=== PATIENT | female | born 1950 | race Caucasian/White ===

== ENCOUNTER → 2016-07-23 | Outpatient (CLI) | payer MEDICARE, OTHER ==
[2016-07-23 11:22] LABS: Basophils # (A) 0.1 k/uL (0-0.2); Basophils % (A) 1 %; CH 30.3; CHCM 32.7; Eosinophils # (A) 0.5 k/uL (0-0.7); Eosinophils % (A) 8 %; HCT 45.3 % (34.0-46.0); HGB 14.6 gm/dL (11.4-16.0); Luc # (Auto) 0.13; Luc % (Auto) 2; Lymphocytes # (A) 1.7 k/uL (1.0-4.8); Lymphocytes % (A) 30 %; MCHC 32.3 g/dL (31.0-37.0); Mean Platelet Volume 5.9; Monocytes # (A) 0.3 k/uL (0-1.0); Monocytes % (A) 5 %; Neutrophils # (A) 3.1 k/uL (1.3-7.7); Neutrophils % (A) 54 %; RBC 4.87 m/uL (3.80-5.40); RDW 12.1 % (11.5-15.5); WBC 5.8 k/uL (3.8-10.6); WBC (Perox) 5.98
[2016-07-23 11:39] LABS: ALT 29 U/L (9-52); AST 26 U/L (14-36); Alkaline Phosphatase 95 U/L (38-126); Anion Gap 11 mmol/L; Blood Urea Nitrogen 13 mg/dL (7-17); Calcium 9.4 mg/dL (8.4-10.2); Carbon Dioxide 31 mmol/L (22-30); Chloride 102 mmol/L (98-107); Cholesterol 179 mg/dL (<200); Glucose 89 mg/dL (74-99); HDL Cholesterol 92 mg/dL (40-60); Non-African American GFR(MDRD) >60 (>60 ml/min/1.73 sqM); Potassium 4.4 mmol/L (3.5-5.1); Sodium 144 mmol/L (137-145); Total Bilirubin 0.5 mg/dL (0.2-1.3); Total Protein 7.1 g/dL (6.3-8.2); Triglycerides 73 mg/dL (<150)
== END | disposition home or self-care (01) ==
LOC: LABWHC1 10:33
PROVIDERS: ATTEND Internal Medicine
DX: E78.5 Hyperlipidemia, unspecified (principal)
CPT/HCPCS: 36415; 80053; 80061; 84439; 84443; 85025

== ENCOUNTER → 2016-07-23 | Outpatient (CLI) | payer MEDICARE, OTHER ==
--- NOTE | 2016-07-24 09:51 | MM ---
Reason for exam: screening (asymptomatic). History: Patient is postmenopausal. Took estrogen for 2 years beginning at age 53. Physical Findings: A clinical breast exam by your physician is recommended on an annual basis and results should be correlated with mammographic findings. MG 3D Screening Mammo W/Cad Bilateral CC and MLO view(s) were taken. No prior studies available for comparison. The breast tissue is heterogeneously dense. This may lower the sensitivity of mammography. There is no discrete abnormality. ASSESSMENT: Benign, BI-RAD 2 RECOMMENDATION: Routine screening mammogram of both breasts in 1 year.
== END | disposition home or self-care (01) ==
LOC: RADMAMWWP 11:10
PROVIDERS: ATTEND Family Medicine
DX: Z12.31 Encounter for screening mammogram for malignant neoplasm of breast (principal)
CPT/HCPCS: 77063; G0202

== ENCOUNTER → 2017-01-07 | Outpatient (CLI) | payer MEDICARE, OTHER ==
--- NOTE | 2017-01-07 09:14 | MR ---
EXAMINATION TYPE: MR lumbar spine wo con DATE OF EXAM: 01/07/2017 COMPARISON: MRI lumbar spine 04-17-2005. HISTORY: other forms of scoliosis lsp intervertebral disc. Right leg weakness for 3 months per patie nt. TECHNIQUE: Multiplanar, multisequence imaging of the lumbar spine is performed without IV contrast. FINDINGS: Survey images shows scoliosis dextroconvex near thoracolumbar junction and levoconvex in th e mid to lower lumbar spine. Sagittal images of the lumbar spine show vertebral body heights to appea r satisfactory. There is straightening of lumbar spine on sagittal images redemonstrated. Multilevel disc desiccation is seen. There is moderate disc space narrowing L4-L5 level. There is mild to modera te disc space narrowing L3-L4 level. No large posterior disc herniations are seen on sagittal images. The conus medullaris remains normal in position and signal ending at inferior L1 level. The bone ma rrow signal intensity is within normal limits. No significant spurring is seen. Axial images show the T12-L1 and L1-L2 levels to appear within normal limits. Axial images at L2-L3 level show mild to moderate facet arthropathy and ligamentum flavum hypertrophy effacing posterior lateral thecal sac on axial image 18. Bilateral neural foramina remain patent. No significant change from prior study is identified. Axial images at L3-L4 level show mild broad disc bulge with left lateral disc protrusion component mi ldly effacing anterior thecal sac. There is mild/moderate facet degenerative changes and ligamentum f lavum hypertrophy. There is mild bilateral anterior inferior neural foraminal narrowing identified. Axial images at L4-L5 level show mild facet degenerative changes bilaterally. There is mild broad dis c bulge seen. There is mild effacement of anterior thecal sac noted. Mild right and mild to moderate left-sided neural foraminal narrowing is present. Axial images at L5-S1 level show mild/moderate facet degenerative changes bilaterally. Bilateral neur al foramina are patent. Spinal canal is preserved. There is moderate generalized atrophy of the posterior paraspinal muscle bilaterally most pronounced inferiorly. IMPRESSION: Scoliosis and loss of normal lumbar lordosis redemonstrated. Multilevel degenerative franco ges are seen in mid to lower lumbar spine as detailed above.
== END | disposition home or self-care (01) ==
LOC: RADMRIMAIN 07:47
PROVIDERS: ATTEND Physical Medicine & Rehabilitation
DX: M47.817 Spondylosis without myelopathy or radiculopathy, lumbosacral region (principal); M41.86 Other forms of scoliosis, lumbar region
CPT/HCPCS: 72148

== ENCOUNTER → 2017-02-28 | Outpatient (CLI) | payer MEDICARE, OTHER ==
[2017-02-28 07:09] LABS: Blood Urea Nitrogen 15 mg/dL (7-17); Non-African American GFR(MDRD) >60 (>60 ml/min/1.73 sqM)
--- NOTE | 2017-02-28 10:41 | MR ---
EXAMINATION TYPE: MR lumbar spine wo/w con DATE OF EXAM: 02/28/2017 COMPARISON: NONE HISTORY: Disc Degeneration,Lumbar Region TECHNIQUE: Multiplanar, multisequence images of the lumbar spine were acquired utilizing 9 mL intravenous MultiH ance gadolinium contrast. L1-L2: Normal disc appearance without desiccation. No herniation, protrusion or disc bulging. No ca nal stenosis is present. Foramina are patent bilaterally. L2-L3: Normal disc appearance without desiccation. No herniation, protrusion or disc bulging. Ligame ntum flavum buckling, left greater than right, creates mild spinal canal stenosis. Foramina are bhardwaj nt bilaterally. L3-L4: Left eccentric disc bulge in combination with ligamentum flavum buckling and facet arthropathy creating moderate left neural foraminal narrowing and mild right neural foraminal narrowing as well as mild spinal canal stenosis. L4-L5: A broad-based disc bulge, ligamentum flavum buckling, and facet hypertrophy great mild bilater al neural foraminal narrowing and mild spinal canal stenosis. L5-S1: Right foraminal disc protrusion in combination with facet arthropathy and ligamentum flavum bu ckling create severe right neural foraminal narrowing and mild left neural foraminal narrowing. Lumbar segments are intact. No paraspinal masses are identified. Conus medullaris has a normal appe arance. No abnormal enhancement. IMPRESSION: 1. Right foraminal disc herniation in combination with facet arthropathy creates severe right neural foraminal stenosis. 2. Multilevel degenerative disc disease and ligamentum flavum buckling resulting mild spinal canal st enosis from L2 through L5.
== END | disposition home or self-care (01) ==
LOC: RADMRIMAIN 06:39
PROVIDERS: ATTEND Physical Medicine & Rehabilitation
DX: M48.06 Spinal stenosis, lumbar region (principal); M99.73 Connective tissue and disc stenosis of intervertebral foramina of lumbar region; M51.36 Other intervertebral disc degeneration, lumbar region; M51.26 Other intervertebral disc displacement, lumbar region; M12.88 Other specific arthropathies, not elsewhere classified, other specified site; M70.62 Trochanteric bursitis, left hip
CPT/HCPCS: 82565; 84520; 72158; A9577

== ENCOUNTER → 2017-06-05 | Outpatient (CLI) | payer MEDICARE, OTHER ==
[2017-06-05 13:07] LABS: EKG EKG PERFORMED
[2017-06-05 13:48] LABS: Basophils # (A) 0.1 k/uL (0-0.2); Basophils % (A) 1 %; CH 30.5; CHCM 32.2; Eosinophils # (A) 0.2 k/uL (0-0.7); Eosinophils % (A) 3 %; HCT 43.7 % (34.0-46.0); HDW 2.55; HGB 14.1 gm/dL (11.4-16.0); Luc # (Auto) 0.11; Luc % (Auto) 2; Lymphocytes # (A) 1.7 k/uL (1.0-4.8); Lymphocytes % (A) 31 %; MCH 30.6 pg (25.0-35.0); MCHC 32.2 g/dL (31.0-37.0); MCV 95.1 fL (80.0-100.0); Mean Platelet Volume 6.8; Monocytes # (A) 0.3 k/uL (0-1.0); Monocytes % (A) 6 %; Neutrophils # (A) 3.2 k/uL (1.3-7.7); Neutrophils % (A) 58 %; RBC 4.59 m/uL (3.80-5.40); RDW 13.9 % (11.5-15.5); WBC 5.6 k/uL (3.8-10.6); WBC (Perox) 5.95
[2017-06-05 13:49] LABS: Appearance,Urine Clear (Clear); Bilirubin,Urine Negative (Negative); Glucose,Urine (UA) Negative (Negative); Ketones,Urine Negative (Negative); Leukocyte Esterase,Urine Negative (Negative); Nitrite,Urine Negative (Negative); Protein,Urine Negative (Negative); Specific Gravity,Urine 1.005 (1.001-1.035); UA Billing (MACRO vs. MICRO) CHEM; Urobilinogen,Urine <2.0 mg/dL (<2.0)
--- NOTE | 2017-06-05 13:54 | XR ---
EXAMINATION TYPE: XR chest 2V DATE OF EXAM: 06/05/2017 COMPARISON: 04/09/2017 and 04/23/2017. HISTORY: Prehip fusion surgery. History of stent. TECHNIQUE: Frontal and lateral views of the chest are obtained. FINDINGS: There is no focal air space opacity, pleural effusion, or pneumothorax seen. Stent appears to be located within the bronchus intermedius, seen on the priors. Redemonstration of marked dextros coliotic rotatory curvature of the thoracic spine is present with partial visualization of a cervical fusion device. Surgical anchor is seen of the left humeral head from prior rotator cuff repair. The cardiac silhouette size is within normal limits. The osseous structures are intact. IMPRESSION: No acute cardiopulmonary process.
[2017-06-05 14:13] LABS: Partial Thromboplastin Time 23.2 sec (22.0-30.0); Prothrombin Time 10.3 sec (9.0-12.0)
[2017-06-05 14:16] LABS: Anion Gap 7 mmol/L; Blood Urea Nitrogen 9 mg/dL (7-17); Calcium 9.6 mg/dL (8.4-10.2); Carbon Dioxide 27 mmol/L (22-30); Chloride 105 mmol/L (98-107); Glucose 80 mg/dL (74-99); Non-African American GFR(MDRD) >60 (>60 ml/min/1.73 sqM); Potassium 4.4 mmol/L (3.5-5.1); Sodium 139 mmol/L (137-145)
== END | disposition home or self-care (01) ==
LOC: LABPAT 12:38
PROVIDERS: ATTEND Orthopaedic Surgery Orthopaedic Surgery of the Spine
DX: Z01.810 Encounter for preprocedural cardiovascular examination (principal); M43.16 Spondylolisthesis, lumbar region; M41.9 Scoliosis, unspecified; M48.00 Spinal stenosis, site unspecified; R94.31 Abnormal electrocardiogram [ECG] [EKG]; Z01.818 Encounter for other preprocedural examination; Z79.01 Long term (current) use of anticoagulants
CPT/HCPCS: 36415; 71020; 80048; 81003; 85025; 85610; 85730; 93005

== ENCOUNTER → 2017-06-07 | Outpatient (CLI) | payer MEDICARE, OTHER | LOC: LABWHC1 08:22 | PROVIDERS: ATTEND Orthopaedic Surgery Orthopaedic Surgery of the Spine | DX: Z01.818 Encounter for other preprocedural examination (principal); Z79.01 Long term (current) use of anticoagulants | CPT/HCPCS: 86850; 86900; 86901 ==

== ENCOUNTER → 2017-08-08 | Outpatient (CLI) | payer MEDICARE, OTHER ==
[2017-08-08 11:53] LABS: MCV 92.6 fL (80.0-100.0)
[2017-08-08 12:00] LABS: Basophils # (A) 0.1 k/uL (0-0.2); Basophils % (A) 1 %; Eosinophils # (A) 0.4 k/uL (0-0.7); Eosinophils % (A) 7 %; HCT 41.5 % (34.0-46.0); Lymphocytes # (A) 1.9 k/uL (1.0-4.8); Lymphocytes % (A) 30 %; MCH 29.5 pg (25.0-35.0); MCHC 31.9 g/dL (31.0-37.0); Mean Platelet Volume 7.1; Monocytes # (A) 0.3 k/uL (0-1.0); Monocytes % (A) 4 %; Neutrophils # (A) 3.4 k/uL (1.3-7.7); Neutrophils % (A) 56 %; Platelet Count 252 k/uL (150-450); RBC 4.49 m/uL (3.80-5.40); WBC 6.2 k/uL (3.8-10.6)
[2017-08-08 12:04] LABS: HGB 13.3 gm/dL (11.4-16.0)
[2017-08-08 13:26] LABS: Erythrocyte Sedimentation Rate 11 mm/hr (0-20)
== END | disposition home or self-care (01) ==
LOC: LABWHC1 11:39
PROVIDERS: ATTEND Orthopaedic Surgery
DX: M25.562 Pain in left knee (principal)
CPT/HCPCS: 36415; 85025; 85652; 86140

== ENCOUNTER → 2017-08-14 | Outpatient (CLI) | payer MEDICARE, OTHER ==
--- NOTE | 2017-08-15 11:54 | NM ---
EXAMINATION TYPE: NM bone/joint limited DATE OF EXAM: 08/15/2017 COMPARISON: NONE HISTORY: Left knee pain per order. Personal history of traumatic left femoral fracture 2015 with surg tang and left knee arthroplasty surgery 2013. Left knee pain and swelling for years per patient. TECHNIQUE: After the intravenous administration of 25.9 mCi Tc 99m MDP. Images acquired 3 hours pos t injection. Multiple views of bilateral knees are submitted in various projections. Findings: There is central lucency in left knee from known prosthesis. Surrounding mild to moderate p eriprosthetic uptake is present with relative sparing of the proximal tibial portion. Mild diffuse up take at level of right knee joint with varus positioning is present product of moderate to advanced d egenerative change. Left knee findings are nonspecific. Findings could be postsurgical. In appropriate clinical setting d iffuse uptake could reflect product of infection. Correlate clinically and consider correlation with tagged white blood cell study. IMPRESSION: As above
== END | disposition home or self-care (01) ==
LOC: RADNMMAIN 10:09
PROVIDERS: ATTEND Orthopaedic Surgery
DX: M25.562 Pain in left knee (principal); Z96.652 Presence of left artificial knee joint; Z87.81 Personal history of (healed) traumatic fracture
CPT/HCPCS: 78300; A9503

== ENCOUNTER → 2018-05-04 | Outpatient (CLI) | payer MEDICARE, OTHER ==
[2018-05-04 11:04] LABS: Basophils # (A) 0.1 k/uL (0-0.2); Basophils % (A) 1 %; Eosinophils # (A) 0.2 k/uL (0-0.7); Eosinophils % (A) 3 %; HCT 41.3 % (34.0-46.0); HGB 13.6 gm/dL (11.4-16.0); Lymphocytes # (A) 1.4 k/uL (1.0-4.8); Lymphocytes % (A) 18 %; MCV 93.8 fL (80.0-100.0); Mean Platelet Volume 6.3; Monocytes # (A) 0.4 k/uL (0-1.0); Monocytes % (A) 5 %; Neutrophils # (A) 5.4 k/uL (1.3-7.7); Neutrophils % (A) 72 %; Platelet Count 256 k/uL (150-450); RDW 12.2 % (11.5-15.5); WBC 7.5 k/uL (3.8-10.6)
[2018-05-04 11:29] LABS: T4, Free (Free Thyroxine) 1.16 ng/dL (0.78-2.19)
[2018-05-04 11:31] LABS: Albumin 3.8 g/dL (3.5-5.0); Calcium 9.5 mg/dL (8.4-10.2); Potassium 4.4 mmol/L (3.5-5.1); Total Bilirubin 0.4 mg/dL (0.2-1.3); Total Protein 6.7 g/dL (6.3-8.2)
== END | disposition home or self-care (01) ==
LOC: LABT 10:10
PROVIDERS: ATTEND Internal Medicine
DX: Z00.00 Encounter for general adult medical examination without abnormal findings (principal); E78.5 Hyperlipidemia, unspecified; J45.20 Mild intermittent asthma, uncomplicated; M41.9 Scoliosis, unspecified; J98.09 Other diseases of bronchus, not elsewhere classified
CPT/HCPCS: 80053; 80061; 84439; 84443; 85025

== ENCOUNTER → 2018-10-22 | Outpatient (CLI) | payer MEDICARE, OTHER ==
--- NOTE | 2018-10-22 18:52 | ECHOF ---
Referral Reason:R06.00, Dyspnea, R09.02 Hypoxemia MEASUREMENTS -------- HEIGHT: 157.5 cm WEIGHT: 46.7 kg BP: RVIDd: 1.8 cm (< 3.3) IVSd: 0.9 cm (0.6 - 1.1) LVIDd: 3.8 cm (3.9 - 5.3) LVPWd: 1.0 cm (0.6 - 1.1) IVSs: 1.1 cm LVIDs: 3.0 cm LVPWs: 1.3 cm LAESV Index (A-L): 15.27 ml/m Ao Diam: 2.5 cm (2.0 - 3.7) AV Cusp: 1.6 cm (1.5 - 2.6) LA Diam: 2.1 cm (2.7 - 3.8) EPSS: 1.1 cm MV E Pato: 0.50 m/s MV DecT: 160 ms MV A Pato: 0.62 m/s MV E/A Ratio: 0.81 RAP: 5.00 mmHg RVSP: 24.86 mmHg MV EF SLOPE: 108.21 mm/s (70 - 150) MV EXCURSION: 2.05 cm (> 18.000) FINDINGS -------- Sinus rhythm. This was a technically adequate study. The left ventricular size is normal. Left ventricular wall thickness is normal. Overall left vent ricular systolic function is low-normal with, an EF between 50 - 55 %. The right ventricle is normal in size and function. Normal LA size by volume 22+/-6 ml/m2. The right atrium is normal in size. Aortic valve is trileaflet and is mildly thickened. There is no evidence of aortic regurgitation. There is no evidence of aortic stenosis. The mitral valve leaflets are mildly thickened. There is trace mitral regurgitation. Trace tricuspid regurgitation present. Right ventricular systolic pressure is normal at < 35 mmHg. There is no evidence of pulmonary hypertension. The pulmonic valve was not well visualized. The aortic root size is normal. Normal inferior vena cava with normal inspiratory collapse consistent with estimated right atrial pre ssure of 5 mmHg. There is no pericardial effusion. CONCLUSIONS -------- 1. Sinus rhythm. 2. This was a technically adequate study. 3. The left ventricular size is normal. 4. Left ventricular wall thickness is normal. 5. Overall left ventricular systolic function is low-normal with, an EF between 50 - 55 %. 6. Normal LA size by volume 22+/-6 ml/m2. 7. Aortic valve is trileaflet and is mildly thickened. 8. The mitral valve leaflets are mildly thickened. 9. There is trace mitral regurgitation. 10. Trace tricuspid regurgitation present. 11. Right ventricular systolic pressure is normal at < 35 mmHg. 12. There is no evidence of pulmonary hypertension. 13. The pulmonic valve was not well visualized. 14. The aortic root size is normal. 15. There is no pericardial effusion. CAMP DISHWASHER: Michael Higgins RDCS
== END | disposition home or self-care (01) ==
LOC: RADECHMAIN 13:07
PROVIDERS: ATTEND Family Medicine
DX: R93.1 Abnormal findings on diagnostic imaging of heart and coronary circulation (principal); R06.00 Dyspnea, unspecified; R09.02 Hypoxemia
CPT/HCPCS: 93306

== ENCOUNTER → 2019-04-06 | Outpatient (CLI) | payer MEDICARE, OTHER ==
--- NOTE | 2019-04-06 21:03 | CONS ---
CONSULTATION This is a 69-year-old female patient with severe kyphoscoliosis of the thoracic spine with secondary restrictive lung disease. She was recently found to have some nocturnal oxygen desaturation with low pulse ox, based on a nocturnal oximetry analysis that was done through her primary care physician. For that reason, she was referred to the sleep center to undergo further investigation. The patient has a room-air pulse ox of 95% at rest. She weighs around 101 pounds. She is a lifetime non-smoker. No history of alcoholism. No history of IV drugs. She has restrictive lung disease and she has had previous right lower lobe atelectasis due to severe kyphoscoliosis and she had an endobronchial stent placed many years back. She has hyperlipidemia and history of chronic depression. She does not take any form of narcotics. She is on a combination of Neurontin and Effexor for now. Denies snoring. She wakes up tired during the day and she feels tired and sleepy. She goes to bed around 10 p.m., wakes up at 4 a.m. in the morning. No reported witnessed apneas. Denies waking up in the middle of the night gasping or choking. Her current Sar[place] score is 22. She sleeps on her back. She drinks 4 cups of coffee during the day. No recent weight gain. No sleep paralysis, hallucinations or cataplexy. PAST MEDICAL HISTORY: 1. Severe kyphoscoliosis of the thoracic spine. 2. Restrictive lung disease. 3. Hyperlipidemia. 4. History of chronic depression. PAST SURGICAL HISTORY: 1. Multiple back surgeries on the thoracic and the lumbar spine. Thoracic spine was done to correct the kyphoscoliosis. 2. She has also had lumbar spine fusion. 3. Trigger finger surgery. 4. Left total knee replacement. 5. Small-bowel obstruction with lysis of adhesions. 6. Rotator cuff surgery on both shoulders. 7. Cervical spine fusion. 8. Insertion of endobronchial stenting in 1997. 9. Previous history of hysterectomy. DRUG ALLERGIES: 1. IV DYE. 2. MARCAINE. 3. BACTRIM/SULFA. SOCIAL HISTORY: The patient is a nonsmoker. No history of alcoholism. No history of IV drugs. FAMILY HISTORY: Positive for lung cancer in mother and father. Both . REVIEW OF SYSTEMS: Fourteen-point review of systems was done. Positive for fatigue and tiredness. Sar[place]ota score is 22. She has history of anxiety and depression. She is also claustrophobic. No choking or gasping for air. No restlessness in the lower extremities. No sleepwalking or sleeptalking. No grinding of the teeth. No dry mouth. No palpitation. No heartburn. No chest pain or shortness of breath. She has some chronic exertional dyspnea, yet no shortness of breath or waking up dyspneic in the middle of the night or any reported paroxysmal nocturnal dyspnea. No cough or sputum production. No chest pain. PHYSICAL EXAMINATION: VITAL SIGNS: BP is 116/65, pulse 82, respirations 16, temperature 97.9, saturation 95% on room air. Height is 5 feet 1 inch. Weight is 101 pounds. Sarasota score is 22. BMI is 18.7. Neck size 12 inches. GENERAL APPEARANCE: Calm, comfortable. HEAD: Atraumatic, normocephalic. NECK: Supple. No JVD. No goiter or neck masses. Mallampati class III. LUNGS: Severe kyphoscoliosis of the spine involving the thoracolumbar area. The patient has significant deformities of the thoracic cage related to the kyphoscoliosis and diminished breath sounds in the mid and lower lung pagan bilaterally. HEART: Heart sounds are regular rate and rhythm. Normal S1, S2. No S3, S4. No murmurs. ABDOMEN: Soft, nontender. No organomegaly. EXTREMITIES: No edema. No cyanosis or clubbing. NEUROLOGIC: She is awake, alert, and there is no focal neurological deficit. PSYCHIATRIC: Positive for anxiety, claustrophobia and depression. SKIN: Negative for any wounds or ulceration. IMPRESSION: 1. Nocturnal oxygen desaturation as confirmed by recent nocturnal oximeter analysis. 2. Severe kyphoscoliosis of the thoracolumbar spine. 3. Restrictive lung disease secondary to kyphoscoliosis. 4. Chronic exertional dyspnea secondary to above. 5. Hyperlipidemia. 6. History of depression. 7. History of claustrophobia. PLAN: The patient's nocturnal oxygen desaturation is most likely resulting from underlying restrictive lung disease, and this is an extrapulmonary restriction due to severe kyphoscoliosis of the spine. While awake, her room-air pulse ox is 95%. I am sure that she is desaturating at night time; this has been confirmed by nocturnal oxygen analysis. This is most likely alveolar hyp ventilation that has gotten worse during sleep, especially with her underlying extrapulmonary restriction. Her Sar[place] score is 22. Rule out underlying sleep breathing disorder. Will do a polysomnogram to rule out other possibilities. Will decide accordingly if the patient will be needing only oxygen versus a respiratory assistive device that can be used overnight such as an AVAPS machine. A final recommendation will be made after completing the polysomnogram. MMROCIO / IJN: [id number] /
== END | disposition home or self-care (01) ==
LOC: SLEEP 14:52
PROVIDERS: ATTEND Internal Medicine Critical Care Medicine
DX: R09.02 Hypoxemia (principal); R06.09 Other forms of dyspnea; M41.85 Other forms of scoliosis, thoracolumbar region; J98.4 Other disorders of lung; E78.5 Hyperlipidemia, unspecified; Z86.59 Personal history of other mental and behavioral disorders; Z87.898 Personal history of other specified conditions; Z98.1 Arthrodesis status; Z96.652 Presence of left artificial knee joint; Z90.710 Acquired absence of both cervix and uterus; Z96.89 Presence of other specified functional implants; Z98.890 Other specified postprocedural states; Z88.2 Allergy status to sulfonamides; Z88.4 Allergy status to anesthetic agent
CPT/HCPCS: 99211

== ENCOUNTER → 2019-07-06 | Outpatient (CLI) | payer MEDICARE, OTHER ==
--- NOTE | 2019-07-06 18:40 | PN ---
PROGRESS NOTE Tyra is coming in for a compliancy check regarding obstructive sleep apnea. This patient is 69, and she has severe kyphoscoliosis of the thoracolumbar spine and restrictive lung disease. In addition to obstructive sleep apnea with an AHI of 33.7. She is utilizing her CPAP and she is very much excited about a clinical response. Feels much better. Much more alert and awake during the day. She was started on CPAP pressure of 7 cm of water. She is using a DreamWear under the nose. She is requesting to explore other mask options. Based on the compliance data, the patient has been averaging around 8.5 hours of CPAP use per night with a leak of 6 L per minute. AHI is down to 2.2 while on treatment. Her CPAP use for more than 4 hours is above 80%. For the most part, the patient has done extremely well and she has no specific complaints for now. REVIEW OF SYSTEMS: Fourteen-point review of system was done. Positive findings are mentioned history of present illness. Chatsworth score is down to 10. No shortness of breath, chest pain or heartburn while on CPAP therapy. PHYSICAL EXAMINATION: VITAL SIGNS: BP is 134/69, pulse 76, respirations 16, weight is 101. Temperature 97.7. Chatsworth score is down to 10 and saturation 96% on room air. GENERAL APPEARANCE: Calm, comfortable. Head is atraumatic, normocephalic. NECK: Supple. No JVD. No goiter or neck mass. LUNGS: Clear to auscultation. HEART: Sounds are regular rate and rhythm. Normal S1, S2. No S3, S4. No murmurs. ABDOMEN: Soft, nontender. No organomegaly. EXTREMITIES: No edema. No cyanosis or clubbing. IMPRESSION: 1. Symptomatic obstructive sleep apnea AHI of 33, currently on CPAP pressure of 7 with excellent response and compliancy. 2. Severe kyphoscoliosis of the thoracolumbar spine. 3. Severe nocturnal oxygen desaturation improved with CPAP therapy. 4. Restrictive lung disease secondary to kyphoscoliosis. 5. Hyperlipidemia. 6. History of depression. PLAN: 1. Proceed with CPAP therapy at a pressure of 77. 2. Offer the patient an AirFit N20 nose mask small size for her. 3. The compliance data looks great. The patient doing well. See me back in a year's time in followup, earlier if needed. MMODL / IJN: [id number] /
== END | disposition home or self-care (01) ==
LOC: SLEEP 16:22
PROVIDERS: ATTEND Internal Medicine Critical Care Medicine
DX: G47.33 Obstructive sleep apnea (adult) (pediatric) (principal); M41.85 Other forms of scoliosis, thoracolumbar region; J98.4 Other disorders of lung; E78.5 Hyperlipidemia, unspecified; Z86.59 Personal history of other mental and behavioral disorders; Z99.89 Dependence on other enabling machines and devices

== ENCOUNTER → 2019-07-12 | Outpatient (CLI) | payer MEDICARE, OTHER ==
[2019-07-12 09:42] LABS: Basophils % (A) 0 %; Eosinophils # (A) 0.1 k/uL (0-0.7); Eosinophils % (A) 4 %; HCT 38.8 % (34.0-46.0); HGB 12.5 gm/dL (11.4-16.0); Lymphocytes # (A) 1.1 k/uL (1.0-4.8); Lymphocytes % (A) 27 %; MCH 30.2 pg (25.0-35.0); MCHC 32.1 g/dL (31.0-37.0); MCV 94.1 fL (80.0-100.0); Mean Platelet Volume 6.7; Monocytes # (A) 0.2 k/uL (0-1.0); Monocytes % (A) 6 %; Neutrophils # (A) 2.4 k/uL (1.3-7.7); Neutrophils % (A) 61 %; Platelet Count 214 k/uL (150-450); RBC 4.13 m/uL (3.80-5.40); RDW 11.9 % (11.5-15.5)
[2019-07-12 17:02] LABS: Albumin/Globulin Ratio 2.35 (1.60-3.17); Anion Gap 5.1 mmol/L (4.00-12.00); BUN/Creat Ratio 17.5 Ratio (12.00-20.00); Calcium 8.9 mg/dL (8.7-10.3); Carbon Dioxide 29.9 mmol/L (21.6-31.8); Chol/HDL Ratio 1.99; Globulin 1.7 g/dL (1.6-3.3); LDL Cholesterol,Calculated 53.6 mg/dL (0.0-131.0); Non-African American GFR(CKD) 74.2 (60.0-200.0); Potassium 4.4 mmol/L (3.5-5.5); Total Bilirubin 0.2 mg/dL (0.2-1.2); Total Protein 5.7 g/dL (6.2-8.2); VLDL Calculation 16.4 mg/dL (5.00-40.00)
== END | disposition home or self-care (01) ==
LOC: LABWHC1 08:57
PROVIDERS: ATTEND Internal Medicine
DX: Z00.00 Encounter for general adult medical examination without abnormal findings (principal); E78.5 Hyperlipidemia, unspecified
CPT/HCPCS: 36415; 80053; 80061; 84439; 84443; 85025

== ENCOUNTER → 2019-08-10 | Outpatient (CLI) | payer MEDICARE, OTHER ==
--- NOTE | 2019-08-10 18:20 | PN ---
PROGRESS NOTE Tyra is coming in for a short-term re-evaluation regarding obstructive sleep apnea. I saw her for a compliance check back in June of 2019, and treatment was successful. Since then, her numbers have gotten slightly worse. The exact reason is not clear. She is having social stressors and conflicts with her that are making her quite tired and sleepy during the day. I also noted a drop in her compliancy, where her average CPAP use has dropped to 6.6 hours per night, and her CPAP use for more than 4 hours is 19/30 over the past 30 days. She used to be way better than this. Her leak is 5 L/minute and her AHI is down to 2.2. I think her increased sleepiness is essentially related to her drop in compliancy as recorded on the compliance data on today's evaluation. Her current Ketchum score is 18. No significant shortness of breath or chest pain, according to her. She has severe kyphoscoliosis of the thoracic spine along with restrictive lung disease and she has chronic depression. PHYSICAL EXAMINATION: VITAL SIGNS: BP is 132/76, pulse 82, respirations 16, temperature 97.7, saturation 96% on room air. GENERAL APPEARANCE: Calm, comfortable. HEAD: Atraumatic, normocephalic. NECK: Supple. No JVD. No goiter or neck masses. LUNGS: Thoracic kyphoscoliosis. HEART: Heart sounds are regular rate and rhythm. Normal S1, S2. No S3, S4. No murmurs. ABDOMEN: Soft, nontender. No organomegaly. EXTREMITIES: No edema. No cyanosis or clubbing. IMPRESSION: 1. Obstructive sleep apnea, severe, with apnea/hypopnea index of 33. 2. Severe kyphoscoliosis. 3. Hypersomnia, probably related to suboptimal CPAP use. 4. Severe nocturnal oxygen desaturation, improved with CPAP therapy. 5. Restrictive lung disease secondary to kyphoscoliosis. 6. Hyperlipidemia. 7. History of depression. PLAN: I think the patient's increased fatigue and sleepiness are related to depression and partly related to suboptimal compliance with her CPAP therapy. Increase the CPAP use an average of 7-8 hours per night and try to achieve more than 4 hours 100% of the time. AHI is down to 2.2. Machine was checked. Mask interface was checked. Treatment is successful. Follow up with Dr. Young regarding shortness of breath. May need further counseling for possibility of depression. MMODL / IJN: [id number] /
== END | disposition home or self-care (01) ==
LOC: SLEEP 15:01
PROVIDERS: ATTEND Internal Medicine Critical Care Medicine
DX: G47.33 Obstructive sleep apnea (adult) (pediatric) (principal); M41.9 Scoliosis, unspecified; J98.4 Other disorders of lung; E78.5 Hyperlipidemia, unspecified; Z86.59 Personal history of other mental and behavioral disorders

== ENCOUNTER → 2020-07-04 | Outpatient (CLI) | payer MEDICARE, OTHER ==
--- NOTE | 2020-07-04 20:32 | PN ---
PROGRESS NOTE PROGRESS NOTE: This patient is coming to see me for an annual check regarding FEDERICO. She is 70, known to have chronic depression along with severe COPD with an AHI of 33. During her earlier evaluation, she was still having somnolence and sleepiness despite being on CPAP. The patient was also started on modafinil. She is doing well. She is utilizing her machine at a pressure of 7 cm of water. She has been averaging about 8 hours of CPAP use per night. Her compliancy for more than 4 hours is above 90%. Leak is 6 L while using the AirFit N20 small-sized nose mask, and the patient's AHI while on treatment is down to 0.8. Weight has been stable. No interval weight loss. No chest pain. No headache. No cough or sputum production. No chest tightness or wheezing. No new-onset cardiac disease or disorder at this point in time. PHYSICAL EXAMINATION: BP is 130/79, pulse 82, respirations 16, temperature 97.1. Saturation is 97% on room air. Weight is 102, height is 5 feet 1 inch. BMI is 18.9. GENERAL APPEARANCE: Calm, comfortable. HEAD: Atraumatic, normocephalic. NECK: Supple. No JVD. No goiter or neck masses. LUNGS: Diminished; otherwise clear. HEART: Heart sounds are regular rate and rhythm. Normal S1, S2. No S3, S4. No murmurs. ABDOMEN: Soft, nontender. No organomegaly. EXTREMITIES: No edema. No cyanosis or clubbing. NEUROLOGIC: Awake and alert. There is no focal neurological deficit. IMPRESSION: 1. Symptomatic FEDERICO with an AHI of 33, currently on CPAP pressure of 7 cm of water with adequate clinical response and compliancy. 2. Residual hypersomnia despite being on CPAP, currently on modafinil. 3. History of depression, on Effexor. 4. Hyperlipidemia, on Zocor. 5. Chronic obstructive pulmonary disease. PLAN: 1. Keep CPAP pressure at the same level of pressure at 7 cm of water. 2. Renew her mask, which is an AirFit N20 nose mask. 3. Encourage maintaining good sleep hygiene measures. 4. Provigil to be utilized for residual daytime hypersomnolence despite being on CPAP therapy. 5. See me back in the office in a few years' time in followup, earlier if needed. Her treatment is successful for now. MMODL / IJN: [id number] /
== END | disposition home or self-care (01) ==
LOC: SLEEP 14:32
PROVIDERS: ATTEND Internal Medicine Critical Care Medicine
DX: G47.33 Obstructive sleep apnea (adult) (pediatric) (principal); E78.5 Hyperlipidemia, unspecified; J44.9 Chronic obstructive pulmonary disease, unspecified; Z86.59 Personal history of other mental and behavioral disorders; Z79.899 Other long term (current) drug therapy; Z99.89 Dependence on other enabling machines and devices

== ENCOUNTER 2020-10-24 20:10 | Emergency (ER) | payer MEDICARE, OTHER ==
--- NOTE | 2020-10-24 21:44 | ED ---
General Adult HPI - General Source: patient Mode of arrival: wheelchair Limitations: no limitations <Dung Hess - Last Filed: 10/24/20 21:44> - History of Present Illness -: hour(s) Location: head, pelvis, left, lower extremity Radiation: non-radiation Severity scale (1-10): 4 Quality: aching Consistency: constant Worsens with: none Associated Symptoms: denies other symptoms Treatments Prior to Arrival: none <Kranthi Segura - Last Filed: 10/25/20 04:16> - General Stated complaint: Fall - History of Present Illness Initial comments: 70-year-old female presents emergency Department with a chief complaint of a fall. This was a mechanical called and occurred earlier today from a standing position. Patient reports pain in the right hip for which she is scheduled to have an MRI from a previous fall. She also reports a headache injury but no loss of consciousness. Denies any blood thinners. Patient was offered a c- collar in triage cortes, she declined. (Dung Hess) 70 female status post fall mechanical trip and fall with no headache chest pain shortness of breath or abdominal pain. Patient does appear to hit her left hip complaining of left hip pain. Patient is able to ambulate. (Kranthi Segura) - Related Data Home Medications Medication Instructions Recorded Confirmed Escitalopram [Lexapro] 20 mg PO QAM 04/09/17 06/18/17 Simvastatin [Zocor] 20 mg PO HS 04/09/17 06/18/17 Gabapentin [Neurontin] 300 mg PO TID 04/10/17 06/18/17 Ipratropium-Albuterol Nebulize 3 ml INHALATION RT-QID PRN 06/11/17 06/18/17 [Duoneb 0.5 mg-3 mg/3 ml Soln] oxyCODONE-APAP 5-325MG [Percocet 1 tab PO Q6HR PRN 06/18/17 06/18/17 5-325 mg] Allergies Allergy/AdvReac Type Severity Reaction Status Date / Time latex Allergy Severe Rash/Hives Verified 10/24/20 21:42 bupivacaine [From Marcaine] Allergy Anaphylaxis Verified 10/24/20 21:42 Iodinated Contrast Media Allergy Anaphylaxis Verified 10/24/20 21:42 [Iodinated Contrast- Oral and IV Dye] Sulfa (Sulfonamide Allergy Anaphylaxis Verified 10/24/20 21:42 Antibiotics) sulfamethoxazole Allergy Anaphylaxis Verified 10/24/20 21:42 [From Bactrim] trimethoprim [From Bactrim] Allergy Anaphylaxis Verified 10/24/20 21:42 Review of Systems ROS Other: All systems not noted in ROS Statement are negative. <Dung Hess - Last Filed: 10/24/20 21:44> ROS Other: All systems not noted in ROS Statement are negative. <Kranthi Segura - Last Filed: 10/25/20 04:16> ROS Statement: Those systems with pertinent positive or pertinent negative responses have been documented in the HPI. 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, L5 disc disease with secondary chronic back pain, mild intermittent bronchial asthma, hyperlipidemia, anxiety/depression History of Any Multi-Drug Resistant Organisms: None Reported Past Surgical History: Cholecystectomy, Hysterectomy, Joint Replacement, Orthopedic Surgery Additional Past Surgical History / Comment(s): lt knee,lt shoulder, cervical spine fusion Past Anesthesia/Blood Transfusion Reactions: No Reported Reaction Additional Past Anesthesia/Blood Transfusion Reaction / Comment(s): 196 pt had blood transfusion- states no reaction Past Psychological History: Anxiety, Depression Smoking Status: Never smoker Past Alcohol Use History: None Reported Past Drug Use History: None Reported - Past Family History Father Family Medical History: Cancer Additional Family Medical History / Comment(s): lung cancer Mother Family Medical History: Cancer, Dementia Additional Family Medical History / Comment(s): leukemia <Dung Hess - Last Filed: 10/24/20 21:44> General Exam Limitations: no limitations Extremities exam: Present: normal inspection, tenderness (Right hip tenderness), normal capillary refill, other (Palpable DP and PT right lower extremity. Sensation intact in the right lower extremity.). Absent: full ROM (Limit her range of motion of the right hip), pedal edema, joint swelling, calf tenderness <Dung Hess - Last Filed: 10/24/20 21:44> General appearance: alert, in no apparent distress Head exam: Present: atraumatic, normocephalic, normal inspection Eye exam: Present: normal appearance, PERRL, EOMI. Absent: scleral icterus, conjunctival injection, periorbital swelling ENT exam: Present: normal exam, mucous membranes moist Neck exam: Present: normal inspection. Absent: tenderness, meningismus, lymphadenopathy Respiratory exam: Present: normal lung sounds bilaterally. Absent: respiratory distress, wheezes, rales, rhonchi, stridor Cardiovascular Exam: Present: regular rate, normal rhythm, normal heart sounds. Absent: systolic murmur, diastolic murmur, rubs, gallop, clicks GI/Abdominal exam: Present: soft, normal bowel sounds. Absent: distended, tenderness, guarding, rebound, rigid Extremities exam: Present: normal inspection, full ROM, normal capillary refill. Absent: tenderness, pedal edema, joint swelling, calf tenderness Back exam: Present: normal inspection Neurological exam: Present: alert, oriented X3, CN II-XII intact Psychiatric exam: Present: normal affect, normal mood Skin exam: Present: warm, dry, intact, normal color. Absent: rash <Kranthi Segrua - Last Filed: 10/25/20 04:16> Course <Kranthi Segura - Last Filed: 10/25/20 04:16> Vital Signs 10/24/20 10/25/20 21:39 00:23 Temperature 98.0 F 98.5 F Pulse Rate 81 78 Respiratory 20 18 Rate Blood Pressure 143/78 127/81 O2 Sat by Pulse 99 98 Oximetry - Reevaluation(s) Reevaluation #1: Medical record is reviewed Patient symptoms are significantly improved Patient informed results and questions have been answered (Kranthi Segura) Medical Decision Making - Radiology Data Radiology results: report reviewed (CT brain C-spine x-ray left hip negative for traumatic injury), image reviewed <Kranthi Segura - Last Filed: 10/25/20 04:16> - Medical Decision Making 70 female status post trip and fall with no traumatic injury noted. Patient can be discharged home (Kranthi Segura) Disposition <Dung Hess - Last Filed: 10/24/20 21:44> Is patient prescribed a controlled substance at d/c from ED?: No <Kranthi Segura - Last Filed: 10/25/20 04:16> Clinical Impression: Fall Disposition: HOME SELF-CARE Condition: Good Instructions (If sedation given, give patient instructions): Fall Prevention for Older Adults (ED) Referrals: Evelia Zavala MD [STAFF PHYSICIAN] - 1-2 days
--- NOTE | 2020-10-24 22:20 | XR ---
EXAMINATION TYPE: XR Hip Complete RT DATE OF EXAM: 10/24/2020 COMPARISON: NONE HISTORY: Hip pain. Fall. TECHNIQUE: 2 views FINDINGS: I see no fracture nor dislocation. Proximal femur is intact. There is no hip dysplasia. IMPRESSION: Negative right hip exam. No fracture.
--- NOTE | 2020-10-24 22:33 | CT ---
EXAMINATION TYPE: CT brain rory andrew con DATE OF EXAM: 10/24/2020 COMPARISON: None HISTORY: Fall. CT DLP: 1242.6 mGycm Automated exposure control for dose reduction was used. Images were obtained of the brain and cervical spine without contrast. There is cerebral mild cortical atrophy. There is no mass effect nor midline shift. There is no sign of intracranial hemorrhage. Calvarium is intact. The skull base is intact. There is normal aeration o f the mastoid sinuses. There is multilevel anterior fusion surgery from C4 to C7. There is straightening of the cervical spi ne. There is no compression fracture. There is no subluxation. I see no bony destructive process. The re is pleural thickening and some infiltrate at the lung apices. IMPRESSION: Cerebral atrophy. No acute intracranial abnormality. Multilevel cervical spine fusion surgery. Mild degenerative spur formation. No fracture seen.
[2020-10-25 00:26] VITALS: BP 127/81; PULSE 78; RESP 18; TEMP 98.5
== END 2020-10-25 00:26 | disposition home or self-care (01) ==
LOC: EC 20:10
DX: M25.551 Pain in right hip (principal); M25.552 Pain in left hip; E78.5 Hyperlipidemia, unspecified; J45.909 Unspecified asthma, uncomplicated; F32.9 Major depressive disorder, single episode, unspecified; F41.9 Anxiety disorder, unspecified; W01.0XXA Fall on same level from slipping, tripping and stumbling without subsequent striking against object, initial encounter
CPT/HCPCS: 70450; 72125; 73502; 99284

== ENCOUNTER → 2020-11-01 | Outpatient (CLI) | payer MEDICARE, OTHER ==
--- NOTE | 2020-11-01 13:16 | US ---
EXAMINATION TYPE: US carotid duplex BILAT DATE OF EXAM: 11/01/2020 COMPARISON: CT Brain CLINICAL HISTORY: R42. Dizziness and giddiness. Dizziness with positional changes pe patient EXAM MEASUREMENTS: RIGHT: Peak Systolic Velocity (PSV) cm/sec ----- Right CCA: 48.8 ----- Right ICA: 78.2 ----- Right ECA: 77.5 ICA/CCA ratio: 1.6 RIGHT: End Diastole cm/sec ----- Right CCA: 11.1 ----- Right ICA: 27.6 ----- Right ECA: 11.4 LEFT: Peak Systolic Velocity (PSV) cm/sec ----- Left CCA: 52.0 ----- Left ICA: 66.0 ----- Left ECA: 72.9 ICA/CCA ratio: 1.3 LEFT: End Diastole cm/sec ----- Left CCA: 0.0 ----- Left ICA: 19.7 ----- Left ECA: 10.1 VERTEBRALS (direction of flow): Right Vertebral: Antegrade Left Vertebral: Antegrade Rhythm: Normal Mild mixed intimal wall changes are noted in right carotid system. Mild intimal wall changes are note d in Left ECA. PSV is wnl bilaterally. IMPRESSION: Atheromatous plaquing without significant flow-limiting stenosis. Criteria for Assigning % of Stenosis / Diameter reduction (Estimation based on the indirect measurements of the internal carotid artery velocities (ICA PSV). 1. Normal (no stenosis)=ICA PSV < 125 cm/s: ratio < 2.0: ICA EDV<40 cm/s. 2. Less than 50% stenosis=ICA PSV < 125 cm/s: ratio < 2.0: ICA EDV<40 cm/s. 3. 50 to 69% stenosis=ICA PSV of 125 to 230 cm/s: ration 2.0 ? 4.0: ICA EDV 40-100 cm/s. 4. Greater than 70% stenosis to near occlusion= ICA PSV > 230 cm/s: ratio > 4.0: ICA EDV > 100 cm/s. 5. Near occlusion= ICA PSV velocities may be low or undetectable: variable ratio and ICA EDV. 6. Total occlusion=unable to detect flow.
== END | disposition home or self-care (01) ==
LOC: RADUSWWP 12:30
PROVIDERS: ATTEND Family Medicine
DX: I70.0 Atherosclerosis of aorta (principal)
CPT/HCPCS: 93880

== ENCOUNTER → 2020-11-06 | Outpatient (CLI) | payer MEDICARE, OTHER ==
--- NOTE | 2020-11-07 05:05 | MR ---
EXAMINATION TYPE: MR hip RT wo con DATE OF EXAM: 11/06/2020 COMPARISON: None HISTORY: Right hip pain, fall in september 2020. Multiplanar multiecho imaging of the pelvis and right hip was performed without contrast. There is metal artifact from apparent intramedullary vijaya in the left femur. The femoral heads are int act. There is no evidence of avascular necrosis. The acetabula appear intact. I see no significant hi p joint fluid. There is no evidence of mass within the pelvis. There is no sign of ascites. Bladder distends smoothl y. There is a irregular 4 x 3 cm area of mixed signal lateral to the greater trochanter of the right fem ur. This is within the subcutaneous fat and could be hematoma. There is no evidence of femoral fractu re. IMPRESSION: No fracture. No evidence of avascular necrosis. Complex subcutaneous mass is probably hematoma lateral to the greater trochanter of the right femur.
== END | disposition home or self-care (01) ==
LOC: RADMRIMAIN 16:23
PROVIDERS: ATTEND Orthopaedic Surgery
DX: R22.41 Localized swelling, mass and lump, right lower limb (principal)

== ENCOUNTER → 2020-12-11 | Outpatient (CLI) | payer MEDICARE, OTHER ==
--- NOTE | 2020-12-12 09:00 | BD ---
EXAMINATION TYPE: Axial Bone Density DATE OF EXAM: 12/11/2020 COMPARISON: NONE CLINICAL HISTORY: 70 YR OLD FEMALE....ICD-10 CODE: M85.89 DISORDER OF BONE. Postmenopausal female Height: 61.2 Weight: 101 FRAX RISK QUESTIONS: Glucocorticoids (More than 3mos): YES (Ex: prednisone, prednisolone, methylprednisolone, dexamethasone, and hydrocortisone). History of Fracture in Adulthood: YES Secondary Osteoporosis: YES 3. Menopause before 45: YES RISK FACTORS HISTORY OF: Hip Fracture ...YES, LEFT, RODDED UP HIP, AT AGE 70 Spine Fracture: NO, BUT SEVERE SCOLIOSIS Surgery to Spine...YES, WITH HARDWARE IN LOWER BACK...LONG AGO Family History of Osteoporosis: YES, MOTHER Postmenopausal woman: YES, AT AGE 25 YRS OLD, TOTAL HYST Take estrogen and/or progesterone medications: YES, IN THE PAST FOR ABOUT 1 YR Lost more than 2 inches in height since high school: YES Hyperparathyroidism: NO Adrenal Insufficiency: NO MEDICATIONS: Prednisone or other steroids: YES, FOR ASTHMA, Additional Medications: EFFEXOR, ZOCOR, Additional History: SEVERE SCOLIOSIS, LT TKR, LT FEMORAL MARYAN EXAM MEASUREMENTS: Bone mineral densitometry was performed using the [employer] System. SPINE NOT SCANNED, SURGICAL REPAIR WITH HARDWARE Bone mineral density about the R hip (g/cm2): 0.778 T Score values are as follows: -----R Neck: -1.5 -----R Total: -1.8 Bone mineral density FIRST BONE DENSITY.....BASELINE STUDY FRAX%s: THERE IS A 21.1% CHANCE FOR A MAJOR OSTEOPOROTIC FX AND A 4.4% FOR HIP......PROBABILITY FOR FX IN 10 YRS TIME Bone mineral density about the L Wrist (g/cm2): 0.556 T Score values are as follows: -----Dist. R+U: -2.1 -----Prox. R+U: -1.0 -----Radius total: -1.8 Bone mineral density FIRST BONE DENSITY.....BASELINE STUDY IMPRESSION: Osteopenia (T Score between -2.5 and -1). There is slightly increased risk of fracture and the patient may be considered for treatment. Re-Screen 2-5 years. NOTE: T-SCORE=SD OF THE YOUNG ADULT MEAN.
--- NOTE | 2020-12-13 12:03 | USB ---
Reason for exam: clinical finding. History: Patient is postmenopausal. Took estrogen for 2 years beginning at age 53. Indicated problem(s): non-bloody discharge and nipple abnormality in the right breast. Physical Findings: Nurse did not find any significant physical abnormalities on exam. US Breast BILAT Right complete breast ultrasound includes all four quadrants, the retroareolar region and axilla. Finding demonstrates a 6 x 3 x 10mm oval, hypoechoic lesion at 12 o'clock, no flow, probably benign, 6 month follow up recommended. Left complete breast ultrasound includes all four quadrants, the retroareolar region and axilla. Finding demonstrates no cystic or solid lesion seen. No retroareolar finding for nipple inversion 1 year. No retroductal dilation for clear discharge. Mammogram cannot be obtained due to severe scoliosis. These results were verbally communicated with the patient and result sheet given to the patient on 12/11/20. ASSESSMENT: Incomplete: need additional imaging evaluation, BI-RAD 0 RECOMMENDATION: Breast MRI of both breasts. Surgical consultation of the right breast. Manage on a clinical basis with regard to clear discharge. Called Dr. Greer's office with mammographic findings and has scheduled an appointment for the patient for 12/14/20 at 10:[address] Bryant. PRELIMINARY REPORT CALLED AND FAXED TO DR. BRYANT ON 12/13/20. Ultrasound of the right breast in 6 months.
== END | disposition home or self-care (01) ==
LOC: RADUSWWP 07:10
PROVIDERS: ATTEND Family Medicine
DX: Z13.820 Encounter for screening for osteoporosis (principal); M85.89 Other specified disorders of bone density and structure, multiple sites; N64.52 Nipple discharge; N64.59 Other signs and symptoms in breast
CPT/HCPCS: 77080

== ENCOUNTER → 2020-12-14 | Outpatient (CLI) | payer MEDICARE, OTHER ==
[2020-12-14 11:17] VITALS: BP 130/75; PULSE 77; RESP 18
--- NOTE | 2020-12-14 11:46 | P.GSHP ---
History of Present Illness H&P Date: 12/14/20 Chief Complaint: Nipple discharge right, and nipple inversion Tyra is a 70-year-old white female who presents for evaluation for Dr. Greer regarding right nipple discharge and inversion. She is not complaining of any changes in the left breast. She had a bilateral breast ultrasound performed on [id number]. This revealed on the right is 6 x 10 mm oval hypoechoic lesion at 12:00 probably benign. In the left breast also quadrant ultrasound did not show any cystic or solid lesions. No retroareolar finding for nipple inversion was noted on the right. No ductal dilatation was identified. The patient did not have a mammogram secondary to scoliosis. Her last mammogram was at least 5 years ago. She is recommended to undergo breast MRI, this has been scheduled for January 03. The nipple discharge has been present for about one month. It is clear in nature, she has not noted any blood. She notices it because it starts to it, and this is spontaneous in nature. She has also had right nipple inversion for approximately 1 year. She does not complain of any pain in her breast. She has no lumps masses or nodules of concern in either breast. No history of any trauma or infection in her breast. 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 Total abdominal hysterectomy 2.right middle finger 3. back 4. femor left 5. small bowel obstruction 6. left wrist 7. left shoulder 8. right shoulder 9. gallbaldder 10. neck fusion 11. stint in right lower bronchial (scoliosis blocking); 04-12-98 12. 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 ALLERGIES: Latex CT dye Bactrim Sulfa Marcaine - Constitutional Constitutional: Denies chills, Denies fever - EENT Eyes: denies blurred vision, denies pain Ears: bilateral: tinnitus, deny: decreased hearing Ears, nose, mouth and throat: Reports headache, Denies sore throat - Breasts Breasts: bilateral: as per HPI - Cardiovascular Cardiovascular: Reports shortness of breath, Denies chest pain - Respiratory Comment: stint placed in bronchial right related to scoliosis - Gastrointestinal Gastrointestinal: Denies abdominal pain, Denies diarrhea, Denies nausea, Denies vomiting - Genitourinary (Female) Genitourinary: Reports as per HPI - Menstruation Menstruation: Reports post hysterectomy - Musculoskeletal Comment: arthritis - Integumentary Comment: shingles Integumentary: Reports pruritus, Reports rash - Neurological Neurological: Denies numbness, Denies weakness - Psychiatric Psychiatric: Reports anxiety, Reports depression - Endocrine Endocrine: Reports fatigue - Hematologic/Lymphatic Comment: 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 - Allergic/Immunologic Allergic/Immunologic: Reports as per HPI 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, L5 disc disease with secondary chronic back pain, mild intermittent bronchial asthma, hyperlipidemia, anxiety/depression History of Any Multi-Drug Resistant Organisms: None Reported Past Surgical History: Cholecystectomy, Hysterectomy, Joint Replacement, Orthopedic Surgery Additional Past Surgical History / Comment(s): lt knee,lt shoulder, cervical spine fusion Past Anesthesia/Blood Transfusion Reactions: No Reported Reaction Additional Past Anesthesia/Blood Transfusion Reaction / Comment(s): 196 pt had blood transfusion- states no reaction Past Psychological History: Anxiety, Depression Smoking Status: Never smoker Past Alcohol Use History: None Reported Past Drug Use History: None Reported - Past Family History Father Family Medical History: Cancer Additional Family Medical History / Comment(s): lung cancer Mother Family Medical History: Cancer, Dementia Additional Family Medical History / Comment(s): leukemia Medications and Allergies Home Medications Medication Instructions Recorded Confirmed Type Escitalopram [Lexapro] 20 mg PO QAM 04/09/17 12/14/20 History Simvastatin [Zocor] 20 mg PO HS 04/09/17 12/14/20 History Ipratropium-Albuterol Nebulize 3 ml INHALATION RT-QID PRN 06/11/17 12/14/20 History [Duoneb 0.5 mg-3 mg/3 ml Soln] Naproxen Sodium [Aleve] 220 mg PO DAILY 12/14/20 12/14/20 History Allergies Allergy/AdvReac Type Severity Reaction Status Date / Time latex Allergy Severe Rash/Hives Verified 12/14/20 11:09 bupivacaine [From Marcaine] Allergy Anaphylaxis Verified 12/14/20 11:09 Iodinated Contrast Media Allergy Anaphylaxis Verified 12/14/20 11:09 [Iodinated Contrast- Oral and IV Dye] Sulfa (Sulfonamide Allergy Anaphylaxis Verified 12/14/20 11:09 Antibiotics) sulfamethoxazole Allergy Anaphylaxis Verified 12/14/20 11:09 [From Bactrim] trimethoprim [From Bactrim] Allergy Anaphylaxis Verified 12/14/20 11:09 Surgical - Exam Vital Signs Pulse Resp BP Pulse Ox 77 18 130/75 97 12/14/20 10:26 12/14/20 10:26 12/14/20 10:26 12/14/20 10:26 BMI 19 - General no distress - Eyes normal ocular movement - ENT normal nares - Neck no masses, trachea midline - Respiratory normal respiratory effort, clear to auscultation - Cardiovascular Heart Sounds: normal: S1, S2 - Abdomen Abdomen: soft - Integumentary normal turgor - Neurologic no disoriented, no combative - Musculoskeletal scoliosis normal gait - Psychiatric oriented to time, oriented to person, oriented to place, speech is normal, memory intact Breast exam: 32A inspection: Right nipple inversion, ptosis grade 2 Palpation: Right breast: Multiple positional exam fibrocystic changes, no discrete dominant masses or nodules of concern particularly attention to the retroareolar area does not reveal any lumps or masses Right axilla: No adenopathy of concern Left breast: Multi-positional exam fibrocystic changes, no discrete dominant masses or nodules of concern Left axilla: No adenopathy of concern No nipple discharge is appreciated on today's examination, this is with palpation Results Review of ultrasound results Assessment and Plan Assessment: Impression: Scoliosis Arthritis Sleep apnea High cholesterol asthma Indwelling changes secondary to scoliosis with a stent in the right lower bronchial area 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 At this time patient is going to have an MRI of the breast and will follow up after the MRI 2. There is nothing on today's examination to warrant interventional biopsy. Nothing had been found on the ultrasound of concern and nothing is palpable despite the nipple inversion we will await the MRI results and then final recommendation to follow. CC: Dr. Greer
== END ==
LOC: WWCWWP 10:26
PROVIDERS: ATTEND Surgery
DX: N64.52 Nipple discharge (principal); M41.9 Scoliosis, unspecified; M19.90 Unspecified osteoarthritis, unspecified site; G47.30 Sleep apnea, unspecified; E78.00 Pure hypercholesterolemia, unspecified; J45.909 Unspecified asthma, uncomplicated; D66 Hereditary factor VIII deficiency; E78.5 Hyperlipidemia, unspecified; F41.9 Anxiety disorder, unspecified; F32.9 Major depressive disorder, single episode, unspecified; Z88.4 Allergy status to anesthetic agent; Z91.040 Latex allergy status; Z91.041 Radiographic dye allergy status; Z88.2 Allergy status to sulfonamides; Z88.1 Allergy status to other antibiotic agents; Z79.899 Other long term (current) drug therapy

== ENCOUNTER → 2021-01-24 | Outpatient (CLI) | payer MEDICARE, OTHER ==
--- NOTE | 2021-01-25 07:08 | BMR ---
EXAMINATION TYPE: MR breast BILAT wo/w con DATE OF EXAM: 01/24/2021 COMPARISON: 3-D bilateral breast mammogram July 23, 2016 BI-RADS 2. Bilateral complete breast ultra sound December 11, 2020 BI-RADS 0 HISTORY: Abnormal ultrasound, right nipple discharge. TECHNIQUE: A series of fat and water weighted images in the long and short axis views of both breasts are obtained in conjunction with dynamic contrast MRI with subtraction technique. The patient was i njected with 4.5 mL intravenous Gadavist gadolinium contrast. Three-dimensional and additional post processing imaging is created on independent workstation and reviewed during official interpretation of this study. FINDINGS: Examination is suboptimal due to severe underlying scoliosis making positioning difficult. Heterogeneously dense fibroglandular tissue throughout both breasts is redemonstrated. Breast size is symmetric and small. The T2 and STIR weighted images show no significant cystic change in either alek ast. Right nipple inversion noted. No concerning axillary adenopathy. Dynamic postcontrast imaging sh ows mild symmetric background enhancement. Delayed dynamic postcontrast imaging shows no suspicious i ntramammary adenopathy. With regards to the left breast no abnormal skin thickening is seen. No pathologic enhancement or enh ancing masses identified. The chest wall is intact. With regard to the right breast, enhancement in the retracted nipple identified. No pathologic enhanc ement or enhancing masses in the right breast. No suspicious skin thickening. Chest wall is intact. S ubcentimeter lesion 12:00 position on ultrasound is not clearly identified on MRI. IMPRESSION: Suboptimal study but No MRI evidence for invasive malignancy in either breast. BI-RADS 2 benign findings left breast BI-RADS 2 benign findings right breast Recommendation: Diagnostic right breast ultrasound follow-up in 6 months as recommended on ultrasound report. Surgical consultation.
== END | disposition home or self-care (01) ==
LOC: RADMRIMAIN 16:36
PROVIDERS: ATTEND Physician Assistant
DX: N64.52 Nipple discharge (principal); R92.8 Other abnormal and inconclusive findings on diagnostic imaging of breast
CPT/HCPCS: C8937; C8908; A9585; 77049

== ENCOUNTER → 2021-02-01 | Outpatient (CLI) | payer MEDICARE, OTHER ==
[2021-02-01 11:06] VITALS: BP 133/90; PULSE 88; RESP 14; TEMP 97.8
--- NOTE | 2021-02-01 11:13 | P.PN ---
Subjective Progress Note Date: 02/01/21 Principal diagnosis: Right nipple inversion/discharge Tyra is a 70-year-old white female who presents for evaluation for Dr. Greer regarding right nipple discharge and inversion. She is not complaining of any changes in the left breast. She had a bilateral breast ultrasound performed on [id number]. This revealed on the right is 6 x 10 mm oval hypoechoic lesion at 12:00 probably benign. In the left breast also quadrant ultrasound did not show any cystic or solid lesions. No retroareolar finding for nipple inversion was noted on the right. No ductal dilatation was identified. The patient did not have a mammogram secondary to scoliosis. Her last mammogram was at least 5 years ago. She is recommended to undergo breast MRI, this has been scheduled for January 03. The nipple discharge has been present for about one month. It is clear in nature, she has not noted any blood. She notices it because it is crusted in nature. This is spontaneous in nature. She has also had right nipple inversion for approximately 1 year. She does not complain of any pain in her breast. She has no lumps masses or nodules of concern in either breast. No history of any trauma or infection in her breast. This occurs approximately 3-4 times a week. She has never noted any blood in it. She underwent a bilateral breast MRI on 7720 this was no evidence of invasive malignancy in either breast. 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 Total abdominal hysterectomy 2.right middle finger 3. back 4. femor left 5. small bowel obstruction 6. left wrist 7. left shoulder 8. right shoulder 9. gallbaldder 10. neck fusion 11. stint in right lower bronchial (scoliosis blocking); 04-12-98 12. 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 ALLERGIES: Latex CT dye Bactrim Sulfa Marcaine - Constitutional Constitutional: Denies chills, Denies fever - EENT Eyes: denies blurred vision, denies pain Ears: bilateral: tinnitus, deny: decreased hearing Ears, nose, mouth and throat: Reports headache, Denies sore throat - Breasts Breasts: bilateral: as per HPI - Cardiovascular Cardiovascular: Reports shortness of breath, Denies chest pain - Respiratory Comment: stint placed in bronchial right related to scoliosis - Gastrointestinal Gastrointestinal: Denies abdominal pain, Denies diarrhea, Denies nausea, Denies vomiting - Genitourinary (Female) Genitourinary: Reports as per HPI - Menstruation Menstruation: Reports post hysterectomy - Musculoskeletal Comment: arthritis - Integumentary Comment: shingles Integumentary: Reports pruritus, Reports rash - Neurological Neurological: Denies numbness, Denies weakness - Psychiatric Psychiatric: Reports anxiety, Reports depression - Endocrine Endocrine: Reports fatigue - Hematologic/Lymphatic Comment: 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 - Allergic/Immunologic Allergic/Immunologic: Reports as per HPI Objective - Vital Signs Vital signs: Vital Signs Temp 97.8 F 02/01/21 11:00 Pulse 88 02/01/21 11:00 Resp 14 02/01/21 11:00 BP 133/90 02/01/21 11:00 Pulse Ox 95 02/01/21 11:00 Intake & Output 01/31/21 02/01/21 02/01/21 18:59 06:59 18:59 Weight 48.081 kg - Constitutional General appearance: Present: average body habitus - EENT Eyes: Present: EOMI ENT: Present: hearing grossly normal - Neck Neck: Present: normal ROM - Integumentary Integumentary: Present: normal turgor - Musculoskeletal Musculoskeletal Comment(s): uses a cane to walk - Psychiatric Psychiatric: Present: A&O x's 3, appropriate affect, intact judgment & insight - Additional findings Additional findings: Right breast: Examination reveals again inversion of the right nipple complex on examination there is no nipple discharge and no lump or mass noted Assessment and Plan Assessment: Impression: 1. crusting from the right nipple complex for several months; definite physical exam and radiographic studies to warrant interventional biopsy at this time 2. No nipple discharge can be elicited on examination Plan: 1. Repeat right breast ultrasound in 6 months 2. I discussed with the patient and her daughter the option of duct exploration at this time however at this time they would like to wait and have repeat radiographic studies in 6 months They understand that I cannot guarantee it is not something very small which is causing this however at this time there is nothing to direct my biopsy. Cc: Dr. Greer
== END ==
LOC: WWCWWP 10:52
PROVIDERS: ATTEND Surgery
DX: N64.59 Other signs and symptoms in breast (principal); M19.90 Unspecified osteoarthritis, unspecified site; E78.00 Pure hypercholesterolemia, unspecified; J45.909 Unspecified asthma, uncomplicated; Z79.899 Other long term (current) drug therapy; Z91.040 Latex allergy status; Z91.041 Radiographic dye allergy status; Z88.1 Allergy status to other antibiotic agents; Z88.2 Allergy status to sulfonamides; Z88.4 Allergy status to anesthetic agent

== ENCOUNTER 2021-04-12 06:20 | Emergency (ER) | payer MEDICARE, OTHER ==
[2021-04-12] MEDS ORDERED: ACETAMINOPHEN TAB 325 MG TAB PO STA (06:27)
[2021-04-12 07:02] LABS: Basophils % (A) 0 %; Eosinophils # (A) 0.4 k/uL (0-0.7); Eosinophils % (A) 3 %; HCT 34.1 % (34.0-46.0); Lymphocytes # (A) 1.4 k/uL (1.0-4.8); Lymphocytes % (A) 11 %; MCH 30.7 pg (25.0-35.0); MCHC 32.4 g/dL (31.0-37.0); MCV 94.9 fL (80.0-100.0); Mean Platelet Volume 6.7; Monocytes # (A) 0.4 k/uL (0-1.0); Monocytes % (A) 3 %; Neutrophils # (A) 10.3 k/uL (1.3-7.7); Neutrophils % (A) 81 %; Platelet Count 300 k/uL (150-450); RBC 3.59 m/uL (3.80-5.40); RDW 12.6 % (11.5-15.5); WBC 12.7 k/uL (3.8-10.6)
--- NOTE | 2021-04-12 07:18 | XR ---
EXAMINATION TYPE: XR chest 2V DATE OF EXAM: 04/12/2021 COMPARISON: Chest x-ray 06/05/2017 HISTORY: Fever, abnormal chest x-ray, shortness of breath TECHNIQUE: Frontal and lateral views of the chest are obtained. FINDINGS: Findings are similar to prior exam. Postop changes are noted to the cervical and lumbar sp ine and there is a marked scoliotic curvature. Patchy basilar density has developed in the interval. Cardiomediastinal silhouette is likely stable. There are overlying leads. Apical pleural thickening i s again noted. Prominent lung volume may be indicative of underlying COPD. IMPRESSION: Basilar atelectasis or scarring, correlate to exclude pneumonia. Postop changes, marked scoliosis.
[2021-04-12 07:23] LABS: African American GFR (CKD) >90 (>60 ml/min/1.73 sqM); Anion Gap 7 mmol/L; Blood Urea Nitrogen 9 mg/dL (7-17); Calcium 8.5 mg/dL (8.4-10.2); Carbon Dioxide 24 mmol/L (22-30); Chloride 104 mmol/L (98-107); Glucose 110 mg/dL (74-99); Non-African American GFR(CKD) >90 (>60 ml/min/1.73 sqM); Potassium 3.7 mmol/L (3.5-5.1); Sodium 135 mmol/L (137-145)
[2021-04-12] MEDS ORDERED: IBUPROFEN 600 MG TAB PO STA (08:01)
[2021-04-12 08:38] VITALS: BP 115/65; PULSE 87; RESP 16; TEMP 99.9
--- NOTE | 2021-04-12 08:47 | ED ---
URI HPI - General Chief Complaint: Upper Respiratory Infection Stated Complaint: CLARENCE Time Seen by Provider: 04/12/21 06:26 Source: patient, EMS, RN notes reviewed Mode of arrival: EMS - History of Present Illness Initial Comments: Patient is a 71-year-old female presents to emergency department complaining of upper respiratory tract symptoms for the past several weeks. She notes that she tested negative for Covid back in September. But has not been tested since. She notes that she woke up this morning feeling a bit short of breath or skin emergency room to get evaluated. She denied any other issues or complaints at this time. She was otherwise a well-appearing 71-year-old female. She denied chest pain headache nausea vomiting diarrhea constipation fever fatigue chills. - Related Data Home Medications Medication Instructions Recorded Confirmed Escitalopram [Lexapro] 20 mg PO QAM 04/09/17 02/01/21 Simvastatin [Zocor] 20 mg PO HS 04/09/17 02/01/21 Ipratropium-Albuterol Nebulize 3 ml INHALATION RT-QID PRN 06/11/17 02/01/21 [Duoneb 0.5 mg-3 mg/3 ml Soln] Naproxen Sodium [Aleve] 220 mg PO DAILY 12/14/20 02/01/21 Previous Rx's Medication Instructions Recorded Levofloxacin [Levaquin] 500 mg PO DAILY #10 tab 04/12/21 Allergies Allergy/AdvReac Type Severity Reaction Status Date / Time latex Allergy Severe Rash/Hives Verified 04/12/21 06:25 bupivacaine [From Marcaine] Allergy Anaphylaxis Verified 04/12/21 06:25 Iodinated Contrast Media Allergy Anaphylaxis Verified 04/12/21 06:25 [Iodinated Contrast- Oral and IV Dye] Sulfa (Sulfonamide Allergy Anaphylaxis Verified 04/12/21 06:25 Antibiotics) sulfamethoxazole Allergy Anaphylaxis Verified 04/12/21 06:25 [From Bactrim] trimethoprim [From Bactrim] Allergy Anaphylaxis Verified 04/12/21 06:25 Review of Systems ROS Statement: Those systems with pertinent positive or pertinent negative responses have been documented in the HPI. ROS Other: All systems not noted in ROS Statement are negative. 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, L5 disc disease with secondary chronic back pain, mild intermittent bronchial asthma, hyperlipidemia, anxiety/depression History of Any Multi-Drug Resistant Organisms: None Reported Past Surgical History: Cholecystectomy, Hysterectomy, Joint Replacement, Orthopedic Surgery Additional Past Surgical History / Comment(s): lt knee,lt shoulder, cervical spine fusion Past Anesthesia/Blood Transfusion Reactions: No Reported Reaction Additional Past Anesthesia/Blood Transfusion Reaction / Comment(s): 196 pt had blood transfusion- states no reaction Past Psychological History: Anxiety, Depression Smoking Status: Never smoker Past Alcohol Use History: None Reported Past Drug Use History: None Reported - Past Family History Father Family Medical History: Cancer Additional Family Medical History / Comment(s): lung cancer Mother Family Medical History: Cancer, Dementia Additional Family Medical History / Comment(s): leukemia General Exam General appearance: alert, in no apparent distress Head exam: Present: atraumatic, normocephalic, normal inspection Eye exam: Present: normal appearance, PERRL, EOMI. Absent: scleral icterus, conjunctival injection, periorbital swelling ENT exam: Present: normal exam, mucous membranes moist Neck exam: Present: normal inspection. Absent: tenderness, meningismus, lymphadenopathy Respiratory exam: Present: normal lung sounds bilaterally. Absent: respiratory distress, wheezes, rales, rhonchi, stridor Cardiovascular Exam: Present: regular rate, normal rhythm, normal heart sounds. Absent: systolic murmur, diastolic murmur, rubs, gallop, clicks GI/Abdominal exam: Present: soft, normal bowel sounds. Absent: distended, tenderness, guarding, rebound, rigid Neurological exam: Present: alert, oriented X3 Psychiatric exam: Present: normal affect, normal mood Skin exam: Present: warm, dry, intact, normal color. Absent: rash Course Vital Signs 04/12/21 06:21 Temperature 101.9 F H Pulse Rate 99 Respiratory 19 Rate Blood Pressure 119/57 O2 Sat by Pulse 96 Oximetry Medical Decision Making - Medical Decision Making 71-year-old female complaining of shortness of breath, upper respiratory tract symptoms for several weeks. Labs, Covid test, influenza, chest x-ray ordered. Labs: Mild leukocytosis at 12.5, rest labs unremarkable. Covid and flu negative. Chest x-ray shows bilateral patchy infiltrates consistent with pneumonia. Patient given Tylenol and Motrin for fever of 101.4. On recheck temp was 99.9. Patient is antibiotics to pharmacy. Case scheduled with Dr. Nguyen patient discharge home. Follow-up to primary care. - Lab Data Result diagrams: 04/12/21 06:42 04/12/21 06:42 Lab Results 04/12/21 04/12/21 04/12/21 Range/Units 06:42 06:42 06:42 WBC 12.7 H (3.8-10.6) k/uL RBC 3.59 L (3.80-5.40) m/uL Hgb 11.0 L (11.4-16.0) gm/dL Hct 34.1 (34.0-46.0) % MCV 94.9 (80.0-100.0) fL MCH 30.7 (25.0-35.0) pg MCHC 32.4 (31.0-37.0) g/dL RDW 12.6 (11.5-15.5) % Plt Count 300 (150-450) k/uL MPV 6.7 Neutrophils % 81 % Lymphocytes % 11 % Monocytes % 3 % Eosinophils % 3 % Basophils % 0 % Neutrophils # 10.3 H (1.3-7.7) k/uL Lymphocytes # 1.4 (1.0-4.8) k/uL Monocytes # 0.4 (0-1.0) k/uL Eosinophils # 0.4 (0-0.7) k/uL Basophils # 0.0 (0-0.2) k/uL Sodium 135 L (137-145) mmol/L Potassium 3.7 (3.5-5.1) mmol/L Chloride 104 (98-107) mmol/L Carbon Dioxide 24 (22-30) mmol/L Anion Gap 7 mmol/L BUN 9 (7-17) mg/dL Creatinine 0.53 (0.52-1.04) mg/dL Est GFR (CKD-EPI)AfAm >90 (>60 ml/min/1.73 sqM) Est GFR (CKD-EPI)NonAf >90 (>60 ml/min/1.73 sqM) Glucose 110 H (74-99) mg/dL Calcium 8.5 (8.4-10.2) mg/dL Coronavirus (PCR) (Not Detectd) Influenza Type A RNA Not Detected (Not Detectd) Influenza Type B (PCR) Not Detected (Not Detectd) 04/12/21 Range/Units 06:42 WBC (3.8-10.6) k/uL RBC (3.80-5.40) m/uL Hgb (11.4-16.0) gm/dL Hct (34.0-46.0) % MCV (80.0-100.0) fL MCH (25.0-35.0) pg MCHC (31.0-37.0) g/dL RDW (11.5-15.5) % Plt Count (150-450) k/uL MPV Neutrophils % % Lymphocytes % % Monocytes % % Eosinophils % % Basophils % % Neutrophils # (1.3-7.7) k/uL Lymphocytes # (1.0-4.8) k/uL Monocytes # (0-1.0) k/uL Eosinophils # (0-0.7) k/uL Basophils # (0-0.2) k/uL Sodium (137-145) mmol/L Potassium (3.5-5.1) mmol/L Chloride (98-107) mmol/L Carbon Dioxide (22-30) mmol/L Anion Gap mmol/L BUN (7-17) mg/dL Creatinine (0.52-1.04) mg/dL Est GFR (CKD-EPI)AfAm (>60 ml/min/1.73 sqM) Est GFR (CKD-EPI)NonAf (>60 ml/min/1.73 sqM) Glucose (74-99) mg/dL Calcium (8.4-10.2) mg/dL Coronavirus (PCR) Not Detected (Not Detectd) Influenza Type A RNA (Not Detectd) Influenza Type B (PCR) (Not Detectd) - EKG Data -: EKG Interpreted by Ut EKG shows normal: sinus rhythm EKG Comments: Ventricular rate 94 bpm, ME interval 108 ms, QRS duration 80 ms, QTC 492 ms, PRT axes 51/31/60 sinus rhythm with short ME, T wave abnormality consider anterior lateral ischemia, prolonged QT, abnormal ECG Disposition Clinical Impression: Pneumonia, Fever Disposition: HOME SELF-CARE Condition: Stable Instructions (If sedation given, give patient instructions): Pneumonia (ED) Additional Instructions: Please return to the Emergency Department if symptoms worsen or any other concerns. Take antibiotics as prescribed until complete. Rest for the next several days. Follow-up with primary care in 1-2 days. Motrin as needed for fever. Is patient prescribed a controlled substance at d/c from ED?: No Referrals: Luis Angel Greer DO [Primary Care Provider] - 1-2 days Time of Disposition: 08:49
== END 2021-04-12 09:19 | disposition home or self-care (01) ==
LOC: EC 06:20
DX: J18.9 Pneumonia, unspecified organism (principal); J45.909 Unspecified asthma, uncomplicated; E78.5 Hyperlipidemia, unspecified; F32.9 Major depressive disorder, single episode, unspecified; F41.9 Anxiety disorder, unspecified; Z79.51 Long term (current) use of inhaled steroids; Z20.822 Contact with and (suspected) exposure to COVID-19
CPT/HCPCS: 36415; 71046; 80048; 85025; 87502; 87635; 93005; 99285

== ENCOUNTER → 2021-06-18 | Outpatient (CLI) | payer MEDICARE, OTHER ==
--- NOTE | 2021-06-18 15:05 | USB ---
Reason for exam: follow-up at short interval from prior study. History: Patient is postmenopausal. Took estrogen for 2 years beginning at age 53. Physical Findings: Nurse Summary: inverted nipple x 2 years, clear discharge x 1 year (nurse ms). US Breast Limited RT Right limited breast ultrasound including focal area of concern, retroareolar and axilla demonstrates a 0.6 x 0.3 x 0.7cm hypoechoic lesion at 12 o'clock and a 0.4 x 0.3cm hypoechoic lesion at 12 o'clock. These results were verbally communicated with the patient and result sheet given to the patient on 06/15/21. ASSESSMENT: Probably benign, BI-RAD 3 RECOMMENDATION: Ultrasound of the right breast in 6 months.
== END | disposition home or self-care (01) ==
LOC: RADUSWWP 14:16
PROVIDERS: ATTEND Surgery
DX: N64.89 Other specified disorders of breast (principal); Z78.0 Asymptomatic menopausal state

== ENCOUNTER 2021-06-25 17:50 | Inpatient (IN) | payer MEDICARE, OTHER ==
[2021-06-25] MEDS ORDERED: MORPHINE SULFATE 4 MG/ML SYRINGE IV STA (18:33)
[2021-06-25] MEDS ORDERED: SODIUM CHLORIDE 0.9% 1,000 ML IV STA (18:33)
[2021-06-25] MEDS ORDERED: ONDANSETRON 4 MG/2 ML VIAL IVP STA (18:33)
[2021-06-25] MEDS ORDERED: FAMOTIDINE 20 MG/2 ML VIAL IV STA (18:35)
[2021-06-25] MEDS ORDERED: methylPREDNISolone SOD SUCCI 125 MG/2 ML VIAL IV STA (18:35)
[2021-06-25] MEDS ORDERED: diphenhydrAMINE 50 MG/ML 1 ML VIAL IVP STA (18:35)
[2021-06-25 19:22] LABS: Basophils % (A) 0 %; Eosinophils # (A) 0.2 k/uL (0-0.7); Eosinophils % (A) 2 %; HCT 44.6 % (34.0-46.0); HGB 14.8 gm/dL (11.4-16.0); Lymphocytes # (A) 1.1 k/uL (1.0-4.8); Lymphocytes % (A) 11 %; MCH 29.8 pg (25.0-35.0); MCHC 33.1 g/dL (31.0-37.0); Mean Platelet Volume 6.6; Monocytes # (A) 0.3 k/uL (0-1.0); Monocytes % (A) 3 %; Neutrophils # (A) 8.4 k/uL (1.3-7.7); Neutrophils % (A) 84 %; Platelet Count 264 k/uL (150-450); RBC 4.96 m/uL (3.80-5.40); RDW 12.4 % (11.5-15.5); WBC 9.9 k/uL (3.8-10.6)
[2021-06-25 19:29] LABS: Chloride 99 mmol/L (98-107)
[2021-06-25 19:31] LABS: ALT 17 U/L (4-34); AST 33 U/L (14-36); African American GFR (CKD) >90 (>60 ml/min/1.73 sqM); Albumin 4.3 g/dL (3.5-5.0); Alkaline Phosphatase 108 U/L (38-126); Amylase 79 U/L (30-110); Anion Gap 12 mmol/L; Blood Urea Nitrogen 14 mg/dL (7-17); Calcium 9.7 mg/dL (8.4-10.2); Carbon Dioxide 26 mmol/L (22-30); Glucose 109 mg/dL (74-99); Lipase 85 U/L (23-300); Non-African American GFR(CKD) 88 (>60 ml/min/1.73 sqM); Potassium 4.1 mmol/L (3.5-5.1); Sodium 137 mmol/L (137-145); Total Bilirubin 0.4 mg/dL (0.2-1.3); Total Protein 7.1 g/dL (6.3-8.2)
[2021-06-25 19:34] LABS: Partial Thromboplastin Time 22.3 sec (22.0-30.0); Prothrombin Time 10.9 sec (9.0-12.0)
[2021-06-25 19:59] LABS: Appearance,Urine Cloudy (Clear); Bacteria,Urine Rare /hpf; Bilirubin,Urine 1+ (Negative); Blood,Urine Negative (Negative); Calcium Oxalate Crystals,Urine Many /hpf; Color,Urine Yellow; Glucose,Urine (UA) Negative (Negative); Hyaline Casts,Urine 4 /lpf (0-2); Ketones,Urine 2+ (Negative); Leukocyte Esterase,Urine Negative (Negative); Mucus,Urine Many /hpf; Nitrite,Urine Negative (Negative); PH, Urine 5.5 (5.0-8.0); Protein,Urine 1+ (Negative); RBC,Urine 9 /hpf (0-5); Specific Gravity,Urine 1.032 (1.001-1.035); WBC,Urine 2 /hpf (0-5)
--- NOTE | 2021-06-25 20:32 | XR ---
EXAMINATION TYPE: XR chest 2V DATE OF EXAM: 06/25/2021 COMPARISON: 04/20/2021 HISTORY: Abdominal pain TECHNIQUE: FINDINGS: Heart is normal. Lungs are clear of infiltrate. There is no heart failure. There is thoraci c dextroscoliosis. There are no hilar masses. IMPRESSION: No active cardiopulmonary disease. There is minimal pleural diaphragmatic scarring right lung base which is stable or improved compared to old exam.
--- NOTE | 2021-06-25 20:53 | CT ---
EXAMINATION TYPE: CT angio thor/abd pel aorta DATE OF EXAM: 06/25/2021 COMPARISON: None HISTORY: Abdominal and chest pain. CT DLP: 913.9 mGycm Automated exposure control for dose reduction was used. CONTRAST: Performed without and with IV Contrast, patient injected with 100ml mL of Isovue 370. Images obtained from the thoracic inlet to the floor the pelvis without and with IV contrast. There a re 3-D post processed images. The lungs are clear of consolidation. There is thoracic dextroscoliosis. There is some mild atelectas is left posterior lung base. Heart size is normal. There is no evidence of filling defect in the pulm onary arteries. Thoracic aorta is intact. There is no aneurysm or dissection. Liver and spleen are intact. The bile ducts are not dilated. Stomach is intact. There is no evidence of pancreatic mass. There is no adrenal mass. Kidneys show satisfactory contrast opacification. There is no hydronephrosis. Ureters are not dilated. There is some dilated small bowel loops in the lower abdomen. There are fluid levels. Small bowel dilated up to 4 cm. There is retained fecal material in the large bowel. Transition point not seen. There is contrast opacification of the abdominal aorta. There is arterial flow in the celiac artery a nd superior mesenteric artery. There is arterial flow in the renal and iliac and femoral arteries. Th ere is no evidence of hemodynamic stenosis. There is no arterial aneurysm or dissection. I see no bon y destructive process. The bony pelvis is intact. There is posterior fusion surgery in the lower lumb ar spine. There is previous posterior thoracic spine surgery. There are surgical clips from previous bowel surgery in the mid abdomen. IMPRESSION: No evidence of pulmonary embolism. Mild subsegmental atelectasis left lung base. No suspicious pulmon nicole mass. No evidence of arterial aneurysm or dissection. Dilated fluid-filled small bowel suggestive of significant ileus or mechanical small bowel obstructio n. Transition point not seen.
[2021-06-25] MEDS ORDERED: NALOXONE 0.4 MG/ML 1 ML VIAL IV PRN (21:23)
[2021-06-25] MEDS ORDERED: MORPHINE SULFATE 4 MG/ML SYRINGE IV PRN (21:23)
[2021-06-25] MEDS ORDERED: ONDANSETRON 4 MG/2 ML VIAL IVP PRN (21:23)
--- NOTE | 2021-06-25 21:51 | XR ---
EXAMINATION TYPE: XR chest 1V DATE OF EXAM: 06/25/2021 COMPARISON: Today HISTORY: Check tube placement TECHNIQUE: Single view FINDINGS: There is nasogastric tube in the stomach. Lungs are clear of consolidation. There are no hi lar masses. There is flattening of the diaphragm. Heart size is normal. There is thoracic dextroscoli osis. IMPRESSION: NG tube is in the stomach. COPD. No change.
[2021-06-25] MEDS: SODIUM CHLORIDE 0.9% 1,000 ML IV SCH (22:02)
--- NOTE | 2021-06-25 23:02 | ED ---
General Adult HPI - General Chief complaint: Abdominal Pain Stated complaint: abd pain/vomiting Time Seen by Provider: 06/25/21 18:22 Source: patient, RN notes reviewed, old records reviewed Mode of arrival: ambulatory Limitations: no limitations - History of Present Illness Initial comments: Patient is a 71-year-old female with past medical history remarkable for chronic back pain, prior small bowel obstructions who presents emergency Department comp laining of abdominal pain. She states is been slowly getting worse since last . She describes it as a sharp pain located in the midline of her abdomen with radiation to her back between the shoulder blades. 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 She endorses nausea. Patient is having nonbilious nonbloody emesis as well as since that time. She is tolerance of by mouth intake. She denies any change in bowel movements. She denies any fevers, chills, cough. His no other acute complaints at this time. Patient presents primarily concerned for her sharp, achy abdominal pain that radiates to her back. - Related Data Home Medications Medication Instructions Recorded Confirmed Escitalopram [Lexapro] 20 mg PO DAILY 04/09/17 06/25/21 Simvastatin [Zocor] 20 mg PO HS 04/09/17 06/25/21 armodafiniL [Armodafinil] 250 mg PO DAILY 06/25/21 06/25/21 Allergies Allergy/AdvReac Type Severity Reaction Status Date / Time latex Allergy Severe Rash/Hives Verified 06/25/21 21:22 bupivacaine [From Marcaine] Allergy Anaphylaxis Verified 06/25/21 21:22 Iodinated Contrast Media Allergy Anaphylaxis Verified 06/25/21 21:22 [Iodinated Contrast- Oral and IV Dye] Sulfa (Sulfonamide Allergy Anaphylaxis Verified 06/25/21 21:22 Antibiotics) sulfamethoxazole Allergy Anaphylaxis Verified 06/25/21 21:22 [From Bactrim] trimethoprim [From Bactrim] Allergy Anaphylaxis Verified 06/25/21 21:22 Review of Systems ROS Statement: Those systems with pertinent positive or pertinent negative responses have been documented in the HPI. Review of Systems: CONST: Denies fever EYES: Denies blurry vision ENT: Denies nasal congestion C/V: Denies Chest pain RESP: Denies shortness of breath GI: Endorses abdominal pain : Denies dysuria SKIN: Denies rash. MSK: Endorses back pain NEURO: Denies headache ROS Other: All systems not noted in ROS Statement are negative. 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, L5 disc disease with secondary chronic back pain, mild intermittent bronchial asthma, hyperlipidemia, anxiety/depression History of Any Multi-Drug Resistant Organisms: None Reported Past Surgical History: Cholecystectomy, Hysterectomy, Joint Replacement, Orthopedic Surgery Additional Past Surgical History / Comment(s): lt knee,lt shoulder, cervical spine fusion Past Anesthesia/Blood Transfusion Reactions: No Reported Reaction Additional Past Anesthesia/Blood Transfusion Reaction / Comment(s): 1961 pt had blood transfusion- states no reaction Past Psychological History: Anxiety, Depression Smoking Status: Never smoker Past Alcohol Use History: None Reported Past Drug Use History: None Reported - Past Family History Father Family Medical History: Cancer Additional Family Medical History / Comment(s): lung cancer Mother Family Medical History: Cancer, Dementia Additional Family Medical History / Comment(s): leukemia General Exam - General Exam Comments Initial Comments: General: Appears in mild to moderate distress secondary to pain. HEAD: Normal with no signs of head trauma. EYES: PERRLA, EOMI, conjunctiva normal, no discharge. ENT: Hearing grossly intact, normal oropharynx. RESPIRATORY: Clear breath sounds bilaterally. No wheezes, rales, or rhonchi. C/V: Regular rate and rhythm. S1 and S2 auscultated, no edema, peripheral pulses 2+ and intact throughout ABD: Abdomen is mildly distended. Tender diffusely. There is no guarding. No peritoneal signs or rebound tenderness. EXT: Normal range of motion, no obvious deformity SKIN: No rashes or lesions observed on exposed skin. NEURO: Alert and oriented 4. Limitations: no limitations Course Vital Signs 06/25/21 06/25/21 18:16 21:14 Temperature 99.0 F 97.7 F Pulse Rate 98 81 Respiratory 20 16 Rate Blood Pressure 117/68 110/55 O2 Sat by Pulse 95 95 Oximetry Medical Decision Making - Medical Decision Making Based on patient's presentation and physical exam, I'm concerned for acute intra-abdominal process for the patient. However with her severe abdominal pain with radiation to the back as well as mild chest pain, particularly with her older history, cannot rule out possibility of aortic injury. Therefore we will obtain CT angiograms of the aorta to rule out dissection. Also obtain a cardiac workup with EKG, x-ray, troponin, abdominal laboratory studies. Patient was in agreement this plan. She'll be symptomatically treated with 1 L fluid bolus as well as IV morphine, Zofran, famotidine. Patient does have an ALLERGY to contrast will be treated pretreatment. Patient was in agreement this plan. EKG shows no signs of acute ischemia. Laboratory studies are remarkable for a negative troponin. Remainder the labs are unremarkable. Covid is negative. Chest x-ray reveals no acute cardiopulmonary process. CT imaging revealed no acute dissection. No evidence of PE. There are dilated fluid-filled small bowel's suggestive of significant ileus or mechanical small bowel obstruction. Transition point was not seen. On reevaluation, patient is feeling somewhat improved but is requesting more pain medications. Discuss with her the results for imaging. I would like to admitted to the hospital for pain management and evaluation by surgery. She was in agreement this plan. Patient was made nothing by mouth. NG tube will be placed for decompression. Chest x-ray following NG tube placement showed adequate placement. I spoke with Dr. Bautista who is on-call for surgery accepted the patient onto his service. Patient was therefore admitted in serious condition to the surgical service. - Lab Data Result diagrams: 06/25/21 19:15 06/25/21 19:15 Lab Results 06/25/21 06/25/21 06/25/21 Range/Units 19:15 19:15 19:15 WBC 9.9 (3.8-10.6) k/uL RBC 4.96 (3.80-5.40) m/uL Hgb 14.8 (11.4-16.0) gm/dL Hct 44.6 (34.0-46.0) % MCV 90.0 (80.0-100.0) fL MCH 29.8 (25.0-35.0) pg MCHC 33.1 (31.0-37.0) g/dL RDW 12.4 (11.5-15.5) % Plt Count 264 (150-450) k/uL MPV 6.6 Neutrophils % 84 % Lymphocytes % 11 % Monocytes % 3 % Eosinophils % 2 % Basophils % 0 % Neutrophils # 8.4 H (1.3-7.7) k/uL Lymphocytes # 1.1 (1.0-4.8) k/uL Monocytes # 0.3 (0-1.0) k/uL Eosinophils # 0.2 (0-0.7) k/uL Basophils # 0.0 (0-0.2) k/uL PT 10.9 (9.0-12.0) sec INR 1.0 (<1.2) APTT 22.3 (22.0-30.0) sec Sodium 137 (137-145) mmol/L Potassium 4.1 (3.5-5.1) mmol/L Chloride 99 (98-107) mmol/L Carbon Dioxide 26 (22-30) mmol/L Anion Gap 12 mmol/L BUN 14 (7-17) mg/dL Creatinine 0.67 (0.52-1.04) mg/dL Est GFR (CKD-EPI)AfAm >90 (>60 ml/min/1.73 sqM) Est GFR (CKD-EPI)NonAf 88 (>60 ml/min/1.73 sqM) Glucose 109 H (74-99) mg/dL Plasma Lactic Acid Francisco Javier (0.7-2.0) mmol/L Calcium 9.7 (8.4-10.2) mg/dL Total Bilirubin 0.4 (0.2-1.3) mg/dL AST 33 (14-36) U/L ALT 17 (4-34) U/L Alkaline Phosphatase 108 (38-126) U/L Troponin I (0.000-0.034) ng/mL Total Protein 7.1 (6.3-8.2) g/dL Albumin 4.3 (3.5-5.0) g/dL Amylase 79 (30-110) U/L Lipase 85 (23-300) U/L Urine Color Urine Appearance (Clear) Urine pH (5.0-8.0) Ur Specific [place] (1.001-1.035) Urine Protein (Negative) Urine Glucose (UA) (Negative) Urine Ketones (Negative) Urine Blood (Negative) Urine Nitrite (Negative) Urine Bilirubin (Negative) Urine Urobilinogen (<2.0) mg/dL Ur Leukocyte Esterase (Negative) Urine RBC (0-5) /hpf Urine WBC (0-5) /hpf Calcium Oxalate Crystal (None) /hpf Urine Bacteria (None) /hpf Hyaline Casts (0-2) /lpf Urine Mucus (None) /hpf Coronavirus (PCR) (Not Detectd) 06/25/21 06/25/21 06/25/21 Range/Units 19:15 19:15 19:15 WBC (3.8-10.6) k/uL RBC (3.80-5.40) m/uL Hgb (11.4-16.0) gm/dL Hct (34.0-46.0) % MCV (80.0-100.0) fL MCH (25.0-35.0) pg MCHC (31.0-37.0) g/dL RDW (11.5-15.5) % Plt Count (150-450) k/uL MPV Neutrophils % % Lymphocytes % % Monocytes % % Eosinophils % % Basophils % % Neutrophils # (1.3-7.7) k/uL Lymphocytes # (1.0-4.8) k/uL Monocytes # (0-1.0) k/uL Eosinophils # (0-0.7) k/uL Basophils # (0-0.2) k/uL PT (9.0-12.0) sec INR (<1.2) APTT (22.0-30.0) sec Sodium (137-145) mmol/L Potassium (3.5-5.1) mmol/L Chloride (98-107) mmol/L Carbon Dioxide (22-30) mmol/L Anion Gap mmol/L BUN (7-17) mg/dL Creatinine (0.52-1.04) mg/dL Est GFR (CKD-EPI)AfAm (>60 ml/min/1.73 sqM) Est GFR (CKD-EPI)NonAf (>60 ml/min/1.73 sqM) Glucose (74-99) mg/dL Plasma Lactic Acid Francisco Javier 0.9 (0.7-2.0) mmol/L Calcium (8.4-10.2) mg/dL Total Bilirubin (0.2-1.3) mg/dL AST (14-36) U/L ALT (4-34) U/L Alkaline Phosphatase (38-126) U/L Troponin I <0.012 (0.000-0.034) ng/mL Total Protein (6.3-8.2) g/dL Albumin (3.5-5.0) g/dL Amylase (30-110) U/L Lipase (23-300) U/L Urine Color Urine Appearance (Clear) Urine pH (5.0-8.0) Ur Specific [place] (1.001-1.035) Urine Protein (Negative) Urine Glucose (UA) (Negative) Urine Ketones (Negative) Urine Blood (Negative) Urine Nitrite (Negative) Urine Bilirubin (Negative) Urine Urobilinogen (<2.0) mg/dL Ur Leukocyte Esterase (Negative) Urine RBC (0-5) /hpf Urine WBC (0-5) /hpf Calcium Oxalate Crystal (None) /hpf Urine Bacteria (None) /hpf Hyaline Casts (0-2) /lpf Urine Mucus (None) /hpf Coronavirus (PCR) Not Detected (Not Detectd) 06/25/21 Range/Units 19:35 WBC (3.8-10.6) k/uL RBC (3.80-5.40) m/uL Hgb (11.4-16.0) gm/dL Hct (34.0-46.0) % MCV (80.0-100.0) fL MCH (25.0-35.0) pg MCHC (31.0-37.0) g/dL RDW (11.5-15.5) % Plt Count (150-450) k/uL MPV Neutrophils % % Lymphocytes % % Monocytes % % Eosinophils % % Basophils % % Neutrophils # (1.3-7.7) k/uL Lymphocytes # (1.0-4.8) k/uL Monocytes # (0-1.0) k/uL Eosinophils # (0-0.7) k/uL Basophils # (0-0.2) k/uL PT (9.0-12.0) sec INR (<1.2) APTT (22.0-30.0) sec Sodium (137-145) mmol/L Potassium (3.5-5.1) mmol/L Chloride (98-107) mmol/L Carbon Dioxide (22-30) mmol/L Anion Gap mmol/L BUN (7-17) mg/dL Creatinine (0.52-1.04) mg/dL Est GFR (CKD-EPI)AfAm (>60 ml/min/1.73 sqM) Est GFR (CKD-EPI)NonAf (>60 ml/min/1.73 sqM) Glucose (74-99) mg/dL Plasma Lactic Acid Francisco Javier (0.7-2.0) mmol/L Calcium (8.4-10.2) mg/dL Total Bilirubin (0.2-1.3) mg/dL AST (14-36) U/L ALT (4-34) U/L Alkaline Phosphatase (38-126) U/L Troponin I (0.000-0.034) ng/mL Total Protein (6.3-8.2) g/dL Albumin (3.5-5.0) g/dL Amylase (30-110) U/L Lipase (23-300) U/L Urine Color Yellow Urine Appearance Cloudy H (Clear) Urine pH 5.5 (5.0-8.0) Ur Specific [place] 1.032 (1.001-1.035) Urine Protein 1+ H (Negative) Urine Glucose (UA) Negative (Negative) Urine Ketones 2+ H (Negative) Urine Blood Negative (Negative) Urine Nitrite Negative (Negative) Urine Bilirubin 1+ H (Negative) Urine Urobilinogen 3.0 (<2.0) mg/dL Ur Leukocyte Esterase Negative (Negative) Urine RBC 9 H (0-5) /hpf Urine WBC 2 (0-5) /hpf Calcium Oxalate Crystal Many H (None) /hpf Urine Bacteria Rare H (None) /hpf Hyaline Casts 4 H (0-2) /lpf Urine Mucus Many H (None) /hpf Coronavirus (PCR) (Not Detectd) - EKG Data -: EKG Interpreted by Me EKG Comments: 12-lead Electrocardiogram Interpretation Note EKG was reviewed and interpreted by myself. 12-lead ECG performed at 1926 is interpreted by me as revealing normal sinus rhythm at a rate of 88 beats per minute. [place] is normal. ME interval is 110 ms, QRS durations 84 ms, QTc is 450 ms.. There were no ST or T wave abnormalities to suggest myocardial ischemia or injury. R wave progression across the precordium was satisfactory. By my interpretation this EKG is non-diagnostic for acute ischemia. No acute changes when compared to prior EKGs. Disposition Clinical Impression: Small bowel obstruction, Abdominal pain Disposition: ADMITTED IP TO THIS HOSP Condition: Serious
[2021-06-26] MEDS: SODIUM CHLORIDE 0.9% 1,000 ML IV SCH ×2 (05:40→20:30)
[2021-06-26 06:26] LABS: Basophils % (A) 0 %; Eosinophils % (A) 0 %; HCT 37.6 % (34.0-46.0); HGB 12.5 gm/dL (11.4-16.0); Lymphocytes # (A) 0.6 k/uL (1.0-4.8); Lymphocytes % (A) 23 %; MCH 30.7 pg (25.0-35.0); MCHC 33.3 g/dL (31.0-37.0); MCV 92.2 fL (80.0-100.0); Mean Platelet Volume 6.8; Monocytes % (A) 1 %; Neutrophils # (A) 2.1 k/uL (1.3-7.7); Neutrophils % (A) 75 %; Platelet Count 202 k/uL (150-450); RBC 4.08 m/uL (3.80-5.40); RDW 12.5 % (11.5-15.5); WBC 2.8 k/uL (3.8-10.6)
[2021-06-26 06:44] LABS: African American GFR (CKD) >90 (>60 ml/min/1.73 sqM); Anion Gap 6 mmol/L; Blood Urea Nitrogen 13 mg/dL (7-17); Calcium 8.4 mg/dL (8.4-10.2); Carbon Dioxide 24 mmol/L (22-30); Chloride 107 mmol/L (98-107); Glucose 113 mg/dL (74-99); Magnesium 1.8 mg/dL (1.6-2.3); Non-African American GFR(CKD) 88 (>60 ml/min/1.73 sqM); Potassium 4.3 mmol/L (3.5-5.1); Sodium 137 mmol/L (137-145)
[2021-06-26 08:18] VITALS: BMI 16.4
[2021-06-26] MEDS: ENOXAPARIN 40 MG/0.4 ML SYRINGE SQ SCH (10:09)
[2021-06-26] MEDS ORDERED: ACETAMINOPHEN IV (For NPO) 1,000 MG in EMPTY BAG 1 BAG IVPB ONE (11:20)
--- NOTE | 2021-06-26 13:51 | P.CONS ---
History of Present Illness - Reason for Consult Consult date: 06/26/21 Medical management - Chief Complaint Abdominal pain - History of Present Illness Patient is a 71-year-old female with a known history of asthma, hyperlipidemia, scoliosis, chronic back pain, anxiety/depression presents to ER with complaints of abdominal pain. Patient says that her abdominal pain started on about 5 days ago mainly in the midline and is getting worse. Sharp pain. Asso ciated with nausea. Patient has not been passing gas. Patient does have previous history of bowel obstruction. Denied any complaints of cough is from production. No recent diarrhea. Pain sometimes radiate to back. No recent illnesses. No sick contacts. No recent travel. Patient is not tolerating oral diet and worsening pain which made her to come to ER. Chest x-ray showed no active cardiopulmonary disease. There is minimal pleural diaphragmatic scarring right lung base which is stable or improved compared to old exam. CT of the thoracic aorta showed dilated fluid-filled small bowel suggestive of significant ileus or mechanical small bowel obstruction. EKG showed sinus rhythm with short PA interval. Laboratory data showed WBC 9.9 hemoglobin 14.8 L 264 neutrophils 8.4 BUN 14 and creatinine 0.67 potassium 4.1. Sodium 137 Review of Systems Constitutional: Patient denies any fever or chills . No generalized weakness or weight loss. Abdomen: Patient does have nauseaor vomiting. Midline abdominal pain. No diarrhea.. Cardiovascular: Patient denies any chest pain or short of breath no palpitations. Respiratory: patient denied any cough is from production. No shortness of breath Neurologic: Patient denied any numbness or tingling headache. Musculoskeletal: Patient denies any complaints of joint swelling or deformity. Skin: Negative Psychiatric: Negative Endocrine: No heat or cold intolerance. No recent weight gain. Genitourinary: No dysuria or hematuria. All other 14 point ROS negative except the above Past Medical History Past Medical History: Asthma, Hyperlipidemia, Musculoskeletal Disorder Additional Past Medical History / Comment(s): scoliosis, small bowel obstruction, distortion of the bronchus intermedius requiring an endobronchial s tent insertion, L5 disc disease with secondary chronic back pain, mild intermittent bronchial asthma, hyperlipidemia, anxiety/depression History of Any Multi-Drug Resistant Organisms: None Reported Past Surgical History: Cholecystectomy, Hysterectomy, Joint Replacement, Orthopedic Surgery Additional Past Surgical History / Comment(s): lt knee,lt shoulder, cervical spine fusion Past Anesthesia/Blood Transfusion Reactions: No Reported Reaction Additional Past Anesthesia/Blood Transfusion Reaction / Comm: 196 pt had blood transfusion- states no reaction Past Psychological History: Anxiety, Depression Smoking Status: Never smoker Past Alcohol Use History: None Reported Past Drug Use History: None Reported - Past Family History Father Family Medical History: Cancer Additional Family Medical History / Comment(s): lung cancer Mother Family Medical History: Cancer, Dementia Additional Family Medical History / Comment(s): leukemia Medications and Allergies Home Medications Medication Instructions Recorded Confirmed Type Escitalopram [Lexapro] 20 mg PO DAILY 04/09/17 06/25/21 History Simvastatin [Zocor] 20 mg PO HS 04/09/17 06/25/21 History armodafiniL [Armodafinil] 250 mg PO DAILY 06/25/21 06/25/21 History Allergies Allergy/AdvReac Type Severity Reaction Status Date / Time latex Allergy Severe Rash/Hives Verified 06/25/21 21:22 bupivacaine [From Marcaine] Allergy Anaphylaxis Verified 06/25/21 21:22 Iodinated Contrast Media Allergy Anaphylaxis Verified 06/25/21 21:22 [Iodinated Contrast- Oral and IV Dye] Sulfa (Sulfonamide Allergy Anaphylaxis Verified 06/25/21 21:22 Antibiotics) sulfamethoxazole Allergy Anaphylaxis Verified 06/25/21 21:22 [From Bactrim] trimethoprim [From Bactrim] Allergy Anaphylaxis Verified 06/25/21 21:22 Physical Exam Vitals: Vital Signs Temp Pulse Pulse Resp BP BP Pulse Ox 06/26/21 08:25 98.1 F 74 16 107/53 96 06/26/21 05:28 97.8 F 77 16 102/58 94 L 06/25/21 23:16 16 06/25/21 22:55 97.7 F 67 16 115/66 98 06/25/21 22:54 97.7 F 67 16 115/66 98 06/25/21 21:14 97.7 F 81 16 110/55 95 06/25/21 18:16 99.0 F 98 20 117/68 95 Intake and Output 06/25/21 06/26/21 06/26/21 22:59 06:59 14:59 Intake Total 0 Balance 0 Intake: Oral 0 Other: Weight 40.778 kg 40.778 kg PHYSICAL EXAMINATION: Patient is lying in the bed comfortably, no acute distress, awake alert and oriented. Cachectic.. NG tube in place. HEENT: Normocephalic. Neck is supple. Pupils reactive. Nostrils clear. Oral cavity is moist. Neck reveals no JVD, carotid bruits, or thyromegaly. CHEST EXAMINATION: Trachea is central. Symmetrical expansion. Lung pagan clear to auscultation and percussion. CARDIAC: Normal S1, S2 with no gallops. No murmurs ABDOMEN: Soft. Bowel sounds hyperactive. No organomegaly. No abdominal bruits. Extremities: reveal no edema. No clubbing or cyanosis Neurologically awake, alert, oriented x3 with well-coordinated movements. No focal deficits noted Skin: No rash or skin lesions. Psychiatric: Coperative. Nonsuicidal Musculoskeletal: No joint swelling or deformity. Normal range of motion. Results CBC & Chem 7: 06/26/21 06:03 06/26/21 06:03 Labs: Abnormal Lab Results - Last 24 Hours (Table) 06/25/21 06/25/21 06/25/21 Range/Units 19:15 19:15 19:35 WBC (3.8-10.6) k/uL Neutrophils # 8.4 H (1.3-7.7) k/uL Lymphocytes # (1.0-4.8) k/uL Glucose 109 H (74-99) mg/dL Urine Appearance Cloudy H (Clear) Urine Protein 1+ H (Negative) Urine Ketones 2+ H (Negative) Urine Bilirubin 1+ H (Negative) Urine RBC 9 H (0-5) /hpf Calcium Oxalate Crystal Many H (None) /hpf Urine Bacteria Rare H (None) /hpf Hyaline Casts 4 H (0-2) /lpf Urine Mucus Many H (None) /hpf 06/26/21 06/26/21 Range/Units 06:03 06:03 WBC 2.8 L (3.8-10.6) k/uL Neutrophils # (1.3-7.7) k/uL Lymphocytes # 0.6 L (1.0-4.8) k/uL Glucose 113 H (74-99) mg/dL Urine Appearance (Clear) Urine Protein (Negative) Urine Ketones (Negative) Urine Bilirubin (Negative) Urine RBC (0-5) /hpf Calcium Oxalate Crystal (None) /hpf Urine Bacteria (None) /hpf Hyaline Casts (0-2) /lpf Urine Mucus (None) /hpf Assessment and Plan Assessment: Acute small bowel ileus with possible partial mechanical small bowel obstruction. Abdominal pain secondary to above History of bowel obstruction History of cholecystectomy and hysterectomy Osteoarthritis Hyperlipidemia next and asked [place] exacerbation mild intermittent Anxiety/depression DVT prophylaxis. Plan: Patient will be continued on IV hydration and nothing by mouth. NG tube is in place. Monitor electrolytes and continue with home medications.. CT of the abdomen pelvis was ordered. We will continue to follow and further recommendations based on the clinical course. Thank you for your Consult
--- NOTE | 2021-06-26 13:54 | P.GSHP ---
History of Present Illness H&P Date: 06/26/21 CHIEF COMPLAINT: Abdominal pain HISTORY OF PRESENT ILLNESS: This is a 71-year-old female who does have a prior history of small bowel obstruction status post small bowel resection about 8 years ago. Patient presents to the hospital with complaints of mid to lower abdominal pain that started 6 days ago. Patient stated that symptoms began to worsen she's been having nausea and vomiting. The emesis was a caramel color. She was no longer having any flatus. And her last bowel movement was yesterday and normal. She reports that this feels similar to previous bowel obstruction. She had NG tube placed. She is currently nothing by mouth. She had a CTA of the chest which showed evidence of possible ileus versus mechanical small bowel obstruction. There is no evidence of PE. She's had prior surgical history which includes cholecystectomy and hysterectomy. She denies any fever chills or sweats. Patient reports improvement since NG tube has been placed. 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 ALLERGIES: See list. SOCIAL HISTORY: No illicit drug use. REVIEW OF SYSTEMS: CONSTITUTIONAL: Denies fever or chills. HEENT: Denies blurred vision, vision changes, or eye pain. Denies hemoptysis CARDIOVASCULAR: Denies chest pain or pressure. RESPIRATORY: No shortness of breath. GASTROINTESTINAL: See HPI for pertinent findings HEMATOLOGIC: Denies bleeding disorders. GENITOURINARY: Denies any blood in urine or increased urinary frequency. SKIN: Denies pruitis. Denies rash. PHYSICAL EXAM: VITAL SIGNS: Reviewed GENERAL: Well-developed in no acute distress. HEENT: No sclera icterus. Extraocular movements grossly intact. Moist buccal mucosa. Head is atraumatic, normocephalic. No nasal drainage. ABDOMEN: Soft. Mildly distended. Mild tenderness with palpation of the lower abdomen NEUROLOGIC: Alert and oriented. Cranial nerves II through XII grossly intact. LABORATORY DATA: WBC 2.8 Hgb 12.5 platelets 202 Sodium 137 potassium 4.3 BUN 13 creatinine 0.67 Magnesium 1.8 LFTs normal lipase normal IMAGING: CTA of the chest no evidence of pulmonary embolism. Mild subsegmental atelectasis left lung base. No suspicious pulmonary mass. No evidence of atrial aneurysm or dissection. Dilated fluid filled small bowel suggestive of significant ileus or mechanical small bowel obstruction. Chest x-ray NG tube and stomach ASSESSMENT: 1. Mechanical small bowel obstruction 2. Prior history of small bowel resection for small bowel obstruction PLAN: -Continue NG tube for decompression -Keep patient nothing by mouth -Continue IV fluids -Continue pain medication and antiemetics as needed -Check computed tomography scan of abdomen and pelvis with oral contrast tomorrow for further follow-up on small bowel obstruction -Continue conservative management -Medicine service consult for medical management -DVT prophylaxis Lovenox and GI prophylaxis Pepcid Physician Application Development Team Lead note has been reviewed by physician. Signing provider agrees with the documented findings, assessment, and plan of care. 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, L5 disc disease with secondary chronic back pain, mild intermittent bronchial asthma, hyperlipidemia, anxiety/depression History of Any Multi-Drug Resistant Organisms: None Reported Past Surgical History: Cholecystectomy, Hysterectomy, Joint Replacement, Orthopedic Surgery Additional Past Surgical History / Comment(s): lt knee,lt shoulder, cervical spine fusion Past Anesthesia/Blood Transfusion Reactions: No Reported Reaction Additional Past Anesthesia/Blood Transfusion Reaction / Comment(s): 196 pt had blood transfusion- states no reaction Past Psychological History: Anxiety, Depression Smoking Status: Never smoker Past Alcohol Use History: None Reported Past Drug Use History: None Reported - Past Family History Father Family Medical History: Cancer Additional Family Medical History / Comment(s): lung cancer Mother Family Medical History: Cancer, Dementia Additional Family Medical History / Comment(s): leukemia Medications and Allergies Home Medications Medication Instructions Recorded Confirmed Type Escitalopram [Lexapro] 20 mg PO DAILY 04/09/17 06/25/21 History Simvastatin [Zocor] 20 mg PO HS 04/09/17 06/25/21 History armodafiniL [Armodafinil] 250 mg PO DAILY 06/25/21 06/25/21 History Allergies Allergy/AdvReac Type Severity Reaction Status Date / Time latex Allergy Severe Rash/Hives Verified 06/25/21 21:22 bupivacaine [From Marcaine] Allergy Anaphylaxis Verified 06/25/21 21:22 Iodinated Contrast Media Allergy Anaphylaxis Verified 06/25/21 21:22 [Iodinated Contrast- Oral and IV Dye] Sulfa (Sulfonamide Allergy Anaphylaxis Verified 06/25/21 21:22 Antibiotics) sulfamethoxazole Allergy Anaphylaxis Verified 06/25/21 21:22 [From Bactrim] trimethoprim [From Bactrim] Allergy Anaphylaxis Verified 06/25/21 21:22 Surgical - Exam Vital Signs Temp Pulse Resp BP Pulse Ox 99.0 F 98 20 117/68 95 06/25/21 18:16 06/25/21 18:16 06/25/21 18:16 06/25/21 18:16 06/25/21 18:16 Results - Labs 06/26/21 06:03 06/26/21 06:03 Abnormal Lab Results - Last 24 Hours (Table) 06/25/21 06/25/21 06/25/21 Range/Units 19:15 19:15 19:35 WBC (3.8-10.6) k/uL Neutrophils # 8.4 H (1.3-7.7) k/uL Lymphocytes # (1.0-4.8) k/uL Glucose 109 H (74-99) mg/dL Urine Appearance Cloudy H (Clear) Urine Protein 1+ H (Negative) Urine Ketones 2+ H (Negative) Urine Bilirubin 1+ H (Negative) Urine RBC 9 H (0-5) /hpf Calcium Oxalate Crystal Many H (None) /hpf Urine Bacteria Rare H (None) /hpf Hyaline Casts 4 H (0-2) /lpf Urine Mucus Many H (None) /hpf 06/26/21 06/26/21 Range/Units 06:03 06:03 WBC 2.8 L (3.8-10.6) k/uL Neutrophils # (1.3-7.7) k/uL Lymphocytes # 0.6 L (1.0-4.8) k/uL Glucose 113 H (74-99) mg/dL Urine Appearance (Clear) Urine Protein (Negative) Urine Ketones (Negative) Urine Bilirubin (Negative) Urine RBC (0-5) /hpf Calcium Oxalate Crystal (None) /hpf Urine Bacteria (None) /hpf Hyaline Casts (0-2) /lpf Urine Mucus (None) /hpf Diabetes panel 06/25/21 06/26/21 Range/Units 19:15 06:03 Sodium 137 137 (137-145) mmol/L Potassium 4.1 4.3 (3.5-5.1) mmol/L Chloride 99 107 (98-107) mmol/L Carbon Dioxide 26 24 (22-30) mmol/L BUN 14 13 (7-17) mg/dL Creatinine 0.67 0.67 (0.52-1.04) mg/dL Glucose 109 H 113 H (74-99) mg/dL Calcium 9.7 8.4 (8.4-10.2) mg/dL AST 33 (14-36) U/L ALT 17 (4-34) U/L Alkaline Phosphatase 108 (38-126) U/L Total Protein 7.1 (6.3-8.2) g/dL Albumin 4.3 (3.5-5.0) g/dL Calcium panel 06/25/21 06/26/21 Range/Units 19:15 06:03 Calcium 9.7 8.4 (8.4-10.2) mg/dL Albumin 4.3 (3.5-5.0) g/dL Pituitary panel 06/25/21 06/26/21 Range/Units 19:15 06:03 Sodium 137 137 (137-145) mmol/L Potassium 4.1 4.3 (3.5-5.1) mmol/L Chloride 99 107 (98-107) mmol/L Carbon Dioxide 26 24 (22-30) mmol/L BUN 14 13 (7-17) mg/dL Creatinine 0.67 0.67 (0.52-1.04) mg/dL Glucose 109 H 113 H (74-99) mg/dL Calcium 9.7 8.4 (8.4-10.2) mg/dL Adrenal panel 06/25/21 06/26/21 Range/Units 19:15 06:03 Sodium 137 137 (137-145) mmol/L Potassium 4.1 4.3 (3.5-5.1) mmol/L Chloride 99 107 (98-107) mmol/L Carbon Dioxide 26 24 (22-30) mmol/L BUN 14 13 (7-17) mg/dL Creatinine 0.67 0.67 (0.52-1.04) mg/dL Glucose 109 H 113 H (74-99) mg/dL Calcium 9.7 8.4 (8.4-10.2) mg/dL Total Bilirubin 0.4 (0.2-1.3) mg/dL AST 33 (14-36) U/L ALT 17 (4-34) U/L Alkaline Phosphatase 108 (38-126) U/L Total Protein 7.1 (6.3-8.2) g/dL Albumin 4.3 (3.5-5.0) g/dL
[2021-06-26] MEDS: FAMOTIDINE 20 MG/2 ML VIAL IV SCH (16:34)
[2021-06-27] MEDS ORDERED: SODIUM CHLORIDE 0.9% 1,000 ML BAG ONE (00:30)
[2021-06-27] MEDS: BARIUM SULFATE 450 ML ORAL.SUSP BOTTLE PO PRN ×2 (06:31→10:01)
[2021-06-27] MEDS: FAMOTIDINE 20 MG/2 ML VIAL IV SCH (10:07)
[2021-06-27] MEDS: ENOXAPARIN 40 MG/0.4 ML SYRINGE SQ SCH (10:08)
--- NOTE | 2021-06-27 12:54 | CT ---
EXAMINATION TYPE: CT abdomen pelvis wo con DATE OF EXAM: 06/27/2021 COMPARISON: CT 06/25/2021 HISTORY: Abd pain, follow up SBO CT DLP: 183 mGycm Automated exposure control for dose reduction was used. TECHNIQUE: Helical acquisition of images from the lung bases through the pelvis. Patient received or al contrast only. FINDINGS: Lack of intravenous contrast could compromise sensitivity. LUNG BASES: There is been interval development of a small right pleural effusion and probable associa rylie atelectasis. AORTA: No significant abnormality is appreciataed. LIVER/GB: No significant change is appreciated. PANCREAS: No significant pain is seen. SPLEEN: No significant change is seen. ADRENALS: No significant change is seen. KIDNEYS: No significant change is seen. REPRODUCTIVE ORGANS: Not seen. URINARY BLADDER: No significant abnormality is seen. BOWEL: Small bowel folds show wall thickening. Contrast material has coursed into the colon to the l evel of the splenic flexure and proximal descending colon. Caliber of the bowel appears improved, kimberly e proximal small bowel show some mild distention FREE AIR: No Free Air is visible. ASCITES: None visible. PELVIC ADENOPATHY: None visualized. RETROPERITONEAL ADENOPATHY: No Retroperitoneal Adenopathy visible. OSSEOUS STRUCTURES: Marked scoliosis, postop changes to the lumbar spine and proximal left femur aga in noted, there is streak artifact present. IMPRESSION: NONSPECIFIC SMALL BOWEL WALL THICKENING COULD BE RELATED TO ENTERITIS. CONTRAST NOW COURSES INTO THE COLON. Interval development of small right pleural effusion, basilar atelectasis
--- NOTE | 2021-06-27 13:17 | P.PN ---
Subjective Progress Note Date: 06/27/21 CHIEF COMPLAINT: Small bowel obstruction HISTORY OF PRESENT ILLNESS: Patient reporting improvement of her abdominal pain. She is having some flatus. Minimal output through the NG tube. Denies any nausea. Repeat computed tomography scan abdomen and pelvis nonspecific small bowel wall thickening could be related to enteritis. Contrast now courses into the colon. Interval development of a small right pleural effusion and basilar atelectasis. Afebrile. Labs pending for today PHYSICAL EXAM: VITAL SIGNS: Reviewed. GENERAL: Well-developed in no acute distress. HEENT: No sclera icterus. Extraocular movements grossly intact. Moist buccal mucosa. Head is atraumatic, normocephalic. ABDOMEN: Soft. Mildly distended. Nontender. NEUROLOGIC: Alert and oriented. Cranial nerves II through XII grossly intact. ASSESSMENT: 1. Mechanical small bowel obstruction with improvement of obstruction noted on CAT scan. Contrast now courses into the colon. 2. Prior history of small bowel resection for small bowel obstruction PLAN: -Discontinue NG tube -Start clear liquids -Encourage patient to ambulate -Incentive spirometer ordered for atelectasis Physician Cupola Tapper Helper note has been reviewed by physician. Signing provider agrees with the documented findings, assessment, and plan of care. Objective - Vital Signs Vital signs: Vital Signs Temp 98.1 F 06/27/21 08:25 Pulse 86 06/27/21 08:25 Resp 16 06/27/21 08:25 BP 147/80 06/27/21 08:25 Pulse Ox 95 06/27/21 08:25 Intake & Output 06/26/21 06/27/21 06/27/21 18:59 06:59 18:59 Output Total 400 200 Balance -400 -200 Weight 40.778 kg Output: Urine 400 200 Other: Voiding Method Toilet Toilet # Voids 1 - Labs CBC & Chem 7: 06/26/21 06:03 06/26/21 06:03
[2021-06-27] MEDS ORDERED: ACETAMINOPHEN TAB 325 MG TAB PO PRN (13:18)
[2021-06-27 14:26] LABS: Basophils % (A) 1 %; Eosinophils # (A) 0.1 k/uL (0-0.7); Eosinophils % (A) 2 %; HCT 38.8 % (34.0-46.0); HGB 12.6 gm/dL (11.4-16.0); Lymphocytes # (A) 1.3 k/uL (1.0-4.8); Lymphocytes % (A) 20 %; MCHC 32.5 g/dL (31.0-37.0); MCV 95.1 fL (80.0-100.0); Mean Platelet Volume 6.9; Monocytes # (A) 0.3 k/uL (0-1.0); Monocytes % (A) 4 %; Neutrophils # (A) 4.7 k/uL (1.3-7.7); Neutrophils % (A) 72 %; Platelet Count 217 k/uL (150-450); RBC 4.08 m/uL (3.80-5.40); RDW 12.2 % (11.5-15.5); WBC 6.5 k/uL (3.8-10.6)
[2021-06-27] MEDS: SODIUM CHLORIDE 0.9% 1,000 ML IV SCH (20:21)
[2021-06-27] MEDS ORDERED: SIMVASTATIN 20 MG PO SCH (21:00)
[2021-06-27] MEDS ORDERED: ESCITALOPRAM 20 MG TAB PO SCH (22:00)
[2021-06-27] MEDS ORDERED: ATORVASTATIN 10 MG TAB PO SCH (22:00)
--- NOTE | 2021-06-28 06:48 | P.PN ---
Subjective Progress Note Date: 06/27/21 - Reason for Consult Consult date: 06/26/21 Medical management - Chief Complaint Abdominal pain - History of Present Illness Patient is a 71-year-old female with a known history of asthma, hyperlipidemia, scoliosis, chronic back pain, anxiety/depression presents to ER with complaints of abdominal pain. Patient says that her abdominal pain started on about 5 days ago mainly in the midline and is getting worse. Sharp pain. Associated with nausea. Patient has not been passing gas. Patient does have previous history of bowel obstruction. Denied any complaints of cough is from production. No recent diarrhea. Pain sometimes radiate to back. No recent illnesses. No sick contacts. No recent travel. Patient is not tolerating oral diet and worsening pain which made her to come to ER. Chest x-ray showed no active cardiopulmonary disease. There is minimal pleural diaphragmatic scarring right lung base which is stable or improved compared to old exam. CT of the thoracic aorta showed dilated fluid-filled small bowel suggestive of significant ileus or mechanical small bowel obstruction. EKG showed sinus rhythm with short WA interval. Laboratory data showed WBC 9.9 hemoglobin 14.8 L 264 neutrophils 8.4 BUN 14 and creatinine 0.67 potassium 4.1. Sodium 137 06/27/2021 Patient is seen and evaluated in follow up this morning and continues with an NG tube and has just returned from having a repeat CT abdomen. Patient is currently NPO with mouth swabs and being followed closely by surgery. Labs within normal limits. Patient states she is passing some gas although no bowel movement as of yet. Patient is requesting to have the NG removed. Awaiting surgical recommendations. No reports of chest pain, shortness of breath, or palpitations. Patient is afebrile. No reports of nausea or vomiting noted. Active Medications Acetaminophen (Acetaminophen Tab 325 Mg Tab) 650 mg PO Q4HR PRN PRN Reason: Fever and/ or Pain Enoxaparin Sodium (Enoxaparin 40 Mg/0.4 Ml Syringe) 40 mg SQ DAILY [facility] Last Admin: 06/27/21 10:08 Dose: 40 mg Documented by: Escitalopram Oxalate (Escitalopram 20 Mg Tab) 20 mg PO DAILY [facility] Famotidine (Famotidine 20 Mg/2 Ml Vial) 20 mg IV DAILY [facility] Last Admin: 06/27/21 10:07 Dose: 20 mg Documented by: Sodium Chloride (Saline 0.9%) 1,000 mls @ 50 mls/hr IV .Q20H [facility] Last Admin: 06/27/21 20:21 Dose: Not Given Documented by: Morphine Sulfate (Morphine Sulfate 4 Mg/Ml Syringe) 4 mg IV Q4HR PRN PRN Reason: Severe Pain Naloxone HCl (Naloxone 0.4 Mg/Ml 1 Ml Vial) 0.2 mg IV Q2M PRN PRN Reason: Opioid Reversal Simvastatin 20mg (Tablet) 20 each PO HS [facility] Last Admin: 06/27/21 20:22 Dose: 20 each Documented by: Armodafinil (Nuvigil () 250 Mg Tablet) 250 mg PO DAILY [facility] Ondansetron HCl (Ondansetron 4 Mg/2 Ml Vial) 4 mg IVP Q8HR PRN PRN Reason: Nausea And Vomiting Last Admin: 06/27/21 06:34 Dose: 4 mg Documented by: PHYSICAL EXAMINATION: Patient is lying in the bed comfortably, no acute distress, awake alert and oriented. Cachectic.. NG tube in place. HEENT: Normocephalic. Neck is supple. Pupils reactive. Nostrils clear. Oral cavity is moist. Neck reveals no JVD, carotid bruits, or thyromegaly. CHEST EXAMINATION: Trachea is central. Symmetrical expansion. Lung pagan clear to auscultation and percussion. CARDIAC: Normal S1, S2 with no gallops. No murmurs ABDOMEN: Soft. Bowel sounds heard on exam. No organomegaly. No abdominal bruits. Extremities: reveal no edema. No clubbing or cyanosis Neurologically awake, alert, oriented x3 with well-coordinated movements. No focal deficits noted Skin: No rash or skin lesions. Psychiatric: Cooperative. Non-suicidal Musculoskeletal: No joint swelling or deformity. Normal range of motion. Assessment: Acute small bowel ileus with possible partial mechanical small bowel obstruction. Abdominal pain secondary to above History of bowel obstruction History of cholecystectomy and hysterectomy Osteoarthritis Hyperlipidemia history of asthma, not in acute exacerbation, mild intermittent Anxiety/depression DVT prophylaxis Full code Plan: Patient will be continued on IV hydration and nothing by mouth. Patient had repeat CT abdomen which shows some non-specific small bowel wall thickening that could be related to enteritis with contrast now coursing into the colon and a interval development of small right pleural effusion, basal atelectasis. NG tube being removed by surgery and will start slowly on clear liquids and advance per surgery. Incentive spirometer ordered and will decrease IV fluids. Encouraged increased activity. We will continue to follow and further recommendations based on the clinical course. Thank you for this consultation and we will follow during hospitalization. Objective - Vital Signs Vital signs: Vital Signs Temp 98.1 F 06/27/21 08:25 Pulse 86 06/27/21 08:25 Resp 16 06/27/21 08:25 BP 147/80 06/27/21 08:25 Pulse Ox 95 06/27/21 08:25 Intake & Output 06/26/21 06/27/21 06/27/21 18:59 06:59 18:59 Output Total 400 200 Balance -400 -200 Weight 40.778 kg Output: Urine 400 200 Other: Voiding Method Toilet # Voids 1 - Labs CBC & Chem 7: 06/27/21 13:56 06/26/21 06:03
[2021-06-28] MEDS: ENOXAPARIN 40 MG/0.4 ML SYRINGE SQ SCH (08:41)
[2021-06-28] MEDS: FAMOTIDINE 20 MG/2 ML VIAL IV SCH (08:42)
[2021-06-28] MEDS ORDERED: ARMODAFINIL 250 MG PO SCH (09:00)
[2021-06-28] MEDS ORDERED: ESCITALOPRAM 20 MG TAB PO SCH (09:00)
--- NOTE | 2021-06-28 13:42 | P.DS ---
Providers Date of admission: 06/25/21 21:23 Expected date of discharge: 06/28/21 Attending physician: Martín Bautista Consults: 06/26/21 08:24 Consult Physician Routine Consulting Provider: Jessica Ramos Consult Reason/Comments: medical management Do you want consulting provider notified?: Yes Primary care physician: [facility] Hospital Course: Discharge diagnosis 1. Mechanical small bowel obstruction treated conservatively 2. Prior history of small bowel resection for small bowel obstruction 3. Possible viral Enteritis Hospital course This is a 71-year-old female who does have a prior history of small bowel obstruction status post small bowel resection about 8 years ago. Patient presents to the hospital with complaints of mid to lower abdominal pain that started 6 days ago. Patient stated that symptoms began to worsen she's been having nausea and vomiting. The emesis was a caramel color. She was no longer having any flatus. And her last bowel movement was yesterday and normal. She reports that this feels similar to previous bowel obstruction. She had NG tube placed. She is currently nothing by mouth. She had a CTA of the chest which showed evidence of possible ileus versus mechanical small bowel obstruction. There is no evidence of PE. Repeat computed tomography scan abdomen and pelvis nonspecific small bowel wall thickening could be related to enteritis. Contrast now courses into the colon. Patient was treated conservatively for her mechanical small bowel obstruction. She initially had NG tube placed. She has been passing gas and having bowel movements. NG tube was discontinued yesterday. She's tolerated advancement of diet to full liquids. Abdominal pain has resolved. Afebrile. Up and ambulating. She is stable for discharge. Please refer to chart for any further details. Physician Plate Developer note has been reviewed by physician. Signing provider agrees with the documented findings, assessment, and plan of care. Patient Condition at Discharge: Stable Plan - Discharge Summary Discharge Rx Participant: Yes New Discharge Prescriptions: Continue Simvastatin [Zocor] 20 mg PO HS Escitalopram [Lexapro] 20 mg PO DAILY armodafiniL [Armodafinil] 250 mg PO DAILY Discharge Medication List Escitalopram [Lexapro] 20 mg PO DAILY 04/09/17 [History] Simvastatin [Zocor] 20 mg PO HS 04/09/17 [History] armodafiniL [Armodafinil] 250 mg PO DAILY 06/25/21 [History] Follow up Appointment(s)/Referral(s): [facility] [NON-STAFF] - 1-2 Days Luis Angel Greer DO [Primary Care Provider] - 1 Week Martín Bautista MD [STAFF PHYSICIAN] - 1 Week Activity/Diet/Wound Care/Special Instructions: Pt's Armadafanil is in pharmacy for vegetable picker when pt is discharged (It is a controlled substance) Pt's Zocor is in out med room on top of med cart..please give both meds to patient at discharge. Patient to advance diet slowly over the next couple a days. Stay on a full liquid diet for the next 24 hours. Discharge Disposition: HOME SELF-CARE
[2021-06-28 14:12] VITALS: BP 132/71; PULSE 83; RESP 20; TEMP 98.3
--- NOTE | 2021-06-28 14:56 | P.PN ---
Subjective Progress Note Date: 06/28/21 - Reason for Consult Consult date: 06/26/21 Medical management - Chief Complaint Abdominal pain - History of Present Illness Patient is a 71-year-old female with a known history of asthma, hyperlipidemia, scoliosis, chronic back pain, anxiety/depression presents to ER with complaints of abdominal pain. Patient says that her abdominal pain started on about 5 days ago mainly in the midline and is getting worse. Sharp pain. Associated with nausea. Patient has not been passing gas. Patient does have previous history of bowel obstruction. Denied any complaints of cough is from production. No recent diarrhea. Pain sometimes radiate to back. No recent illnesses. No sick contacts. No recent travel. Patient is not tolerating oral diet and worsening pain which made her to come to ER. Chest x-ray showed no active cardiopulmonary disease. There is minimal pleural diaphragmatic scarring right lung base which is stable or improved compared to old exam. CT of the thoracic aorta showed dilated fluid-filled small bowel suggestive of significant ileus or mechanical small bowel obstruction. EKG showed sinus rhythm with short NC interval. Laboratory data showed WBC 9.9 hemoglobin 14.8 L 264 neutrophils 8.4 BUN 14 and creatinine 0.67 potassium 4.1. Sodium 137 06/27/2021 Patient is seen and evaluated in follow up this morning and continues with an NG tube and has just returned from having a repeat CT abdomen. Patient is currently NPO with mouth swabs and being followed closely by surgery. Labs within normal limits. Patient states she is passing some gas although no bowel movement as of yet. Patient is requesting to have the NG removed. Awaiting surgical recommendations. No reports of chest pain, shortness of breath, or palpitations. Patient is afebrile. No reports of nausea or vomiting noted. 06/28/2021 Patient is seen in follow-up this morning in no acute distress appears much improved and states she was maintained on clear liquids and tolerating and being advanced per surgical recommendations. Patient has had NG tube removed as CT abdomen with showing improvement and patient states she is having gas and had bowel movements this morning. Patient is anxious to go home and anticipates discharge today. Reports of chest pain, shortness of breath, or palpitations. Patient is afebrile. No reports of nausea or vomiting and patient is tolerating diet. Encourage the patient to continue using incentive spirometer at least 10 times every hour while awake even in the outpatient setting. Review of systems: Constitutional: No reports of fatigue, fever, or chills Cardiovascular: No reports of chest pain or palpitations Respiratory: No reports of shortness of breath or cough GI: No reports of nausea, vomiting, or diarrhea : No reports of dysuria or retention Neurovascular: No reports of weakness or numbness All medications have been reviewed Active Medications Acetaminophen (Acetaminophen Tab 325 Mg Tab) 650 mg PO Q4HR PRN PRN Reason: Fever and/ or Pain Last Admin: 06/28/21 13:12 Dose: 650 mg Documented by: Enoxaparin Sodium (Enoxaparin 40 Mg/0.4 Ml Syringe) 40 mg SQ DAILY [facility] Last Admin: 06/28/21 08:41 Dose: 40 mg Documented by: Escitalopram Oxalate (Escitalopram 20 Mg Tab) 20 mg PO DAILY [facility] Last Admin: 06/28/21 08:41 Dose: 20 mg Documented by: Famotidine (Famotidine 20 Mg/2 Ml Vial) 20 mg IV DAILY [facility] Last Admin: 06/28/21 08:42 Dose: 20 mg Documented by: Sodium Chloride (Saline 0.9%) 1,000 mls @ 50 mls/hr IV .Q20H [facility] Last Admin: 06/27/21 20:21 Dose: Not Given Documented by: Morphine Sulfate (Morphine Sulfate 4 Mg/Ml Syringe) 4 mg IV Q4HR PRN PRN Reason: Severe Pain Naloxone HCl (Naloxone 0.4 Mg/Ml 1 Ml Vial) 0.2 mg IV Q2M PRN PRN Reason: Opioid Reversal Simvastatin 20mg (Tablet) 20 each PO HS [facility] Last Admin: 06/27/21 20:22 Dose: 20 each Documented by: Armodafinil (Nuvigil () 250 Mg Tablet) 250 mg PO DAILY [facility] Last Admin: 06/28/21 09:02 Dose: 250 mg Documented by: Ondansetron HCl (Ondansetron 4 Mg/2 Ml Vial) 4 mg IVP Q8HR PRN PRN Reason: Nausea And Vomiting Last Admin: 06/27/21 06:34 Dose: 4 mg Documented by: PHYSICAL EXAMINATION: Patient is lying in the bed comfortably, no acute distress, awake alert and oriented. Cachectic.. HEENT: Normocephalic. Neck is supple. Pupils reactive. Nostrils clear. Oral cavity is moist. Neck reveals no JVD, carotid bruits, or thyromegaly. CHEST EXAMINATION: Trachea is central. Symmetrical expansion. Lung pagan clear to auscultation and percussion. CARDIAC: Normal S1, S2 with no gallops. No murmurs ABDOMEN: Soft. Bowel sounds heard on exam. No organomegaly. No abdominal bruits. Extremities: reveal no edema. No clubbing or cyanosis Neurologically awake, alert, oriented x3 with well-coordinated movements. No focal deficits noted Skin: No rash or skin lesions. Psychiatric: Cooperative. Non-suicidal Musculoskeletal: No joint swelling or deformity. Normal range of motion. Assessment: Acute small bowel ileus with possible partial mechanical small bowel obstruction, improved Abdominal pain secondary to above History of bowel obstruction History of cholecystectomy and hysterectomy Osteoarthritis Hyperlipidemia history of asthma, not in acute exacerbation, mild intermittent Anxiety/depression DVT prophylaxis Full code Plan: NG tube has been removed and patient is tolerating clear liquids and them being advanced in diet per surgery recommendations. Patient is passing gas and has had a bowel movement today and is anticipating discharge. Patient is afebrile with no reports of nausea or vomiting noted. Patient encouraged to continue using incentive spirometer at least 10 times every hour while awake and encourage activity as tolerated. Patient also instructed to follow-up with primary care provider on discharge. Anticipate discharge today if continuing to tolerate diet. Will continue to follow during hospitalization and would like to thank you for this consultation. Objective - Vital Signs Vital signs: Vital Signs Temp 98.5 F 06/28/21 07:52 Pulse 78 06/28/21 07:52 Resp 16 06/28/21 07:52 BP 136/78 06/28/21 07:52 Pulse Ox 96 06/28/21 07:52 Intake & Output 06/27/21 06/28/21 06/28/21 18:59 06:59 18:59 Output Total 1999 Balance -1999 Output: Urine 1999 Other: Voiding Method Toilet Toilet # Voids 2 1 1 - Labs CBC & Chem 7: 06/27/21 13:56 06/26/21 06:03
== END 2021-06-28 16:50 | disposition home or self-care (01) | DRG 389 ==
LOC: EC 17:50 → 6PED 21:23
PROVIDERS: ADMIT Surgery; ATTEND Surgery
PROC: 0D9770Z Drainage of Stomach, Pylorus with Drainage Device, Via Natural or Artificial Opening (ICD-10-PCS; principal; 2021-06-25)
DX: K56.699 Other intestinal obstruction unspecified as to partial versus complete obstruction (principal); J98.11 Atelectasis; J90 Pleural effusion, not elsewhere classified; K56.7 Ileus, unspecified; Z20.822 Contact with and (suspected) exposure to COVID-19; M62.9 Disorder of muscle, unspecified; E78.5 Hyperlipidemia, unspecified; F32.A Depression, unspecified; M51.36 Other intervertebral disc degeneration, lumbar region; G89.29 Other chronic pain; F41.9 Anxiety disorder, unspecified; A08.4 Viral intestinal infection, unspecified; J45.20 Mild intermittent asthma, uncomplicated; M19.90 Unspecified osteoarthritis, unspecified site; M41.9 Scoliosis, unspecified; Z79.899 Other long term (current) drug therapy; Z90.49 Acquired absence of other specified parts of digestive tract; Z90.710 Acquired absence of both cervix and uterus; Z98.1 Arthrodesis status; Z88.2 Allergy status to sulfonamides; Z88.8 Allergy status to other drugs, medicaments and biological substances; Z91.041 Radiographic dye allergy status; Z91.040 Latex allergy status
CPT/HCPCS: 36415; 71045; 71046; 71275; 74174; 74176; 80048; 80053; 81001; 82150; 83605; 83690; 83735; 84484; 85025; 85610; 85730; 87635; 93005; 96374; 96375; 99285

== ENCOUNTER → 2021-12-18 | Outpatient (CLI) | payer MEDICARE, OTHER ==
--- NOTE | 2021-12-18 15:40 | USB ---
Reason for Exam: Follow-up at short interval from prior study. Patient History: Menarche at age 10. First Full-Term at age 20. Left ovary removed at age 48. Right ovary removed at age 48. Hysterectomy at age 48. Postmenopausal. Estrogen for 2 years from age 53 until age 55. Risk Values: Kimberley 5 year model risk: 1.6%. NCI Lifetime model risk: 3.9%. Technique: Method: Targeted. Prior Study Comparison: 07/23/2016 Bilateral Screening Mammogram, [facility]. 06/18/2021 Right Diagnostic Ultrasound, [facility]. Findings: The axilla of the right breast and the retroareolar of the right breast were scanned. Targeted scanning right breast 11 to 1:00 position. At 12:00, 3 cm from the nipple, there is a 6 x 5 x 3 mm hypoechoic oval lesion, previously measuring 7 x 6 x 3 mm. At the 12:00 position, 3 cm from the nipple, just adjacent, there is a 4 x 3 x 2 mm hypoechoic lesion, previously measuring 4 x 3 mm. These findings are unchanged for 6 months. Continued follow-up is recommended in addition to bilateral breast ultrasound screening as the patient declines mammograms due to pain related to her scoliosis. Overall Assessment: Incomplete: need additional imaging evaluation, BI-RAD 0 Management: Diagnostic Breast Ultrasound of both breasts. 1. Bilateral screening breast ultrasounds. Due now. The patient declines screening mammograms due to pain related to her scoliosis. 2. In addition, the two 12:00 lesions within the right breast should be reassessed in 6 months time (total 1 year follow-up). 3. Patient should continue monthly self breast exams. Electronically signed and approved by: Abisai Hamlin M.D. Radiologist
== END | disposition home or self-care (01) ==
LOC: RADUSWWP 14:46
PROVIDERS: ATTEND Family Medicine
DX: N64.89 Other specified disorders of breast (principal); Z78.0 Asymptomatic menopausal state

== ENCOUNTER → 2022-01-02 | Outpatient (CLI) | payer MEDICARE, OTHER ==
--- NOTE | 2022-01-02 15:36 | USB ---
Reason for Exam: Additional evaluation requested from prior study. Patient History: Menarche at age 10. First Full-Term at age 20. Left ovary removed at age 48. Right ovary removed at age 48. Hysterectomy at age 48. Postmenopausal. Estrogen for 2 years from age 53 until age 55. Risk Values: Kimberley 5 year model risk: 1.6%. NCI Lifetime model risk: 3.9%. Technique: Method: Whole Breast Handheld. Prior Study Comparison: 07/23/2016 Bilateral Screening Mammogram, [facility]. Findings: The whole breast of both breasts, the axilla of both breasts and the retroareolar of both breasts were scanned. Finding 1: Mass. Laterality: Right. Size 6 x 3 x 7 mm. 12 O'clock 3 cm cm from nipple. Shape: Oval. Finding 2: Complicated cysts. Laterality: Left. Size 5 x 2 x 6 mm. 7 O'clock Quadrant: Lower inner. 4 cm cm from nipple. No suspicious solid or cystic mass in either breast.. Overall Assessment: Benign, BI-RAD 2 Management: Screening Mammogram of both breasts in 1 year. Return to routine follow-up. Electronically signed and approved by: Van Dominguez M.D.
== END | disposition home or self-care (01) ==
LOC: RADUSWWP 14:48
PROVIDERS: ATTEND Family Medicine
DX: N63.10 Unspecified lump in the right breast, unspecified quadrant (principal); N60.02 Solitary cyst of left breast; Z78.0 Asymptomatic menopausal state

== ENCOUNTER 2022-10-30 22:36 | Inpatient (IN) | payer MEDICARE, OTHER ==
[2022-10-31] MEDS ORDERED: SODIUM CHLORIDE 0.9% 1,000 ML IV STA (00:08)
[2022-10-31] MEDS ORDERED: ONDANSETRON 4 MG/2 ML VIAL IVP STA (00:08)
[2022-10-31] MEDS ORDERED: HYDROmorphone 0.5 MG/0.5 ML SYRINGE IVP STA (00:09)
--- NOTE | 2022-10-31 01:09 | CT ---
EXAM: CT Abdomen and Pelvis Without Intravenous Contrast CLINICAL HISTORY: ITS.REASON CT Reason: abdominal pain/vomiting TECHNIQUE: Axial computed tomography images of the abdomen and pelvis without intravenous contrast. CTDI is 5.3 mGy and DLP is 275.4 mGy-cm. This CT exam was performed using one or more of the following dose reduction techniques: automated exposure control, adjustment of the mA and/or kV according to patient size, and/or use of iterative reconstruction technique. COMPARISON: 06/27/2021 FINDINGS: Lung bases: Linear atelectasis left lower lobe. ABDOMEN: Liver: Unremarkable. Gallbladder and bile ducts: Postoperative changes prior cholecystectomy. No ductal dilation. Pancreas: Unremarkable. No ductal dilation. Spleen: Unremarkable. No splenomegaly. Adrenals: Unremarkable. No mass. Kidneys and ureters: Unremarkable. No obstructing stones. No hydronephrosis. Stomach and bowel: High-grade small bowel obstruction. Moderate amount of stool within the:. No mucosal thickening. PELVIS: Appendix: No findings to suggest acute appendicitis. Bladder: Unremarkable. No stones. Reproductive: Unremarkable as visualized. ABDOMEN and PELVIS: Intraperitoneal space: Unremarkable. No significant fluid collection. No free air. Bones/joints: Postoperative changes of the lower lumbar spine. No acute fracture. No dislocation. Soft tissues: Unremarkable. Vasculature: Unremarkable. No abdominal aortic aneurysm. Lymph nodes: Unremarkable. No enlarged lymph nodes. IMPRESSION: High-grade small bowel obstruction with a moderate amount of stool within the colon.
--- NOTE | 2022-10-31 01:25 | ED ---
General Adult HPI - General Chief complaint: Abdominal Pain Stated complaint: Stomach cramps, Vomiting Time Seen by Provider: 10/30/22 23:58 Source: patient, RN notes reviewed, old records reviewed Mode of arrival: ambulatory Limitations: no limitations - History of Present Illness Initial comments: 72 female presenting for abdominal pain and multiple episodes of vomiting. Symptoms began over the past 12 hours. She has severe abdominal pain and has vomited numerous times. She states she did have a bowel movement today. She has previous history of small bowel obstruction and had operative repair at outside hospital many years ago. She denies fever. Pain is generalized. - Related Data Home Medications Medication Instructions Recorded Confirmed Escitalopram [Lexapro] 20 mg PO DAILY 04/09/17 06/25/21 Simvastatin [Zocor] 20 mg PO HS 04/09/17 06/25/21 armodafiniL [Armodafinil] 250 mg PO DAILY 06/25/21 06/25/21 Allergies Allergy/AdvReac Type Severity Reaction Status Date / Time latex Allergy Severe Rash/Hives Verified 06/25/21 21:22 bupivacaine [From Marcaine] Allergy Anaphylaxis Verified 06/25/21 21:22 Iodinated Contrast Media Allergy Anaphylaxis Verified 06/25/21 21:22 [Iodinated Contrast- Oral and IV Dye] Sulfa (Sulfonamide Allergy Anaphylaxis Verified 06/25/21 21:22 Antibiotics) sulfamethoxazole Allergy Anaphylaxis Verified 06/25/21 21:22 [From Bactrim] trimethoprim [From Bactrim] Allergy Anaphylaxis Verified 06/25/21 21:22 Review of Systems ROS Statement: Those systems with pertinent positive or pertinent negative responses have been documented in the HPI. ROS Other: All systems not noted in ROS Statement are negative. 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, L5 disc disease with secondary chronic back pain, mild intermittent bronchial asthma, hyperlipidemia, anxiety/depression History of Any Multi-Drug Resistant Organisms: None Reported Past Surgical History: Cholecystectomy, Hysterectomy, Joint Replacement, Orthopedic Surgery Additional Past Surgical History / Comment(s): lt knee,lt shoulder, cervical spine fusion Past Anesthesia/Blood Transfusion Reactions: No Reported Reaction Additional Past Anesthesia/Blood Transfusion Reaction / Comment(s): 196 pt had blood transfusion- states no reaction Past Psychological History: Anxiety, Depression Smoking Status: Never smoker Past Alcohol Use History: None Reported Past Drug Use History: None Reported - Past Family History Father Family Medical History: Cancer Additional Family Medical History / Comment(s): lung cancer Mother Family Medical History: Cancer, Dementia Additional Family Medical History / Comment(s): leukemia General Exam Limitations: no limitations General appearance: alert, in distress Head exam: Present: atraumatic, normocephalic Eye exam: Present: normal appearance, PERRL ENT exam: Present: mucous membranes dry Neck exam: Present: normal inspection. Absent: tenderness, meningismus Respiratory exam: Present: normal lung sounds bilaterally. Absent: respiratory distress, wheezes Cardiovascular Exam: Present: regular rate, normal rhythm GI/Abdominal exam: Present: distended, tenderness, guarding Extremities exam: Present: normal inspection, normal capillary refill. Absent: pedal edema Neurological exam: Present: alert, oriented X3, CN II-XII intact. Absent: motor sensory deficit Psychiatric exam: Present: anxious Skin exam: Present: warm, dry, intact. Absent: cyanosis, diaphoretic Course Vital Signs 10/30/22 10/31/22 22:51 01:32 Temperature 98.9 F Pulse Rate 76 78 Respiratory 14 18 Rate Blood Pressure 165/80 92/54 O2 Sat by Pulse 96 94 L Oximetry Medical Decision Making - Medical Decision Making Was pt. sent in by a medical professional or institution (Dr. PA, OUTPATIENT PHYSICAL THERAPIST ASSISTANT, urgent care, hospital, or [facility]...) When possible be specific @ -No Did you speak to anyone other than the patient for history (EMS, parent, family, police, friend...)? What history was obtained from this source @ -Patient's daughter who is at bedside Did you review nursing and triage notes (agree or disagree)? Why? @ -I reviewed and agree with nursing and triage notes Were old charts reviewed (outside hosp., previous admission, EMS record, old EKG, old radiological studies, urgent care reports/EKG's, [facility] records)? Report findings @ -[facility] admissions including admission for small bowel obstruction Differential Diagnosis (chest pain, altered mental status, abdominal pain women, abdominal pain men, vaginal bleeding, weakness, fever, dyspnea, syncope, headache, dizziness, GI bleed, back pain, seizure, CVA, palpatations, mental health, musculoskeletal)? @ -[Differential Abdominal Pain Women: Appendicitis, Cholecystitis, diverticulosis, ischemic bowel, pancreatitis, hepatitis, UTI, gastroenteritis, AAA, incarcerated hernia, bowel obstruction, constipation, inflammatory bowel, hepatitis, peptic ulcer disease, splenic infarction, perforated viscus, this is not meant to be an all-inclusive list EKG interpreted by me (3pts min.). @ -As above X-rays interpreted by me (1pt min.). @ -None done CT interpreted by me (1pt min.). @ -CT showing high-grade small bowel obstruction U/S interpreted by me (1pt. min.). @ -None done What testing was considered but not performed or refused? (CT, X-rays, U/S, labs)? Why? @ -None What meds were considered but not given or refused? Why? @ -None Did you discuss the management of the patient with other professionals (professionals i.e. , PA, OUTPATIENT PHYSICAL THERAPIST ASSISTANT, lab, RT, psych nurse, social media senior associate, vocational rehabilitation administrator, teacher, planned giving officer, case assistant)? Give summary @ -Case discussed with the admitting physician and with general surgery Was smoking cessation discussed for >3mins.? @ -No Was critical care preformed (if so, how long)? @ -No Were there social determinants of health that impacted care today? How? (Homelessness, low income, unemployed, alcoholism, drug addiction, transportation, low edu. Level, literacy, decrease access to med. care, skilled nursing, rehab)? @ -No Was there de-escalation of care discussed even if they declined (Discuss DNR or withdrawal of care, Hospice)? DNR status @ -No What co-morbidities impacted this encounter? (DM, HTN, Smoking, COPD, CAD, Cancer, CVA, ARF, Chemo, Hep., AIDS, mental health diagnosis, sleep apnea, morbid obesity)? @ -Previous small bowel obstruction Was patient admitted / discharged? Hospital course, mention meds given and route, prescriptions, significant lab abnormalities, going to OR and other pertinent info. @ -72-year-old female with prior history of small bowel obstruction and resection approximately 8 years ago presenting with vomiting, abdominal pain and distention. On exam the patient has diffuse tenderness with a distended abdomen. She's vomited more than 10 times. There is a high suspicion for small bowel obstruction, CT is performed which does confirm the diagnosis. She has mild leukocytosis, stable hemoglobin. Normal lactic acid. NG tube is placed in the emergency department should be admitted for IV fluids and symptomatic treatment. She'll be admitted to internal medicine with general surgery on consult. Undiagnosed new problem with uncertain prognosis? @ -No Drug Therapy requiring intensive monitoring for toxicity (Heparin, Nitro, Insulin, Cardizem)? @ -No Were any procedures done? @ -No Diagnosis/symptom? @ -[Small bowel obstruction Acute, or Chronic, or Acute on Chronic? @ -Acute Uncomplicated (without systemic symptoms) or Complicated (systemic symptoms)? @ -default Side effects of treatment? @ -No Exacerbation, Progression, or Severe Exacerbation? @ -No Poses a threat to life or bodily function? How? (Chest pain, USA, VT, pneumonia, PE, COPD, DKA, ARF, appy, cholecystitis, CVA, Diverticulitis, Homicidal, Suicidal, threat to staff... and all critical care pts) @ -[Yes, bowel ischemia, sepsis, multiorgan failure. - Lab Data Result diagrams: 10/31/22 00:54 10/31/22 00:54 Lab Results 10/31/22 10/31/22 10/31/22 Range/Units 00:54 00:54 00:54 WBC 12.8 H (3.8-10.6) k/uL RBC 4.75 (3.80-5.40) m/uL Hgb 14.6 (11.4-16.0) gm/dL Hct 44.6 (34.0-46.0) % MCV 93.9 D (80.0-100.0) fL MCH 30.7 (25.0-35.0) pg MCHC 32.7 (31.0-37.0) g/dL RDW 12.2 (11.5-15.5) % Plt Count 247 (150-450) k/uL MPV 7.0 Neutrophils % 91 % Lymphocytes % 5 % Monocytes % 3 % Eosinophils % 1 % Basophils % 0 % Neutrophils # 11.7 H (1.3-7.7) k/uL Lymphocytes # 0.6 L (1.0-4.8) k/uL Monocytes # 0.4 (0-1.0) k/uL Eosinophils # 0.1 (0-0.7) k/uL Basophils # 0.0 (0-0.2) k/uL APTT 21.2 L (22.0-30.0) sec Sodium 138 (137-145) mmol/L Potassium 3.7 (3.5-5.1) mmol/L Chloride 98 (98-107) mmol/L Carbon Dioxide 31 H (22-30) mmol/L Anion Gap 9 mmol/L BUN 20 H (7-17) mg/dL Creatinine 0.60 (0.52-1.04) mg/dL Est GFR (CKD-EPI)AfAm >90 (>60 ml/min/1.73 sqM) Est GFR (CKD-EPI)NonAf >90 (>60 ml/min/1.73 sqM) Glucose 151 H (74-99) mg/dL Plasma Lactic Acid Francisco Javier (0.7-2.0) mmol/L Calcium 10.4 H (8.4-10.2) mg/dL Total Bilirubin 0.6 (0.2-1.3) mg/dL AST 43 H (14-36) U/L ALT 30 (4-34) U/L Alkaline Phosphatase 122 (38-126) U/L Total Protein 7.8 (6.3-8.2) g/dL Albumin 4.7 (3.5-5.0) g/dL Amylase 101 (30-110) U/L Lipase 78 (23-300) U/L 10/31/22 Range/Units 00:54 WBC (3.8-10.6) k/uL RBC (3.80-5.40) m/uL Hgb (11.4-16.0) gm/dL Hct (34.0-46.0) % MCV (80.0-100.0) fL MCH (25.0-35.0) pg MCHC (31.0-37.0) g/dL RDW (11.5-15.5) % Plt Count (150-450) k/uL MPV Neutrophils % % Lymphocytes % % Monocytes % % Eosinophils % % Basophils % % Neutrophils # (1.3-7.7) k/uL Lymphocytes # (1.0-4.8) k/uL Monocytes # (0-1.0) k/uL Eosinophils # (0-0.7) k/uL Basophils # (0-0.2) k/uL APTT (22.0-30.0) sec Sodium (137-145) mmol/L Potassium (3.5-5.1) mmol/L Chloride (98-107) mmol/L Carbon Dioxide (22-30) mmol/L Anion Gap mmol/L BUN (7-17) mg/dL Creatinine (0.52-1.04) mg/dL Est GFR (CKD-EPI)AfAm (>60 ml/min/1.73 sqM) Est GFR (CKD-EPI)NonAf (>60 ml/min/1.73 sqM) Glucose (74-99) mg/dL Plasma Lactic Acid Francisco Javier 1.2 (0.7-2.0) mmol/L Calcium (8.4-10.2) mg/dL Total Bilirubin (0.2-1.3) mg/dL AST (14-36) U/L ALT (4-34) U/L Alkaline Phosphatase (38-126) U/L Total Protein (6.3-8.2) g/dL Albumin (3.5-5.0) g/dL Amylase (30-110) U/L Lipase (23-300) U/L Critical Care Time Critical Care Time: Yes Total Critical Care Time: 35 Disposition Clinical Impression: Small bowel obstruction Disposition: ADMITTED IP TO THIS [facility] Condition: Stable Is patient prescribed a controlled substance at d/c from ED?: No Time of Disposition: 03:43
[2022-10-31 02:04] LABS: Basophils % (A) 0 %; Eosinophils # (A) 0.1 k/uL (0-0.7); Eosinophils % (A) 1 %; HCT 44.6 % (34.0-46.0); HGB 14.6 gm/dL (11.4-16.0); Lymphocytes # (A) 0.6 k/uL (1.0-4.8); Lymphocytes % (A) 5 %; MCH 30.7 pg (25.0-35.0); MCHC 32.7 g/dL (31.0-37.0); Monocytes # (A) 0.4 k/uL (0-1.0); Monocytes % (A) 3 %; Neutrophils # (A) 11.7 k/uL (1.3-7.7); Neutrophils % (A) 91 %; Platelet Count 247 k/uL (150-450); RBC 4.75 m/uL (3.80-5.40); RDW 12.2 % (11.5-15.5); WBC 12.8 k/uL (3.8-10.6)
[2022-10-31 02:09] LABS: MCV 93.9 fL (80.0-100.0)
[2022-10-31 02:14] LABS: ALT 30 U/L (4-34); AST 43 U/L (14-36); African American GFR (CKD) >90 (>60 ml/min/1.73 sqM); Albumin 4.7 g/dL (3.5-5.0); Alkaline Phosphatase 122 U/L (38-126); Amylase 101 U/L (30-110); Anion Gap 9 mmol/L; Blood Urea Nitrogen 20 mg/dL (7-17); Calcium 10.4 mg/dL (8.4-10.2); Carbon Dioxide 31 mmol/L (22-30); Chloride 98 mmol/L (98-107); Glucose 151 mg/dL (74-99); Lipase 78 U/L (23-300); Non-African American GFR(CKD) >90 (>60 ml/min/1.73 sqM); Potassium 3.7 mmol/L (3.5-5.1); Sodium 138 mmol/L (137-145); Total Bilirubin 0.6 mg/dL (0.2-1.3); Total Protein 7.8 g/dL (6.3-8.2)
[2022-10-31] MEDS ORDERED: NALOXONE 0.4 MG/ML 1 ML VIAL IV PRN (03:23)
--- NOTE | 2022-10-31 03:47 | XR ---
EXAM: XR Chest, 1 View CLINICAL HISTORY: ITS.REASON XR Reason: NG insertion TECHNIQUE: Frontal view of the chest. COMPARISON: No relevant prior studies available. FINDINGS: Lungs: Lungs are clear without focal infiltrates or effusions. Bilateral basilar atelectasis. Pleural space: Unremarkable. No pneumothorax. Heart: Unremarkable. No cardiomegaly. Mediastinum: Unremarkable. Bones/joints: Unremarkable. Tubes, lines and devices: Esophageal catheter is present with its tip at the proximal esophagus just at the level aortic knob. This needs to be advanced significantly. IMPRESSION: 1. No acute pulmonary pathology 2. Esophageal catheter needs to be advanced at least 22 cm. 3. Clear lungs
[2022-10-31] MEDS: SODIUM CHLORIDE 0.9% 1,000 ML IV SCH ×3 (05:18→23:30)
--- NOTE | 2022-10-31 07:09 | XR ---
EXAMINATION TYPE: XR chest 1V portable DATE OF EXAM: 10/31/2022 COMPARISON: 10/31/2022 INDICATION: Tube placement TECHNIQUE: Single frontal view of the chest is obtained. FINDINGS: The heart size is borderline sized. The pulmonary vasculature is normal. Some mild atelectasis may be at the left base. Minimal linear opacities of the right diaphragm. Cholelithiasis is present. There is a nasogastric tube which transverses the thorax with tip in left upper quadrant of the abdomen. IMPRESSION: 1. Mild bibasilar atelectasis. 2. Nasogastric tube transverses the thorax tip in the left upper quadrant of the abdomen.
[2022-10-31] MEDS: PANTOPRAZOLE 40 MG/10 ML VIAL IV SCH (08:19)
--- NOTE | 2022-10-31 09:27 | P.GSCN ---
History of Present Illness Consult date: 10/31/22 History of present illness: CHIEF COMPLAINT: Abdominal pain HISTORY OF PRESENT ILLNESS: This is a 72-year-old female in house with complaints of abdominal pain that started yesterday afternoon. Patient reports that the pain is in the mid and lower abdomen. She started having nausea and vomiting. The emesis was hayes in color. I she stopped having any flatus or enzo l movements. Last bowel movement was yesterday morning. Patient does have a history of small bowel obstruction required a bowel resection several years ago. Also surgical history includes cholecystectomy and hysterectomy. Patient did have a computed tomography scan with evidence of high-grade small bowel obstruction. She has NG tube in place with 100 mL tannish output. PAST MEDICAL HISTORY: See below PAST SURGICAL HISTORY: See below MEDICATIONS: See below ALLERGIES: See below SOCIAL HISTORY: No illicit drug use. REVIEW OF SYSTEMS: CONSTITUTIONAL: Denies fever or chills. HEENT: Denies blurred vision, vision changes, or eye pain. Denies hemoptysis CARDIOVASCULAR: Denies chest pain or pressure. RESPIRATORY: No shortness of breath. GASTROINTESTINAL: See HPI for pertinent findings HEMATOLOGIC: Denies bleeding disorders. GENITOURINARY: Denies any blood in urine or increased urinary frequency. SKIN: Denies pruitis. Denies rash. PHYSICAL EXAM: VITAL SIGNS: Reviewed GENERAL: Well-developed in no acute distress. HEENT: No sclera icterus. Extraocular movements grossly intact. Moist buccal mucosa. Head is atraumatic, normocephalic. No nasal drainage. ABDOMEN: Distended with diffuse tenderness NEUROLOGIC: Alert and oriented. Cranial nerves II through XII grossly intact. LABORATORY DATA: WBC 12.8 Hgb 14.6 platelets 247 Sodium 138 potassium 3.7 creatinine 0.60 Lactic acid 1.2 Total bilirubin 0.6 AST 43 ALT 30 lipase 78 IMAGING: Computed tomography scan abdomen and pelvis high-grade small bowel obstruction with a moderate amount of stool within the colon ASSESSMENT: 1. High-grade small bowel obstruction 2. Prior history of small bowel obstruction requiring bowel resection 3. History of cholecystectomy and hysterectomy PLAN: -Further recommendations forthcoming per surgeon -Continue NG tube for decompression -Continue IV fluids -Continue supportive care Thank you for this consultation Physician Gluer And Wedger note has been reviewed by physician. Signing provider agrees with the documented findings, assessment, and plan of care. I have personally seen and examined the patient, reviewed the LABOR RELATIONS TEACHER /PAs history, exam and MDM and agree with the assessment and plan as written. Based on total visit time, I have performed more than 50% of the visit. As above: Patient with admission for small bowel obstruction. Patient states she had a previous large bowel obstruction in the past. She says she did not have a colostomy however. On CAT scan the staple line from prior surgery appears more likely to be in the small bowel from a small bowel anastomosis. Regardless patient with proximal small bowel dilation and findings consistent with obstruction. Her pain has improved after nasogastric decompression. Continue bowel rest. Will order small bowel series with [facility]. Will follow. 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 Past Anesthesia/Blood Transfusion Reactions: No Reported Reaction Additional Past Anesthesia/Blood Transfusion Reaction / Comm: 1961 pt had blood transfusion- states no reaction Past Psychological History: Anxiety, Depression Smoking Status: Never smoker Past Alcohol Use History: None Reported Past Drug Use History: None Reported Additional Drug Use History / Comment(s): ocassional CBD oil use. - Past Family History Father Family Medical History: Cancer Additional Family Medical History / Comment(s): lung cancer Mother Family Medical History: Cancer, Dementia Additional Family Medical History / Comment(s): leukemia Medications and Allergies Home Medications Medication Instructions Recorded Confirmed Type Escitalopram [Lexapro] 20 mg PO DAILY 04/09/17 10/31/22 History Simvastatin [Zocor] 20 mg PO HS 04/09/17 10/31/22 History armodafiniL [Armodafinil] 250 mg PO DAILY 06/25/21 10/31/22 History Meloxicam [Mobic] 7.5 mg PO HS 10/31/22 10/31/22 History Allergies Allergy/AdvReac Type Severity Reaction Status Date / Time latex Allergy Severe Rash/Hives Verified 10/31/22 07:46 bupivacaine [From Marcaine] Allergy Anaphylaxis Verified 10/31/22 07:46 Iodinated Contrast Media Allergy Anaphylaxis Verified 10/31/22 07:46 [Iodinated Contrast- Oral and IV Dye] Sulfa (Sulfonamide Allergy Anaphylaxis Verified 10/31/22 07:46 Antibiotics) sulfamethoxazole Allergy Anaphylaxis Verified 10/31/22 07:46 [From Bactrim] trimethoprim [From Bactrim] Allergy Anaphylaxis Verified 10/31/22 07:46 Surgical - Exam Vital Signs Temp Pulse Resp BP Pulse Ox 98.9 F 76 14 165/80 96 10/30/22 22:51 10/30/22 22:51 10/30/22 22:51 10/30/22 22:51 10/30/22 22:51 Results - Labs 10/31/22 00:54 10/31/22 00:54 Abnormal Lab Results - Last 24 Hours (Table) 10/31/22 10/31/22 10/31/22 Range/Units 00:54 00:54 00:54 WBC 12.8 H (3.8-10.6) k/uL Neutrophils # 11.7 H (1.3-7.7) k/uL Lymphocytes # 0.6 L (1.0-4.8) k/uL APTT 21.2 L (22.0-30.0) sec Carbon Dioxide 31 H (22-30) mmol/L BUN 20 H (7-17) mg/dL Glucose 151 H (74-99) mg/dL Calcium 10.4 H (8.4-10.2) mg/dL AST 43 H (14-36) U/L Diabetes panel 10/31/22 Range/Units 00:54 Sodium 138 (137-145) mmol/L Potassium 3.7 (3.5-5.1) mmol/L Chloride 98 (98-107) mmol/L Carbon Dioxide 31 H (22-30) mmol/L BUN 20 H (7-17) mg/dL Creatinine 0.60 (0.52-1.04) mg/dL Glucose 151 H (74-99) mg/dL Calcium 10.4 H (8.4-10.2) mg/dL AST 43 H (14-36) U/L ALT 30 (4-34) U/L Alkaline Phosphatase 122 (38-126) U/L Total Protein 7.8 (6.3-8.2) g/dL Albumin 4.7 (3.5-5.0) g/dL Calcium panel 10/31/22 Range/Units 00:54 Calcium 10.4 H (8.4-10.2) mg/dL Albumin 4.7 (3.5-5.0) g/dL Pituitary panel 10/31/22 Range/Units 00:54 Sodium 138 (137-145) mmol/L Potassium 3.7 (3.5-5.1) mmol/L Chloride 98 (98-107) mmol/L Carbon Dioxide 31 H (22-30) mmol/L BUN 20 H (7-17) mg/dL Creatinine 0.60 (0.52-1.04) mg/dL Glucose 151 H (74-99) mg/dL Calcium 10.4 H (8.4-10.2) mg/dL Adrenal panel 10/31/22 Range/Units 00:54 Sodium 138 (137-145) mmol/L Potassium 3.7 (3.5-5.1) mmol/L Chloride 98 (98-107) mmol/L Carbon Dioxide 31 H (22-30) mmol/L BUN 20 H (7-17) mg/dL Creatinine 0.60 (0.52-1.04) mg/dL Glucose 151 H (74-99) mg/dL Calcium 10.4 H (8.4-10.2) mg/dL Total Bilirubin 0.6 (0.2-1.3) mg/dL AST 43 H (14-36) U/L ALT 30 (4-34) U/L Alkaline Phosphatase 122 (38-126) U/L Total Protein 7.8 (6.3-8.2) g/dL Albumin 4.7 (3.5-5.0) g/dL
[2022-10-31 13:09] VITALS: BMI 17.7
[2022-10-31] MEDS: HYDROmorphone 0.5 MG/0.5 ML SYRINGE IVP PRN ×2 (15:29→23:38)
[2022-10-31] MEDS: HEPARIN SODIUM,PORCINE/PF 5,000 UNIT/0.5 ML SYRINGE SQ SCH ×2 (15:30→23:30)
--- NOTE | 2022-10-31 17:03 | P.HPIM ---
History of Present Illness H&P Date: 10/31/22 [facility] Physicians took over care of this patient at 7AM. Patient was seen and examined around 9AM. Patient 72-year-old female with PMH of small bowel obstruction, asthma, dyslipidemia, anxiety presents ED for abdominal pain ongoing since yesterday morning. Pain is generalized all over her abdomen. Pain is sharp and stabbing in nature. Her pain is associated with multiple episodes of NBNB nausea and vomiting. This prompted her to come to the ED. She reports a history of SBO was managed conservatively. She reports surgical history of cholecystectomy and hysterectomy. She denies any headache, lower extremity edema, fever or chills, cough, chest pain, shortness breath, palpitations, changes in urination or bowel habits. No changes in weight. She denies any dizziness, numbness/weaknes s/tingling of the extremities. In the ED, her vital signs were stable. CBC showed a leukocytosis of 12.8. APTT was 21.2. CMP showed bicarb of 31, BUN of 20, glucose 151, calcium of 10.4, AST of 43. Lactic acid was negative. Amylase and lipase negative. CTAP showing high-grade small bowel obstruction with moderate amount of stool within the colon. NG tube was inserted in the ED patient was admitted for further management of symptoms. Pertinent positives and negatives as discussed in HPI, a complete review of systems was performed and all other systems are negative. General: non toxic, no distress, appears at stated age, cachectic Derm: warm, dry Head: atraumatic, normocephalic, symmetric, NG tube in place Eyes: EOMI, no lid lag, anicteric sclera Mouth: no lip lesion, mucus membranes moist Cardiovascular: S1S2 reg, no murmur, positive posterior tibial pulse bilateral, Lungs: CTA bilateral, no rhonchi, no rales , no accessory muscle use Abdominal: soft, tenderness to palpation in all 4 quadrants with rebound tenderness on the right side, no guarding, no appreciable organomegaly Ext: no gross muscle atrophy, no edema, no contractures Neuro: no focal neuro deficits Psych: Alert, oriented, appropriate affect Small bowel obstruction Leukocytosis Prerenal azotemia Transaminitis Hypercalcemia Chronic conditions: Asthma, dyslipidemia, anxiety Based on my assessment of this patient, this patient meets a high complexity level of care. I have reviewed the following professional benefits sales consultant notes: Surgery note 10/31, continue supportive care I have reviewed the results of the following tests: CBC showed a leukocytosis of 12.8. APTT was 21.2. CMP showed bicarb of 31, BUN of 20, glucose 151, calcium of 10.4, AST of 43. Lactic acid was negative. Amylase and lipase negative. CTAP showing high-grade small bowel obstruction with moderate amount of stool within the colon. I have ordered the following tests: CBC, BMP and Mg ordered for tomorrow morning. Agree with small bowel follow through ordered for tomorrow. I have discussed the care of this patient with the following independent historian: None. I have independently interpreted the following test below: None. I have discussed the management of this patient with the following physician: Case was discussed with surgery CUSTOMER CONSULTING MANAGER who will discuss with attending Dr. Gonzáles. This patient has a high risk of morbidity due to the following reasons: Patient has an acute diagnosis of small bowel obstruction as seen on CTAP that poses a threat to life or bodily function. She has a previous history of small bowel obstruction requiring bowel resection. Continue NG tube to suction. Dilaudid 0.5 mg IV every 3 hours as needed for severe pain. Zofran 4 mg IV every 8 hours as needed for nausea and vomiting. Continue Protonix 40 mg IV daily. Nothing by mouth. General surgery is consulted for further management of this patient. FULL CODE. 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 Past Anesthesia/Blood Transfusion Reactions: No Reported Reaction Additional Past Anesthesia/Blood Transfusion Reaction / Comment(s): 196 pt had blood transfusion- states no reaction Past Psychological History: Anxiety, Depression Smoking Status: Never smoker Past Alcohol Use History: None Reported Past Drug Use History: None Reported Additional Drug Use History / Comment(s): ocassional CBD oil use. - Past Family History Father Family Medical History: Cancer Additional Family Medical History / Comment(s): lung cancer Mother Family Medical History: Cancer, Dementia Additional Family Medical History / Comment(s): leukemia Medications and Allergies Home Medications Medication Instructions Recorded Confirmed Type Escitalopram [Lexapro] 20 mg PO DAILY 04/09/17 10/31/22 History Simvastatin [Zocor] 20 mg PO HS 04/09/17 10/31/22 History armodafiniL [Armodafinil] 250 mg PO DAILY 06/25/21 10/31/22 History Meloxicam [Mobic] 7.5 mg PO HS 10/31/22 10/31/22 History Allergies Allergy/AdvReac Type Severity Reaction Status Date / Time latex Allergy Severe Rash/Hives Verified 10/31/22 07:46 bupivacaine [From Marcaine] Allergy Anaphylaxis Verified 10/31/22 07:46 Iodinated Contrast Media Allergy Anaphylaxis Verified 10/31/22 07:46 [Iodinated Contrast- Oral and IV Dye] Sulfa (Sulfonamide Allergy Anaphylaxis Verified 10/31/22 07:46 Antibiotics) sulfamethoxazole Allergy Anaphylaxis Verified 10/31/22 07:46 [From Bactrim] trimethoprim [From Bactrim] Allergy Anaphylaxis Verified 10/31/22 07:46 Physical Exam Vitals: Vital Signs Temp Pulse Pulse Resp BP BP Pulse Ox 10/31/22 13:30 99.3 F 81 18 153/77 93 L 10/31/22 10:36 18 10/31/22 07:25 98.5 F 74 16 145/80 99 10/31/22 04:54 97.6 F 76 16 148/67 96 10/31/22 04:11 80 17 124/75 98 10/31/22 01:32 78 18 92/54 94 L 10/30/22 22:51 98.9 F 76 14 165/80 96 Intake and Output 10/31/22 10/31/22 10/31/22 06:59 14:59 22:59 Intake Total 0 Balance 0 Intake: Oral 0 Other: Voiding Method Toilet Toilet # Voids 0 Weight 43.998 kg 43.998 kg Results CBC & Chem 7: 10/31/22 00:54 10/31/22 00:54 Labs: Abnormal Lab Results - Last 24 Hours (Table) 10/31/22 10/31/22 10/31/22 Range/Units 00:54 00:54 00:54 WBC 12.8 H (3.8-10.6) k/uL Neutrophils # 11.7 H (1.3-7.7) k/uL Lymphocytes # 0.6 L (1.0-4.8) k/uL APTT 21.2 L (22.0-30.0) sec Carbon Dioxide 31 H (22-30) mmol/L BUN 20 H (7-17) mg/dL Glucose 151 H (74-99) mg/dL Calcium 10.4 H (8.4-10.2) mg/dL AST 43 H (14-36) U/L Thrombosis Risk Factor Assmnt - Choose All That Apply Any of the Below Risk Factors Present?: No Other Risk Factors: No Other congenital or acquired thrombophilia - If yes, enter type in comment: No Thrombosis Risk Factor Assessment Level: Very Low Risk
[2022-10-31 18:11] LABS: Appearance,Urine Cloudy (Clear); Bilirubin,Urine Negative (Negative); Blood,Urine Negative (Negative); Color,Urine Yellow; Glucose,Urine (UA) Negative (Negative); Hyaline Casts,Urine 17 /lpf (0-2); Ketones,Urine 1+ (Negative); Leukocyte Esterase,Urine Negative (Negative); Mucus,Urine Many /hpf; Nitrite,Urine Negative (Negative); PH, Urine 5.5 (5.0-8.0); Protein,Urine 1+ (Negative); RBC,Urine 4 /hpf (0-5); Specific Gravity,Urine 1.029 (1.001-1.035); WBC,Urine 6 /hpf (0-5)
[2022-11-01] MEDS: HYDROmorphone 0.5 MG/0.5 ML SYRINGE IVP PRN (05:01)
[2022-11-01] MEDS ORDERED: DEXAMETHASONE SOD PHOSPHATE 10 MG/ML 1 ML VIAL IVP STA (08:06)
[2022-11-01] MEDS ORDERED: diphenhydrAMINE 50 MG/ML 1 ML VIAL IVP STA (08:07)
[2022-11-01] MEDS: HEPARIN SODIUM,PORCINE/PF 5,000 UNIT/0.5 ML SYRINGE SQ SCH ×2 (08:20→17:33)
[2022-11-01] MEDS: PANTOPRAZOLE 40 MG/10 ML VIAL IV SCH (08:21)
[2022-11-01] MEDS: SODIUM CHLORIDE 0.9% 1,000 ML IV SCH ×2 (08:22→17:33)
[2022-11-01 11:14] LABS: Basophils # (A) 0.04 X 10*3/uL (0.00-0.10); Basophils % (A) 0.5 %; Eosinophils # (A) 0.06 X 10*3/uL (0.04-0.35); Eosinophils % (A) 0.7 %; HCT 38.9 % (37.2-46.3); HGB 11.7 g/dL (12.0-15.0); Immature Grans, Automated 0.4 %; Lymphocytes # (A) 1.02 X 10*3/uL (0.90-5.00); Lymphocytes % (A) 12.4 %; MCH 29.8 pg (27.0-32.0); MCHC 30.1 g/dL (32.0-37.0); Mean Platelet Volume 9.4 fL (9.5-12.2); Monocytes # (A) 0.53 X 10*3/uL (0.20-1.00); Monocytes % (A) 6.4 %; NRBC Per 100 WBC 0 /100 WBCS (0.0-0.0); Neutrophils # (A) 6.55 X 10*3/uL (1.80-7.70); Neutrophils % (A) 79.6 %; Platelet Count 183 X 10*3/uL (140-440); RBC 3.93 X 10*6/uL (4.10-5.20); WBC 8.23 X 10*3/uL (4.50-10.00)
[2022-11-01 11:26] LABS: Albumin 3.5 g/dL (3.8-4.9); Albumin/Globulin Ratio 1.79 (1.60-3.17); Anion Gap 9.9 mmol/L (10.00-18.00); BUN/Creat Ratio 26.98 Ratio (12.00-20.00); Blood Urea Nitrogen 16.7 mg/dL (9.0-27.0); Calcium 8.5 mg/dL (8.7-10.3); Carbon Dioxide 25.1 mmol/L (20.0-27.5); Non-African American GFR(CKD) 88.9 (60.0-200.0); Potassium 3.7 mmol/L (3.5-5.5); Total Bilirubin 0.4 mg/dL (0.30-1.20); Total Protein 5.5 g/dL (6.2-8.2)
--- NOTE | 2022-11-01 12:05 | FL ---
INDICATION: Patient age:Female; 72 years old; Reason for study: Gastrografin, small bowel obstruction; [facility]. COMPARISON: CT abdomen pelvis 10/31/2022 TECHNIQUE: The procedure was explained and patient history elicited. All patient questions were ans wered prior to start of procedure. A commodity trader radiograph of the abdomen was also reviewed. The patient was asked to ingest liquid Gastrografinand incremental frontal abdominal radiographs were then taken until contrast was visualized in the cecum. Radiographs taken: 4 FINDINGS: The commodity trader abdominal radiograph demonstrates a few small bowel gas-filled dilated loops within the lef t lower quadrant. Enteric tube demonstrated within the left upper quadrant. Scoliotic curvature fusio n changes of the lumbar spine. The cervical segment right upper quadrant. Contrast is seen extending from the duodenojejunal junction into the cecum after 145 minutes, which i s within the expected time period. There is dilated proximal mid small bowel measuring up to 4.2 cm. Mildly distended stomach. There is no displacement of bowel loops or extraluminal extravasation of co ntrast material. Small bowel mucosal folds are felt to be within normal limits. IMPRESSION: Dilated proximal to mid small bowel with enteric contrast reaching the proximal large bowel within 14 5 minutes. Findings suggest low-grade partial small bowel obstruction versus ileus.
--- NOTE | 2022-11-01 14:58 | P.PN ---
Subjective Progress Note Date: 11/01/22 CHIEF COMPLAINT: Small bowel obstruction HISTORY OF PRESENT ILLNESS: Patient being followed for small bowel obstruction. She is undergoing a small bowel follow-through today. Patient down for her x- ray during rounds. Discussed patient with nursing staff. Patient had been reporting that her pain was improving. No bowel activity noted. Nurse did note that patient's abdomen was still distended. NG tube with only 150 mL nonbilious output. Afebrile. WBC has normalized from 12.8-8.23 Hgb 11.7 platelet 183 sodium 144 potassium 3.7 creatinine 0.6 PHYSICAL EXAM: VITAL SIGNS: Reviewed GENERAL: Well-developed in no acute distress. HEENT: No sclera icterus. Extraocular movements grossly intact. Moist buccal mucosa. Head is atraumatic, normocephalic. Hears conversational speech. No nasal drai nage. NECK: Supple without lymphadenopathy. CHEST: Non-labored respirations and equal bilateral excursions. CARDIOVASCULAR: Palpable 2+ radial pulses. ABDOMEN: Soft. Nondistended. Nontender. MUSCULOSKELETAL: No clubbing or cyanosis. NEUROLOGIC: No focal or lateralizing signs. Cranial nerves II through XII grossly intact. PSYCH: Appropriate affect. Alert and oriented to person, place and time. SKIN: Well perfused. Good skin turgor. ASSESSMENT: 1. Small bowel obstruction 2. Prior history of bowel obstruction requiring bowel resection 3. History of cholecystectomy and hysterectomy PLAN: -Further recommendations forthcoming per small bowel series results -Continue NG tube for decompression-keep patient nothing by mouth -Continue IV fluids -Continue supportive care Physician Primary Care Provider note has been reviewed by physician. Signing provider agrees with the documented findings, assessment, and plan of care. CHIEF COMPLAINT: Bowel obstruction HISTORY OF PRESENT ILLNESS: The patient is a 72-year-old female presents with bowel obstruction. She has prior history of bowel obstruction. ROS: No reports of nausea and vomiting. No bowel movements. No fevers or chills. No new chest pain. No productive sputum PHYSICAL EXAM: VITAL SIGNS: Reviewed CONSTITUTIONAL: Well developed and in no acute distress. EYES: Conjuctivae without sclera icterus. Extraocular movements grossly intact. HEAD, EARS, NOSE, THROAT: Moist buccal mucosa. Head is atraumatic, normoceph alic. Hears conversational speech. No nasal drainage. RESPIRATORY: Non-labored respirations and equal bilateral excursions. CARDIOVASCULAR: Palpable 2+ radial pulses. ABDOMEN: No peritonitis MUSCULOSKELETAL: No gross deformity of the lower extremities noted. No clubbing. No cyanosis. SKIN: Good skin turgor. Well perfused. NEUROLOGIC: Cranial nerves II through XII grossly intact. No focal or lateralizing signs. PSYCH: Appropriate affect. Alert and oriented to person, place and time. : Barnes catheter present. CLINICAL LABS: Reviewed. WBC normal. Hemoglobin low, anemia STUDIES: Abdominal x-ray review demonstrates contrast throughout small bowel. Contrast extends to the colon. Moderate stool burden REPORT: Abdominal x-ray small bowel through demonstrates ileus ASSESSMENT: 1. Bowel obstruction. 2. Anemia PLAN: 1. Recommend enema versus suppository Objective - Vital Signs Vital signs: Vital Signs Temp 98.2 F 11/01/22 07:08 Pulse 72 11/01/22 07:08 Resp 18 11/01/22 07:08 BP 137/68 11/01/22 07:08 Pulse Ox 91 L 11/01/22 07:08 FiO2 Intake & Output 10/31/22 11/01/22 11/01/22 18:59 06:59 18:59 Intake Total 1200 Output Total 1200 Balance 0 Weight 43.998 kg 43.998 kg Intake: Intake, IV Titration 1200 Amount Sodium Chloride 0.9% 1, 1200 000 ml @ 100 mls/hr IV . Q10H ARACELI Rx#:[id number] Output: Gastric Drainage 750 Urine 450 Other: Voiding Method Toilet # Voids 1 - Labs CBC & Chem 7: 11/01/22 06:48 11/01/22 06:48 Labs: Abnormal Lab Results - Last 24 Hours (Table) 10/31/22 11/01/22 11/01/22 Range/Units 17:57 06:48 06:48 RBC 3.93 L (4.10-5.20) X 10*6/uL Hgb 11.7 L (12.0-15.0) g/dL MCV 99.0 H (80.0-97.0) fL MCHC 30.1 L (32.0-37.0) g/dL MPV 9.4 L (9.5-12.2) fL Anion Gap 9.90 L (10.00-18.00) mmol/L BUN/Creatinine Ratio 26.98 H (12.00-20.00) Ratio Calcium 8.5 L (8.7-10.3) mg/dL Total Protein 5.5 L (6.2-8.2) g/dL Albumin 3.5 L (3.8-4.9) g/dL Urine Appearance Cloudy H (Clear) Urine Protein 1+ H (Negative) Urine Ketones 1+ H (Negative) Urine WBC 6 H (0-5) /hpf Hyaline Casts 17 H (0-2) /lpf Urine Mucus Many H (None) /hpf
--- NOTE | 2022-11-01 17:05 | P.PN ---
Subjective Progress Note Date: 11/01/22 Patient 72-year-old female with PMH of small bowel obstruction, asthma, dyslipidemia, anxiety presents ED for abdominal pain ongoing since yesterday morning. Pain is generalized all over her abdomen. Pain is sharp and stabbing in nature. Her pain is associated with multiple episodes of NBNB nausea and vomiting. This prompted her to come to the ED. She reports a history of SBO was managed conservatively. She reports surgical history of cholecystectomy and hysterectomy. She denies any headache, lower extremity edema, fever or chills, cough, chest pain, shortness breath, palpitations, changes in urination or bowel habits. No changes in weight. She denies any dizziness, numbness/weakness/ting ling of the extremities. In the ED, her vital signs were stable. CBC showed a leukocytosis of 12.8. APTT was 21.2. CMP showed bicarb of 31, BUN of 20, glucose 151, calcium of 10.4, AST of 43. Lactic acid was negative. Amylase and lipase negative. CTAP showing high-grade small bowel obstruction with moderate amount of stool within the colon. NG tube was inserted in the ED patient was admitted for further management of symptoms. Patient was seen and examined as afternoon. She reports better control as compared to admission. 750 mL output from NG tube over the past 24 hours. General: non toxic, no distress, appears at stated age, cachectic Derm: warm, dry Head: atraumatic, normocephalic, symmetric, NG tube in place Eyes: EOMI, no lid lag, anicteric sclera Mouth: no lip lesion, mucus membranes moist Cardiovascular: S1S2 reg, no murmur, positive posterior tibial pulse bilateral, Lungs: CTA bilateral, no rhonchi, no rales , no accessory muscle use Abdominal: soft, tenderness to palpation in all 4 quadrants with rebound tenderness on the right side, no guarding, no appreciable organomegaly Ext: no gross muscle atrophy, no edema, no contractures Neuro: no focal neuro deficits Psych: Alert, oriented, appropriate affect Small bowel obstruction Normocytic anemia Prerenal azotemia Transaminitis Hypercalcemia Resolved: Leukocytosis Chronic conditions: Asthma, dyslipidemia, anxiety Based on my assessment of this patient, this patient meets a high complexity level of care. I have reviewed the following rehab consultant notes: Surgery note 11/01, soapsuds enema for fecal impaction, continue NG tube for decompression, nothing by mouth I have reviewed the results of the following tests: CBC shows hemoglobin of 11.7 with MCV of 99. BMP shows BUN to creatinine ratio 26.98, calcium of 8.5. Small bowel follow-through shows dilated proximal and mid small bowel with contrast reaching the proximal large bowel, findings suggest low-grade partial small bowel discharge versus ileus. I have ordered the following tests: None. I have discussed the care of this patient with the following independent historian: None. I have independently interpreted the following test below: None. I have discussed the management of this patient with the following physician: None. This patient has a high risk of morbidity due to the following reasons: Patient has an acute diagnosis of small bowel obstruction as seen on CTAP that poses a threat to life or bodily function. She has a previous history of small bowel obstruction requiring bowel resection. Continue NG tube to suction, producing 750 mL output over the past 24 hours. Dilaudid 0.5 mg IV every 3 ben rs as needed for severe pain. Zofran 4 mg IV every 8 hours as needed for nausea and vomiting. Continue Protonix 40 mg IV daily. Nothing by mouth. General surgery is consulted for further management of this patient. FULL CODE. Objective - Vital Signs Vital signs: Vital Signs Temp 99.0 F 11/01/22 14:37 Pulse 79 11/01/22 14:37 Resp 18 11/01/22 14:37 BP 156/76 11/01/22 14:37 Pulse Ox 94 L 11/01/22 14:37 FiO2 Intake & Output 10/31/22 11/01/22 11/01/22 18:59 06:59 18:59 Intake Total 1200 Output Total 1200 Balance 0 Weight 43.998 kg 43.998 kg Intake: Intake, IV Titration 1200 Amount Sodium Chloride 0.9% 1, 1200 000 ml @ 100 mls/hr IV . Q10H [facility] Rx#:[id number] Output: Gastric Drainage 750 Urine 450 Other: Voiding Method Toilet # Voids 1 - Labs CBC & Chem 7: 11/01/22 06:48 11/01/22 06:48 Labs: Abnormal Lab Results - Last 24 Hours (Table) 10/31/22 11/01/22 11/01/22 Range/Units 17:57 06:48 06:48 RBC 3.93 L (4.10-5.20) X 10*6/uL Hgb 11.7 L (12.0-15.0) g/dL MCV 99.0 H (80.0-97.0) fL MCHC 30.1 L (32.0-37.0) g/dL MPV 9.4 L (9.5-12.2) fL Anion Gap 9.90 L (10.00-18.00) mmol/L BUN/Creatinine Ratio 26.98 H (12.00-20.00) Ratio Calcium 8.5 L (8.7-10.3) mg/dL Total Protein 5.5 L (6.2-8.2) g/dL Albumin 3.5 L (3.8-4.9) g/dL Urine Appearance Cloudy H (Clear) Urine Protein 1+ H (Negative) Urine Ketones 1+ H (Negative) Urine WBC 6 H (0-5) /hpf Hyaline Casts 17 H (0-2) /lpf Urine Mucus Many H (None) /hpf
[2022-11-01 20:30] LABS: Glucose,Whole Blood 93 mg/dL (70-110)
[2022-11-02] MEDS: HEPARIN SODIUM,PORCINE/PF 5,000 UNIT/0.5 ML SYRINGE SQ SCH ×4 (00:21→23:19)
[2022-11-02] MEDS: HYDROmorphone 0.5 MG/0.5 ML SYRINGE IVP PRN ×2 (00:24→06:51)
[2022-11-02 06:10] LABS: Glucose,Whole Blood 93 mg/dL (70-110)
[2022-11-02] MEDS: SODIUM CHLORIDE 0.9% 1,000 ML IV SCH ×2 (06:47→17:01)
[2022-11-02] MEDS: PANTOPRAZOLE 40 MG/10 ML VIAL IV SCH (09:05)
--- NOTE | 2022-11-02 12:04 | P.PN ---
Subjective Progress Note Date: 11/02/22 Patient 72-year-old female with PMH of small bowel obstruction, asthma, dyslipidemia, anxiety presents ED for abdominal pain ongoing since yesterday morning. Pain is generalized all over her abdomen. Pain is sharp and stabbing in nature. Her pain is associated with multiple episodes of NBNB nausea and vomiting. This prompted her to come to the ED. She reports a history of SBO was managed conservatively. She reports surgical history of cholecystectomy and hysterectomy. She denies any headache, lower extremity edema, fever or chills, cough, chest pain, shortness breath, palpitations, changes in urination or bowel habits. No changes in weight. She denies any dizziness, numbness/weakness/ting ling of the extremities. In the ED, her vital signs were stable. CBC showed a leukocytosis of 12.8. APTT was 21.2. CMP showed bicarb of 31, BUN of 20, glucose 151, calcium of 10.4, AST of 43. Lactic acid was negative. Amylase and lipase negative. CTAP showing high-grade small bowel obstruction with moderate amount of stool within the colon. NG tube was inserted in the ED patient was admitted for further management of symptoms. Patient was seen and examined as afternoon. She reports better control as compared to admission. No nausea or vomiting. 300 mL output from NG tube over the past 24 hours. Multiple bowel movements after soap suds enema yesterday. General: non toxic, no distress, appears at stated age, cachectic Derm: warm, dry Head: atraumatic, normocephalic, symmetric, NG tube in place Eyes: EOMI, no lid lag, anicteric sclera Mouth: no lip lesion, mucus membranes moist Cardiovascular: S1S2 reg, no murmur Lungs: Decreased BS bilateral, no rhonchi, no rales , no accessory muscle use Abdominal: soft, tenderness to palpation in all 4 quadrants with rebound tenderness on the right side (improved from admission), no guarding, no appreciable organomegaly Ext: no gross muscle atrophy, no edema, no contractures Neuro: no focal neuro deficits Psych: Alert, oriented, appropriate affect Small bowel obstruction Normocytic anemia Prerenal azotemia Transaminitis Hypercalcemia Resolved: Leukocytosis Chronic conditions: Asthma, dyslipidemia, anxiety Based on my assessment of this patient, this patient meets a moderate complexity level of care. I have reviewed the following communication consultant notes: None. I have reviewed the results of the following tests: None. I have ordered the following tests: None. I have discussed the care of this patient with the following independent historian: None. I have independently interpreted the following test below: None. I have discussed the management of this patient with the following physician: None. This patient has a moderate risk of morbidity due to the following reasons: Patient has an acute diagnosis of small bowel obstruction as seen on CTAP that poses a threat to life or bodily function. She has a previous history of small bowel obstruction requiring bowel resection. Continue NG tube to suction, producing 300 mL output over the past 24 hours. Dilaudid 0.5 mg IV every 3 hours as needed for severe pain. Zofran 4 mg IV every 8 hours as needed for nausea and vomiting. Continue Protonix 40 mg IV daily. Abdominal pain considerable improved. Nothing by mouth. General surgery on board. FULL CODE. Objective - Vital Signs Vital signs: Vital Signs Temp 99.1 F 11/02/22 07:38 Pulse 84 11/02/22 07:38 Resp 17 11/02/22 07:38 BP 118/66 11/02/22 07:38 Pulse Ox 93 L 11/02/22 07:38 FiO2 Intake & Output 11/01/22 11/02/22 11/02/22 18:59 06:59 18:59 Intake Total 2100 800 Output Total 300 400 150 Balance 1800 -400 650 Weight 43.998 kg Intake: Intake, IV Titration 1200 800 Amount Sodium Chloride 0.9% 1, 1200 800 000 ml @ 100 mls/hr IV . Q10H [facility] Rx#:[id number] Oral 900 Output: Gastric Drainage 300 150 Urine 400 - Labs CBC & Chem 7: 11/01/22 06:48 11/01/22 06:48
--- NOTE | 2022-11-02 13:33 | P.PN ---
Subjective Progress Note Date: 11/02/22 CHIEF COMPLAINT: Bowel obstruction HISTORY OF PRESENT ILLNESS: The patient is a 72-year-old female presents with bowel obstruction. She had additional x-rays performed including small bowel series. No itching. She reports left chest pain including abdominal pain. She is passing flatus. She had a bowel movement after enema. She reports feeling much better today. ROS: No reports of nausea and vomiting. No fevers or chills. No productive sputum PHYSICAL EXAM: VITAL SIGNS: Reviewed CONSTITUTIONAL: Well developed and in no acute distress. EYES: Conjuctivae without sclera icterus. Extraocular movements grossly intact. HEAD, EARS, NOSE, THROAT: Moist buccal mucosa. Head is atraumatic, norm ocephalic. Hears conversational speech. No nasal drainage. RESPIRATORY: Non-labored respirations and equal bilateral excursions. CARDIOVASCULAR: Palpable 2+ radial pulses. ABDOMEN: No peritonitis. Nondistended. MUSCULOSKELETAL: No clubbing. No cyanosis. SKIN: Good skin turgor. Well perfused. NEUROLOGIC: Cranial nerves II through XII grossly intact. No focal or lateralizing signs. PSYCH: Appropriate affect. Alert and oriented to person, place and time. : Barnes catheter present. CLINICAL LABS: Reviewed ASSESSMENT: 1. Bowel obstruction. 2. Anemia 3. Fecal impaction PLAN: 1. Nasogastric tube was discontinued by me. Left upper quadrant/chest pain resolved after removal of NG tube 2. Start clear liquid diet 3. Advancement of diet pending clinical course Objective - Vital Signs Vital signs: Vital Signs Temp 99.1 F 11/02/22 07:38 Pulse 84 11/02/22 07:38 Resp 17 11/02/22 07:38 BP 118/66 11/02/22 07:38 Pulse Ox 93 L 11/02/22 07:38 FiO2 Intake & Output 11/01/22 11/02/22 11/02/22 18:59 06:59 18:59 Intake Total 2100 800 Output Total 300 400 200 Balance 1800 -400 600 Weight 43.998 kg Intake: Intake, IV Titration 1200 800 Amount Sodium Chloride 0.9% 1, 1200 800 000 ml @ 100 mls/hr IV . Q10H [facility] Rx#:[id number] Oral 900 Output: Gastric Drainage 300 200 Urine 400 - Labs CBC & Chem 7: 11/01/22 06:48 11/01/22 06:48
[2022-11-03] MEDS: SODIUM CHLORIDE 0.9% 1,000 ML IV SCH ×2 (06:17→08:06)
[2022-11-03] MEDS: HEPARIN SODIUM,PORCINE/PF 5,000 UNIT/0.5 ML SYRINGE SQ SCH ×2 (08:05→16:06)
[2022-11-03] MEDS: PANTOPRAZOLE 40 MG/10 ML VIAL IV SCH (08:05)
[2022-11-03] MEDS: ESCITALOPRAM 20 MG TAB PO SCH (12:40)
[2022-11-03] MEDS: ARMODAFINIL 250 MG PO SCH (12:40)
[2022-11-03] MEDS: ONDANSETRON 4 MG/2 ML VIAL IVP PRN ×2 (12:47→22:36)
--- NOTE | 2022-11-03 13:29 | P.PN ---
Subjective Progress Note Date: 11/03/22 Patient 72-year-old female with PMH of small bowel obstruction, asthma, dyslipidemia, anxiety presents ED for abdominal pain ongoing since yesterday morning. Pain is generalized all over her abdomen. Pain is sharp and stabbing in nature. Her pain is associated with multiple episodes of NBNB nausea and vomiting. This prompted her to come to the ED. She reports a history of SBO was managed conservatively. She reports surgical history of cholecystectomy and hysterectomy. She denies any headache, lower extremity edema, fever or chills, cough, chest pain, shortness breath, palpitations, changes in urination or bowel habits. No changes in weight. She denies any dizziness, numbness/weakness/ting ling of the extremities. In the ED, her vital signs were stable. CBC showed a leukocytosis of 12.8. APTT was 21.2. CMP showed bicarb of 31, BUN of 20, glucose 151, calcium of 10.4, AST of 43. Lactic acid was negative. Amylase and lipase negative. CTAP showing high-grade small bowel obstruction with moderate amount of stool within the colon. NG tube was inserted in the ED patient was admitted for further management of symptoms. Patient was seen and examined this afternoon. NG tube was discontinued yesterday and patient was started on CLD. Her abdominal pain resolved after NG tube was d iscontinued. She it tolerating her diet quite well. No nausea or vomiting. Multiple bowel movements after soap suds enema. General: non toxic, no distress, appears at stated age, cachectic Derm: warm, dry Head: atraumatic, normocephalic, symmetric, NG tube in place Eyes: EOMI, no lid lag, anicteric sclera Mouth: no lip lesion, mucus membranes moist Cardiovascular: S1S2 reg, no murmur Lungs: Decreased BS bilateral, no rhonchi, no rales , no accessory muscle use Abdominal: soft, non tender to palpation, no guarding, no appreciable organomegaly, sluggish bowel sounds Ext: no gross muscle atrophy, no edema, no contractures Neuro: no focal neuro deficits Psych: Alert, oriented, appropriate affect Small bowel obstruction Normocytic anemia Prerenal azotemia Transaminitis Hypocalcemia Resolved: Leukocytosis Chronic conditions: Asthma, dyslipidemia, anxiety Based on my assessment of this patient, this patient meets a moderate complexity level of care. I have reviewed the following customs consultant notes: Surgery note 11/03, NG tube discontinued, CLD and advance. I have reviewed the results of the following tests: None. I have ordered the following tests: None. I have discussed the care of this patient with the following independent historian: None. I have independently interpreted the following test below: None. I have discussed the management of this patient with the following physician: None. This patient has a moderate risk of morbidity due to the following reasons: Patient has an acute diagnosis of small bowel obstruction as seen on CTAP that poses a threat to life or bodily function. She has a previous history of small bowel obstruction requiring bowel resection. Continue NG tube discontinued, patient tolerating diet well. Consider advancing diet depending on surgery recommendations. Dilaudid 0.5 mg IV every 3 hours as needed for severe pain. Zofran 4 mg IV every 8 hours as needed for nausea and vomiting. Continue Protonix 40 mg IV daily. Lipitor 10 mg by mouth at bedtime for dyslipidemia. Lexapro 20 mg by mouth daily for anxiety. Anticipate discharge home in 1-2 days. FULL CODE. Objective - Vital Signs Vital signs: Vital Signs Temp 97.6 F 11/03/22 07:12 Pulse 71 11/03/22 07:12 Resp 17 11/03/22 07:12 BP 136/87 11/03/22 07:12 Pulse Ox 95 11/03/22 07:12 FiO2 Intake & Output 11/02/22 11/03/22 11/03/22 18:59 06:59 18:59 Intake Total 800 240 918 Output Total 200 Balance 600 240 918 Intake: Intake, IV Titration 800 800 Amount Sodium Chloride 0.9% 1, 800 800 000 ml @ 100 mls/hr IV . Q10H [facility] Rx#:[id number] Oral 240 118 Output: Gastric Drainage 200 Other: # Voids 1 - Labs CBC & Chem 7: 11/01/22 06:48 11/01/22 06:48
[2022-11-03] MEDS: HYDROmorphone 0.5 MG/0.5 ML SYRINGE IVP PRN ×2 (14:29→22:32)
[2022-11-03] MEDS: ATORVASTATIN 10 MG TAB PO SCH (20:09)
--- NOTE | 2022-11-03 21:06 | P.PN ---
Subjective Progress Note Date: 11/03/22 CHIEF COMPLAINT: Bowel obstruction HISTORY OF PRESENT ILLNESS: The patient is a 72-year-old female presents with bowel obstruction. She was tolerating liquid diet last and at this morning. She had small emesis this afternoon. No abdominal pain. She is passing flatus. She does report feeling better. She did have bowel movement. She denies abdominal distention. ROS: No fevers or chills. No productive sputum PHYSICAL EXAM: VITAL SIGNS: Reviewed CONSTITUTIONAL: Well developed and in no acute distress. EYES: Conjuctivae without sclera icterus. Extraocular movements grossly intact. HEAD, EARS, NOSE, THROAT: Moist buccal mucosa. Head is atraumatic, normocephalic. Hears conversational speech. No nasal drainage. RESPIRATORY: Non-labored respirations and equal bilateral excursions. CARDIOVASCULAR: Palpable 2+ radial pulses. ABDOMEN: No peritonitis. Nondistended. MUSCULOSKELETAL: No clubbing. No cyanosis. SKIN: Good skin turgor. Well perfused. NEUROLOGIC: Cranial nerves II through XII grossly intact. No focal or lateralizing signs. PSYCH: Appropriate affect. Alert and oriented to person, place and time. : Barnes catheter present. CLINICAL LABS: Reviewed. ASSESSMENT: 1. Bowel obstruction. 2. Anemia 3. Fecal impaction PLAN: 1. Patient encouraged to adjust her diet as needed. 2. May need additional intervention pending clinical course Objective - Vital Signs Vital signs: Vital Signs Temp 97.6 F 11/03/22 13:37 Pulse 89 11/03/22 13:37 Resp 19 11/03/22 13:37 BP 175/91 11/03/22 13:37 Pulse Ox 97 11/03/22 13:37 FiO2 Intake & Output 11/03/22 11/03/22 11/04/22 06:59 18:59 06:59 Intake Total 240 1154 Balance 240 1154 Intake: Intake, IV Titration 800 Amount Sodium Chloride 0.9% 1, 800 000 ml @ 100 mls/hr IV . Q10H [facility] Rx#:[id number] Oral 240 354 Other: # Voids 1 - Labs CBC & Chem 7: 11/01/22 06:48 11/01/22 06:48
[2022-11-04] MEDS: HEPARIN SODIUM,PORCINE/PF 5,000 UNIT/0.5 ML SYRINGE SQ SCH ×5 (00:04→23:32)
[2022-11-04] MEDS: SODIUM CHLORIDE 0.9% 1,000 ML IV SCH ×3 (00:04→18:27)
[2022-11-04] MEDS: ESCITALOPRAM 20 MG TAB PO SCH (08:30)
[2022-11-04] MEDS: PANTOPRAZOLE 40 MG/10 ML VIAL IV SCH (08:30)
[2022-11-04] MEDS: ARMODAFINIL 250 MG PO SCH ×2 (09:11→09:30)
--- NOTE | 2022-11-04 11:28 | P.PN ---
Subjective Progress Note Date: 11/04/22 CHIEF COMPLAINT: Small bowel obstruction HISTORY OF PRESENT ILLNESS: Patient being followed for small bowel obstruction. NG tube discontinued over the weekend. She is currently on a clear liquid diet. She is having small bowel movements and flatus. She has minimal pain she rates it about a 1 out of 10. Denies any nausea or vomiting. Yesterday she had a small episode of emesis. Afebrile. Small bowel follow-through x-ray showed findings suggest low-grade partial small bowel obstruction versus ileus. PHYSICAL EXAM: VITAL SIGNS: Reviewed GENERAL: Well-developed in no acute distress. HEENT: No sclera icterus. Extraocular movements grossly intact. Moist buccal mucosa. Head is atraumatic, normocephalic. Hears conversational speech. No nasal drainage. NECK: Supple without lymphadenopathy. CHEST: Non-labored respirations and equal bilateral excursions. CARDIOVASCULAR: Palpable 2+ radial pulses. ABDOMEN: Soft. Distended MUSCULOSKELETAL: No clubbing or cyanosis. NEUROLOGIC: No focal or lateralizing signs. Cranial nerves II through XII grossly intact. PSYCH: Appropriate affect. Alert and oriented to person, place and time. SKIN: Well perfused. Good skin turgor. ASSESSMENT: 1. Partial small bowel obstruction 2. Prior history of bowel obstruction requiring bowel resection 3. History of cholecystectomy and hysterectomy PLAN: -Further recommendations forthcoming per surgeon -Continue clear liquid diet -Encourage patient to ambulate Physician Arranging Funeral Director note has been reviewed by physician. Signing provider agrees with the documented findings, assessment, and plan of care. I have personally seen and examined the patient, reviewed the HEAD FILTER TANK TENDER HELPER /PAs history, exam and MDM and agree with the assessment and plan as written. Based on total visit time, I have performed more than 50% of the visit. As above: Patient walking in the room. Denies abdominal pain. She says she is not bloated. There is no nausea or vomiting. Small bowel series from Friday results noted. On exam however patient is still somewhat distended. Patient states this is similar to her normal abdomen. Resume diet. If symptoms recur Will proceed with surgical intervention. Objective - Vital Signs Vital signs: Vital Signs Temp 97.9 F 11/04/22 07:45 Pulse 79 11/04/22 07:45 Resp 16 11/04/22 07:45 BP 127/72 11/04/22 07:45 Pulse Ox 92 L 04/17/23 07:45 FiO2 Intake & Output 11/03/22 11/04/22 11/04/22 18:59 06:59 18:59 Intake Total 1154 240 236 Balance 1154 240 236 Intake: Intake, IV Titration 800 Amount Sodium Chloride 0.9% 1, 800 000 ml @ 100 mls/hr IV . Q10H [facility] Rx#:[id number] Oral 354 240 236 Other: # Voids 3 - Labs CBC & Chem 7: 11/01/22 06:48 11/01/22 06:48
--- NOTE | 2022-11-04 13:02 | P.PN ---
Subjective Progress Note Date: 11/04/22 Patient 72-year-old female with PMH of small bowel obstruction, asthma, dyslipidemia, anxiety presents ED for abdominal pain ongoing since yesterday morning. Pain is generalized all over her abdomen. Pain is sharp and stabbing in nature. Her pain is associated with multiple episodes of NBNB nausea and vomiting. This prompted her to come to the ED. She reports a history of SBO was managed conservatively. She reports surgical history of cholecystectomy and hysterectomy. She denies any headache, lower extremity edema, fever or chills, cough, chest pain, shortness breath, palpitations, changes in urination or bowel habits. No changes in weight. She denies any dizziness, numbness/weakness/ting ling of the extremities. In the ED, her vital signs were stable. CBC showed a leukocytosis of 12.8. APTT was 21.2. CMP showed bicarb of 31, BUN of 20, glucose 151, calcium of 10.4, AST of 43. Lactic acid was negative. Amylase and lipase negative. CTAP showing high-grade small bowel obstruction with moderate amount of stool within the colon. NG tube was inserted in the ED patient was admitted for further management of symptoms. She received soap suds enema for fecal impaction. Her SBO resolved with conservative measures. Her diet was advanced. Patient was seen and examined this afternoon. Tolerating CLD. Her abdominal pain resolved after NG tube was discontinued. No nausea or vomiting. General: non toxic, no distress, appears at stated age, cachectic Derm: warm, dry Head: atraumatic, normocephalic, symmetric, NG tube in place Eyes: EOMI, no lid lag, anicteric sclera Mouth: no lip lesion, mucus membranes moist Cardiovascular: S1S2 reg, no murmur Lungs: Decreased BS bilateral, no rhonchi, no rales , no accessory muscle use Abdominal: soft, non tender to palpation, no guarding, no appreciable organomegaly, + bowel sounds Ext: no gross muscle atrophy, no edema, no contractures Neuro: no focal neuro deficits Psych: Alert, oriented, appropriate affect Small bowel obstruction Normocytic anemia Prerenal azotemia Transaminitis Hypocalcemia Resolved: Leukocytosis Chronic conditions: Asthma, dyslipidemia, anxiety Based on my assessment of this patient, this patient meets a moderate complexity level of care. I have reviewed the following groundwater consultant notes: Surgery note 11/04, CLD and advance. I have reviewed the results of the following tests: None. I have ordered the following tests: CBC and BMP ordered for tomorrow morning. I have discussed the care of this patient with the following independent historian: None. I have independently interpreted the following test below: None. I have discussed the management of this patient with the following physician: The case was discussed with Sue LAI, advance to GI soft diet today with kelli warren discharge home tomorrow. This patient has a moderate risk of morbidity due to the following reasons: Patient has an acute diagnosis of small bowel obstruction as seen on CTAP that poses a threat to life or bodily function. She has a previous history of small bowel obstruction requiring bowel resection. Continue NG tube discontinued, patient tolerating diet well. Diet advanced to GI soft as per surgery recommendations. Dilaudid 0.5 mg IV every 3 hours as needed for severe pain. Zofran 4 mg IV every 8 hours as needed for nausea and vomiting. Continue Protonix 40 mg IV daily. Lipitor 10 mg by mouth at bedtime for dyslipidemia. Lexapro 20 mg by mouth daily for anxiety. Anticipate discharge home tomorrow if able to tolerate GI soft diet. FULL CODE. Objective - Vital Signs Vital signs: Vital Signs Temp 97.9 F 11/04/22 07:45 Pulse 79 11/04/22 07:45 Resp 16 11/04/22 07:45 BP 127/72 11/04/22 07:45 Pulse Ox 92 L 11/04/22 07:45 FiO2 Intake & Output 11/03/22 11/04/22 11/04/22 18:59 06:59 18:59 Intake Total 1154 240 236 Balance 1154 240 236 Intake: Intake, IV Titration 800 Amount Sodium Chloride 0.9% 1, 800 000 ml @ 100 mls/hr IV . Q10H [facility] Rx#:[id number] Oral 354 240 236 Other: # Voids 3 - Labs CBC & Chem 7: 11/01/22 06:48 11/01/22 06:48
[2022-11-04] MEDS: ATORVASTATIN 10 MG TAB PO SCH (20:56)
[2022-11-05] MEDS: ESCITALOPRAM 20 MG TAB PO SCH (08:45)
[2022-11-05] MEDS: HEPARIN SODIUM,PORCINE/PF 5,000 UNIT/0.5 ML SYRINGE SQ SCH ×2 (08:46→17:00)
[2022-11-05] MEDS: PANTOPRAZOLE 40 MG/10 ML VIAL IV SCH (08:47)
[2022-11-05] MEDS: ARMODAFINIL 250 MG PO SCH (09:37)
[2022-11-05] MEDS: SODIUM CHLORIDE 0.9% 1,000 ML IV SCH ×2 (10:26→13:28)
--- NOTE | 2022-11-05 14:58 | P.PN ---
Subjective Progress Note Date: 11/05/22 Hospital Course: 72-year-old female with PMH of small bowel obstruction, asthma, dyslipidemia, anxiety presents ED for abdominal pain ongoing since yesterday morning. Pain is generalized all over her abdomen. Pain is sharp and stabbing in nature. Her pain is associated with multiple episodes of NBNB nausea and vomiting. This prompted her to come to the ED. She reports a history of SBO was managed conservatively. She reports surgical history of cholecystectomy and hysterectomy. She denies any headache, lower extremity edema, fever or chills, cough, chest pain, shortness breath, palpitations, changes in urination or bowel habits. No changes in weight. She denies any dizziness, numbness/weakness/tingling of the extremities. In the ED, her vital signs were stable. CBC showed a leukocytosis of 12.8. APTT was 21.2. CMP showed bicarb of 31, BUN of 20, glucose 151, calcium of 10.4, AST of 43. Lactic acid was negative. Amylase and lipase negative. CTAP showing high-grade small bowel obstruction with moderate amount of stool within the colon. NG tube was inserted in the ED patient was admitted for further management of symptoms. She received soap suds enema for fecal impaction. Her SBO resolved with conservative measures. Her diet was advanced. Subjective: She is seen and examined at bedside. No acute events overnight. Per nursing, patient may have had melana. Patient has some lower abdominal tenderness, denies any chest pain, shortness of breath, nausea, vomiting. She is able to tolerate most foods. Pertinent positives and negatives as discussed above, a complete review of systems was performed and all other systems are negative. Vitals Signs Reviewed. General: nontoxic, no distress, appears at stated age Derm: warm, dry Head: atraumatic, normocephalic, symmetric Eyes: EOMI, no lid lag, anicteric sclera Mouth: no lip lesion, mucus membranes moist Cardiovascular: S1S2 reg, no murmur Lungs: CTA bilateral, no rhonchi, no rales , no accessory muscle use Abdominal: soft, lower abdomen tender to palpation, no guarding, no appreciable organomegaly Ext: no gross muscle atrophy, no edema, no contractures Neuro: CN II-XI grossly intact, no focal neuro deficits Psych: Alert, oriented, appropriate affect Data Reviewed Today: Temperature 98.6, pulse 81, respiratory rate 15, blood pressure 138/74, saturating at 96% on room air Assessment and Plan: Active: Small bowel obstruction Normocytic anemia Melena -SBO now resolved, patient having bowel movements -Reportedly patient did have melena, stool was flushed before seen by provider -Repeat CBC ordered -Patient hemodynamically stable -On IV pantoprazole 40 mg -Surgery following Resolved: Prerenal azotemia Transaminitis Chronic: Dyslipidemia Depression DVT ppx: Subcu heparin Code status: Full code Anticipated discharge place: Home Anticipated discharge time: Likely tomorrow Objective - Vital Signs Vital signs: Vital Signs Temp 98.6 F 11/05/22 13:02 Pulse 81 11/05/22 13:02 Resp 15 11/05/22 13:02 BP 138/74 11/05/22 13:02 Pulse Ox 96 11/05/22 13:02 FiO2 Intake & Output 11/04/22 11/05/22 11/05/22 18:59 06:59 18:59 Intake Total 354 Balance 354 Weight 43.998 kg Intake: Oral 354 Other: Voiding Method Toilet Toilet # Voids 1 3 - Labs CBC & Chem 7: 11/01/22 06:48 11/01/22 06:48
--- NOTE | 2022-11-05 15:00 | P.PN ---
Subjective Progress Note Date: 11/05/22 Principal diagnosis: Small bowel obstruction Patient denies nausea or vomiting. States she is somewhat bloated today. Says she has mild pain today. She did have a episode of diarrhea earlier. She is afebrile. Objective - Vital Signs Vital signs: Vital Signs Temp 98.6 F 11/05/22 13:02 Pulse 81 11/05/22 13:02 Resp 15 11/05/22 13:02 BP 138/74 11/05/22 13:02 Pulse Ox 96 11/05/22 13:02 FiO2 Intake & Output 11/04/22 11/05/22 11/05/22 18:59 06:59 18:59 Intake Total 354 Balance 354 Weight 43.998 kg Intake: Oral 354 Other: Voiding Method Toilet Toilet # Voids 1 3 - Exam Abdomen: Soft, nondistended, mild tenderness, mild distention - Labs CBC & Chem 7: 11/01/22 06:48 11/01/22 06:48 Assessment and Plan (1) Small bowel obstruction Narrative/Plan: 72-year-old female with small bowel obstruction. Symptoms seem somewhat worse today. Check abdominal x-rays. If obstruction suspected Will proceed with exploratory laparotomy. Current Visit: Yes Status: Acute Code(s): K56.609 - UNSP INTESTNL OBST, UNSP TO PARTIAL VERSUS COMPLETE OBST SNOMED Code(s): 046055373
[2022-11-05 16:19] LABS: Basophils % (A) 1 %; Eosinophils # (A) 0.3 k/uL (0-0.7); Eosinophils % (A) 8 %; HCT 36.6 % (34.0-46.0); HGB 12.2 gm/dL (11.4-16.0); Lymphocytes # (A) 1.2 k/uL (1.0-4.8); Lymphocytes % (A) 29 %; MCH 31.3 pg (25.0-35.0); MCHC 33.2 g/dL (31.0-37.0); MCV 94.3 fL (80.0-100.0); Mean Platelet Volume 6.6; Monocytes # (A) 0.3 k/uL (0-1.0); Monocytes % (A) 6 %; Neutrophils # (A) 2.2 k/uL (1.3-7.7); Neutrophils % (A) 54 %; Platelet Count 179 k/uL (150-450); RBC 3.88 m/uL (3.80-5.40); RDW 12.1 % (11.5-15.5); WBC 4.1 k/uL (3.8-10.6)
[2022-11-05 16:20] LABS: African American GFR (CKD) >90 (>60 ml/min/1.73 sqM); Anion Gap 4 mmol/L; Blood Urea Nitrogen 6 mg/dL (7-17); Calcium 8.3 mg/dL (8.4-10.2); Carbon Dioxide 31 mmol/L (22-30); Chloride 105 mmol/L (98-107); Glucose 94 mg/dL (74-99); Non-African American GFR(CKD) >90 (>60 ml/min/1.73 sqM); Potassium 3.5 mmol/L (3.5-5.1); Sodium 140 mmol/L (137-145)
--- NOTE | 2022-11-05 16:39 | CDI ---
Documentation Clarification Form Date: 11/05/2022 4:17:47 PM From: Jocelyn Tenorio RN, CCDS Admit Date: 10/31/2022 3:23:00 AM Patient Name: Tyra Mendes Visit Number: [id number] Discharge Date: ATTENTION: The Clinical Documentation Specialists (CDI) and [facility] Coding Staff appreciate your assistance in clarifying documentation. Please respond to the clarification below the line at the bottom and electronically sign. The CDI & [facility] Coding staff will review the response and follow-up if needed. Please note: Queries are made part of the Legal Health Record. If you have any questions, please contact the author of this message via ITS. Dr. Pankaj Rivas The Registered Dietitian assessment on 10/31/22 indicates this patient is underweight. H/P and subsequent progress notes has appearance as cachectic. Based on this information and the findings below, is there an additional diagnosis that is clinically appropriate for this patient? History/Risk Factors: Small bowel resection, Obstruction, Asthma Clinical Indicators: 72-year-old female present with complaints of abdominal pain and multiple episodes of vomiting. Symptoms began over the past 12 hours. 10/31 CT abd/pelvis: High-grade small bowel obstruction with a moderate amount of stool within the colon. RD Consult Assessment: Intake poor, Underweight Current BMI: 17.7 5 ft. 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 [ ] Mild Protein-Calorie Malnutrition [ ] Moderate Protein-Calorie Malnutrition [ ] Severe Protein-Calorie Malnutrition [ ] Other condition, please specify [ x ] Unable to Determine (Template Last Revised: September 2020) MTDD
--- NOTE | 2022-11-05 17:27 | XR ---
EXAMINATION TYPE: XR abdomen 2V DATE OF EXAM: 11/05/2022 5:11 PM INDICATION: Patient age:Female; 72 years old; Reason for study: Evaluate obstruction; COMPARISON: 11/01/2022 TECHNIQUE: Two views of the abdomen were obtained. FINDINGS: High-density contrast material seen within cecum. There is no evidence of obstruction. Post surgical changes of the spine. Partial visualization of left femur intramedullary vijaya. Right upper qu adrant course significance. Nasogastric tube has been removed. Multilevel degeneration changes in the spine. Moderate degeneration changes of the hips. IMPRESSION: No radiographic evidence for obstruction high-density contrast material seen within the cecum. Nonspe cific bowel gas pattern without radiographic evidence for acute process.
[2022-11-05] MEDS: ATORVASTATIN 10 MG TAB PO SCH (20:27)
[2022-11-05] MEDS: HYDROmorphone 0.5 MG/0.5 ML SYRINGE IVP PRN (20:45)
[2022-11-06] MEDS: HEPARIN SODIUM,PORCINE/PF 5,000 UNIT/0.5 ML SYRINGE SQ SCH ×3 (00:19→17:39)
[2022-11-06] MEDS: SODIUM CHLORIDE 0.9% 1,000 ML IV SCH ×2 (00:42→17:38)
[2022-11-06] MEDS: ARMODAFINIL 250 MG PO SCH (07:57)
[2022-11-06] MEDS: ESCITALOPRAM 20 MG TAB PO SCH (07:57)
[2022-11-06] MEDS: PANTOPRAZOLE 40 MG/10 ML VIAL IV SCH (07:57)
[2022-11-06] MEDS ORDERED: BARIUM SULFATE 450 ML ORAL.SUSP BOTTLE PO PRN (10:05)
[2022-11-06 10:56] LABS: Basophils # (A) 0.03 X 10*3/uL (0.00-0.10); Basophils % (A) 0.5 %; Eosinophils # (A) 0.51 X 10*3/uL (0.04-0.35); Eosinophils % (A) 8.9 %; HCT 32.4 % (37.2-46.3); HGB 10.4 g/dL (12.0-15.0); Immature Grans, Automated 0.2 %; Lymphocytes # (A) 1.77 X 10*3/uL (0.90-5.00); Lymphocytes % (A) 30.7 %; MCH 30.5 pg (27.0-32.0); MCHC 32.1 g/dL (32.0-37.0); Mean Platelet Volume 8.8 fL (9.5-12.2); Monocytes # (A) 0.56 X 10*3/uL (0.20-1.00); Monocytes % (A) 9.7 %; NRBC Per 100 WBC 0 /100 WBCS (0.0-0.0); Neutrophils # (A) 2.88 X 10*3/uL (1.80-7.70); Platelet Count 170 X 10*3/uL (140-440); RBC 3.41 X 10*6/uL (4.10-5.20); RDW 11.9 % (11.5-14.5); WBC 5.76 X 10*3/uL (4.50-10.00)
--- NOTE | 2022-11-06 11:04 | CT ---
EXAMINATION TYPE: CT abdomen pelvis wo con CT DLP: 275 mGycm, Automated exposure control for dose reduction was used. DATE OF EXAM: 11/06/2022 10:52 AM COMPARISON: CT abdomen pelvis most recent from 10/31/2022, small bowel follow-through 11/01/2022, abdom inal radiograph 11/05/2022 . CLINICAL INDICATION:Female, 72 years old with history of abdominal pain, sbo; Abdominal pain, SBO TECHNIQUE: Standard CT of the abdomen and pelvis without IV or oral contrast. Lack of IV or oral co ntrast limits evaluation of solid and hollow organ viscera. Coronal and sagittal reformats were perfo rmed. FINDINGS: LOWER CHEST: Small right pleural effusion with associated atelectasis ABDOMEN LIVER: Unremarkable noncontrast appearance. GALLBLADDER AND BILE DUCTS: The gallbladder is surgically absent. No ductal dilatation. PANCREAS: Unremarkable noncontrast appearance SPLEEN: Unremarkable noncontrast appearance. ADRENAL GLANDS: Unremarkable noncontrast appearance. KIDNEYS AND URETERS: No evidence of hydronephrosis or renal calculus. PELVIS BLADDER: Incompletely distended but grossly unremarkable. REPRODUCTIVE: Uterus is surgically absent versus atrophic. ABDOMEN & PELVIS STOMACH AND BOWEL: Stomach and duodenum are unremarkable. Enteric contrast is demonstrated within the colon. Large amount of stool is present within the cecum and ascending colon. Interval resolution of dilated small bowel. Postsurgical changes with anastomosis within the anterior pelvis. No pneumatosi s. No evidence of bowel obstruction. PERITONEUM: No evidence of pneumoperitoneum or free fluid. Presacral edema. VASCULATURE: No evidence of aortic aneurysm. MUSCULOSKELETAL: No acute osseous abnormalities. Postoperative changes of the lower lumbar spine. Thi s creates streak artifact limiting evaluation. Marked scoliotic curvature. LYMPH NODES: No gross evidence for lymphadenopathy. SOFT TISSUE/ABDOMINAL WALL: Diffuse anasarca. IMPRESSION: 1. Resolution of previously demonstrated small bowel obstruction with normal caliber small bowel. La rge amount of stool is present within the ascending colon. 2. Diffuse anasarca with small right pleural effusion.
[2022-11-06 11:24] LABS: African American GFR (CKD) 110.5 (60.0-200.0); Anion Gap 4.5 mmol/L (10.00-18.00); BUN/Creat Ratio 17.2 Ratio (12.00-20.00); Blood Urea Nitrogen 8.6 mg/dL (9.0-27.0); Calcium 8.7 mg/dL (8.7-10.3); Carbon Dioxide 32.5 mmol/L (20.0-27.5); Non-African American GFR(CKD) 95.3 (60.0-200.0); Potassium 3.6 mmol/L (3.5-5.5)
--- NOTE | 2022-11-06 12:18 | P.PN ---
Subjective Progress Note Date: 11/06/22 Hospital Course: 72-year-old female with PMH of small bowel obstruction, asthma, dyslipidemia, anxiety presents ED for abdominal pain ongoing since yesterday morning. Pain is generalized all over her abdomen. Pain is sharp and stabbing in nature. Her pain is associated with multiple episodes of NBNB nausea and vomiting. This prompted her to come to the ED. She reports a history of SBO was managed conservatively. She reports surgical history of cholecystectomy and hysterectomy. She denies any headache, lower extremity edema, fever or chills, cough, chest pain, shortness breath, palpitations, changes in urination or bowel habits. No changes in weight. She denies any dizziness, numbness/weakness/tingling of the extremities. In the ED, her vital signs were stable. CBC showed a leukocytosis of 12.8. APTT was 21.2. CMP showed bicarb of 31, BUN of 20, glucose 151, calcium of 10.4, AST of 43. Lactic acid was negative. Amylase and lipase negative. CTAP showing high-grade small bowel obstruction with moderate amount of stool within the colon. NG tube was inserted in the ED patient was admitted for further management of symptoms. She received soap suds enema for fecal impaction. Her SBO resolved with conservative measures. Her diet was advanced. CT abdomen and pelvis showed resolution of previous SBO, but does show a large amount of stool in the ascending colon, diffuse anasarca with small right pleural effusion. Subjective: She is seen and examined at bedside. No acute events overnight. Continues to have lower abdominal pain, but improving. Denies any chest pain, shortness of breath, nausea, vomiting. She is able to tolerate diet. Pertinent positives and negatives as discussed above, a complete review of systems was performed and all other systems are negative. Vitals Signs Reviewed. General: nontoxic, no distress, appears at stated age Derm: warm, dry Head: atraumatic, normocephalic, symmetric Eyes: EOMI, no lid lag, anicteric sclera Mouth: no lip lesion, mucus membranes moist Cardiovascular: S1S2 reg, no murmur Lungs: CTA bilateral, no rhonchi, no rales , no accessory muscle use Abdominal: soft, lower abdomen tender to palpation, no guarding, no appreciable organomegaly Ext: no gross muscle atrophy, no edema, no contractures Neuro: CN II-XI grossly intact, no focal neuro deficits Psych: Alert, oriented, appropriate affect Data Reviewed Today: WBC 5.76, hemoglobin 10.4, sodium 142, creatinine 0.5 CT abdomen and pelvis report reviewed, showed resolution of previous SBO, but does show a large amount of stool in the ascending colon, diffuse anasarca with small right pleural effusion. Assessment and Plan: Active: Small bowel obstruction, resolved Normocytic anemia Constipation -Patient having bowel movements -Patient denies any active bleeding -Patient hemodynamically stable -On IV pantoprazole 40 mg -Surgery following -Senna ordered Resolved: Prerenal azotemia Transaminitis Chronic: Dyslipidemia Depression DVT ppx: Subcu heparin Code status: Full code Anticipated discharge place: Home Anticipated discharge time: Likely tomorrow Objective - Vital Signs Vital signs: Vital Signs Temp 97.6 F 11/06/22 07:24 Pulse 71 11/06/22 07:24 Resp 17 11/06/22 07:24 BP 129/81 11/06/22 07:24 Pulse Ox 96 11/06/22 07:24 FiO2 Intake & Output 11/05/22 11/06/22 11/06/22 18:59 06:59 18:59 Other: Voiding Method Toilet Toilet # Voids 2 # Bowel Movements 1 - Labs CBC & Chem 7: 11/06/22 06:39 11/06/22 06:39 Labs: Abnormal Lab Results - Last 24 Hours (Table) 11/05/22 11/06/22 11/06/22 Range/Units 15:49 06:39 06:39 RBC 3.41 L (4.10-5.20) X 10*6/uL Hgb 10.4 L (12.0-15.0) g/dL Hct 32.4 L (37.2-46.3) % MPV 8.8 L (9.5-12.2) fL Eosinophils # 0.51 H (0.04-0.35) X 10*3/uL Carbon Dioxide 31 H 32.5 H (22-30) mmol/L Anion Gap 4.50 L (10.00-18.00) mmol/L BUN 6 L 8.6 L (7-17) mg/dL Creatinine 0.5 L (0.6-1.5) mg/dL Calcium 8.3 L (8.4-10.2) mg/dL
[2022-11-06] MEDS: SENNOSIDES 8.6 MG TAB PO SCH ×2 (12:59→20:16)
--- NOTE | 2022-11-06 14:44 | P.PN ---
Subjective Progress Note Date: 11/06/22 CHIEF COMPLAINT: Small bowel obstruction HISTORY OF PRESENT ILLNESS: Patient complains of abdominal pain. She reports that she needed pain medications during the night. Her last bowel movement was yesterday morning and since then has also stopped having any flatus. She denies any nausea or vomiting. X-ray shows no evidence of obstruction high density contrast material seen within the cecum. Follow-up computed tomography scan abdomen and pelvis shows resolution of previously demonstrated small bowel obstruction without normal caliber small bowel. Large amount of stool is present within the ascending colon. Diffuse anasarca with small right pleural effusion. Afebrile. WBC is 5.76 hgb 10.4 platelets 170 sounds 142 potassium 3.6 creatinine 0.5 PHYSICAL EXAM: VITAL SIGNS: Reviewed GENERAL: Well-developed in no acute distress. HEENT: No sclera icterus. Extraocular movements grossly intact. Moist buccal mucosa. Head is atraumatic, normocephalic. Hears conversational speech. No nasal drainage. NECK: Supple without lymphadenopathy. CHEST: Non-labored respirations and equal bilateral excursions. CARDIOVASCULAR: Palpable 2+ radial pulses. ABDOMEN: Soft. Distended MUSCULOSKELETAL: No clubbing or cyanosis. NEUROLOGIC: No focal or lateralizing signs. Cranial nerves II through XII grossly intact. PSYCH: Appropriate affect. Alert and oriented to person, place and time. SKIN: Well perfused. Good skin turgor. ASSESSMENT: 1. Small bowel obstruction 2. Prior history of bowel obstruction requiring bowel resection 3. History of cholecystectomy and hysterectomy PLAN: -Further recommendations forthcoming per surgeon -Keep patient nothing by mouth -Continue supportive care -Encourage patient to ambulate Physician Data Acquisition Technician note has been reviewed by physician. Signing provider agrees with the documented findings, assessment, and plan of care. I have personally seen and examined the patient, reviewed the BOX PERSON /PAs history, exam and MDM and agree with the assessment and plan as written. Based on total visit time, I have performed more than 50% of the visit. As above: CAT scan films reviewed. Clinical scenario reviewed in detail with the patient and her daughter at the bedside. No significant small bowel dilation seen on CAT scan at this time. The patient does have a large volume of feces and contrast within the right colon. This is the location were patient is having some ongoing discomfort. Denies nausea or vomiting. No bowel movement today. Will begin GoLYTELY bowel prep tonight. 20 ounces instructed to be taken in this evening. Continue nonoperative approach. Continue clear liquids. Objective - Vital Signs Vital signs: Vital Signs Temp 98.5 F 11/06/22 14:00 Pulse 77 11/06/22 14:00 Resp 16 11/06/22 14:00 BP 160/71 11/06/22 14:00 Pulse Ox 97 11/06/22 14:00 FiO2 Intake & Output 11/05/22 11/06/22 11/06/22 18:59 06:59 18:59 Weight 43.998 kg Other: Voiding Method Toilet Toilet # Voids 2 # Bowel Movements 1 - Labs CBC & Chem 7: 11/06/22 06:39 11/06/22 06:39 Labs: Abnormal Lab Results - Last 24 Hours (Table) 11/05/22 11/06/22 11/06/22 Range/Units 15:49 06:39 06:39 RBC 3.41 L (4.10-5.20) X 10*6/uL Hgb 10.4 L (12.0-15.0) g/dL Hct 32.4 L (37.2-46.3) % MPV 8.8 L (9.5-12.2) fL Eosinophils # 0.51 H (0.04-0.35) X 10*3/uL Carbon Dioxide 31 H 32.5 H (22-30) mmol/L Anion Gap 4.50 L (10.00-18.00) mmol/L BUN 6 L 8.6 L (7-17) mg/dL Creatinine 0.5 L (0.6-1.5) mg/dL Calcium 8.3 L (8.4-10.2) mg/dL
[2022-11-06] MEDS: ATORVASTATIN 10 MG TAB PO SCH (20:16)
[2022-11-06] MEDS ORDERED: PEG 3350 (236 GM/BTL) + LYTES 4,000 ML BOTTLE PO ONE (21:00)
[2022-11-06] MEDS: HYDROmorphone 0.5 MG/0.5 ML SYRINGE IVP PRN (21:44)
[2022-11-07] MEDS: HYDROmorphone 0.5 MG/0.5 ML SYRINGE IVP PRN ×2 (00:24→21:21)
[2022-11-07] MEDS: ONDANSETRON 4 MG/2 ML VIAL IVP PRN (00:24)
[2022-11-07] MEDS: HEPARIN SODIUM,PORCINE/PF 5,000 UNIT/0.5 ML SYRINGE SQ SCH ×4 (02:36→23:29)
[2022-11-07] MEDS: SODIUM CHLORIDE 0.9% 1,000 ML IV SCH (04:08)
[2022-11-07] MEDS: SENNOSIDES 8.6 MG TAB PO SCH ×2 (08:41→21:06)
[2022-11-07] MEDS: PANTOPRAZOLE 40 MG/10 ML VIAL IV SCH (08:41)
[2022-11-07] MEDS: ARMODAFINIL 250 MG PO SCH (08:41)
[2022-11-07] MEDS: ESCITALOPRAM 20 MG TAB PO SCH (08:41)
[2022-11-07 10:30] LABS: Basophils # (A) 0.05 X 10*3/uL (0.00-0.10); Basophils % (A) 0.4 %; Eosinophils # (A) 0.11 X 10*3/uL (0.04-0.35); HCT 41.1 % (37.2-46.3); HGB 13.2 g/dL (12.0-15.0); Immature Grans, Automated 0.4 %; Lymphocytes # (A) 0.71 X 10*3/uL (0.90-5.00); Lymphocytes % (A) 6.4 %; MCH 30.3 pg (27.0-32.0); MCHC 32.1 g/dL (32.0-37.0); MCV 94.5 fL (80.0-97.0); Mean Platelet Volume 8.9 fL (9.5-12.2); Monocytes # (A) 1.32 X 10*3/uL (0.20-1.00); Monocytes % (A) 11.8 %; NRBC Per 100 WBC 0 /100 WBCS (0.0-0.0); Neutrophils # (A) 8.94 X 10*3/uL (1.80-7.70); Platelet Count 217 X 10*3/uL (140-440); RBC 4.35 X 10*6/uL (4.10-5.20); WBC 11.17 X 10*3/uL (4.50-10.00)
--- NOTE | 2022-11-07 12:11 | P.PN ---
Subjective Progress Note Date: 11/07/22 Hospital Course: 72-year-old female with PMH of small bowel obstruction, asthma, dyslipidemia, anxiety presents ED for abdominal pain ongoing since yesterday morning. Pain is generalized all over her abdomen. Pain is sharp and stabbing in nature. Her pain is associated with multiple episodes of NBNB nausea and vomiting. This prompted her to come to the ED. She reports a history of SBO was managed conservatively. She reports surgical history of cholecystectomy and hysterectomy. She denies any headache, lower extremity edema, fever or chills, cough, chest pain, shortness breath, palpitations, changes in urination or bowel habits. No changes in weight. She denies any dizziness, numbness/weakness/tingling of the extremities. In the ED, her vital signs were stable. CBC showed a leukocytosis of 12.8. APTT was 21.2. CMP showed bicarb of 31, BUN of 20, glucose 151, calcium of 10.4, AST of 43. Lactic acid was negative. Amylase and lipase negative. CTAP showing high-grade small bowel obstruction with moderate amount of stool within the colon. NG tube was inserted in the ED patient was admitted for further management of symptoms. She received soap suds enema for fecal impaction. Her SBO resolved with conservative measures. Her diet was advanced. CT abdomen and pelvis showed resolution of previous SBO, but does show a large amount of stool in the ascending colon, diffuse anasarca with small right pleural effusion. No longer having bowel movements. Patient currently on GoLYTELY. Subjective: She is seen and examined at bedside. No acute events overnight. Continues to have lower abdominal pain. Denies any bowel movements or passing gas. Denies any chest pain, shortness of breath, nausea, vomiting. She is able to tolerate diet. Pertinent positives and negatives as discussed above, a complete review of systems was performed and all other systems are negative. Vitals Signs Reviewed. General: nontoxic, no distress, appears at stated age Derm: warm, dry Head: atraumatic, normocephalic, symmetric Eyes: EOMI, no lid lag, anicteric sclera Mouth: no lip lesion, mucus membranes moist Cardiovascular: S1S2 reg, no murmur Lungs: CTA bilateral, no rhonchi, no rales , no accessory muscle use Abdominal: soft, lower abdomen tender to palpation, no guarding, no appreciable organomegaly Ext: no gross muscle atrophy, no edema, no contractures Neuro: CN II-XI grossly intact, no focal neuro deficits Psych: Alert, oriented, appropriate affect Data Reviewed Today: WBC 11.17, hemoglobin 13.2 Assessment and Plan: Active: Severe constipation Small bowel obstruction, resolved -Patient no longer having any bowel movements or passing gas -On GoLYTELY, still pending a bowel movements -Surgery following -Also on senna 8.6 mg twice a day Resolved: Prerenal azotemia Transaminitis Normocytic anemia Chronic: Dyslipidemia Depression DVT ppx: Subcu heparin Code status: Full code Anticipated discharge place: Home Anticipated discharge time: Pending clinical course Objective - Vital Signs Vital signs: Vital Signs Temp 97.4 F L 11/07/22 07:50 Pulse 94 11/07/22 07:50 Resp 17 11/07/22 07:50 BP 104/66 11/07/22 07:50 Pulse Ox 94 L 11/07/22 07:50 FiO2 Intake & Output 11/06/22 11/07/22 11/07/22 18:59 06:59 18:59 Output Total 2 Balance -2 Weight 43.998 kg Output: Urine 2 Other: Voiding Method Toilet Toilet # Voids 3 - Labs CBC & Chem 7: 11/07/22 06:26 11/06/22 06:39 Labs: Abnormal Lab Results - Last 24 Hours (Table) 11/07/22 Range/Units 06:26 WBC 11.17 H (4.50-10.00) X 10*3/uL MPV 8.9 L (9.5-12.2) fL Neutrophils # 8.94 H (1.80-7.70) X 10*3/uL Lymphocytes # 0.71 L (0.90-5.00) X 10*3/uL Monocytes # 1.32 H (0.20-1.00) X 10*3/uL
[2022-11-07 13:48] LABS: African American GFR (CKD) 92.5 (60.0-200.0); Anion Gap 12.6 mmol/L (10.00-18.00); BUN/Creat Ratio 13.23 Ratio (12.00-20.00); Blood Urea Nitrogen 9.8 mg/dL (9.0-27.0); Calcium 9.2 mg/dL (8.7-10.3); Carbon Dioxide 29.2 mmol/L (20.0-27.5); Non-African American GFR(CKD) 79.8 (60.0-200.0); Potassium 3.7 mmol/L (3.5-5.5)
--- NOTE | 2022-11-07 14:00 | P.PN ---
Subjective Progress Note Date: 11/07/22 CHIEF COMPLAINT: Small bowel obstruction HISTORY OF PRESENT ILLNESS: Patient does complain of pain on the lower right abdomen. She does rate it a 6 out of 10. She has required pain medication. She had one episode of vomiting last night. She was started on GoLYTELY bowel prep due to having a large volume of feces and contrast in the right colon. Patient has drank one cup of the 20 ounces of GoLYTELY. She had a tiny amount of flatus. However no bowel movement. She is more distended today. Afebrile. WBC is up at 11.17 HgB 13.2 platelets 217 PHYSICAL EXAM: VITAL SIGNS: Reviewed GENERAL: Well-developed in no acute distress. HEENT: No sclera icterus. Extraocular movements grossly intact. Moist buccal mucosa. Head is atraumatic, normocephalic. Hears conversational speech. No nasal dr ainage. NECK: Supple without lymphadenopathy. CHEST: Non-labored respirations and equal bilateral excursions. CARDIOVASCULAR: Palpable 2+ radial pulses. ABDOMEN: Soft. Slightly more distended today. Tender with palpation right side abdomen MUSCULOSKELETAL: No clubbing or cyanosis. NEUROLOGIC: No focal or lateralizing signs. Cranial nerves II through XII grossly intact. PSYCH: Appropriate affect. Alert and oriented to person, place and time. SKIN: Well perfused. Good skin turgor. ASSESSMENT: 1. Small bowel obstruction has shown improvement on imaging. There is large volume of feces and contrast within the right colon which may be causing the patient's discomfort. 2. Prior history of bowel obstruction requiring bowel resection 3. History of cholecystectomy and hysterectomy PLAN: -We'll have patient drink 2 more 20 oz glasses of the GoLYTELY bowel prep. -Soap roxy enema ordered for constipation -Encourage patient to ambulate -Continue clear liquid Physician Jockey Valet note has been reviewed by physician. Signing provider agrees with the documented findings, assessment, and plan of care. I have personally seen and examined the patient, reviewed the DISCOVERY GUIDE /PAs history, exam and MDM and agree with the assessment and plan as written. Based on total visit time, I have performed more than 50% of the visit. As above: Patient had 20 ounce cup of GoLYTELY last night and 2 more today. Unfortunately has not had a bowel movement other than flatus. Soapsuds enemas were unsuccessful as they could not get a nice seal at the anus. Says her pain is not very significant and she does not feel that bloated. No nausea currently. Options reviewed with the patient. We will provide one additional 20 ounce container of GoLYTELY tonight. If no significant results overnight Will order a barium enema with [facility]. Objective - Vital Signs Vital signs: Vital Signs Temp 97.4 F L 11/07/22 07:50 Pulse 94 11/07/22 07:50 Resp 17 11/07/22 07:50 BP 104/66 11/07/22 07:50 Pulse Ox 94 L 11/07/22 07:50 FiO2 Intake & Output 11/06/22 11/07/22 11/07/22 18:59 06:59 18:59 Output Total 2 Balance -2 Weight 43.998 kg Output: Urine 2 Other: Voiding Method Toilet Toilet # Voids 3 - Labs CBC & Chem 7: 11/07/22 06:26 11/07/22 06:26 Labs: Abnormal Lab Results - Last 24 Hours (Table) 11/07/22 Range/Units 06:26 WBC 11.17 H (4.50-10.00) X 10*3/uL MPV 8.9 L (9.5-12.2) fL Neutrophils # 8.94 H (1.80-7.70) X 10*3/uL Lymphocytes # 0.71 L (0.90-5.00) X 10*3/uL Monocytes # 1.32 H (0.20-1.00) X 10*3/uL
[2022-11-07] MEDS: ATORVASTATIN 10 MG TAB PO SCH (21:06)
[2022-11-08] MEDS: PANTOPRAZOLE 40 MG/10 ML VIAL IV SCH (09:47)
[2022-11-08] MEDS: ESCITALOPRAM 20 MG TAB PO SCH (09:48)
[2022-11-08] MEDS: SENNOSIDES 8.6 MG TAB PO SCH ×2 (09:48→20:51)
[2022-11-08] MEDS: HEPARIN SODIUM,PORCINE/PF 5,000 UNIT/0.5 ML SYRINGE SQ SCH ×3 (09:48→21:20)
[2022-11-08] MEDS: ARMODAFINIL 250 MG PO SCH (09:48)
[2022-11-08 10:53] LABS: Basophils # (A) 0.05 X 10*3/uL (0.00-0.10); Basophils % (A) 0.9 %; Eosinophils # (A) 0.39 X 10*3/uL (0.04-0.35); HCT 37.6 % (37.2-46.3); HGB 11.9 g/dL (12.0-15.0); Immature Grans, Automated 0.4 %; Lymphocytes # (A) 1.89 X 10*3/uL (0.90-5.00); MCH 30.4 pg (27.0-32.0); MCHC 31.6 g/dL (32.0-37.0); MCV 96.2 fL (80.0-97.0); Mean Platelet Volume 8.7 fL (9.5-12.2); Monocytes # (A) 0.56 X 10*3/uL (0.20-1.00); Monocytes % (A) 10.1 %; NRBC Per 100 WBC 0 /100 WBCS (0.0-0.0); Neutrophils # (A) 2.65 X 10*3/uL (1.80-7.70); Neutrophils % (A) 47.6 %; Platelet Count 200 X 10*3/uL (140-440); RBC 3.91 X 10*6/uL (4.10-5.20); WBC 5.56 X 10*3/uL (4.50-10.00)
[2022-11-08 11:06] LABS: African American GFR (CKD) 86.5 (60.0-200.0); Anion Gap 7.1 mmol/L (10.00-18.00); BUN/Creat Ratio 13.55 Ratio (12.00-20.00); Blood Urea Nitrogen 10.6 mg/dL (9.0-27.0); Calcium 8.8 mg/dL (8.7-10.3); Carbon Dioxide 33.2 mmol/L (20.0-27.5); Non-African American GFR(CKD) 74.7 (60.0-200.0); Potassium 4.3 mmol/L (3.5-5.5)
--- NOTE | 2022-11-08 11:17 | P.PN ---
Subjective Progress Note Date: 11/08/22 Hospital Course: 72-year-old female with PMH of small bowel obstruction, asthma, dyslipidemia, anxiety presents ED for abdominal pain ongoing since yesterday morning. Pain is generalized all over her abdomen. Pain is sharp and stabbing in nature. Her pain is associated with multiple episodes of NBNB nausea and vomiting. This prompted her to come to the ED. She reports a history of SBO was managed conservatively. She reports surgical history of cholecystectomy and hysterectomy. She denies any headache, lower extremity edema, fever or chills, cough, chest pain, shortness breath, palpitations, changes in urination or bowel habits. No changes in weight. She denies any dizziness, numbness/weakness/tingling of the extremities. In the ED, her vital signs were stable. CBC showed a leukocytosis of 12.8. APTT was 21.2. CMP showed bicarb of 31, BUN of 20, glucose 151, calcium of 10.4, AST of 43. Lactic acid was negative. Amylase and lipase negative. CTAP showing high-grade small bowel obstruction with moderate amount of stool within the colon. NG tube was inserted in the ED patient was admitted for further management of symptoms. She received soap suds enema for fecal impaction. Her SBO resolved with conservative measures. Her diet was advanced. CT abdomen and pelvis showed resolution of previous SBO, but does show a large amount of stool in the ascending colon, diffuse anasarca with small right pleural effusion. No longer having bowel movements. Patient currently on GoLYTELY. Subjective: She is seen and examined at bedside. No acute events overnight. Continues to have lower abdominal pain but improved. Denies any bowel movements. Has been passing minimal amounts of gas. Denies any chest pain, shortness of breath, nausea, vomiting. She is able to tolerate diet. Pertinent positives and negatives as discussed above, a complete review of s ystems was performed and all other systems are negative. Vitals Signs Reviewed. General: nontoxic, no distress, appears at stated age Derm: warm, dry Head: atraumatic, normocephalic, symmetric Eyes: EOMI, no lid lag, anicteric sclera Mouth: no lip lesion, mucus membranes moist Cardiovascular: S1S2 reg, no murmur Lungs: CTA bilateral, no rhonchi, no rales , no accessory muscle use Abdominal: soft, lower abdomen tender to palpation, no guarding, no appreciable organomegaly Ext: no gross muscle atrophy, no edema, no contractures Neuro: CN II-XI grossly intact, no focal neuro deficits Psych: Alert, oriented, appropriate affect Data Reviewed Today: WBC 5.56, hemoglobin 11.9, sodium 142, creatinine 0.8 Assessment and Plan: Active: Severe constipation Small bowel obstruction, resolved -Patient denies any bowel movements, but passing flatus -On GoLYTELY, pending barium enema today -Surgery following -Also on senna 8.6 mg twice a day -On clear liquids Resolved: Prerenal azotemia Transaminitis Normocytic anemia Chronic: Dyslipidemia Depression DVT ppx: Subcu heparin Code status: Full code Anticipated discharge place: Home Anticipated discharge time: Pending clinical course Objective - Vital Signs Vital signs: Vital Signs Temp 97.2 F L 11/08/22 07:22 Pulse 70 11/08/22 08:00 Resp 18 11/08/22 08:00 BP 115/65 11/08/22 07:22 Pulse Ox 93 L 11/08/22 09:53 FiO2 Intake & Output 11/07/22 11/08/22 11/08/22 18:59 06:59 18:59 Other: Voiding Method Toilet Toilet Toilet # Voids 3 - Labs CBC & Chem 7: 11/08/22 07:30 11/08/22 07:30 Labs: Abnormal Lab Results - Last 24 Hours (Table) 11/07/22 11/08/22 11/08/22 Range/Units 06:26 07:30 07:30 RBC 3.91 L (4.10-5.20) X 10*6/uL Hgb 11.9 L (12.0-15.0) g/dL MCHC 31.6 L (32.0-37.0) g/dL MPV 8.7 L (9.5-12.2) fL Eosinophils # 0.39 H (0.04-0.35) X 10*3/uL Carbon Dioxide 29.2 H 33.2 H (20.0-27.5) mmol/L Anion Gap 7.10 L (10.00-18.00) mmol/L
--- NOTE | 2022-11-08 11:46 | XR ---
Exam: Abdomen 2 view Date: 11/08/2022 Comparison: 11/05/2022 Clinical History: Possible bowel obstruction Technique: 2 views of the abdomen were obtained per protocol. Findings: There are a few surgical clips in the right upper quadrant, compatible prior cholecystectomy. There i s no free air. There are no suspicious air-fluid levels. There are no dilated loops of bowel. Gas and stool are present within the colon with a small stool burden. There are no suspicious calcific or os seous abnormalities. Spinal fusion hardware is present within the lumbar spine, as well as a levoconv ex curvature of the lumbar spine. There is a small right pleural effusion. Impression: Nonobstructive bowel gas pattern.
--- NOTE | 2022-11-08 12:54 | P.PN ---
Subjective Progress Note Date: 11/08/22 CHIEF COMPLAINT: Small bowel obstruction HISTORY OF PRESENT ILLNESS: Patient currently had a loose bowel movement with stool pieces after 5 glasses of GoLYTELY. Abdomen is less distended. Pain on the right side of the abdomen less than yesterday. She is having flatus. Denies any nausea vomiting. Afebrile. Decision made by surgeon to complete abdominal x-ray and set a barium enema. Abdominal x-ray shows nonobstructive bowel gas pattern. WBC is down from 11 to 5.56 HgB 11.9 platelets 200 sodium is 142 potassium 4.3 creatinine 0.8 PHYSICAL EXAM: VITAL SIGNS: Reviewed GENERAL: Well-developed in no acute distress. HEENT: No sclera icterus. Extraocular movements grossly intact. Moist buccal mucosa. Head is atraumatic, normocephalic. Hears conversational speech. No nasal drainage. NECK: Supple without lymphadenopathy. CHEST: Non-labored respirations and equal bilateral excursions. CARDIOVASCULAR: Palpable 2+ radial pulses. ABDOMEN: Soft. Less distended. Mild tenderness to palpation in the right abdomen MUSCULOSKELETAL: No clubbing or cyanosis. NEUROLOGIC: No focal or lateralizing signs. Cranial nerves II through XII grossly intact. PSYCH: Appropriate affect. Alert and oriented to person, place and time. SKIN: Well perfused. Good skin turgor. ASSESSMENT: 1. Small bowel obstruction has resolved as noted by imaging. 2. Prior history of bowel obstruction requiring bowel resection 3. History of cholecystectomy and hysterectomy PLAN: -Advance diet to regular -If patient tolerates diet she can be discharged from surgical standpoint Physician Oven Worker note has been reviewed by physician. Signing provider agrees with the documented findings, assessment, and plan of care. Objective - Vital Signs Vital signs: Vital Signs Temp 97.2 F L 11/08/22 07:22 Pulse 70 11/08/22 08:00 Resp 18 11/08/22 08:00 BP 115/65 11/08/22 07:22 Pulse Ox 93 L 11/08/22 09:53 FiO2 Intake & Output 11/07/22 11/08/22 11/08/22 18:59 06:59 18:59 Other: Voiding Method Toilet Toilet Toilet # Voids 3 - Labs CBC & Chem 7: 11/08/22 07:30 11/08/22 07:30 Labs: Abnormal Lab Results - Last 24 Hours (Table) 11/07/22 11/08/22 11/08/22 Range/Units 06:26 07:30 07:30 RBC 3.91 L (4.10-5.20) X 10*6/uL Hgb 11.9 L (12.0-15.0) g/dL MCHC 31.6 L (32.0-37.0) g/dL MPV 8.7 L (9.5-12.2) fL Eosinophils # 0.39 H (0.04-0.35) X 10*3/uL Carbon Dioxide 29.2 H 33.2 H (20.0-27.5) mmol/L Anion Gap 7.10 L (10.00-18.00) mmol/L
[2022-11-08] MEDS: HYDROmorphone 0.5 MG/0.5 ML SYRINGE IVP PRN (19:33)
[2022-11-08] MEDS: SODIUM CHLORIDE 0.9% 1,000 ML IV SCH ×3 (20:40→20:44)
[2022-11-08] MEDS: ATORVASTATIN 10 MG TAB PO SCH (20:51)
[2022-11-09 03:27] VITALS: PULSE 70; RESP 16
[2022-11-09] MEDS: SODIUM CHLORIDE 0.9% 1,000 ML IV SCH (06:35)
[2022-11-09 07:44] VITALS: BP 119/75; TEMP 97.6
[2022-11-09] MEDS: HEPARIN SODIUM,PORCINE/PF 5,000 UNIT/0.5 ML SYRINGE SQ SCH (08:00)
[2022-11-09] MEDS: SENNOSIDES 8.6 MG TAB PO SCH (08:59)
[2022-11-09] MEDS: ESCITALOPRAM 20 MG TAB PO SCH (08:59)
[2022-11-09] MEDS: ARMODAFINIL 250 MG PO SCH (09:00)
[2022-11-09] MEDS: PANTOPRAZOLE 40 MG/10 ML VIAL IV SCH (09:00)
--- NOTE | 2022-11-09 09:33 | P.PN ---
Progress Note - Text Progress Note Date: 11/09/22 Patient states she feels good. She is tolerating diet. She wants to go home. On exam vital signs are stable. Abdomen soft. Resolved partial small bowel structure. Patient be discharged home per the medical team
--- NOTE | 2022-11-09 10:34 | P.DS ---
Providers Date of admission: 10/31/22 03:23 Expected date of discharge: 11/09/22 Attending physician: Jesika Fernández DO Consults: 10/31/22 03:23 Consult Physician Urgent Consulting Provider: Rudolph Gonzáles Consult Reason/Comments: SBO Do you want consulting provider notified?: Yes [facility] Course: Discharge Diagnosis: Small bowel obstruction Severe constipation Prerenal azotemia Transaminitis Normocytic anemia Dyslipidemia Depression Hospital Course: 72-year-old female with PMH of small bowel obstruction, asthma, dyslipidemia, anxiety presents ED for abdominal pain ongoing since yesterday morning. Pain is generalized all over her abdomen. Pain is sharp and stabbing in nature. Her pain is associated with multiple episodes of NBNB nausea and vomiting. This prompted her to come to the ED. She reports a history of SBO was managed conservatively. She reports surgical history of cholecystectomy and hysterectomy. She denies any headache, lower extremity edema, fever or chills, cough, chest pain, shortness breath, palpitations, changes in urination or bowel habits. No changes in weight. She denies any dizziness, numbness/weakness/tingling of the extremities. In the ED, her vital signs were stable. CBC showed a leukocytosis of 12.8. APTT was 21.2. CMP showed bicarb of 31, BUN of 20, glucose 151, calcium of 10.4, AST of 43. Lactic acid was negative. Amylase and lipase negative. CTAP showing high-grade small bowel obstruction with moderate amount of stool within the colon. NG tube was inserted in the ED patient was admitted for further management of symptoms. She received soap suds enema for fecal impaction. Her SBO resolved with conservative measures. Her diet was advanced. CT abdomen and pelvis showed resolution of previous SBO, but does show a large amount of stool in the ascending colon, diffuse anasarca with small right pleural effusion. Repeat abdominal x-ray showed nonobstructive bowel gas pattern. Patient is currently having flatulence, did have 1 bowel movement while in the hospital. Patient seen and examined at bedside. Vital signs reviewed and stable. General: nontoxic, no distress, appears at stated age Derm: warm, dry Head: atraumatic, normocephalic, symmetric Eyes: EOMI, no lid lag, anicteric sclera Mouth: no lip lesion, mucus membranes moist Cardiovascular: S1S2 reg, no murmur Lungs: CTA bilateral, no rhonchi, no rales , no accessory muscle use Abdominal: soft, nontender to palpation, no guarding, no appreciable organomegaly Ext: no gross muscle atrophy, no edema, no contractures Neuro: CN II-XI grossly intact, no focal neuro deficits Psych: Alert, oriented, appropriate affect A total of 36 minutes of time were spent preparing this complex discharge summary. Patient was discharged on 11/09/22 at 9:51. Patient Condition at Discharge: Stable Plan - Discharge Summary Discharge Rx Participant: No New Discharge Prescriptions: New Sennosides [Senokot] 8.6 mg PO BID #120 tab Continue Simvastatin [Zocor] 20 mg PO HS Escitalopram [Lexapro] 20 mg PO DAILY armodafiniL [Armodafinil] 250 mg PO DAILY Discontinued Meloxicam [Mobic] 7.5 mg PO HS Discharge Medication List Escitalopram [Lexapro] 20 mg PO DAILY 04/09/17 [History] Simvastatin [Zocor] 20 mg PO HS 04/09/17 [History] armodafiniL [Armodafinil] 250 mg PO DAILY 06/25/21 [History] Sennosides [Senokot] 8.6 mg PO BID #120 tab 11/09/22 [Rx] Follow up Appointment(s)/Referral(s): Luis Angel Greer DO [Primary Care Provider] - 1-2 days Patient Instructions/Handouts: Constipation (DC), Bowel Obstruction (DC) Activity/Diet/Wound Care/Special Instructions: Please see your PCP as soon as possible. Discharge Disposition: HOME SELF-CARE
== END 2022-11-09 13:47 | disposition home or self-care (01) | DRG 389 ==
LOC: EC 22:36 → 4SSUR 10-31 03:23
PROVIDERS: ADMIT Internal Medicine; ATTEND Internal Medicine
PROC: 0D9670Z Drainage of Stomach with Drainage Device, Via Natural or Artificial Opening (ICD-10-PCS; principal; 2022-10-31)
DX: K56.600 Partial intestinal obstruction, unspecified as to cause (principal); R64 Cachexia; Z68.1 Body mass index [BMI] 19.9 or less, adult; K56.41 Fecal impaction; D64.9 Anemia, unspecified; M41.9 Scoliosis, unspecified; R74.01 Elevation of levels of liver transaminase levels; Z79.899 Other long term (current) drug therapy; R63.6 Underweight; Z98.1 Arthrodesis status; Z96.652 Presence of left artificial knee joint; Z96.612 Presence of left artificial shoulder joint; Z88.2 Allergy status to sulfonamides; Z91.041 Radiographic dye allergy status; Z91.040 Latex allergy status; Z28.21 Immunization not carried out because of patient refusal
CPT/HCPCS: 36415; 43753; 71045; 74019; 74176; 74250; 80048; 80053; 81001; 82150; 83605; 83690; 85025; 85730; 94760; 96374; 96375; 99291

== ENCOUNTER 2022-11-17 20:11 | Inpatient (IN) | payer MEDICARE, OTHER ==
[2022-11-17] MEDS ORDERED: ONDANSETRON 4 MG/2 ML VIAL IVP STA (21:15)
[2022-11-17] MEDS ORDERED: SODIUM CHLORIDE 0.9% 1,000 ML IV STA (21:15)
[2022-11-17] MEDS ORDERED: MORPHINE SULFATE 4 MG/ML SYRINGE IVP STA (21:16)
--- NOTE | 2022-11-17 22:02 | XR ---
EXAMINATION TYPE: XR KUB DATE OF EXAM: 11/17/2022 9:55 PM INDICATION: Patient age:Female; 72 years old; Reason for study: hx sbo; [facility]. COMPARISON: Abdominal radiographs 11/01/2022, abdominal radiographs 11/08/2022, CT abdomen pelvis 2022 TECHNIQUE: One radiographic view of the abdomen was obtained. FINDINGS: The bowel gas pattern is nonspecific without dilated loops of small or large bowel. Mild ga seous distention of the stomach. No suspicious air-fluid levels. Large colonic stool burden, air and stool are noted within the distal rectum. Right upper quadrant surgical clips. Dextroscoliotic curvat ure of the thoracic spine. Posterior lumbar fusion hardware and partially visualized left femoral fix ation hardware. The osseous structures are intact. IMPRESSION: Nonspecific bowel gas pattern without radiographic evidence for acute process. Large colonic stool bu rden without evidence for obstruction.
[2022-11-17 22:11] LABS: Basophils % (A) 0 %; Eosinophils # (A) 0.1 k/uL (0-0.7); Eosinophils % (A) 1 %; Lymphocytes % (A) 11 %; MCH 30.2 pg (25.0-35.0); MCHC 32.4 g/dL (31.0-37.0); MCV 93.3 fL (80.0-100.0); Mean Platelet Volume 7.1; Monocytes # (A) 0.3 k/uL (0-1.0); Monocytes % (A) 3 %; Neutrophils # (A) 8.1 k/uL (1.3-7.7); Neutrophils % (A) 84 %; RBC 5.04 m/uL (3.80-5.40); RDW 12.1 % (11.5-15.5); WBC 9.7 k/uL (3.8-10.6)
[2022-11-17 22:13] LABS: HGB 15.2 gm/dL (11.4-16.0); Platelet Count 392 k/uL (150-450)
[2022-11-17 22:21] LABS: ALT 19 U/L (4-34); AST 30 U/L (14-36); African American GFR (CKD) >90 (>60 ml/min/1.73 sqM); Albumin 4.3 g/dL (3.5-5.0); Alkaline Phosphatase 98 U/L (38-126); Anion Gap 14 mmol/L; Blood Urea Nitrogen 26 mg/dL (7-17); Calcium 9.1 mg/dL (8.4-10.2); Carbon Dioxide 27 mmol/L (22-30); Chloride 95 mmol/L (98-107); Glucose 110 mg/dL (74-99); Lipase 90 U/L (23-300); Non-African American GFR(CKD) 90 (>60 ml/min/1.73 sqM); Potassium 3.9 mmol/L (3.5-5.1); Sodium 136 mmol/L (137-145); Total Bilirubin 0.9 mg/dL (0.2-1.3); Total Protein 7.1 g/dL (6.3-8.2)
[2022-11-17 23:11] LABS: Appearance,Urine Clear (Clear); Bacteria,Urine Rare /hpf; Bilirubin,Urine 1+ (Negative); Blood,Urine Negative (Negative); Color,Urine Yellow; Glucose,Urine (UA) Negative (Negative); Ketones,Urine 3+ (Negative); Leukocyte Esterase,Urine Negative (Negative); Mucus,Urine Moderate /hpf; Nitrite,Urine Negative (Negative); PH, Urine 5.5 (5.0-8.0); Protein,Urine 2+ (Negative); RBC,Urine 3 /hpf (0-5); Specific Gravity,Urine 1.035 (1.001-1.035); Squamous Epithelial Cell,Urine 1 /hpf (0-4); WBC,Urine 3 /hpf (0-5)
--- NOTE | 2022-11-17 23:40 | ED ---
Abdominal Pain HPI - General Chief Complaint: Abdominal Pain Stated Complaint: ABD pain Time Seen by Provider: 11/17/22 21:10 Source: patient Mode of arrival: ambulatory Limitations: no limitations - History of Present Illness Initial Comments: 72-year-old female with past medical history of asthma, hyperlipidemia, small bowel obstructions who presents to the emergency department with nausea, vomiting or abdominal pain. She was just discharged from our facility on the after she had a hospitalization for high-grade small bowel obstruction. States that 2 days ago she once again began having nausea, vomiting and has not been able to hold down any food or drink. She has abdominal distention with abdominal pain. Her last episode of vomiting was dark in coloration. She has difficulty with bowel movements. States that they are small in caliber. She continues to pass gas. She is using Senokot without improvement. No other alleviating, precipitating or modifying factors - Related Data Home Medications Medication Instructions Recorded Confirmed Escitalopram [Lexapro] 20 mg PO DAILY 04/09/17 11/18/22 Simvastatin [Zocor] 20 mg PO HS 04/09/17 11/18/22 armodafiniL [Armodafinil] 250 mg PO DAILY 06/25/21 11/18/22 Previous Rx's Medication Instructions Recorded Sennosides [Senokot] 8.6 mg PO BID #120 tab 11/09/22 Allergies Allergy/AdvReac Type Severity Reaction Status Date / Time latex Allergy Severe Rash/Hives Verified 11/19/22 09:27 bupivacaine [From Marcaine] Allergy Anaphylaxis Verified 11/19/22 09:27 coconut Allergy Rash/Hives Verified 11/19/22 09:27 Iodinated Contrast Media Allergy Anaphylaxis Verified 11/19/22 09:27 [Iodinated Contrast- Oral and IV Dye] Sulfa (Sulfonamide Allergy Anaphylaxis Verified 11/19/22 09:27 Antibiotics) sulfamethoxazole Allergy Anaphylaxis Verified 11/19/22 09:27 [From Bactrim] trimethoprim [From Bactrim] Allergy Anaphylaxis Verified 11/19/22 09:27 Review of Systems ROS Statement: Those systems with pertinent positive or pertinent negative responses have been documented in the HPI. ROS Other: All systems not noted in ROS Statement are negative. 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 Past Anesthesia/Blood Transfusion Reactions: No Reported Reaction Additional Past Anesthesia/Blood Transfusion Reaction / Comment(s): 196 pt had blood transfusion- states no reaction Past Psychological History: Anxiety, Depression Smoking Status: Never smoker Past Alcohol Use History: None Reported Past Drug Use History: None Reported - Past Family History Father Family Medical History: Cancer Additional Family Medical History / Comment(s): lung cancer Mother Family Medical History: Cancer, Dementia Additional Family Medical History / Comment(s): leukemia General Exam Limitations: no limitations General appearance: alert, in no apparent distress Head exam: Present: atraumatic, normocephalic, normal inspection Eye exam: Present: normal appearance, PERRL, EOMI. Absent: scleral icterus, conjunctival injection, periorbital swelling ENT exam: Present: normal exam, mucous membranes moist Neck exam: Present: normal inspection. Absent: tenderness, meningismus, lymphadenopathy Respiratory exam: Present: normal lung sounds bilaterally. Absent: respiratory distress, wheezes, rales, rhonchi, stridor Cardiovascular Exam: Present: normal rhythm, tachycardia, normal heart sounds. Absent: systolic murmur, diastolic murmur, rubs, gallop, clicks GI/Abdominal exam: Present: distended, tenderness. Absent: guarding, rebound, rigid Extremities exam: Present: normal inspection, full ROM, normal capillary refill. Absent: tenderness, pedal edema, joint swelling, calf tenderness Back exam: Present: normal inspection Neurological exam: Present: alert, oriented X3, CN II-XII intact Psychiatric exam: Present: normal affect, normal mood Skin exam: Present: warm, dry, intact, normal color. Absent: rash Course Vital Signs 11/17/22 11/17/22 11/17/22 21:01 22:03 22:05 Temperature 98.5 F Pulse Rate 109 H 92 Respiratory 20 16 Rate Blood Pressure 124/73 103/66 O2 Sat by Pulse 96 88 L 94 L Oximetry 11/18/22 00:00 Temperature Pulse Rate 83 Respiratory 16 Rate Blood Pressure 111/70 O2 Sat by Pulse 91 L Oximetry Medical Decision Making - Medical Decision Making Was pt. sent in by a medical professional or institution (GAGANDEEP Villa, [employer] S[employer]IOR DEVELOPER, urgent care, hospital, or detention...) When possible be specific @ -No Did you speak to anyone other than the patient for history (EMS, parent, family, police, friend...)? What history was obtained from this source @ -Patients daughter Did you review nursing and triage notes (agree or disagree)? Why? @ -I reviewed and agree with nursing and triage notes Were old charts reviewed (outside hosp., previous admission, EMS record, old EKG, old radiological studies, urgent care reports/EKG's, detention records)? Report findings @ -old charts were reviewed - recent discharge Differential Diagnosis (chest pain, altered mental status, abdominal pain women, abdominal pain men, vaginal bleeding, weakness, fever, dyspnea, syncope, headache, dizziness, GI bleed, back pain, seizure, CVA, palpatations, mental health, musculoskeletal)? @ -influenza, covid, gastroenteritis, strep, colitis, bowel obstruction, sbo, cholelithiasis EKG interpreted by me (3pts min.). @ -No X-rays interpreted by me (1pt min.). @ -Yes CT interpreted by me (1pt min.). @ -None done U/S interpreted by me (1pt. min.). @ -None done What testing was considered but not performed or refused? (CT, X-rays, U/S, labs)? Why? @ -None What meds were considered but not given or refused? Why? @ -None Did you discuss the management of the patient with other professionals (professionals i.e. GAGANDEEP Villa, [employer] SENIOR DEVELOPER, lab, RT, psych nurse, social contact worker, professional architect, teacher, corporate development officer, division operations manager)? Give summary @ -dr geller Was smoking cessation discussed for >3mins.? @ -No Was critical care preformed (if so, how long)? @ -No Were there social determinants of health that impacted care today? How? (Homelessness, low income, unemployed, alcoholism, drug addiction, transportation, low edu. Level, literacy, decrease access to med. care, [facility], rehab)? @ -No Was there de-escalation of care discussed even if they declined (Discuss DNR or withdrawal of care, Hospice)? DNR status @ -No What co-morbidities impacted this encounter? (DM, HTN, Smoking, COPD, CAD, Ca ncer, CVA, ARF, Chemo, Hep., AIDS, mental health diagnosis, sleep apnea, morbid obesity)? @ -Hx sbo Was patient admitted / discharged? Hospital course, mention meds given and route, prescriptions, significant lab abnormalities, going to OR and other pertinent info. @ -Upon arrival patient was placed into room 2. History and physical exam is performed. IV access established. She is given Zofran for nausea and morphine for pain control. Laboratory studies are conducted. X-rays performed which does not demonstrate an acute obstruction at this time. Patient is reevaluated and continues to have nausea and pain. Recommended admission for observation with surgical consult. NG tube will not be placed at this time. Patient was agreeable to this. Spoke with Dr. Geller who agreed to admit the patient. Undiagnosed new problem with uncertain prognosis? @ -No Drug Therapy requiring intensive monitoring for toxicity (Heparin, Nitro, Insulin, Cardizem)? @ -No Were any procedures done? @ -No Diagnosis/symptom? @ -acute nausea and vomiting, hx sbo Acute, or Chronic, or Acute on Chronic? @ -acute on subacute Uncomplicated (without systemic symptoms) or Complicated (systemic symptoms)? @ -complicated Side effects of treatment? @ -No Exacerbation, Progression, or Severe Exacerbation? @ -No Poses a threat to life or bodily function? How? (Chest pain, USA, MS, pneumonia, PE, COPD, DKA, ARF, appy, cholecystitis, CVA, Diverticulitis, Homicidal, Suicidal, threat to staff... and all critical care pts) @ -Yes - Lab Data Result diagrams: 11/27/22 06:00 11/26/22 05:49 Lab Results 11/17/22 11/17/22 11/17/22 Range/Units 21:15 21:15 21:15 WBC 9.7 (3.8-10.6) k/uL RBC 5.04 (3.80-5.40) m/uL Hgb 15.2 D (11.4-16.0) gm/dL Hct 47.0 H (34.0-46.0) % MCV 93.3 (80.0-100.0) fL MCH 30.2 (25.0-35.0) pg MCHC 32.4 (31.0-37.0) g/dL RDW 12.1 (11.5-15.5) % Plt Count 392 D (150-450) k/uL MPV 7.1 Neutrophils % 84 % Lymphocytes % 11 % Monocytes % 3 % Eosinophils % 1 % Basophils % 0 % Neutrophils # 8.1 H (1.3-7.7) k/uL Lymphocytes # 1.0 (1.0-4.8) k/uL Monocytes # 0.3 (0-1.0) k/uL Eosinophils # 0.1 (0-0.7) k/uL Basophils # 0.0 (0-0.2) k/uL Sodium 136 L (137-145) mmol/L Potassium 3.9 (3.5-5.1) mmol/L Chloride 95 L (98-107) mmol/L Carbon Dioxide 27 (22-30) mmol/L Anion Gap 14 mmol/L BUN 26 H (7-17) mg/dL Creatinine 0.61 (0.52-1.04) mg/dL Est GFR (CKD-EPI)AfAm >90 (>60 ml/min/1.73 sqM) Est GFR (CKD-EPI)NonAf 90 (>60 ml/min/1.73 sqM) Glucose 110 H (74-99) mg/dL Plasma Lactic Acid Francisco Javier 1.3 (0.7-2.0) mmol/L Calcium 9.1 (8.4-10.2) mg/dL Total Bilirubin 0.9 (0.2-1.3) mg/dL AST 30 (14-36) U/L ALT 19 (4-34) U/L Alkaline Phosphatase 98 (38-126) U/L Total Protein 7.1 (6.3-8.2) g/dL Albumin 4.3 (3.5-5.0) g/dL Lipase 90 (23-300) U/L Urine Color Urine Appearance (Clear) Urine pH (5.0-8.0) Ur Specific [place] (1.001-1.035) Urine Protein (Negative) Urine Glucose (UA) (Negative) Urine Ketones (Negative) Urine Blood (Negative) Urine Nitrite (Negative) Urine Bilirubin (Negative) Urine Urobilinogen (<2.0) mg/dL Ur Leukocyte Esterase (Negative) Urine RBC (0-5) /hpf Urine WBC (0-5) /hpf Ur Squamous Epith Cells (0-4) /hpf Urine Bacteria (None) /hpf Urine Mucus (None) /hpf 11/17/22 11/18/22 11/18/22 Range/Units 22:45 06:00 06:00 WBC 7.1 (3.8-10.6) k/uL RBC 4.08 (3.80-5.40) m/uL Hgb 12.5 (11.4-16.0) gm/dL Hct 38.2 (34.0-46.0) % MCV 93.6 (80.0-100.0) fL MCH 30.7 (25.0-35.0) pg MCHC 32.8 (31.0-37.0) g/dL RDW 12.5 (11.5-15.5) % Plt Count 300 (150-450) k/uL MPV 6.7 Neutrophils % 67 % Lymphocytes % 23 % Monocytes % 6 % Eosinophils % 2 % Basophils % 0 % Neutrophils # 4.8 (1.3-7.7) k/uL Lymphocytes # 1.6 (1.0-4.8) k/uL Monocytes # 0.4 (0-1.0) k/uL Eosinophils # 0.1 (0-0.7) k/uL Basophils # 0.0 (0-0.2) k/uL Sodium 137 (137-145) mmol/L Potassium 3.7 (3.5-5.1) mmol/L Chloride 99 (98-107) mmol/L Carbon Dioxide 32 H (22-30) mmol/L Anion Gap 6 mmol/L BUN 26 H (7-17) mg/dL Creatinine 0.66 (0.52-1.04) mg/dL Est GFR (CKD-EPI)AfAm >90 (>60 ml/min/1.73 sqM) Est GFR (CKD-EPI)NonAf 87 (>60 ml/min/1.73 sqM) Glucose 88 (74-99) mg/dL Plasma Lactic Acid Francisco Javier (0.7-2.0) mmol/L Calcium 8.2 L (8.4-10.2) mg/dL Total Bilirubin (0.2-1.3) mg/dL AST (14-36) U/L ALT (4-34) U/L Alkaline Phosphatase (38-126) U/L Total Protein (6.3-8.2) g/dL Albumin (3.5-5.0) g/dL Lipase (23-300) U/L Urine Color Yellow Urine Appearance Clear (Clear) Urine pH 5.5 (5.0-8.0) Ur Specific [place] 1.035 (1.001-1.035) Urine Protein 2+ H (Negative) Urine Glucose (UA) Negative (Negative) Urine Ketones 3+ H (Negative) Urine Blood Negative (Negative) Urine Nitrite Negative (Negative) Urine Bilirubin 1+ H (Negative) Urine Urobilinogen 4.0 (<2.0) mg/dL Ur Leukocyte Esterase Negative (Negative) Urine RBC 3 (0-5) /hpf Urine WBC 3 (0-5) /hpf Ur Squamous Epith Cells 1 (0-4) /hpf Urine Bacteria Rare H (None) /hpf Urine Mucus Moderate H (None) /hpf Disposition Clinical Impression: Nausea and vomiting, Hx SBO Disposition: ADMITTED IP TO THIS [facility] Condition: Stable Is patient prescribed a controlled substance at d/c from ED?: No Time of Disposition: 23:45 Decision to Admit Reason: Admit from [facility] Decision Date: 11/17/22 Decision Time: 23:45
[2022-11-17] MEDS ORDERED: NALOXONE 0.4 MG/ML 1 ML VIAL IV PRN (23:46)
[2022-11-17] MEDS ORDERED: ONDANSETRON 4 MG/2 ML VIAL IVP PRN (23:46)
[2022-11-18] MEDS: SODIUM CHLORIDE 0.9% 1,000 ML IV SCH ×4 (00:06→22:48)
[2022-11-18] MEDS: MORPHINE SULFATE 4 MG/ML SYRINGE IV PRN ×4 (01:04→23:41)
--- NOTE | 2022-11-18 02:50 | P.HPIM ---
History of Present Illness H&P Date: 11/18/22 Chief Complaint: abd pain , nausea and vomiting 72 year old female recently diagnosed and treated for high grade small bowel obstruction , she was treated conservatively and discharged on November [address] of the abd confirming resolution of the obstruction. she is returning today with 2 days history of diffuse abd pain , 8/10 in severity colicky in nature with mild abd distention and repeated nausea and vomiting, she could not keep anything down, she noticed dark urine , and small caliber stool . no diarrhea . she also reports coffee ground vomiting today. no fever, nochills, no chest pain , no SOB . for which she decided to come back for evaluation she denies any tobacco smoking, illicit drugs or alcohol Review of Systems Pertinent positives as noted in HPI. 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 Past Anesthesia/Blood Transfusion Reactions: No Reported Reaction Additional Past Anesthesia/Blood Transfusion Reaction / Comment(s): 1961 pt had blood transfusion- states no reaction Past Psychological History: Anxiety, Depression Smoking Status: Never smoker Past Alcohol Use History: None Reported Past Drug Use History: None Reported Additional Drug Use History / Comment(s): ocassional CBD oil use. - Past Family History Father Family Medical History: Cancer Additional Family Medical History / Comment(s): lung cancer Mother Family Medical History: Cancer, Dementia Additional Family Medical History / Comment(s): leukemia Medications and Allergies Home Medications Medication Instructions Recorded Confirmed Type Escitalopram [Lexapro] 20 mg PO DAILY 04/09/17 10/31/22 History Simvastatin [Zocor] 20 mg PO HS 04/09/17 10/31/22 History armodafiniL [Armodafinil] 250 mg PO DAILY 06/25/21 10/31/22 History Sennosides [Senokot] 8.6 mg PO BID #120 tab 11/09/22 Rx Allergies Allergy/AdvReac Type Severity Reaction Status Date / Time latex Allergy Severe Rash/Hives Verified 11/17/22 21:00 bupivacaine [From Marcaine] Allergy Anaphylaxis Verified 11/17/22 21:00 Iodinated Contrast Media Allergy Anaphylaxis Verified 11/17/22 21:00 [Iodinated Contrast- Oral and IV Dye] Sulfa (Sulfonamide Allergy Anaphylaxis Verified 11/17/22 21:00 Antibiotics) sulfamethoxazole Allergy Anaphylaxis Verified 11/17/22 21:00 [From Bactrim] trimethoprim [From Bactrim] Allergy Anaphylaxis Verified 11/17/22 21:00 Physical Exam Vitals: Vital Signs Temp Pulse Pulse Resp BP BP Pulse Ox 11/18/22 00:42 97.9 F 83 17 120/70 98 11/18/22 00:00 83 16 111/70 91 L 11/17/22 22:05 94 L 11/17/22 22:03 92 16 103/66 88 L 11/17/22 21:01 98.5 F 109 H 20 124/73 96 Intake and Output 11/17/22 11/17/22 11/18/22 14:59 22:59 06:59 Other: Weight 43.545 kg 43.545 kg Constitutional: No acute distress, conversant, pleasant Eyes: Anicteric sclerae, moist conjunctiva, Pupils equal round reactive to light ENMT: NC/AT Oropharynx clear, no erythema, or exudates Neck: Supple, no masses, or JVD No carotid bruits No thyromegaly Lungs: Clear to auscultation Clear to percussion Normal respiratory effort, no accessory muscle use Cardiovascular: Heart regular in rate and rhythm, No murmurs, gallops, or rubs No peripheral edema Abdominal: Soft No tenderness to deep palpation no guarding, rebound or rigidity Abdomen moving with respiration Normoactive bowel sounds No hepatomegaly, No splenomegaly No palpable mass No abdominal wall hernia noted Skin: Normal temperature, tone, texture, turgor Extremities: No digital cyanosis No clubbing Pedal pulses intact and symmetrical Radial pulses intact and symmetrical No calf tenderness Psychiatric: Alert and oriented to person, place and time Appropriate affect Neuro Muscles Strength 5/5 in all 4 extremities Sensation to light touch grossly present throughout Cranial nerves II-XII grossly intact Lymphatics: no palpable cervical or supraclavicular lymph nodes Results CBC & Chem 7: 11/17/22 21:15 11/17/22 21:15 Labs: Abnormal Lab Results - Last 24 Hours (Table) 11/17/22 11/17/22 11/17/22 Range/Units 21:15 21:15 22:45 Hct 47.0 H (34.0-46.0) % Neutrophils # 8.1 H (1.3-7.7) k/uL Sodium 136 L (137-145) mmol/L Chloride 95 L (98-107) mmol/L BUN 26 H (7-17) mg/dL Glucose 110 H (74-99) mg/dL Urine Protein 2+ H (Negative) Urine Ketones 3+ H (Negative) Urine Bilirubin 1+ H (Negative) Urine Bacteria Rare H (None) /hpf Urine Mucus Moderate H (None) /hpf Thrombosis Risk Factor Assmnt - Choose All That Apply Any of the Below Risk Factors Present?: No Other Risk Factors: Yes Each Risk Factor Represents 2 Points: Age 61-74 years Other congenital or acquired thrombophilia - If yes, enter type in comment: No Thrombosis Risk Factor Assessment Total Risk Factor Score: 2 Thrombosis Risk Factor Assessment Level: Low Risk Assessment and Plan Assessment: 72 year old female recently hospitalized and treated for high grade SBO, she is returning today with similar symptoms of abd pain , repeated nausea and vomiting along with coffee ground vomiting, I discussed the case with ED doc, and I accepted the admission for management of her abd pain and surgical evaluation with anticipated length of stay < 2 midnights abd pain , repeated nausea and vomiting coffee ground vomiting, rule out GI bleeding Hgb 15 elevated compared to her baseline 11 (possibly hemoconcentration due to dehydration ) IVF hydration with normal saline bolus of 1 L , then continue with 100 cc per hour Pain control with morphine 4 mg IVP q4 hours protonix 40 mg IV daily NPO general surgery consultation renal function reflects some dehydration , BUN 26, cr 0.6. Na 136, K 3.9 full code DVT PPX SCD , until rule out GI bleeding repeat CBC in AM , repeat BMP
[2022-11-18 06:19] LABS: Basophils % (A) 0 %; Eosinophils # (A) 0.1 k/uL (0-0.7); Eosinophils % (A) 2 %; HCT 38.2 % (34.0-46.0); HGB 12.5 gm/dL (11.4-16.0); Lymphocytes # (A) 1.6 k/uL (1.0-4.8); Lymphocytes % (A) 23 %; MCH 30.7 pg (25.0-35.0); MCHC 32.8 g/dL (31.0-37.0); MCV 93.6 fL (80.0-100.0); Mean Platelet Volume 6.7; Monocytes # (A) 0.4 k/uL (0-1.0); Monocytes % (A) 6 %; Neutrophils # (A) 4.8 k/uL (1.3-7.7); Neutrophils % (A) 67 %; Platelet Count 300 k/uL (150-450); RBC 4.08 m/uL (3.80-5.40); RDW 12.5 % (11.5-15.5); WBC 7.1 k/uL (3.8-10.6)
[2022-11-18 07:14] LABS: African American GFR (CKD) >90 (>60 ml/min/1.73 sqM); Anion Gap 6 mmol/L; Blood Urea Nitrogen 26 mg/dL (7-17); Calcium 8.2 mg/dL (8.4-10.2); Carbon Dioxide 32 mmol/L (22-30); Chloride 99 mmol/L (98-107); Glucose 88 mg/dL (74-99); Non-African American GFR(CKD) 87 (>60 ml/min/1.73 sqM); Potassium 3.7 mmol/L (3.5-5.1); Sodium 137 mmol/L (137-145)
[2022-11-18] MEDS: PANTOPRAZOLE 40 MG/10 ML VIAL IV SCH (08:36)
[2022-11-18] MEDS: BARIUM SULFATE 450 ML ORAL.SUSP BOTTLE PO PRN ×2 (08:36→11:38)
[2022-11-18] MEDS ORDERED: ONDANSETRON 4 MG/2 ML VIAL IVP PRN (08:46)
[2022-11-18 10:46] VITALS: BMI 17.5
--- NOTE | 2022-11-18 11:13 | P.GSCN ---
History of Present Illness Consult date: 11/18/22 History of present illness: CHIEF COMPLAINT: Abdominal pain HISTORY OF PRESENT ILLNESS: This is a 72-year-old female with a known history of small bowel obstructions. She was just discharged on November 09 after being treated conservatively for partial small bowel obstruction. Patient reports that Friday she started having vomiting and increase in the right side of the abdominal pain. This is the same area of pain as last admission. Her abdomen is more bloated. She has been passing a tiny amount of flatus. She did have a very tiny stool yesterday. Patient has a past surgical history of large bowel obstruction with resection, cholecystectomy and hysterectomy. Patient's emesis had been dark in color. PAST MEDICAL HISTORY: See below PAST SURGICAL HISTORY: See below MEDICATIONS: See below ALLERGIES: See below SOCIAL HISTORY: No illicit drug use. REVIEW OF SYSTEMS: CONSTITUTIONAL: Denies fever or chills. HEENT: Denies blurred vision, vision changes, or eye pain. Denies hemoptysis CARDIOVASCULAR: Denies chest pain or pressure. RESPIRATORY: No shortness of breath. GASTROINTESTINAL: See HPI for pertinent findings HEMATOLOGIC: Denies bleeding disorders. GENITOURINARY: Denies any blood in urine or increased urinary frequency. SKIN: Denies pruitis. Denies rash. PHYSICAL EXAM: VITAL SIGNS: Reviewed GENERAL: Well-developed in no acute distress. ABDOMEN: Distended. Tenderness with palpation of the right abdomen. Tympanic NEUROLOGIC: Alert and oriented. Cranial nerves II through XII grossly intact. LABORATORY DATA: WBC 7.1 Hgb 12.5 platelets 300 Sodium is 137 potassium 3.7 creatinine 0.66 Lactic acid 1.3 LFTs normal lipase normal urinalysis negative for infection IMAGING: KUB x-ray nonspecific bowel gas pattern without radiographic evidence for acute process. Large colonic stool burden without evidence for obstruction ASSESSMENT: 1. Abdominal pain 2. Large colonic stool burden noted on KUB x-ray 3. Partial small bowel obstruction managed conservatively in October of this year PLAN: -Computed tomography scan abdomen and pelvis with contrast ordered for further evaluation of patient's abdominal pain and to rule out bowel obstruction -Keep patient nothing by mouth -Continue IV fluids -Continue antiemetics -Further recommendations forthcoming Thank you for this consultation Physician Paver note has been reviewed by physician. Signing provider agrees with the documented findings, assessment, and plan of care. 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 Past Anesthesia/Blood Transfusion Reactions: No Reported Reaction Additional Past Anesthesia/Blood Transfusion Reaction / Comm: 1961 pt had blood transfusion- states no reaction Past Psychological History: Anxiety, Depression Smoking Status: Never smoker Past Alcohol Use History: None Reported Past Drug Use History: None Reported - Past Family History Father Family Medical History: Cancer Additional Family Medical History / Comment(s): lung cancer Mother Family Medical History: Cancer, Dementia Additional Family Medical History / Comment(s): leukemia Medications and Allergies Home Medications Medication Instructions Recorded Confirmed Type Escitalopram [Lexapro] 20 mg PO DAILY 04/09/17 11/18/22 History Simvastatin [Zocor] 20 mg PO HS 04/09/17 11/18/22 History armodafiniL [Armodafinil] 250 mg PO DAILY 06/25/21 11/18/22 History Sennosides [Senokot] 8.6 mg PO BID #120 tab 11/09/22 11/18/22 Rx Allergies Allergy/AdvReac Type Severity Reaction Status Date / Time latex Allergy Severe Rash/Hives Verified 11/18/22 06:35 bupivacaine [From Marcaine] Allergy Anaphylaxis Verified 11/18/22 06:35 Iodinated Contrast Media Allergy Anaphylaxis Verified 11/18/22 06:35 [Iodinated Contrast- Oral and IV Dye] Sulfa (Sulfonamide Allergy Anaphylaxis Verified 11/18/22 06:35 Antibiotics) sulfamethoxazole Allergy Anaphylaxis Verified 11/18/22 06:35 [From Bactrim] trimethoprim [From Bactrim] Allergy Anaphylaxis Verified 11/18/22 06:35 Surgical - Exam Vital Signs Temp Pulse Resp BP Pulse Ox 98.5 F 109 H 20 124/73 96 11/17/22 21:01 11/17/22 21:01 11/17/22 21:01 11/17/22 21:01 11/17/22 21:01 Results - Labs 11/18/22 06:00 11/18/22 06:00 Abnormal Lab Results - Last 24 Hours (Table) 11/17/22 11/17/22 11/17/22 Range/Units 21:15 21:15 22:45 Hct 47.0 H (34.0-46.0) % Neutrophils # 8.1 H (1.3-7.7) k/uL Sodium 136 L (137-145) mmol/L Chloride 95 L (98-107) mmol/L Carbon Dioxide (22-30) mmol/L BUN 26 H (7-17) mg/dL Glucose 110 H (74-99) mg/dL Calcium (8.4-10.2) mg/dL Urine Protein 2+ H (Negative) Urine Ketones 3+ H (Negative) Urine Bilirubin 1+ H (Negative) Urine Bacteria Rare H (None) /hpf Urine Mucus Moderate H (None) /hpf 11/18/22 Range/Units 06:00 Hct (34.0-46.0) % Neutrophils # (1.3-7.7) k/uL Sodium (137-145) mmol/L Chloride (98-107) mmol/L Carbon Dioxide 32 H (22-30) mmol/L BUN 26 H (7-17) mg/dL Glucose (74-99) mg/dL Calcium 8.2 L (8.4-10.2) mg/dL Urine Protein (Negative) Urine Ketones (Negative) Urine Bilirubin (Negative) Urine Bacteria (None) /hpf Urine Mucus (None) /hpf Diabetes panel 11/17/22 11/18/22 Range/Units 21:15 06:00 Sodium 136 L 137 (137-145) mmol/L Potassium 3.9 3.7 (3.5-5.1) mmol/L Chloride 95 L 99 (98-107) mmol/L Carbon Dioxide 27 32 H (22-30) mmol/L BUN 26 H 26 H (7-17) mg/dL Creatinine 0.61 0.66 (0.52-1.04) mg/dL Glucose 110 H 88 (74-99) mg/dL Calcium 9.1 8.2 L (8.4-10.2) mg/dL AST 30 (14-36) U/L ALT 19 (4-34) U/L Alkaline Phosphatase 98 (38-126) U/L Total Protein 7.1 (6.3-8.2) g/dL Albumin 4.3 (3.5-5.0) g/dL Calcium panel 11/17/22 11/18/22 Range/Units 21:15 06:00 Calcium 9.1 8.2 L (8.4-10.2) mg/dL Albumin 4.3 (3.5-5.0) g/dL Pituitary panel 11/17/22 11/18/22 Range/Units 21:15 06:00 Sodium 136 L 137 (137-145) mmol/L Potassium 3.9 3.7 (3.5-5.1) mmol/L Chloride 95 L 99 (98-107) mmol/L Carbon Dioxide 27 32 H (22-30) mmol/L BUN 26 H 26 H (7-17) mg/dL Creatinine 0.61 0.66 (0.52-1.04) mg/dL Glucose 110 H 88 (74-99) mg/dL Calcium 9.1 8.2 L (8.4-10.2) mg/dL Adrenal panel 11/17/22 11/18/22 Range/Units 21:15 06:00 Sodium 136 L 137 (137-145) mmol/L Potassium 3.9 3.7 (3.5-5.1) mmol/L Chloride 95 L 99 (98-107) mmol/L Carbon Dioxide 27 32 H (22-30) mmol/L BUN 26 H 26 H (7-17) mg/dL Creatinine 0.61 0.66 (0.52-1.04) mg/dL Glucose 110 H 88 (74-99) mg/dL Calcium 9.1 8.2 L (8.4-10.2) mg/dL Total Bilirubin 0.9 (0.2-1.3) mg/dL AST 30 (14-36) U/L ALT 19 (4-34) U/L Alkaline Phosphatase 98 (38-126) U/L Total Protein 7.1 (6.3-8.2) g/dL Albumin 4.3 (3.5-5.0) g/dL
--- NOTE | 2022-11-18 13:06 | CT ---
EXAMINATION TYPE: CT abdomen pelvis wo con CT DLP: 232 mGycm, Automated exposure control for dose reduction was used. DATE OF EXAM: 11/18/2022 12:50 PM COMPARISON: CT abdomen pelvis most recent from 11/06/2022, KUB radiograph 10/21/2022 . CLINICAL INDICATION:Female, 72 years old with history of Small bowel obstruction; Small bowel obstruc tion, HX SBO. Redicat only TECHNIQUE: Standard CT of the abdomen and pelvis following the administration of oral contrast. Cor onal and sagittal reformats were performed. FINDINGS: Evaluation is limited due to lack of intravenous contrast. LOWER CHEST: Trace right pleural effusion with associated atelectasis. ABDOMEN LIVER: Unremarkable noncontrast appearance. GALLBLADDER AND BILE DUCTS: Gallbladder is surgically absent with mild intrahepatic and extra hepatic biliary dilatation likely physiologic and a postcholecystectomy change. No evidence of choledocholit hiasis. PANCREAS: Unremarkable noncontrast appearance. SPLEEN: Unremarkable noncontrast appearance. ADRENAL GLANDS: Unremarkable noncontrast appearance.. KIDNEYS AND URETERS: No evidence of hydronephrosis or renal calculus. PELVIS BLADDER: Under distended, limiting evaluation. REPRODUCTIVE: Uterus is surgically absent versus atrophic. ABDOMEN & PELVIS STOMACH AND BOWEL: Moderately distended stomach. Dilated fluid and gas filled small bowel loops with suggested at the anastomosis in the left midabdomen. Decompressed small bowel demonstrated within the right lower quadrant. No pneumatosis. Mild amount stool is present throughout the colon. Enteric con trast reaches the proximal duodenum. PERITONEUM: No evidence of pneumoperitoneum. Trace fluid throughout the abdomen and pelvis. VASCULATURE: No evidence of aortic aneurysm. MUSCULOSKELETAL: No acute osseous abnormalities.Marked scoliotic curvature with postoperative changes of the lower lumbar spine. This creates streak artifact limiting evaluation. Partial position with i ntramedullary vijaya and transverse screws involving the left femur. LYMPH NODES: No gross evidence for lymphadenopathy. SOFT TISSUE/ABDOMINAL WALL: Unremarkable IMPRESSION: 1. High-grade small bowel obstruction with suggested transition point at the anastomosis in the left mid abdomen. 2. Trace right pleural effusion.
--- NOTE | 2022-11-18 16:22 | P.PN ---
Progress Note - Text Progress Note Date: 11/18/22 I agree with the assessment and plan of my colleague. Please refer to the H&P for full documentation. Patient was seen and examined this morning. Patient 72-year-old female with PMH of small bowel obstruction, asthma, dyslipidemia, anxiety presents ED for abdominal pain ongoing since yesterday morning. Patient was recently admitted from 10/31-11/09 and conservatively treated for SBO. She reports multiple episodes of dark vomiting. In the ED, patient was noted to be tachycardic with a heart rate of 109. She also required 3 L nasal cannula to maintain O2 saturation greater than 92%. CBC showed hematocrit of 47. CMP shows sodium 136, chloride of 95, BUN of 26, glucose 110. Urinalysis showed 3+ ketones. KUB showed large colonic stool burden without evidence of obstruction. Patient was admitted for further workup and management of symptoms. Patient appears to be in no acute distress. Small bowel obstruction Prerenal azotemia Hypocalcemia Chronic conditions: Asthma, dyslipidemia, anxiety Patient has an acute diagnosis of small bowel obstruction as seen on CTAP that poses a threat to life or bodily function. She has a previous history of small bowel obstruction requiring bowel resection. NG tube if continued N/V. Keep NPO. Morphine 4 mg IV Q4 hours as needed for severe pain. Zofran 4 mg IV every 6 hours as needed for nausea and vomiting. Continue Protonix 40 mg IV daily. Lipitor 10 mg by mouth at bedtime for dyslipidemia. Lexapro 20 mg by mouth daily for anxiety.
--- NOTE | 2022-11-18 17:11 | XR ---
EXAMINATION TYPE: XR chest 1V confirm line plcmt DATE OF EXAM: 11/18/2022 4:47 PM COMPARISON: 10/31/2022 TECHNIQUE: XR chest 1V confirm line plcmt Frontal view of the chest. CLINICAL INDICATION:Female, 72 years old with history of NG tube placement; FINDINGS: Lungs/Pleura: Prominent interstitial lung markings are seen scattered throughout the lungs with vanessa ening of the diaphragm and increased lucency of the lung apices. No evidence of focal consolidation, pneumothorax or pleural effusion. Pulmonary vascularity: Unremarkable. Heart/mediastinum: Cardiomediastinal silhouette is unremarkable. Musculoskeletal: No acute osseous pathology. There is fixation hardware in the lower cervical spine. Other findings: None IMPRESSION: 1. Nasogastric tube with side-port in the distal esophagus. Advancement of 9.0 cm recommended for op timal placement. 2. COPD changes.
--- NOTE | 2022-11-18 17:50 | XR ---
EXAMINATION TYPE: XR chest 1V confirm line plcmt DATE OF EXAM: 11/18/2022 5:37 PM COMPARISON: 11/18/2022 TECHNIQUE: XR chest 1V confirm line plcmt Frontal view of the chest. CLINICAL INDICATION:Female, 72 years old with history of ng tube placement after revision; FINDINGS: Lungs/Pleura: There is no evidence of pleural effusion, focal consolidation, or pneumothorax. Pulmonary vascularity: Unremarkable. Heart/mediastinum: Cardiomediastinal silhouette is unremarkable. Musculoskeletal: No acute osseous pathology. There is lower spine fixation hardware is present. Lines/Tubes: Nasogastric tube in appropriate placement with side-port in distal tip projecting over the stomach. IMPRESSION: Nasogastric tube noted in appropriate position.
[2022-11-19] MEDS: SODIUM CHLORIDE 0.9% 1,000 ML IV SCH ×3 (06:09→22:19)
[2022-11-19 06:56] LABS: African American GFR (CKD) >90 (>60 ml/min/1.73 sqM); Anion Gap 11 mmol/L; Blood Urea Nitrogen 18 mg/dL (7-17); Calcium 8.4 mg/dL (8.4-10.2); Carbon Dioxide 24 mmol/L (22-30); Chloride 102 mmol/L (98-107); Glucose 80 mg/dL (74-99); HGB 12.3 gm/dL (11.4-16.0); MCH 30.2 pg (25.0-35.0); MCHC 31.6 g/dL (31.0-37.0); MCV 95.5 fL (80.0-100.0); Non-African American GFR(CKD) >90 (>60 ml/min/1.73 sqM); Platelet Count 272 k/uL (150-450); Potassium 4.2 mmol/L (3.5-5.1); RBC 4.08 m/uL (3.80-5.40); RDW 12.6 % (11.5-15.5); Sodium 137 mmol/L (137-145); WBC 4.4 k/uL (3.8-10.6)
[2022-11-19] MEDS ORDERED: IV FLUID CONTINUATION 1,000 ML IV ONE ×2 (09:12)
[2022-11-19] MEDS ORDERED: DEXAMETHASONE SOD PHOSPHATE 4 MG/ML 1 ML VIAL IVP ONE (09:28)
[2022-11-19] MEDS ORDERED: ONDANSETRON 4 MG/2 ML VIAL IVP ONE (09:28)
[2022-11-19] MEDS ORDERED: fentaNYL (PF) 50 MCG/1 ML VIAL IVP ONE (09:29)
[2022-11-19] MEDS ORDERED: MIDAZOLAM 2 MG/2 ML VIAL IVP ONE (09:29)
--- NOTE | 2022-11-19 10:26 | P.PN ---
Progress Note - Text Progress Note Date: 11/19/22 Patient's CAT scan performed yesterday shows evidence of a small bowel obstruction. Patient most likely has a anastomotic stricture from her previous bowel resection. Patient will undergo exploratory laparotomy with repair of small bowel obstruction today.
[2022-11-19] MEDS ORDERED: LACTATED RINGERS 1,000 ML IV ONE ×2 (10:47→12:03)
[2022-11-19] MEDS ORDERED: SUCCINYLCHOLINE CHLORIDE 200 MG/10 ML VIAL IV ONE (10:48)
[2022-11-19] MEDS ORDERED: SODIUM CHLORIDE 0.9% (PF) 10 ML VIAL ONE (10:48)
[2022-11-19] MEDS ORDERED: ROPIVACAINE 5 MG/ML 30 ML VIAL ONE (10:48)
[2022-11-19] MEDS ORDERED: KETOROLAC 15 MG/ML 1 ML VIAL ONE (10:48)
[2022-11-19] MEDS ORDERED: KETAMINE 10 MG/ML 20 ML VIAL ONE (10:48)
[2022-11-19] MEDS ORDERED: fentaNYL (PF) 50 MCG/ML 2 ML AMP ONE (10:48)
[2022-11-19] MEDS ORDERED: SODIUM CHLORIDE 0.9% 100 ML BAG ONE (10:48)
[2022-11-19] MEDS ORDERED: PHENYLEPHRINE-0.9% NACL SYG 1,000 MCG/10 ML SYRINGE ONE (10:48)
[2022-11-19] MEDS ORDERED: PROPOFOL 10 MG/ML 20 ML VIAL IV ONE (10:48)
[2022-11-19] MEDS ORDERED: MIDAZOLAM 2 MG/2 ML VIAL ONE (10:48)
[2022-11-19] MEDS ORDERED: ceFAZolin 1,000 MG VIAL ONE (10:48)
[2022-11-19] MEDS ORDERED: ROCURONIUM 10 MG/ML (5 ML VIAL) IV ONE (10:48)
[2022-11-19] MEDS ORDERED: LIDOCAINE 2% INJ 20 MG/ML (2 ML VIAL) ONE (10:48)
[2022-11-19] MEDS ORDERED: ACETAMINOPHEN TAB 325 MG TAB PO PRN (11:40)
[2022-11-19] MEDS ORDERED: BENZOCAINE/MENTHOL LOZENG 1 EACH LOZENGE MUCOUS MEM PRN (12:08)
--- NOTE | 2022-11-19 12:08 | P.OP ---
Date of Procedure: 11/19/22 Preoperative Diagnosis: Small bowel structure Postoperative Diagnosis: Small bowel obstruction secondary to adhesions and internal hernia Procedure(s) Performed: Exploratory laparotomy Lysis of extensive adhesions Ileocolectomy Partial omentectomy Anesthesia: CAREY Surgeon: Martín Bautista Elevator Service Mechanic #1: Rudolph Gonzáles Estimated Blood Loss (ml): 75 Pathology: other (Right colon, ileum) Condition: stable Disposition: PACU Operative Findings: Small bowel obstruction secondary to internal hernia at previous anastomotic site Redundant colon Description of Procedure: Patient's placed on the operative table in the supine position. She received general endotracheal tube anesthesia. Her abdomen was prepped and draped usual sterile fashion. The patient a previous midline scar. The skin was incised through the scar. And then using left cautery and sharp dissection the adhesions to the anterior abdominal wall were lysed. I spent 20 minutes of operative time used to lyse adhesions. The small bowel was grossly dilated. Small bowel was run from the ligament of Treitz towards the distal small bowel and then there was an obstruction seen at the right lower quadrant. Patient had evidence of previous bowel resection. Appeared to be evidence of torsion and internal hernia with dense adhesions creating a small bowel obstruction. At this point the bowel was transected just proximal to the site of obstruction. The bowel was grossly dilated and measured prostate 5 cm diameter. The right colon was very redundant and mobile. It was decided perform a limited right colectomy and a ileocolonic anastomosis for the small bowel obstruction. The right colon was then transected with a GI stapler. And then using the Enseal device mesentery the bowel was divided. The mesentery of the terminal ileum was divided as well. The specimen sent to pathology. A [id number] functional end-to-end staple anastomosis created using MELISSA and TA stapler. Approximately 800 mL of feculent fluid was aspirated from the proximal small bowel prior to the anastomosis. Once anastomosis created. A 3-0 GI silk sutures a crotch stitch. The abdomen was irrigated there is no bleeding seen. The fascia was then closed loop #1 PDS suture. Skin was closed janine. Patient top she will was sent to recovery in stable condition.
[2022-11-19] MEDS ORDERED: HYDROmorphone 0.5 MG/0.5 ML SYRINGE IVP ONE ×2 (12:33→12:52)
--- NOTE | 2022-11-19 13:02 | P.ANPRN ---
Procedure Note - Anesthesia - Nerve Block Performed Right Erector Spinae Time Out Performed: Yes (:) Date of Procedure: 11/19/22 Procedure Start Time: Procedure Stop Time: : Location of Patient: PreOp Indication: Acute Post-Operative Pain, Requested by Surgeon (Dr Bautista) Sedation Type: Sedate with meaningful contact maintained Preparation: Sterile Prep Position: Sitting Needle Types: Pajunk Needle Gauge: 21 Ultrasound used to visualize needle placement: Yes Ultrasound used to observe medication spread: Yes Injectate: 0.5% Ropivacaine (see comment for volume) (15cc +10cc PF Normal saline) Resistance on Injection: Normal Image Stored and Saved: Yes Events: Uneventful and Well Tolerated
[2022-11-19] MEDS ORDERED: ACETAMINOPHEN IV (For NPO) 650 MG in EMPTY BAG 1 BAG IVPB ONE (14:30)
[2022-11-19 15:34] LABS: African American GFR (CKD) >90 (>60 ml/min/1.73 sqM); Anion Gap 15 mmol/L; Blood Urea Nitrogen 15 mg/dL (7-17); Calcium 7.9 mg/dL (8.4-10.2); Carbon Dioxide 19 mmol/L (22-30); Chloride 103 mmol/L (98-107); Glucose 135 mg/dL (74-99); Non-African American GFR(CKD) >90 (>60 ml/min/1.73 sqM); Potassium 4.1 mmol/L (3.5-5.1); Sodium 137 mmol/L (137-145)
[2022-11-19] MEDS: PANTOPRAZOLE 40 MG/10 ML VIAL IV SCH (16:07)
[2022-11-19] MEDS: HEPARIN SODIUM,PORCINE/PF 5,000 UNIT/0.5 ML SYRINGE SQ SCH ×2 (16:13→23:30)
--- NOTE | 2022-11-19 16:22 | P.PN ---
Subjective Progress Note Date: 11/19/22 Hospital Course: Patient 72-year-old female with PMH of small bowel obstruction, asthma, dyslipidemia, anxiety presents ED for abdominal pain ongoing since yesterday morning. Patient was recently admitted from 10/31-11/09 and conservatively treated for SBO. She reports multiple episodes of dark vomiting. In the ED, patient was noted to be tachycardic with a heart rate of 109. She also required 3 L nasal cannula to maintain O2 saturation greater than 92%. CBC showed hematocrit of 47. CMP shows sodium 136, chloride of 95, BUN of 26, glucose 110. Urinalysis showed 3+ ketones. KUB showed large colonic stool burden without evidence of obstruction. Patient was admitted for further workup and management of symptoms. CT abdomen and pelvis shows small bowel obstruction. Gen. surgery consulted. Pending exploratory laparoscopy. Subjective: Patient seen and examined at bedside. No acute events overnight. Continues to have abdominal pain, denies any bowel movements. Denies passing gas. Pertinent positives and negatives as discussed above, a complete review of systems was performed and all other systems are negative. Vitals Signs Reviewed. General: nontoxic, no distress, appears at stated age Derm: warm, dry Head: atraumatic, normocephalic, symmetric Eyes: EOMI, no lid lag, anicteric sclera Mouth: no lip lesion, mucus membranes moist Cardiovascular: S1S2 reg, no murmur Lungs: CTA bilateral, no rhonchi, no rales , no accessory muscle use Abdominal: soft, nontender to palpation, no guarding, no appreciable organomegaly Ext: no gross muscle atrophy, no edema, no contractures Neuro: CN II-XI grossly intact, no focal neuro deficits Psych: Alert, oriented, appropriate affect Data Reviewed Today: Pertinent Labs: WBC 4.4, hemoglobin 12.3, sodium 137, potassium 4.2, creatinine 0.58 Assessment and Plan: Active: Small bowel obstruction Nausea and vomiting Prerenal azotemia -Surgery note reviewed, pending ex laboratory today -Continue normal saline and 1 30 mL an hour -Pain control with morphine 4 mg IV every 4 hours as needed -Tylenol oral as needed -Zofran as needed for milligram IV every 6 hours -Pantoprazole 40 mg IV daily -Repeat CBC and CMP tomorrow after surgery Resolved: Hypocalcemia Chronic: Depression Dyslipidemia DVT ppx: SCDs Code status: Full code Anticipated discharge place: Pending clinical course Anticipated discharge time: Pending clinical course Objective - Vital Signs Vital signs: Vital Signs Temp 97 F L 11/19/22 09:19 Pulse 62 11/19/22 09:50 Resp 16 11/19/22 09:50 BP 110/57 11/19/22 09:50 Pulse Ox 97 11/19/22 09:50 FiO2 Intake & Output 11/18/22 11/19/22 11/19/22 18:59 06:59 18:59 Intake Total 400 Balance 400 Weight 43.545 kg Intake: IV 400 Other: Voiding Method Toilet # Voids 2 2 # Bowel Movements 0 - Labs CBC & Chem 7: 11/19/22 06:21 11/19/22 14:57 Labs: Abnormal Lab Results - Last 24 Hours (Table) 11/19/22 Range/Units 06:21 BUN 18 H (7-17) mg/dL
[2022-11-19] MEDS: D5-0.45% NACL WITH KCL 20MEQ/L 1,000 ML IV SCH ×2 (17:20→22:13)
[2022-11-19] MEDS: MORPHINE SULFATE 4 MG/ML SYRINGE IV PRN ×2 (17:27→22:16)
[2022-11-19] MEDS: KETOROLAC 15 MG/ML 1 ML VIAL IVP PRN (19:14)
[2022-11-19] MEDS: ATORVASTATIN 10 MG TAB PO SCH (22:13)
[2022-11-20] MEDS: KETOROLAC 15 MG/ML 1 ML VIAL IVP PRN ×2 (00:32→08:13)
[2022-11-20] MEDS: SODIUM CHLORIDE 0.9% 1,000 ML IV SCH ×3 (01:12→22:23)
[2022-11-20 02:30] LABS: HCT 41.3 % (37.2-46.3); HGB 12.4 g/dL (12.0-15.0); NRBC Per 100 WBC 0 /100 WBCS (0.0-0.0); Platelet Count 316 X 10*3/uL (140-440); RBC 4.13 X 10*6/uL (4.10-5.20); RDW 12.1 % (11.5-14.5); WBC 3.28 X 10*3/uL (4.50-10.00)
[2022-11-20] MEDS: D5-0.45% NACL WITH KCL 20MEQ/L 1,000 ML IV SCH ×3 (05:26→22:23)
[2022-11-20 05:50] LABS: Basophils # (A) 0.02 X 10*3/uL (0.00-0.10); Basophils % (A) 0.6 %; Eosinophils # (A) 0 X 10*3/uL (0.04-0.35); Eosinophils % (A) 0 %; Immature Grans, Automated 0.3 %; Lymphocytes # (A) 0.26 X 10*3/uL (0.90-5.00); Lymphocytes % (A) 7.9 %; Monocytes # (A) 0.29 X 10*3/uL (0.20-1.00); Monocytes % (A) 8.8 %; Neutrophils % (A) 82.4 %
[2022-11-20 05:51] LABS: RBC Morphology NORMAL
[2022-11-20] MEDS: PANTOPRAZOLE 40 MG/10 ML VIAL IV SCH (08:09)
[2022-11-20] MEDS: ALPRAZolam 0.25 MG TAB PO PRN (08:09)
[2022-11-20] MEDS: HEPARIN SODIUM,PORCINE/PF 5,000 UNIT/0.5 ML SYRINGE SQ SCH ×2 (08:09→15:23)
[2022-11-20] MEDS: ESCITALOPRAM 20 MG TAB PO SCH (08:09)
[2022-11-20] MEDS: NON FORMULARY DRUG (Armodafinil [Armodafinil] 250 MG Tablet) PO SCH (08:16)
--- NOTE | 2022-11-20 11:12 | P.PN ---
Subjective Progress Note Date: 11/20/22 Hospital Course: Patient 72-year-old female with PMH of small bowel obstruction, asthma, dyslipi demia, anxiety presents ED for abdominal pain ongoing since yesterday morning. Patient was recently admitted from 10/31-11/09 and conservatively treated for SBO. She reports multiple episodes of dark vomiting. In the ED, patient was noted to be tachycardic with a heart rate of 109. She also required 3 L nasal cannula to maintain O2 saturation greater than 92%. CBC showed hematocrit of 47. CMP s hows sodium 136, chloride of 95, BUN of 26, glucose 110. Urinalysis showed 3+ ketones. KUB showed large colonic stool burden without evidence of obstruction. Patient was admitted for further workup and management of symptoms. CT abdomen and pelvis shows small bowel obstruction. Gen. surgery consulted. Status post exploratory laparoscopy with lysis of extensive adhesions, ileocolectomy, parti al omentectomy. Subjective: Patient seen and examined at bedside. No acute events overnight. Currently passing gas, no significant abdominal pain. Still having some nausea. Able to tolerate a popsicle and water this morning. Pertinent positives and negatives as discussed above, a complete review of systems was performed and all other systems are negative. Vitals Signs Reviewed. General: nontoxic, no distress, appears at stated age Derm: warm, dry, abdominal dressing clean, dry, intact Head: atraumatic, normocephalic, symmetric Eyes: EOMI, no lid lag, anicteric sclera Mouth: no lip lesion, mucus membranes moist, NG tube in place Cardiovascular: S1S2 reg, no murmur Lungs: CTA bilateral, no rhonchi, no rales , no accessory muscle use Abdominal: soft, nontender to palpation, no guarding, no appreciable organomegaly Ext: no gross muscle atrophy, no edema, no contractures Neuro: CN II-XI grossly intact, no focal neuro deficits Psych: Alert, oriented, appropriate affect Data Reviewed Today: Pertinent Labs: CBC and CMP pending from this morning, will be reviewed when available Assessment and Plan: Active: Small bowel obstruction status post exploratory laparoscopy with lysis of lesions, ileocolectomy, partial omentectomy Nausea and vomiting Prerenal azotemia -Operative note reviewed, estimated blood loss was 75 mL -CBC pending from this morning -Continue normal saline at 1 30 mL an hour -Currently on clear liquid diet -Pain control with morphine 4 mg IV every 4 hours as needed, IV Tylenol every 6 hours, IV Toradol -CMP pending from this morning -Zofran IV, Reglan IV, as needed -Pantoprazole 40 mg IV daily -Repeat CBC and CMP tomorrow after surgery Resolved: Hypocalcemia Chronic: Depression Dyslipidemia DVT ppx: Subcu heparin Code status: Full code Anticipated discharge place: Pending clinical course Anticipated discharge time: Pending clinical course Objective - Vital Signs Vital signs: Vital Signs Temp 97.3 F L 11/20/22 07:00 Pulse 95 11/20/22 07:00 Resp 16 11/20/22 07:00 BP 110/67 11/20/22 07:00 Pulse Ox 98 11/20/22 07:25 FiO2 Intake & Output 11/19/22 11/20/22 11/20/22 18:59 06:59 18:59 Intake Total 1400 Output Total 350 Balance 1050 Weight 43.545 kg Intake: IV 1400 Output: Urine 300 Estimated Blood Loss 50 Other: Voiding Method Toilet - Labs CBC & Chem 7: 11/19/22 14:57 11/19/22 14:57 Labs: Abnormal Lab Results - Last 24 Hours (Table) 11/19/22 11/19/22 Range/Units 14:57 14:57 WBC 3.28 L (4.50-10.00) X 10*3/uL MCV 100.0 H (80.0-97.0) fL MCHC 30.0 L (32.0-37.0) g/dL MPV 9.0 L (9.5-12.2) fL Lymphocytes # 0.26 L (0.90-5.00) X 10*3/uL Eosinophils # 0 L (0.04-0.35) X 10*3/uL Carbon Dioxide 19 L (22-30) mmol/L Glucose 135 H (74-99) mg/dL Calcium 7.9 L (8.4-10.2) mg/dL
[2022-11-20 11:26] LABS: African American GFR (CKD) 98.9 (60.0-200.0); Albumin 2.9 g/dL (3.8-4.9); Albumin/Globulin Ratio 1.71 (1.60-3.17); BUN/Creat Ratio 27.14 Ratio (12.00-20.00); Calcium 8.6 mg/dL (8.7-10.3); Globulin 1.7 g/dL (1.6-3.3); Non-African American GFR(CKD) 85.4 (60.0-200.0); Potassium 4.3 mmol/L (3.5-5.5); Total Bilirubin 0.2 mg/dL (0.30-1.20); Total Protein 4.6 g/dL (6.2-8.2)
[2022-11-20] MEDS: ACETAMINOPHEN IV (For NPO) 1,000 MG in EMPTY BAG 1 BAG IVPB SCH ×3 (12:06→23:37)
[2022-11-20 13:16] LABS: HCT 37.4 % (37.2-46.3); HGB 11.8 g/dL (12.0-15.0); MCH 30.4 pg (27.0-32.0); MCHC 31.6 g/dL (32.0-37.0); MCV 96.4 fL (80.0-97.0); Mean Platelet Volume 8.8 fL (9.5-12.2); NRBC Per 100 WBC 0 /100 WBCS (0.0-0.0); Platelet Count 269 X 10*3/uL (140-440); RBC 3.88 X 10*6/uL (4.10-5.20); RDW 12.2 % (11.5-14.5); WBC 5.17 X 10*3/uL (4.50-10.00)
[2022-11-20 13:17] LABS: Basophils # (M) 0 X 10*3/uL (0.00-0.10); Eosinophils # (M) 0.05 X 10*3/uL (0.04-0.35); Lymphocytes # (M) 0.52 X 10*3/uL (0.90-5.00); Metamyelocytes % 6 % (0-0); Monocytes # (M) 0.41 X 10*3/uL (0.20-1.00); Neutrophils # (M) 3.88 X 10*3/uL (2.00-8.90); Neutrophils % (M) 75 %
[2022-11-20] MEDS ORDERED: SODIUM CHLORIDE 0.9% 1,000 ML IV ONE (13:23)
--- NOTE | 2022-11-20 13:40 | P.PN ---
Subjective Progress Note Date: 11/20/22 CHIEF COMPLAINT: Abdominal pain HISTORY OF PRESENT ILLNESS: Patient is postop day #1 status post exploratory laparotomy, lysis of extensive adhesions, ileocolectomy and partial omentectomy for small bowel obstruction secondary to adhesions and internal hernia and previous anastomotic site. Patient complaining of abdominal pain. Denies any nausea. NG tube in place with minimal output. Denies any bowel activity. Afebrile. Urine output has been low. WBC is 5.17 Hgb 11.8 platelets 269 sodium is 141 potassium 4.3 creatinine 0.7 Patient seen and examined with Dr. hall PHYSICAL EXAM: VITAL SIGNS: Reviewed. GENERAL: Well-developed in no acute distress. HEENT: No sclera icterus. Extraocular movements grossly intact. Moist buccal mucosa. Head is atraumatic, normocephalic. ABDOMEN: Soft. Mildly distended. Incisional dressing clean dry and intact. NEUROLOGIC: Alert and oriented. Cranial nerves II through XII grossly intact. ASSESSMENT: 1. Small bowel obstruction secondary to adhesions and internal hernia status post exploratory laparotomy, lysis of extensive adhesions, ileocolectomy and partial omentectomy PLAN: -Low urine output. We'll give 1 L fluid bolus -Added IV Dilaudid 1 mg every 3 hours as needed for pain. Change Toradol to schedule and added IV Tylenol to help with pain management -Continue NG tube. Keep patient nothing by mouth -Continue IV fluids -Encouraged patient to use incentive spirometer -GI prophylaxis Protonix and DVT prophylaxis subcu heparin Physician Account Manager [employer] note has been reviewed by physician. Signing provider agrees with the documented findings, assessment, and plan of care. Objective - Vital Signs Vital signs: Vital Signs Temp 97.3 F L 11/20/22 07:00 Pulse 95 11/20/22 07:00 Resp 16 11/20/22 07:00 BP 110/67 11/20/22 07:00 Pulse Ox 98 11/20/22 07:25 FiO2 Intake & Output 11/19/22 11/20/22 11/20/22 18:59 06:59 18:59 Intake Total 1400 Output Total 350 Balance 1050 Weight 43.545 kg 43.545 kg Intake: IV 1400 Output: Urine 300 Estimated Blood Loss 50 Other: Voiding Method Toilet - Labs CBC & Chem 7: 11/20/22 06:06 11/20/22 06:06 Labs: Abnormal Lab Results - Last 24 Hours (Table) 11/19/22 11/19/22 11/20/22 Range/Units 14:57 14:57 06:06 WBC 3.28 L (4.50-10.00) X 10*3/uL RBC 3.88 L (4.10-5.20) X 10*6/uL Hgb 11.8 L (12.0-15.0) g/dL MCV 100.0 H (80.0-97.0) fL MCHC 30.0 L 31.6 L (32.0-37.0) g/dL MPV 9.0 L 8.8 L (9.5-12.2) fL Metamyelocytes % 6 H (0-0) % Lymphocytes # 0.26 L (0.90-5.00) X 10*3/uL Lymphocytes # (Manual) 0.52 L (0.90-5.00) X 10*3/uL Eosinophils # 0 L (0.04-0.35) X 10*3/uL Carbon Dioxide 19 L (22-30) mmol/L Anion Gap (10.00-18.00) mmol/L BUN/Creatinine Ratio (12.00-20.00) Ratio Glucose 135 H (74-99) mg/dL Calcium 7.9 L (8.4-10.2) mg/dL Total Bilirubin (0.30-1.20) mg/dL Total Protein (6.2-8.2) g/dL Albumin (3.8-4.9) g/dL 11/20/22 Range/Units 06:06 WBC (4.50-10.00) X 10*3/uL RBC (4.10-5.20) X 10*6/uL Hgb (12.0-15.0) g/dL MCV (80.0-97.0) fL MCHC (32.0-37.0) g/dL MPV (9.5-12.2) fL Metamyelocytes % (0-0) % Lymphocytes # (0.90-5.00) X 10*3/uL Lymphocytes # (Manual) (0.90-5.00) X 10*3/uL Eosinophils # (0.04-0.35) X 10*3/uL Carbon Dioxide 28.0 H (22-30) mmol/L Anion Gap 7.00 L (10.00-18.00) mmol/L BUN/Creatinine Ratio 27.14 H (12.00-20.00) Ratio Glucose (74-99) mg/dL Calcium 8.6 L (8.4-10.2) mg/dL Total Bilirubin 0.20 L (0.30-1.20) mg/dL Total Protein 4.6 L (6.2-8.2) g/dL Albumin 2.9 L (3.8-4.9) g/dL
[2022-11-20] MEDS: HYDROmorphone 1 MG/ML 1 ML SYRINGE IVP PRN (13:42)
[2022-11-20] MEDS: KETOROLAC 15 MG/ML 1 ML VIAL IVP SCH ×3 (13:55→22:24)
[2022-11-20] MEDS: ATORVASTATIN 10 MG TAB PO SCH (21:12)
[2022-11-20] MEDS: METOCLOPRAMIDE 5 MG/ML 2 ML VIAL IVP PRN (22:23)
[2022-11-21] MEDS: HEPARIN SODIUM,PORCINE/PF 5,000 UNIT/0.5 ML SYRINGE SQ SCH ×4 (01:00→23:12)
[2022-11-21] MEDS: HYDROmorphone 1 MG/ML 1 ML SYRINGE IVP PRN ×3 (02:47→12:18)
[2022-11-21] MEDS: D5-0.45% NACL WITH KCL 20MEQ/L 1,000 ML IV SCH ×3 (06:32→21:59)
[2022-11-21] MEDS: ACETAMINOPHEN IV (For NPO) 1,000 MG in EMPTY BAG 1 BAG IVPB SCH (06:32)
[2022-11-21] MEDS: KETOROLAC 15 MG/ML 1 ML VIAL IVP SCH ×4 (06:33→21:58)
[2022-11-21] MEDS: ESCITALOPRAM 20 MG TAB PO SCH (09:28)
[2022-11-21] MEDS: PANTOPRAZOLE 40 MG/10 ML VIAL IV SCH (09:29)
[2022-11-21] MEDS: NON FORMULARY DRUG (Armodafinil [Armodafinil] 250 MG Tablet) PO SCH (09:29)
[2022-11-21 09:46] LABS: HCT 28.8 % (37.2-46.3); MCH 30.6 pg (27.0-32.0); MCHC 31.3 g/dL (32.0-37.0); Mean Platelet Volume 8.9 fL (9.5-12.2); NRBC Per 100 WBC 0 /100 WBCS (0.0-0.0); Platelet Count 204 X 10*3/uL (140-440); RBC 2.94 X 10*6/uL (4.10-5.20); RDW 12.4 % (11.5-14.5); WBC 3.51 X 10*3/uL (4.50-10.00)
[2022-11-21 10:52] LABS: Basophils # (M) 0 X 10*3/uL (0.00-0.10); Eosinophils # (M) 0.07 X 10*3/uL (0.04-0.35); Lymphocytes # (M) 0.18 X 10*3/uL (0.90-5.00); Monocytes # (M) 0.14 X 10*3/uL (0.20-1.00); Myelocytes % 1 % (0-0); Neutrophils # (M) 3.05 X 10*3/uL (2.00-8.90); Neutrophils % (M) 87 %; Promyelocytes # (M) 0.04 k/uL (0); Promyelocytes % 1 % (0-0); RBC Morphology NORMAL
--- NOTE | 2022-11-21 11:30 | P.PN ---
Subjective Progress Note Date: 11/21/22 No new complaints. NGT still present. Gen: awake, alert HEENT: normocephalic, atraumatic, good hearing acuity, moist mucous membranes Resp: good air exchange, breathing comfortably with no accessory muscle use CVS: good distal perfusion x 4, GI: soft, NTTP, ND : no SPT, no CVAT, gomez catheter not present MSK: no pitting edema, no clubbing Neuro: non-focal, moving all extremities Psych: cooperative, euthymic mood Hospital course: Patient 72-year-old female with PMH of small bowel obstruction, asthma, dyslipidemia, anxiety presents ED for abdominal pain ongoing since yesterday morning. Patient was recently admitted from 10/31-11/09 and conservatively treated for SBO. She reports multiple episodes of dark vomiting. In the ED, patient was noted to be tachycardic with a heart rate of 109. She also required 3 L nasal cannula to maintain O2 saturation greater than 92%. CBC showed hematocrit of 47. CMP shows sodium 136, chloride of 95, BUN of 26, glucose 110. Urinalysis showed 3+ ketones. KUB showed large colonic stool burden without evidence of obstruction. Patient was admitted for further workup and management of symptoms. CT abdomen and pelvis shows small bowel obstruction. Gen. surgery consulted. Status post exploratory laparoscopy with lysis of extensive adhesions, ileocolectomy, partial omentectomy. Assessment: Small bowel obstruction status post exploratory laparoscopy with lysis of lesions, ileocolectomy, partial omentectomy Nausea and vomiting Prerenal azotemia Depression Dyslipidemia Plan: Today, patient is afebrile, 104/70, heart rate 93, 91% on 2 L nasal cannula Hemoglobin today is 9, white blood cell count is 3.5 Ordered CBC, basic metabolic panel, magnesium for tomorrow Continue NG tube Continue Dilaudid 1 mg every 3 hours when necessary Continue Reglan 10 mg every 6 hours when necessary Patient is full code Objective - Vital Signs Vital signs: Vital Signs Temp 97.5 F L 11/21/22 07:50 Pulse 93 11/21/22 07:50 Resp 16 11/21/22 09:00 BP 104/70 11/21/22 07:50 Pulse Ox 91 L 11/21/22 07:50 FiO2 Intake & Output 11/20/22 11/21/22 11/21/22 18:59 06:59 18:59 Output Total 295 Balance -295 Weight 43.545 kg Output: Urine 295 Other: Voiding Method Toilet Indwelling Catheter - Labs CBC & Chem 7: 11/21/22 05:15 11/20/22 06:06 Labs: Abnormal Lab Results - Last 24 Hours (Table) 11/20/22 11/21/22 Range/Units 06:06 05:15 WBC 3.51 L (4.50-10.00) X 10*3/uL RBC 3.88 L 2.94 L (4.10-5.20) X 10*6/uL Hgb 11.8 L 9.0 L (12.0-15.0) g/dL Hct 28.8 L (37.2-46.3) % MCV 98.0 H (80.0-97.0) fL MCHC 31.6 L 31.3 L (32.0-37.0) g/dL MPV 8.8 L 8.9 L (9.5-12.2) fL Metamyelocytes % 6 H (0-0) % Myelocytes % 1 H (0-0) % Promyelocytes % 1 H (0-0) % Lymphocytes # (Manual) 0.52 L 0.18 L (0.90-5.00) X 10*3/uL Monocytes # (Manual) 0.14 L (0.20-1.00) X 10*3/uL Promyelocytes # (Man) 0.04 H (0) k/uL
--- NOTE | 2022-11-21 12:55 | P.PN ---
Subjective Progress Note Date: 11/21/22 CHIEF COMPLAINT: Abdominal pain HISTORY OF PRESENT ILLNESS: Patient is postop day #2 status post exploratory laparotomy, lysis of extensive adhesions, ileocolectomy and partial omentectomy for small bowel obstruction secondary to adhesions and internal hernia and previous anastomotic site. Patient reports her pain is controlled. She is having flatus. Denies any nausea. Minimal output through the NG tube. Afebrile. WBC is 3.5 Hgb 9.0 plt 204 BMP pending. Urine output slowly improving Patient seen and examined with Dr. hall PHYSICAL EXAM: VITAL SIGNS: Reviewed. GENERAL: Well-developed in no acute distress. HEENT: No sclera icterus. Extraocular movements grossly intact. Moist buccal mucosa. Head is atraumatic, normocephalic. ABDOMEN: Soft. Mild tenderness at incision site. Incision clean dry and intact. Near the umbilicus small amount of the internal suture is protruding ou t. The suture was cut back to the incision. NEUROLOGIC: Alert and oriented. Cranial nerves II through XII grossly intact. ASSESSMENT: 1. Small bowel obstruction secondary to adhesions and internal hernia status post exploratory laparotomy, lysis of extensive adhesions, ileocolectomy and partial omentectomy PLAN: -Discontinue NG tube -Start clear liquid -Discontinue Barnes catheter -Continue IV fluid -Continue pain management -Encouraged patient to increase activity level -Encouraged patient to use incentive spirometer -GI prophylaxis Protonix and DVT prophylaxis subcu heparin Physician Corporate Compliance Officer note has been reviewed by physician. Signing provider agrees with the documented findings, assessment, and plan of care. Objective - Vital Signs Vital signs: Vital Signs Temp 97.5 F L 11/21/22 07:50 Pulse 93 11/21/22 07:50 Resp 16 11/21/22 09:00 BP 104/70 11/21/22 07:50 Pulse Ox 91 L 11/21/22 07:50 FiO2 Intake & Output 11/20/22 11/21/22 11/21/22 18:59 06:59 18:59 Output Total 295 Balance -295 Weight 43.545 kg Output: Urine 295 Other: Voiding Method Toilet Indwelling Catheter - Labs CBC & Chem 7: 11/21/22 05:15 11/20/22 06:06 Labs: Abnormal Lab Results - Last 24 Hours (Table) 11/20/22 11/21/22 Range/Units 06:06 05:15 WBC 3.51 L (4.50-10.00) X 10*3/uL RBC 3.88 L 2.94 L (4.10-5.20) X 10*6/uL Hgb 11.8 L 9.0 L (12.0-15.0) g/dL Hct 28.8 L (37.2-46.3) % MCV 98.0 H (80.0-97.0) fL MCHC 31.6 L 31.3 L (32.0-37.0) g/dL MPV 8.8 L 8.9 L (9.5-12.2) fL Metamyelocytes % 6 H (0-0) % Myelocytes % 1 H (0-0) % Promyelocytes % 1 H (0-0) % Lymphocytes # (Manual) 0.52 L 0.18 L (0.90-5.00) X 10*3/uL Monocytes # (Manual) 0.14 L (0.20-1.00) X 10*3/uL Promyelocytes # (Man) 0.04 H (0) k/uL
[2022-11-21 13:01] LABS: Glucose,Whole Blood 120 mg/dL (70-110)
[2022-11-21 13:38] LABS: African American GFR (CKD) >90 (>60 ml/min/1.73 sqM); Anion Gap 6 mmol/L; Blood Urea Nitrogen 15 mg/dL (7-17); Calcium 7.8 mg/dL (8.4-10.2); Carbon Dioxide 25 mmol/L (22-30); Chloride 100 mmol/L (98-107); Glucose 119 mg/dL (74-99); Non-African American GFR(CKD) >90 (>60 ml/min/1.73 sqM); Potassium 4.4 mmol/L (3.5-5.1); Sodium 131 mmol/L (137-145)
[2022-11-21] MEDS: ATORVASTATIN 10 MG TAB PO SCH (21:58)
[2022-11-22] MEDS: HYDROcodone/APAP 5-325MG 1 EACH TAB PO PRN (02:35)
[2022-11-22] MEDS: METOCLOPRAMIDE 5 MG/ML 2 ML VIAL IVP PRN (02:40)
[2022-11-22] MEDS: D5-0.45% NACL WITH KCL 20MEQ/L 1,000 ML IV SCH ×3 (04:17→21:04)
[2022-11-22] MEDS: KETOROLAC 15 MG/ML 1 ML VIAL IVP SCH ×2 (05:42→11:46)
[2022-11-22] MEDS: NON FORMULARY DRUG (Armodafinil [Armodafinil] 250 MG Tablet) PO SCH (08:48)
[2022-11-22] MEDS: HEPARIN SODIUM,PORCINE/PF 5,000 UNIT/0.5 ML SYRINGE SQ SCH ×2 (08:50→17:14)
[2022-11-22] MEDS: ESCITALOPRAM 20 MG TAB PO SCH (08:50)
[2022-11-22] MEDS: PANTOPRAZOLE 40 MG/10 ML VIAL IV SCH (08:50)
[2022-11-22 09:52] LABS: Magnesium 1.5 mg/dL (1.5-2.4)
[2022-11-22 09:55] LABS: African American GFR (CKD) 110.5 (60.0-200.0); Anion Gap 7.8 mmol/L (10.00-18.00); BUN/Creat Ratio 20.4 Ratio (12.00-20.00); Blood Urea Nitrogen 10.2 mg/dL (9.0-27.0); Calcium 8.1 mg/dL (8.7-10.3); Carbon Dioxide 24.2 mmol/L (20.0-27.5); Non-African American GFR(CKD) 95.3 (60.0-200.0); Potassium 4.6 mmol/L (3.5-5.5)
[2022-11-22 10:50] LABS: HCT 32.8 % (37.2-46.3); HGB 10.3 g/dL (12.0-15.0); MCH 30.4 pg (27.0-32.0); MCHC 31.4 g/dL (32.0-37.0); MCV 96.8 fL (80.0-97.0); Mean Platelet Volume 9.1 fL (9.5-12.2); NRBC Per 100 WBC 0 /100 WBCS (0.0-0.0); Platelet Count 236 X 10*3/uL (140-440); RBC 3.39 X 10*6/uL (4.10-5.20); RDW 12.1 % (11.5-14.5); WBC 4.32 X 10*3/uL (4.50-10.00)
[2022-11-22 10:52] LABS: Basophils # (M) 0.04 X 10*3/uL (0.00-0.10); Crenated RBC 2+; Eosinophils # (M) 0.17 X 10*3/uL (0.04-0.35); Metamyelocytes % 4 % (0-0); Monocytes # (M) 0.73 X 10*3/uL (0.20-1.00); Myelocytes % 1 % (0-0); Neutrophils # (M) 2.85 X 10*3/uL (2.00-8.90); Neutrophils % (M) 66 %
[2022-11-22] MEDS: SIMETHICONE 40 MG/0.6 ML DROPS 2,000 MG/30 ML BOTTLE PO SCH ×4 (11:44→21:04)
--- NOTE | 2022-11-22 13:31 | P.PN ---
Subjective Progress Note Date: 11/22/22 CHIEF COMPLAINT: Abdominal pain HISTORY OF PRESENT ILLNESS: Patient is postop day #3 status post exploratory laparotomy, lysis of extensive adhesions, ileocolectomy and partial omentectomy for small bowel obstruction secondary to adhesions and internal hernia and previous anastomotic site. Patient vomited once yesterday evening after the [place]. Her pain had increased during the night. Her abdominal pain this morning is less than last night pain. Initially Ultram ordered for pain due to her not wanting to take the [place]. Patient does not want to take any pain pills is requesting something else for pain. IV Tylenol has been ordered. Her abdomen is slightly more distended today. She did pass some flatus. Apparently did have a small loose stool yesterday. Afebrile. WBC is 4.32HgB 10.3 platelets 236 sodium is 134 potassium is 4.6 creatinine 0.5 magnesium 1.5 Patient seen and examined with Dr. hall PHYSICAL EXAM: VITAL SIGNS: Reviewed. GENERAL: Well-developed in no acute distress. HEENT: No sclera icterus. Extraocular movements grossly intact. Moist buccal mucosa. Head is atraumatic, normocephalic. ABDOMEN: Soft. Mild tenderness at incision site. Incision clean dry and intact. Near the umbilicus small amount of the internal suture is protruding out. The suture was cut back to the incision. NEUROLOGIC: Alert and oriented. Cranial nerves II through XII grossly intact. ASSESSMENT: 1. Small bowel obstruction secondary to adhesions and internal hernia status post exploratory laparotomy, lysis of extensive adhesions, ileocolectomy and partial omentectomy 2. Hypomagnesemia PLAN: -Encouraged patient to drink only sips of her clear liquids -IV Tylenol added for pain control. At this time patient did not want to take any of the pain pills -Replace magnesium -Continue IV fluids -Per surgeon, recommended to continue hospitalization through Friday -Continue pain management -Encouraged patient to increase activity level -Encouraged patient to use incentive spirometer -GI prophylaxis Protonix and DVT prophylaxis subcu heparin Physician Tilting Saw Operator note has been reviewed by physician. Signing provider agrees with the documented findings, assessment, and plan of care. Objective - Vital Signs Vital signs: Vital Signs Temp 98.2 F 11/22/22 07:15 Pulse 99 11/22/22 07:15 Resp 16 11/22/22 07:15 BP 149/87 11/22/22 07:15 Pulse Ox 97 11/22/22 07:15 FiO2 Intake & Output 11/21/22 11/22/22 11/22/22 18:59 06:59 18:59 Output Total 400 Balance -400 Weight 43.545 kg Output: Urine 400 Uretheral (Barnes) 400 Other: Voiding Method Indwelling Catheter Indwelling Catheter # Voids 1 # Bowel Movements 1 # Emeses 1 - Labs CBC & Chem 7: 11/22/22 05:38 11/22/22 05:38 Labs: Abnormal Lab Results - Last 24 Hours (Table) 11/21/22 11/21/22 11/22/22 Range/Units 13:00 13:12 05:38 WBC 4.32 L (4.50-10.00) X 10*3/uL RBC 3.39 L (4.10-5.20) X 10*6/uL Hgb 10.3 L (12.0-15.0) g/dL Hct 32.8 L (37.2-46.3) % MCHC 31.4 L (32.0-37.0) g/dL MPV 9.1 L (9.5-12.2) fL Metamyelocytes % 4 H (0-0) % Myelocytes % 1 H (0-0) % Lymphocytes # (Manual) 0.30 L (0.90-5.00) X 10*3/uL Sodium 131 L (137-145) mmol/L Anion Gap (10.00-18.00) mmol/L Creatinine 0.42 L (0.52-1.04) mg/dL BUN/Creatinine Ratio (12.00-20.00) Ratio Glucose 119 H (74-99) mg/dL POC Glucose (mg/dL) 120 H (70-110) mg/dL Calcium 7.8 L (8.4-10.2) mg/dL 11/22/22 Range/Units 05:38 WBC (4.50-10.00) X 10*3/uL RBC (4.10-5.20) X 10*6/uL Hgb (12.0-15.0) g/dL Hct (37.2-46.3) % MCHC (32.0-37.0) g/dL MPV (9.5-12.2) fL Metamyelocytes % (0-0) % Myelocytes % (0-0) % Lymphocytes # (Manual) (0.90-5.00) X 10*3/uL Sodium 134 L (137-145) mmol/L Anion Gap 7.80 L (10.00-18.00) mmol/L Creatinine 0.5 L (0.52-1.04) mg/dL BUN/Creatinine Ratio 20.40 H (12.00-20.00) Ratio Glucose 135 H (74-99) mg/dL POC Glucose (mg/dL) (70-110) mg/dL Calcium 8.1 L (8.4-10.2) mg/dL
[2022-11-22] MEDS: ACETAMINOPHEN IV (For NPO) 650 MG in EMPTY BAG 1 BAG IVPB SCH ×2 (14:18→18:34)
[2022-11-22] MEDS: MAGNESIUM SULFATE-D5W PMX 1 GM in DEXTROSE/WATER 1 100ML.BAG IVPB SCH ×2 (14:42→17:15)
--- NOTE | 2022-11-22 14:43 | P.PN ---
Subjective Progress Note Date: 11/22/22 No new complaints. Moving better. Had BM overnight. Had NGT removed. Tolerating CLD. Gen: awake, alert HEENT: normocephalic, atraumatic, good hearing acuity, moist mucous membranes Resp: good air exchange, breathing comfortably with no accessory muscle use CVS: good distal perfusion x 4, GI: soft, NTTP, ND : no SPT, no CVAT, gomez catheter not present MSK: no pitting edema, no clubbing Neuro: non-focal, moving all extremities Psych: cooperative, euthymic mood Hospital course: Patient 72-year-old female with PMH of small bowel obstruction, asthma, dyslipidemia, anxiety presents ED for abdominal pain ongoing since yesterday morning. Patient was recently admitted from 10/31-11/09 and conservatively treated for SBO. She reports multiple episodes of dark vomiting. In the ED, patient was noted to be tachycardic with a heart rate of 109. She also required 3 L nasal cannula to maintain O2 saturation greater than 92%. CBC showed hematocrit of 47. CMP shows sodium 136, chloride of 95, BUN of 26, glucose 110. Urinalysis showed 3+ ketones. KUB showed large colonic stool burden without ang dence of obstruction. Patient was admitted for further workup and management of symptoms. CT abdomen and pelvis shows small bowel obstruction. Gen. surgery consulted. Status post exploratory laparoscopy with lysis of extensive adhesions, ileocolectomy, partial omentectomy. Assessment: Small bowel obstruction status post exploratory laparoscopy with lysis of lesions, ileocolectomy, partial omentectomy Nausea and vomiting Prerenal azotemia Depression Dyslipidemia Plan: Today, patient is afebrile, 104/62, heart rate 89, 96 percent on room air Hemoglobin today is 10.3, white blood cell count is 4.3 Sodium is 134 Ordered CBC, basic metabolic panel, magnesium for tomorrow Clear liquid diet today, advance tomorrow if Gen. surgery agrees Continue Dilaudid 1 mg every 3 hours when necessary Continue Reglan 10 mg every 6 hours when necessary Patient is full code Objective - Vital Signs Vital signs: Vital Signs Temp 98.2 F 11/22/22 07:15 Pulse 99 11/22/22 07:15 Resp 16 11/22/22 07:15 BP 149/87 11/22/22 07:15 Pulse Ox 97 11/22/22 07:15 FiO2 Intake & Output 05/04/23 05/05/23 05/05/23 18:59 06:59 18:59 Output Total 400 Balance -400 Weight 43.545 kg Output: Urine 400 Uretheral (Gomez) 400 Other: Voiding Method Indwelling Catheter Indwelling Catheter # Voids 1 # Bowel Movements 1 1 # Emeses 1 - Labs CBC & Chem 7: 11/22/22 05:38 11/22/22 05:38 Labs: Abnormal Lab Results - Last 24 Hours (Table) 11/22/22 11/22/22 Range/Units 05:38 05:38 WBC 4.32 L (4.50-10.00) X 10*3/uL RBC 3.39 L (4.10-5.20) X 10*6/uL Hgb 10.3 L (12.0-15.0) g/dL Hct 32.8 L (37.2-46.3) % MCHC 31.4 L (32.0-37.0) g/dL MPV 9.1 L (9.5-12.2) fL Metamyelocytes % 4 H (0-0) % Myelocytes % 1 H (0-0) % Lymphocytes # (Manual) 0.30 L (0.90-5.00) X 10*3/uL Sodium 134 L (135-145) mmol/L Anion Gap 7.80 L (10.00-18.00) mmol/L Creatinine 0.5 L (0.6-1.5) mg/dL BUN/Creatinine Ratio 20.40 H (12.00-20.00) Ratio Glucose 135 H (70-110) mg/dL Calcium 8.1 L (8.7-10.3) mg/dL
[2022-11-22] MEDS: ATORVASTATIN 10 MG TAB PO SCH (21:03)
[2022-11-23] MEDS: HEPARIN SODIUM,PORCINE/PF 5,000 UNIT/0.5 ML SYRINGE SQ SCH ×4 (01:31→22:35)
[2022-11-23] MEDS: ACETAMINOPHEN IV (For NPO) 650 MG in EMPTY BAG 1 BAG IVPB SCH ×2 (01:32→06:51)
[2022-11-23] MEDS: D5-0.45% NACL WITH KCL 20MEQ/L 1,000 ML IV SCH ×3 (05:01→19:45)
[2022-11-23] MEDS: NON FORMULARY DRUG (Armodafinil [Armodafinil] 250 MG Tablet) PO SCH (07:28)
[2022-11-23] MEDS: PANTOPRAZOLE 40 MG/10 ML VIAL IV SCH (07:34)
[2022-11-23] MEDS: SIMETHICONE 40 MG/0.6 ML DROPS 2,000 MG/30 ML BOTTLE PO SCH ×4 (07:34→19:44)
[2022-11-23] MEDS: HYDROcodone/APAP 5-325MG 1 EACH TAB PO PRN ×2 (07:35→12:38)
[2022-11-23] MEDS: ESCITALOPRAM 20 MG TAB PO SCH (07:35)
--- NOTE | 2022-11-23 09:12 | P.PN ---
Subjective Progress Note Date: 11/23/22 No new complaints. Had an additional bowel movement per patient, tolerating clear liquid diet well without pain. Gen: awake, alert HEENT: normocephalic, atraumatic, good hearing acuity, moist mucous membranes Resp: good air exchange, breathing comfortably with no accessory muscle use CVS: good distal perfusion x 4, GI: soft, NTTP, ND : no SPT, no CVAT, gomez catheter not present MSK: no pitting edema, no clubbing Neuro: non-focal, moving all extremities Psych: cooperative, euthymic mood Hospital course: Patient 72-year-old female with PMH of small bowel obstruction, asthma, dyslipidemia, anxiety presents ED for abdominal pain ongoing since yesterday morning. Patient was recently admitted from 10/31-11/09 and conservatively treated for SBO. She reports multiple episodes of dark vomiting. In the ED, patient was noted to be tachycardic with a heart rate of 109. She also required 3 L nasal cannula to maintain O2 saturation greater than 92%. CBC showed hematocrit of 47. CMP shows sodium 136, chloride of 95, BUN of 26, glucose 110. Urinalysis showed 3+ ketones. KUB showed large colonic stool burden without evidence of obstruction. Patient was admitted for further workup and management of symptoms. CT abdomen and pelvis shows small bowel obstruction. Gen. surgery consulted. Status post exploratory laparoscopy with lysis of extensive adhesions, ileocolectomy, partial omentectomy. Assessment: Small bowel obstruction status post exploratory laparoscopy with lysis of lesions, ileocolectomy, partial omentectomy Nausea and vomiting Prerenal azotemia Depression Dyslipidemia Plan: Today, patient is afebrile, 144/79, heart rate 105, 100% on 2 L nasal cannula Ordered CBC, basic metabolic panel, magnesium for tomorrow Advance today if Gen. surgery agrees Continue Dilaudid 1 mg every 3 hours when necessary Continue Reglan 10 mg every 6 hours when necessary Patient is full code Objective - Vital Signs Vital signs: Vital Signs Temp 99.1 F 11/23/22 07:10 Pulse 105 H 11/23/22 07:10 Resp 16 11/23/22 07:10 BP 144/79 11/23/22 07:10 Pulse Ox 100 11/23/22 07:40 FiO2 Intake & Output 11/22/22 11/23/22 11/23/22 18:59 06:59 18:59 Intake Total 360 Balance 360 Weight 43.545 kg Intake: Oral 360 Other: Voiding Method Bedside Commode Bedside Commode # Voids 1 2 # Bowel Movements 1 2 - Labs CBC & Chem 7: 11/22/22 05:38 11/22/22 05:38 Labs: Abnormal Lab Results - Last 24 Hours (Table) 11/22/22 11/22/22 Range/Units 05:38 05:38 WBC 4.32 L (4.50-10.00) X 10*3/uL RBC 3.39 L (4.10-5.20) X 10*6/uL Hgb 10.3 L (12.0-15.0) g/dL Hct 32.8 L (37.2-46.3) % MCHC 31.4 L (32.0-37.0) g/dL MPV 9.1 L (9.5-12.2) fL Metamyelocytes % 4 H (0-0) % Myelocytes % 1 H (0-0) % Lymphocytes # (Manual) 0.30 L (0.90-5.00) X 10*3/uL Sodium 134 L (135-145) mmol/L Anion Gap 7.80 L (10.00-18.00) mmol/L Creatinine 0.5 L (0.6-1.5) mg/dL BUN/Creatinine Ratio 20.40 H (12.00-20.00) Ratio Glucose 135 H (70-110) mg/dL Calcium 8.1 L (8.7-10.3) mg/dL
[2022-11-23 09:56] LABS: African American GFR (CKD) 114.7 (60.0-200.0); Anion Gap 9.3 mmol/L (10.00-18.00); BUN/Creat Ratio 13.86 Ratio (12.00-20.00); Basophils # (A) 0.07 X 10*3/uL (0.00-0.10); Basophils % (A) 1.8 %; Blood Urea Nitrogen 6.2 mg/dL (9.0-27.0); Carbon Dioxide 23.4 mmol/L (20.0-27.5); Eosinophils # (A) 0.01 X 10*3/uL (0.04-0.35); Eosinophils % (A) 0.3 %; HGB 10.7 g/dL (12.0-15.0); Immature Grans, Automated 1.1 %; Lymphocytes # (A) 0.52 X 10*3/uL (0.90-5.00); Lymphocytes % (A) 13.7 %; MCH 30.1 pg (27.0-32.0); MCHC 32.4 g/dL (32.0-37.0); MCV 92.7 fL (80.0-97.0); Magnesium 1.7 mg/dL (1.5-2.4); Monocytes # (A) 0.85 X 10*3/uL (0.20-1.00); Monocytes % (A) 22.4 %; NRBC Per 100 WBC 0 /100 WBCS (0.0-0.0); Neutrophils # (A) 2.31 X 10*3/uL (1.80-7.70); Neutrophils % (A) 60.7 %; Platelet Count 258 X 10*3/uL (140-440); Potassium 3.9 mmol/L (3.5-5.5); RBC 3.56 X 10*6/uL (4.10-5.20); RDW 11.9 % (11.5-14.5)
[2022-11-23] MEDS: NUVIGIL 250 MG PO SCH (15:18)
[2022-11-23] MEDS: traMADol 50 MG TAB PO PRN (19:40)
[2022-11-23] MEDS: ATORVASTATIN 10 MG TAB PO SCH (19:40)
[2022-11-23] MEDS: ALPRAZolam 0.25 MG TAB PO PRN (22:35)
--- NOTE | 2022-11-24 00:20 | P.PN ---
Subjective Progress Note Date: 11/23/22 CHIEF COMPLAINT: Bowel obstruction HISTORY OF PRESENT ILLNESS: The patient is a 72-year-old female with bowel obstruction. She status post reduction of internal hernia. She reports hunger. She is tolerating liquid diet. Family is at bedside. She is having bowel movements. ROS: No reports of nausea and vomiting. No fevers or chills. No new chest pain. No productive sputum PHYSICAL EXAM: VITAL SIGNS: Reviewed CONSTITUTIONAL: Well developed and in no acute distress. EYES: Conjuctivae without sclera icterus. Extraocular movements grossly intact. HEAD, EARS, NOSE, THROAT: Moist buccal mucosa. Head is atraumatic, normocephalic. Hears conversational speech. No nasal drainage. RESPIRATORY: Non-labored respirations and equal bilateral excursions. CARDIOVASCULAR: Palpable 2+ radial pulses. ABDOMEN: Dressing is intact. MUSCULOSKELETAL: No gross deformity of the lower extremities noted. No clubbing. No cyanosis. SKIN: Good skin turgor. Well perfused. NEUROLOGIC: Cranial nerves II through XII grossly intact. No focal or lateralizing signs. PSYCH: Appropriate affect. Alert and oriented to person, place and time. CLINICAL LABS: Reviewed. WBC 3.8. Hemoglobin 10.7, anemia ASSESSMENT: 1. Internal hernia with bowel obstruction PLAN: 1. May advance diet 2. Diet as tolerated Objective - Vital Signs Vital signs: Vital Signs Temp 99.1 F 11/23/22 07:10 Pulse 105 H 11/23/22 07:10 Resp 16 11/23/22 07:10 BP 144/79 11/23/22 07:10 Pulse Ox 100 11/23/22 07:40 FiO2 Intake & Output 11/22/22 11/23/22 11/23/22 18:59 06:59 18:59 Intake Total 360 Balance 360 Weight 43.545 kg Intake: Oral 360 Other: Voiding Method Bedside Commode Bedside Commode # Voids 1 2 # Bowel Movements 1 2 - Labs CBC & Chem 7: 11/23/22 05:21 11/23/22 05:21 Labs: Abnormal Lab Results - Last 24 Hours (Table) 11/23/22 11/23/22 Range/Units 05:21 05:21 WBC 3.80 L (4.50-10.00) X 10*3/uL RBC 3.56 L (4.10-5.20) X 10*6/uL Hgb 10.7 L (12.0-15.0) g/dL Hct 33.0 L (37.2-46.3) % MPV 9.0 L (9.5-12.2) fL Lymphocytes # 0.52 L (0.90-5.00) X 10*3/uL Eosinophils # 0.01 L (0.04-0.35) X 10*3/uL Sodium 134 L (135-145) mmol/L Anion Gap 9.30 L (10.00-18.00) mmol/L BUN 6.2 L (9.0-27.0) mg/dL Creatinine 0.4 L (0.6-1.5) mg/dL Glucose 125 H (70-110) mg/dL Calcium 8.0 L (8.7-10.3) mg/dL
[2022-11-24] MEDS: D5-0.45% NACL WITH KCL 20MEQ/L 1,000 ML IV SCH ×3 (07:22→22:42)
[2022-11-24] MEDS: ESCITALOPRAM 20 MG TAB PO SCH (08:19)
[2022-11-24] MEDS: NUVIGIL 250 MG PO SCH (08:19)
[2022-11-24] MEDS: PANTOPRAZOLE 40 MG/10 ML VIAL IV SCH (08:19)
[2022-11-24] MEDS: HEPARIN SODIUM,PORCINE/PF 5,000 UNIT/0.5 ML SYRINGE SQ SCH ×3 (08:19→23:10)
[2022-11-24] MEDS: SIMETHICONE 40 MG/0.6 ML DROPS 2,000 MG/30 ML BOTTLE PO SCH ×4 (08:19→20:30)
[2022-11-24 10:50] LABS: African American GFR (CKD) 110.5 (60.0-200.0); Anion Gap 8.8 mmol/L (10.00-18.00); BUN/Creat Ratio 15.4 Ratio (12.00-20.00); Blood Urea Nitrogen 7.7 mg/dL (9.0-27.0); Calcium 7.6 mg/dL (8.7-10.3); Carbon Dioxide 24.2 mmol/L (20.0-27.5); Magnesium 1.6 mg/dL (1.5-2.4); Non-African American GFR(CKD) 95.3 (60.0-200.0); Potassium 4.1 mmol/L (3.5-5.5)
[2022-11-24 12:31] LABS: Basophils # (A) 0 X 10*3/uL (0.00-0.10); Basophils % (A) 0 %; Eosinophils # (A) 0 X 10*3/uL (0.04-0.35); Eosinophils % (A) 0 %; HCT 32.9 % (37.2-46.3); HGB 10.9 g/dL (12.0-15.0); Immature Grans, Automated 0.6 %; Lymphocytes # (A) 0.82 X 10*3/uL (0.90-5.00); Lymphocytes % (A) 7.5 %; MCH 31.1 pg (27.0-32.0); MCHC 33.1 g/dL (32.0-37.0); MCV 93.7 fL (80.0-97.0); Mean Platelet Volume 8.7 fL (9.5-12.2); Monocytes # (A) 1.01 X 10*3/uL (0.20-1.00); Monocytes % (A) 9.3 %; NRBC Per 100 WBC 0 /100 WBCS (0.0-0.0); Neutrophils # (A) 8.97 X 10*3/uL (1.80-7.70); Neutrophils % (A) 82.6 %; Platelet Count 228 X 10*3/uL (140-440); RBC 3.51 X 10*6/uL (4.10-5.20); RDW 12.2 % (11.5-14.5); WBC 10.87 X 10*3/uL (4.50-10.00)
--- NOTE | 2022-11-24 13:34 | P.PN ---
Subjective Progress Note Date: 11/24/22 No new complaints. Pt doing well with advanced diet. Gen: awake, alert HEENT: normocephalic, atraumatic, good hearing acuity, moist mucous membranes Resp: good air exchange, breathing comfortably with no accessory muscle use CVS: good distal perfusion x 4, GI: soft, NTTP, ND : no SPT, no CVAT, gomez catheter not present MSK: no pitting edema, no clubbing Neuro: non-focal, moving all extremities Psych: cooperative, euthymic mood Hospital course: Patient 72-year-old female with PMH of small bowel obstruction, asthma, dyslipidemia, anxiety presents ED for abdominal pain ongoing since yesterday mo rning. Patient was recently admitted from 10/31-11/09 and conservatively treated for SBO. She reports multiple episodes of dark vomiting. In the ED, patient was noted to be tachycardic with a heart rate of 109. She also required 3 L nasal cannula to maintain O2 saturation greater than 92%. CBC showed hematocrit of 47. CMP shows sodium 136, chloride of 95, BUN of 26, glucose 110. Urinalysis showed 3+ ketones. KUB showed large colonic stool burden without evidence of obstruction. Patient was admitted for further workup and management of symptoms. CT abdomen and pelvis shows small bowel obstruction. Gen. surgery consulted. Status post exploratory laparoscopy with lysis of extensive adh esions, ileocolectomy, partial omentectomy. Assessment: Small bowel obstruction status post exploratory laparoscopy with lysis of lesions, ileocolectomy, partial omentectomy Nausea and vomiting Prerenal azotemia Depression Dyslipidemia Plan: Today, patient is afebrile, 98/57, heart rate 111, 100% on 2 L of nasal cannula Ordered CBC, basic metabolic panel, magnesium for tomorrow Continue Dilaudid 1 mg every 3 hours when necessary Continue Reglan 10 mg every 6 hours when necessary Patient is full code Objective - Vital Signs Vital signs: Vital Signs Temp 98.2 F 11/24/22 07:20 Pulse 111 H 11/24/22 07:20 Resp 16 11/24/22 07:20 BP 98/57 11/24/22 07:20 Pulse Ox 100 11/24/22 07:20 FiO2 Intake & Output 11/23/22 11/24/22 11/24/22 18:59 06:59 18:59 Other: Voiding Method Bedside Commode Bedside Commode - Labs CBC & Chem 7: 11/24/22 05:40 11/24/22 05:40 Labs: Abnormal Lab Results - Last 24 Hours (Table) 11/24/22 11/24/22 Range/Units 05:40 05:40 WBC 10.87 H (4.50-10.00) X 10*3/uL RBC 3.51 L (4.10-5.20) X 10*6/uL Hgb 10.9 L (12.0-15.0) g/dL Hct 32.9 L (37.2-46.3) % MPV 8.7 L (9.5-12.2) fL Immature Gran # 0.07 H (0.00-0.04) X 10*3/uL Neutrophils # 8.97 H (1.80-7.70) X 10*3/uL Lymphocytes # 0.82 L (0.90-5.00) X 10*3/uL Monocytes # 1.01 H (0.20-1.00) X 10*3/uL Eosinophils # 0 L (0.04-0.35) X 10*3/uL Sodium 130 L (135-145) mmol/L Anion Gap 8.80 L (10.00-18.00) mmol/L BUN 7.7 L (9.0-27.0) mg/dL Creatinine 0.5 L (0.6-1.5) mg/dL Glucose 112 H (70-110) mg/dL Calcium 7.6 L (8.7-10.3) mg/dL
[2022-11-24] MEDS: ATORVASTATIN 10 MG TAB PO SCH (20:30)
[2022-11-24] MEDS: traMADol 50 MG TAB PO PRN (23:09)
--- NOTE | 2022-11-25 01:39 | P.PN ---
Subjective Progress Note Date: 11/24/22 CHIEF COMPLAINT: Bowel obstruction HISTORY OF PRESENT ILLNESS: The patient is a 72-year-old female with bowel obstruction. She status post reduction of internal hernia. She is tolerating a low fiber diet. Patient however now has tachycardia. Additionally, WBC elevated. She complains of lower extremity swelling. ROS: No reports of nausea and vomiting. No fevers or chills. No new chest pain. No productive sputum PHYSICAL EXAM: VITAL SIGNS: Reviewed CONSTITUTIONAL: Well developed and in no acute distress. EYES: Conjuctivae without sclera icterus. Extraocular movements grossly intact. HEAD, EARS, NOSE, THROAT: Moist buccal mucosa. Head is atraumatic, normocephalic. Hears conversational speech. No nasal drainage. RESPIRATORY: Non-labored respirations and equal bilateral excursions. CARDIOVASCULAR: Palpable 2+ radial pulses. ABDOMEN: Dressing is intact. Lower abdominal pain. MUSCULOSKELETAL: No gross deformity of the lower extremities noted. No clubbing. No cyanosis. SKIN: Good skin turgor. Well perfused. NEUROLOGIC: Cranial nerves II through XII grossly intact. No focal or lateralizing signs. PSYCH: Appropriate affect. Alert and oriented to person, place and time. CLINICAL LABS: Reviewed. WBC 3800 now over 100,00. Sodium with hyponatremia 1:30 ASSESSMENT: 1. Internal hernia with bowel obstruction 2. Hyponatremia PLAN: 1. Clinically, patient's white blood cell count is elevated. 2. She has edema and may benefit from Lasix diuretic 3. Discharge management per medicine team Objective - Vital Signs Vital signs: Vital Signs Temp 98.4 F 11/24/22 18:57 Pulse 108 H 11/24/22 18:57 Resp 18 11/24/22 18:57 BP 129/75 11/24/22 18:57 Pulse Ox 100 11/24/22 18:57 FiO2 Intake & Output 11/24/22 11/24/22 11/25/22 06:59 18:59 06:59 Intake Total 200 Balance 200 Intake: Oral 200 Other: Voiding Method Bedside Commode Bedside Commode # Voids 1 # Bowel Movements 1 - Labs CBC & Chem 7: 11/24/22 05:40 11/24/22 05:40 Labs: Abnormal Lab Results - Last 24 Hours (Table) 11/24/22 11/24/22 Range/Units 05:40 05:40 WBC 10.87 H (4.50-10.00) X 10*3/uL RBC 3.51 L (4.10-5.20) X 10*6/uL Hgb 10.9 L (12.0-15.0) g/dL Hct 32.9 L (37.2-46.3) % MPV 8.7 L (9.5-12.2) fL Immature Gran # 0.07 H (0.00-0.04) X 10*3/uL Neutrophils # 8.97 H (1.80-7.70) X 10*3/uL Lymphocytes # 0.82 L (0.90-5.00) X 10*3/uL Monocytes # 1.01 H (0.20-1.00) X 10*3/uL Eosinophils # 0 L (0.04-0.35) X 10*3/uL Sodium 130 L (135-145) mmol/L Anion Gap 8.80 L (10.00-18.00) mmol/L BUN 7.7 L (9.0-27.0) mg/dL Creatinine 0.5 L (0.6-1.5) mg/dL Glucose 112 H (70-110) mg/dL Calcium 7.6 L (8.7-10.3) mg/dL
[2022-11-25] MEDS: D5-0.45% NACL WITH KCL 20MEQ/L 1,000 ML IV SCH (06:06)
[2022-11-25] MEDS: HEPARIN SODIUM,PORCINE/PF 5,000 UNIT/0.5 ML SYRINGE SQ SCH ×3 (08:11→23:09)
[2022-11-25] MEDS: PANTOPRAZOLE 40 MG/10 ML VIAL IV SCH (08:11)
[2022-11-25] MEDS: SIMETHICONE 40 MG/0.6 ML DROPS 2,000 MG/30 ML BOTTLE PO SCH ×4 (08:12→20:07)
[2022-11-25] MEDS: ESCITALOPRAM 20 MG TAB PO SCH (08:12)
[2022-11-25] MEDS: NUVIGIL 250 MG PO SCH (09:22)
[2022-11-25 09:48] LABS: African American GFR (CKD) >90 (>60 ml/min/1.73 sqM); Anion Gap 7 mmol/L; Blood Urea Nitrogen 8 mg/dL (7-17); Calcium 7.3 mg/dL (8.4-10.2); Carbon Dioxide 24 mmol/L (22-30); Chloride 95 mmol/L (98-107); Glucose 96 mg/dL (74-99); Non-African American GFR(CKD) >90 (>60 ml/min/1.73 sqM); Potassium 3.4 mmol/L (3.5-5.1); Sodium 126 mmol/L (137-145)
[2022-11-25 09:50] LABS: HCT 33.3 % (34.0-46.0); HGB 10.8 gm/dL (11.4-16.0); WBC 14.5 k/uL (3.8-10.6)
[2022-11-25 09:51] LABS: Basophils % (A) 0 %; Eosinophils # (A) 0.1 k/uL (0-0.7); Eosinophils % (A) 1 %; Lymphocytes # (A) 0.8 k/uL (1.0-4.8); Lymphocytes % (A) 6 %; MCH 30.1 pg (25.0-35.0); MCHC 32.5 g/dL (31.0-37.0); MCV 92.7 fL (80.0-100.0); Mean Platelet Volume 6.8; Monocytes # (A) 0.7 k/uL (0-1.0); Monocytes % (A) 5 %; Neutrophils # (A) 12.7 k/uL (1.3-7.7); Neutrophils % (A) 88 %; Platelet Count 266 k/uL (150-450); RDW 12.6 % (11.5-15.5)
--- NOTE | 2022-11-25 11:53 | P.PN ---
Subjective Progress Note Date: 11/25/22 CHIEF COMPLAINT: Abdominal pain HISTORY OF PRESENT ILLNESS: Patient is postop day #6 status post exploratory laparotomy, lysis of extensive adhesions, ileocolectomy and partial omentectomy for small bowel obstruction secondary to adhesions and internal hernia and previous anastomotic site. Patient reports having diarrhea. Her pain is controlled. Denies any nausea or vomiting. Patient does report cough, shortness of breath and lower extremity edema. Afebrile. Mild tachycardia WBC is up from 10-14.5 Hgb10.8 platelets 266 Na 126 K 3.4 Cr 0.43 Patient seen and examined with Dr. hall PHYSICAL EXAM: VITAL SIGNS: Reviewed. GENERAL: Well-developed in no acute distress. HEENT: No sclera icterus. Extraocular movements grossly intact. Moist buccal mucosa. Head is atraumatic, normocephalic. ABDOMEN: Soft. Mild tenderness at incision site. Incision clean dry and intact. Near the umbilicus small amount of the internal suture is protruding out. The suture was cut back to the incision. NEUROLOGIC: Alert and oriented. Cranial nerves II through XII grossly intact. ASSESSMENT: 1. Small bowel obstruction secondary to adhesions and internal hernia status post exploratory laparotomy, lysis of extensive adhesions, ileocolectomy and partial omentectomy 2. Leukocytosis 3. Hyponatremia PLAN: -Hyponatremia management per medicine service -Continue low fiber diet -Discontinue D5 half-normal saline -Check chest x-ray for shortness of breath and cough -Continue pain management -Encouraged patient to increase activity level -Encouraged patient to use incentive spirometer -GI prophylaxis Protonix and DVT prophylaxis subcu heparin Physician Recreation Worker note has been reviewed by physician. Signing provider agrees with the documented findings, assessment, and plan of care. Objective - Vital Signs Vital signs: Vital Signs Temp 98.8 F 11/25/22 07:53 Pulse 101 H 11/25/22 07:53 Resp 17 11/25/22 07:53 BP 121/71 11/25/22 07:53 Pulse Ox 95 11/25/22 09:03 FiO2 Intake & Output 11/24/22 11/25/22 11/25/22 18:59 06:59 18:59 Intake Total 200 Balance 200 Intake: Oral 200 Other: Voiding Method Bedside Commode Bedside Commode # Voids 1 4 # Bowel Movements 1 8 - Labs CBC & Chem 7: 11/25/22 09:04 11/25/22 09:04 Labs: Abnormal Lab Results - Last 24 Hours (Table) 11/24/22 11/25/22 11/25/22 Range/Units 05:40 09:04 09:04 WBC 10.87 H 14.5 H (4.50-10.00) X 10*3/uL RBC 3.51 L 3.60 L (4.10-5.20) X 10*6/uL Hgb 10.9 L 10.8 L (12.0-15.0) g/dL Hct 32.9 L 33.3 L (37.2-46.3) % MPV 8.7 L (9.5-12.2) fL Immature Gran # 0.07 H (0.00-0.04) X 10*3/uL Neutrophils # 8.97 H 12.7 H (1.80-7.70) X 10*3/uL Lymphocytes # 0.82 L 0.8 L (0.90-5.00) X 10*3/uL Monocytes # 1.01 H (0.20-1.00) X 10*3/uL Eosinophils # 0 L (0.04-0.35) X 10*3/uL Sodium 126 L (137-145) mmol/L Potassium 3.4 L (3.5-5.1) mmol/L Chloride 95 L (98-107) mmol/L Creatinine 0.43 L (0.52-1.04) mg/dL Calcium 7.3 L (8.4-10.2) mg/dL
--- NOTE | 2022-11-25 12:46 | XR ---
EXAMINATION TYPE: XR chest 2V DATE OF EXAM: 11/25/2022 COMPARISON: 11/18/2022 INDICATION: Cough, shortness of breath TECHNIQUE: Frontal and lateral views of the chest are obtained. FINDINGS: The heart size is normal. The pulmonary vasculature is normal. There is hyperinflation flattening of diaphragms compatible COPD. There is blunting of the costophren ic angles. Small loculated effusions are not excluded there may be some fluid in the minor fissure on the right. Scoliosis is within thoracolumbar spine IMPRESSION: 1. Small developing loculated pleural effusions
[2022-11-25] MEDS ORDERED: POTASSIUM CHLORIDE ER 20 MEQ TAB.ER PO STA (12:59)
--- NOTE | 2022-11-25 15:22 | P.PN ---
Subjective Progress Note Date: 11/25/22 Hospital course: Patient is a very pleasant 72-year-old female with a past medical history of small bowel obstruction, asthma, hyperlipidemia, and anxiety. She presented to the emergency department with a chief complaint of abdominal pain and reports of recurrent episodes of dark brown emesis on 11/17/22.. She underwent full evaluation in the emergency department and was found to have a small bowel obstruction and admitted under our services with consultation to general surgery. Physical exam: Vital signs reviewed and stable. General: Nontoxic, no distress and appears stated age. Derm: Skin warm and dry, normal coloration for ethnicity. Head: Atraumatic, normocephalic and symmetric. Eyes: EOMs intact, no lid lag, and anicteric sclera Mouth: no lip lesions, mucus membranes moist Cardiovascular: regular rate and rhythm with normal S1S2, no murmur, positive posterior tibial pulses bilaterally, and cap refill < 2 seconds. Lungs: Respirations even, regular, and unlabored on room air. Lungs CTA bilaterally, no rhonchi, no rales, no wheezing, and no accessory muscle usage. Abdominal: Abdomen distended, soft nontender to palpation, no guarding, no appreciable organomegaly Ext: ROM intact. No gross muscle atrophy, scant lower extremity edema, no contractures Neuro: Speech clear, face symmetrical and CN II-XII grossly intact with no noted focal neuro deficits Psych: Alert and oriented to person, place, time, and situation. Appropriate and pleasant affect. Assessment and Plan of Care: Small bowel obstruction status post exploratory laparoscopic procedure with lysis of adhesions, ileocolectomy, and partial omentectomy Leukocytosis Hyponatremia Hypokalemia -Morning labs reviewed. CBC showing increasing leukocytosis with WBC count of 14.5, patient showing no signs of infection. She remains afebrile and showing improvement with no further episodes of nausea or vomiting and reports of passing flatus and soft formed stools. BMP showing hyponatremia with sodium 126 decreasing from previous 130, potassium 3.4, and chloride 95. -Patient has been on D5 infusion over the past few days and sodium level slowly decreasing from 134 down to 1:30 and now down to 126 this morning. D5 infusion was discontinued and will monitor for improvement in his sodium levels. -Morning chest x-ray showing signs of fluid overload and patient with scant bilateral lower extremity edema will avoid additional fluids at this time pending repeat Sodium levels. -Order placed for repeat morning BMP, CBC, magnesium, and BNP. -Discussed plan of care with general surgery PA. We will hold off on starting patient on additional fluids secondary to concerns of fluid overload. Sodium levels should improve status post discontinuation of D5 infusion. -Continue with symptomatic care and pain management with Dilaudid 1 mg every 3 hours as needed for severe pain/discomfort. -Continue Reglan 10 mg every 6 hours as needed for nausea vomiting. CODE STATUS: Full code DVT prophylaxis: Heparin Discussed with: Patient, RN, and general surgery PA Anticipated discharge date: Clinical course to determine Anticipated discharge place: Patient requesting discharge to [facility] for rehab Patient was seen independently by Nurse Pracitioner. This document was prepared using [employer] dictation software. Please allow for errors in muffler tender, while rare they do occur. Objective - Vital Signs Vital signs: Vital Signs Temp 98.8 F 11/25/22 07:53 Pulse 101 H 11/25/22 07:53 Resp 17 11/25/22 07:53 BP 121/71 11/25/22 07:53 Pulse Ox 95 11/25/22 09:03 FiO2 Intake & Output 11/24/22 11/25/22 11/25/22 18:59 06:59 18:59 Intake Total 200 Balance 200 Weight 43.545 kg Intake: Oral 200 Other: Voiding Method Bedside Commode Bedside Commode # Voids 1 4 # Bowel Movements 1 8 - Labs CBC & Chem 7: 11/25/22 09:04 11/25/22 15:31 Labs: Abnormal Lab Results - Last 24 Hours (Table) 11/25/22 11/25/22 Range/Units 09:04 09:04 WBC 14.5 H (3.8-10.6) k/uL RBC 3.60 L (3.80-5.40) m/uL Hgb 10.8 L (11.4-16.0) gm/dL Hct 33.3 L (34.0-46.0) % Neutrophils # 12.7 H (1.3-7.7) k/uL Lymphocytes # 0.8 L (1.0-4.8) k/uL Sodium 126 L (137-145) mmol/L Potassium 3.4 L (3.5-5.1) mmol/L Chloride 95 L (98-107) mmol/L Creatinine 0.43 L (0.52-1.04) mg/dL Calcium 7.3 L (8.4-10.2) mg/dL Assessment and Plan Assessment: Fernando Chester NP rendered care for this patient independently, reviewed the findings and plan as documented in the note above. I did not physically speak with our examined the patient on this date.
[2022-11-25 16:39] LABS: African American GFR (CKD) >90 (>60 ml/min/1.73 sqM); Anion Gap 7 mmol/L; Blood Urea Nitrogen 7 mg/dL (7-17); Calcium 7.6 mg/dL (8.4-10.2); Carbon Dioxide 25 mmol/L (22-30); Chloride 94 mmol/L (98-107); Glucose 83 mg/dL (74-99); Non-African American GFR(CKD) >90 (>60 ml/min/1.73 sqM); Potassium 3.7 mmol/L (3.5-5.1); Sodium 126 mmol/L (137-145)
[2022-11-25] MEDS ORDERED: CALCIUM GLUCONATE IN NACL 1 GM in SALINE 1 100ML.BAG IVPB ONE (19:15)
[2022-11-25] MEDS: ATORVASTATIN 10 MG TAB PO SCH (20:06)
[2022-11-25] MEDS: traMADol 50 MG TAB PO PRN (23:09)
[2022-11-26] MEDS: traMADol 50 MG TAB PO PRN ×2 (04:41→14:18)
[2022-11-26] MEDS: HEPARIN SODIUM,PORCINE/PF 5,000 UNIT/0.5 ML SYRINGE SQ SCH ×2 (08:59→15:55)
[2022-11-26] MEDS: ESCITALOPRAM 20 MG TAB PO SCH (08:59)
[2022-11-26] MEDS: PANTOPRAZOLE 40 MG/10 ML VIAL IV SCH (08:59)
[2022-11-26] MEDS: SIMETHICONE 40 MG/0.6 ML DROPS 2,000 MG/30 ML BOTTLE PO SCH ×4 (09:00→19:50)
[2022-11-26] MEDS: NUVIGIL 250 MG PO SCH (09:25)
[2022-11-26 10:56] LABS: HCT 32.6 % (37.2-46.3); HGB 10.8 g/dL (12.0-15.0); MCH 30.5 pg (27.0-32.0); MCHC 33.1 g/dL (32.0-37.0); MCV 92.1 fL (80.0-97.0); Mean Platelet Volume 8.8 fL (9.5-12.2); NRBC Per 100 WBC 0 /100 WBCS (0.0-0.0); Platelet Count 217 X 10*3/uL (140-440); RBC 3.54 X 10*6/uL (4.10-5.20); RDW 12.1 % (11.5-14.5); WBC 18.95 X 10*3/uL (4.50-10.00)
[2022-11-26 11:08] LABS: African American GFR (CKD) 113.8 (60.0-200.0); Anion Gap 8.9 mmol/L (10.00-18.00); BUN/Creat Ratio 14.49 Ratio (12.00-20.00); Blood Urea Nitrogen 6.6 mg/dL (9.0-27.0); Calcium 8.1 mg/dL (8.7-10.3); Carbon Dioxide 24.9 mmol/L (20.0-27.5); Magnesium 1.5 mg/dL (1.5-2.4); Non-African American GFR(CKD) 98.2 (60.0-200.0); Potassium 3.9 mmol/L (3.5-5.5)
--- NOTE | 2022-11-26 11:26 | P.PN ---
Subjective Progress Note Date: 11/26/22 Hospital course: Patient is a very pleasant 72-year-old female with a past medical history of small bowel obstruction, asthma, hyperlipidemia, and anxiety. She presented to the emergency department with a chief complaint of abdominal pain and reports of recurrent episodes of dark brown emesis on 11/17/22.. She underwent full evaluation in the emergency department. Initial labs were completed and reviewed with CBC revealing WBC count of 9.7, hemoglobin 15.2, and platelet count of 392. BMP revealing sodium 136, chloride 95, BUN 26, creatinine 0.61, and GFR of 90. Liver profile normal findings. Urinalysis was negative for infection. CT abdomen and pelvis was completed showing a high-grade small bowel obstruction was suggested transition point at the anastomosis in the mid left abdomen. Patient was admitted under our services with consultation to general surgery. Physical exam: Patient seen and fully evaluated at the bedside this morning. Patient reporting frequent small amounts of liquid stool. She denies having any further episodes of nausea or vomiting. Patient's abdomen is distended but she denies having any pain or complaints at this time. Vital signs reviewed and stable. General: Nontoxic, no distress and appears stated age. Derm: Skin warm and dry, normal coloration for ethnicity. Abdominal incision with dressing clean, dry, and intact. No signs of drainage. Head: Atraumatic, normocephalic and symmetric. Eyes: EOMs intact, no lid lag, and anicteric sclera Mouth: no lip lesions, mucus membranes moist Cardiovascular: regular rate and rhythm with normal S1S2, no murmur, positive posterior tibial pulses bilaterally, and cap refill < 2 seconds. Lungs: Respirations even, regular, and unlabored on room air. Lungs CTA bilaterally, no rhonchi, no rales, no wheezing, and no accessory muscle usage. Abdominal: Abdomen soft distended, nontender to palpation, no guarding, no a ppreciable organomegaly Ext: ROM intact. No gross muscle atrophy, scant lower extremity edema, no co ntractures Neuro: Speech clear, face symmetrical and CN II-XII grossly intact with no noted focal neuro deficits Psych: Alert and oriented to person, place, time, and situation. Appropriate and pleasant affect. Assessment and Plan of Care: Small bowel obstruction status post exploratory laparoscopic procedure with lysis of adhesions, ileocolectomy, and partial omentectomy Leukocytosis, worsening Hypomagnesemia Hyponatremia, improved Hypokalemia, resolved -Morning labs reviewed. CBC showing continued worsening of leukocytosis increasing to 18.95 with left shift with immature granulocytes 0.15, neutrophils 16.57, monocytes 1.12, eosinophils 0.03, and basophils of 0.12. Hemoglobin remained stable at 10.8. BMP revealing improvement of hyponatremia from 126 up to 131 and resolution of hypochloremia. Renal function remains stable with BUN of 6.6, creatinine 0.5, and GFR of 98.2. Magnesium low at 1.5. -Order placed for stool culture, Clostridium difficile PCR, and CT abdomen and pelvis with oral contrast. -Patient remains afebrile and continues to deny having any episodes of nausea or vomiting but states she is passing frequent and small amounts of liquid stool. Postoperative wound to the abdomen intact and appears to be healing well with no signs of infection as there are no signs of drainage, erythema, or surrounding edema. -Discussed concerns of increasing leukocytosis and abdominal distention with general surgeon and general surgery PA, they are starting patient on Zosyn at this time. -Magnesium 1.5, orders placed for magnesium sulfate 3 g IVPB for replacement. -Order placed for repeat morning BMP, CBC, and magnesium, -Continue with symptomatic care and pain management with Dilaudid 1 mg every 3 hours as needed for severe pain/discomfort. -Continue Reglan 10 mg every 6 hours as needed for nausea vomiting. CODE STATUS: Full code DVT prophylaxis: Heparin Discussed with: Patient, RN, general surgeon and general surgery PA Anticipated discharge date: Clinical course to determine Anticipated discharge place: Patient requesting discharge to [facility] for rehab Patient was seen independently by Nurse Pracitioner. This document was prepared using [employer] dictation software. Please allow for errors in pediatric neurologist, while rare they do occur. Fernando Chester NP rendered care for this patient independently, reviewed the findings and plan as documented in the note above. I did not physically speak with or examine the patient on this date. Objective - Vital Signs Vital signs: Vital Signs Temp 98.5 F 11/26/22 02:00 Pulse 96 11/26/22 02:00 Resp 14 11/26/22 02:00 BP 138/84 11/26/22 02:00 Pulse Ox 100 11/26/22 07:41 FiO2 Intake & Output 11/25/22 11/26/2211/26/23 18:59 06:59 18:59 Weight 43.545 kg Other: Voiding Method Bedside Commode # Voids 4 - Labs CBC & Chem 7: 11/28/22 06:06 11/28/22 06:06 Labs: Abnormal Lab Results - Last 24 Hours (Table) 11/25/22 11/25/22 11/25/22 Range/Units 09:04 09:04 15:31 WBC 14.5 H (3.8-10.6) k/uL RBC 3.60 L (3.80-5.40) m/uL Hgb 10.8 L (11.4-16.0) gm/dL Hct 33.3 L (34.0-46.0) % Neutrophils # 12.7 H (1.3-7.7) k/uL Lymphocytes # 0.8 L (1.0-4.8) k/uL Sodium 126 L 126 L (137-145) mmol/L Potassium 3.4 L (3.5-5.1) mmol/L Chloride 95 L 94 L (98-107) mmol/L Creatinine 0.43 L 0.41 L (0.52-1.04) mg/dL Calcium 7.3 L 7.6 L (8.4-10.2) mg/dL
[2022-11-26] MEDS: BARIUM SULFATE 450 ML ORAL.SUSP BOTTLE PO PRN ×2 (12:29→15:24)
[2022-11-26 13:41] LABS: Basophils # (A) 0.12 X 10*3/uL (0.00-0.10); Basophils % (A) 0.6 %; Crenated RBC 2+; Eosinophils # (A) 0.03 X 10*3/uL (0.04-0.35); Eosinophils % (A) 0.2 %; Immature Grans, Automated 0.8 %; Lymphocytes # (A) 0.96 X 10*3/uL (0.90-5.00); Lymphocytes % (A) 5.1 %; Monocytes # (A) 1.12 X 10*3/uL (0.20-1.00); Monocytes % (A) 5.9 %; Neutrophils # (A) 16.57 X 10*3/uL (1.80-7.70); Neutrophils % (A) 87.4 %
--- NOTE | 2022-11-26 13:52 | P.PN ---
Subjective Progress Note Date: 11/26/22 CHIEF COMPLAINT: Abdominal pain HISTORY OF PRESENT ILLNESS: Patient is postop day #7 status post exploratory laparotomy, lysis of extensive adhesions, ileocolectomy and partial omentectomy for small bowel obstruction secondary to adhesions and internal hernia and previous anastomotic site. Patient continues to complain of diarrhea. Her white count has gone up from 14-18. She's afebrile. Heart rate 102. Sodium improved from 126-131 creatinine 0.5 chest x-ray small developing loculated pleural effusions. IV fluids discontinued yesterday. Patient seen and examined with Dr. hall PHYSICAL EXAM: VITAL SIGNS: Reviewed. GENERAL: Well-developed in no acute distress. HEENT: No sclera icterus. Extraocular movements grossly intact. Moist buccal mucosa. Head is atraumatic, normocephalic. ABDOMEN: Soft. Mildly distended. Incision site clean dry and intact. There is a small suture protruding from incision this was cut back. No drainage noted. NEUROLOGIC: Alert and oriented. Cranial nerves II through XII grossly intact. ASSESSMENT: 1. Small bowel obstruction secondary to adhesions and internal hernia status post exploratory laparotomy, lysis of extensive adhesions, ileocolectomy and partial omentectomy 2. Leukocytosis 3. Hyponatremia PLAN: -Add IV Zosyn for leukocytosis -Check stool for C. diff due to significant amount of diarrhea. However, do anticipate stools to be reduced due to the ileocolectomy -Continue pain management -Continue on fiber diet -Repeat CBC in a.m. -Encouraged patient to increase activity level -Encouraged patient to use incentive spirometer -GI prophylaxis Protonix and DVT prophylaxis subcu heparin Physician Hospital Secretary note has been reviewed by physician. Signing provider agrees with the documented findings, assessment, and plan of care. Objective - Vital Signs Vital signs: Vital Signs Temp 98.0 F 11/26/22 08:00 Pulse 102 H 11/26/22 08:00 Resp 16 11/26/22 08:00 BP 125/69 11/26/22 08:00 Pulse Ox 99 11/26/22 08:00 FiO2 Intake & Output 11/25/22 11/26/22 11/26/22 18:59 06:59 18:59 Intake Total 118 Balance 118 Weight 43.545 kg Intake: Oral 118 Other: Voiding Method Bedside Commode Bedside Commode # Voids 4 1 # Bowel Movements 1 - Labs CBC & Chem 7: 11/26/22 05:49 11/26/22 05:49 Labs: Abnormal Lab Results - Last 24 Hours (Table) 11/25/22 11/26/22 11/26/22 Range/Units 15:31 05:49 05:49 WBC 18.95 H (4.50-10.00) X 10*3/uL RBC 3.54 L (4.10-5.20) X 10*6/uL Hgb 10.8 L (12.0-15.0) g/dL Hct 32.6 L (37.2-46.3) % MPV 8.8 L (9.5-12.2) fL Immature Gran # 0.15 H (0.00-0.04) X 10*3/uL Neutrophils # 16.57 H (1.80-7.70) X 10*3/uL Monocytes # 1.12 H (0.20-1.00) X 10*3/uL Eosinophils # 0.03 L (0.04-0.35) X 10*3/uL Basophils # 0.12 H (0.00-0.10) X 10*3/uL Sodium 126 L 131 L (137-145) mmol/L Chloride 94 L (98-107) mmol/L Anion Gap 8.90 L (10.00-18.00) mmol/L BUN 6.6 L (9.0-27.0) mg/dL Creatinine 0.41 L 0.5 L (0.52-1.04) mg/dL Glucose 57 L (70-110) mg/dL Calcium 7.6 L 8.1 L (8.4-10.2) mg/dL
[2022-11-26] MEDS: PIPERACILLIN-TAZOBACTAM 3.375 GM in SODIUM CHLORIDE 0.9% 100 ML IVPB SCH (16:47)
[2022-11-26] MEDS: MAGNESIUM SULFATE-D5W PMX 1 GM in DEXTROSE/WATER 1 100ML.BAG IVPB SCH ×3 (18:17→20:50)
--- NOTE | 2022-11-26 18:30 | CT ---
EXAMINATION TYPE: CT abdomen pelvis wo con DATE OF EXAM: 11/26/2022 COMPARISON: 11/18/2022 INDICATION: Abdominal distention and Hx of SBO DLP: 261.6 mGycm, Automated exposure control for dose reduction was used. CONTRAST: 0 mL of Isovue 300. Study performed with Oral Contrast TECHNIQUE: Axial images were obtained from above the diaphragm to the pubic rami in the axial plane a t 5 mm thick sections. Reconstructed images are reviewed on the computer in the coronal plane. FINDINGS: Limited CT sections are obtained the lung bases. The lung bases are clear. CT ABDOMEN: Liver: Normal Spleen: Normal Pancreas: Not identified Adrenal glands: Poorly visualized. No obvious mass is evident. Gallbladder: Surgically absent Kidneys: No masses are evident. No hydronephrosis is present. No cysts are present. No renal stone s are identified. Beam hardening artifact from the patient's thoracic spine surgery or limiting eval uation. Aorta: Vascular calcification is within the aorta. Inferior vena cava: Normal. CT PELVIS: Stomach is partially distended. There are prominent small bowel loops present. Rectum appears to be m arkedly distended. There is some scattered air within the rectum. The ascending colon is prominent. T here is prominence of the transverse colon. The hepatic flexure may be small. Dilated ascending colon however is not identified. Descending colon is somewhat prominent. However, contrast does not enter the larger distended rectum. Correlate for fecal impaction. In the coronal plane the small bowel loop s prominence are better appreciated. When compared to the prior examination, the colon may be somewha t more prominent. Small bowel loops appear decompressed compared to previous exam. Zone of transition is not identified on the current exam Appendix: Not visualized Urinary bladder: Distended Genitourinary structures: Uterus and ovaries are not identified. Osseous structures: No suspicious lytic or sclerotic lesions. IMPRESSIONS: 1. Prominent: And small bowel loops. There may be slight decompression of the small bowel loops from comparison. The colon is slightly more prominent and extends to the rectum. Consider fecal impactio n.
[2022-11-26] MEDS: ATORVASTATIN 10 MG TAB PO SCH (19:44)
[2022-11-27] MEDS: PIPERACILLIN-TAZOBACTAM 3.375 GM in SODIUM CHLORIDE 0.9% 100 ML IVPB SCH ×4 (02:06→23:07)
[2022-11-27] MEDS: HEPARIN SODIUM,PORCINE/PF 5,000 UNIT/0.5 ML SYRINGE SQ SCH ×4 (02:06→20:44)
[2022-11-27 06:21] LABS: Basophils % (A) 0 %; Eosinophils # (A) 0.1 k/uL (0-0.7); Eosinophils % (A) 0 %; HCT 33.9 % (34.0-46.0); HGB 10.8 gm/dL (11.4-16.0); Lymphocytes # (A) 0.6 k/uL (1.0-4.8); Lymphocytes % (A) 5 %; MCH 29.9 pg (25.0-35.0); MCHC 31.7 g/dL (31.0-37.0); MCV 94.4 fL (80.0-100.0); Mean Platelet Volume 6.4; Monocytes # (A) 0.8 k/uL (0-1.0); Monocytes % (A) 6 %; Neutrophils # (A) 12.3 k/uL (1.3-7.7); Neutrophils % (A) 88 %; Platelet Count 253 k/uL (150-450); RBC 3.59 m/uL (3.80-5.40); RDW 12.1 % (11.5-15.5)
[2022-11-27] MEDS: ESCITALOPRAM 20 MG TAB PO SCH (08:26)
[2022-11-27] MEDS: PANTOPRAZOLE 40 MG/10 ML VIAL IV SCH (08:26)
[2022-11-27] MEDS: SIMETHICONE 40 MG/0.6 ML DROPS 2,000 MG/30 ML BOTTLE PO SCH ×4 (08:27→20:45)
[2022-11-27] MEDS: NUVIGIL 250 MG PO SCH (09:57)
[2022-11-27] MEDS ORDERED: LACTULOSE 20 GM/30 ML CUP PO ONE ×2 (12:13→14:30)
--- NOTE | 2022-11-27 14:15 | P.PN ---
Subjective Progress Note Date: 11/27/22 CHIEF COMPLAINT: Abdominal pain HISTORY OF PRESENT ILLNESS: Patient is postop day #8 status post exploratory laparotomy, lysis of extensive adhesions, ileocolectomy and partial omentectomy for small bowel obstruction secondary to adhesions and internal hernia at previous anastomotic site. Patient continues to complain of more of diarrhea. Her abdominal pain is controlled and improving each day. She denies any nausea or vomiting. Afebrile. Zosyn was added yesterday white count has trended down from 18-14 Hgb is 10.8 platelets 253 stool for C. diff is negative. Computed tomography scan abdomen and pelvis shows prominent small bowel loops. There may be slight decompression of the small bowel loops from comparison. The colon is slightly more prominent and extends to the rectum consider fecal impaction. Patient seen and examined with Dr. hall PHYSICAL EXAM: VITAL SIGNS: Reviewed. GENERAL: Well-developed in no acute distress. HEENT: No sclera icterus. Extraocular movements grossly intact. Moist buccal mucosa. Head is atraumatic, normocephalic. ABDOMEN: Soft. Mildly distended. Incision site clean dry and intact. There is a small suture protruding from incision this was cut back. No drainage noted. NEUROLOGIC: Alert and oriented. Cranial nerves II through XII grossly intact. ASSESSMENT: 1. Small bowel obstruction secondary to adhesions and internal hernia status post exploratory laparotomy, lysis of extensive adhesions, ileocolectomy and partial omentectomy 2. Leukocytosis 3. Hyponatremia PLAN: -Lactulose will be given for possible fecal impaction -Continue IV Zosyn for leukocytosis -However, do anticipate stools to be loose due to the ileocolectomy -Continue pain management -Continue on low fiber diet -Repeat CBC in a.m. -Encouraged patient to increase activity level -Encouraged patient to use incentive spirometer -Social work is following the patient in regards to domestic issues in the home -Patient will need ECF at discharge -GI prophylaxis Protonix and DVT prophylaxis subcu heparin Physician Material Coordinator note has been reviewed by physician. Signing provider agrees with the documented findings, assessment, and plan of care. Objective - Vital Signs Vital signs: Vital Signs Temp 98.6 F 11/27/22 07:20 Pulse 97 11/27/22 08:00 Resp 18 11/27/22 08:00 BP 147/77 11/27/22 07:20 Pulse Ox 100 11/27/22 07:20 FiO2 Intake & Output 11/26/22 11/27/22 11/27/22 18:59 06:59 18:59 Intake Total 118 Balance 118 Intake: Oral 118 Other: Voiding Method Bedside Commode Bedside Commode Bedside Commode # Voids 1 # Bowel Movements 1 - Labs CBC & Chem 7: 11/27/22 06:00 11/26/22 05:49 Labs: Abnormal Lab Results - Last 24 Hours (Table) 11/27/22 Range/Units 06:00 WBC 14.0 H (3.8-10.6) k/uL RBC 3.59 L (3.80-5.40) m/uL Hgb 10.8 L (11.4-16.0) gm/dL Hct 33.9 L (34.0-46.0) % Neutrophils # 12.3 H (1.3-7.7) k/uL Lymphocytes # 0.6 L (1.0-4.8) k/uL
[2022-11-27] MEDS: traMADol 50 MG TAB PO PRN (18:42)
--- NOTE | 2022-11-27 19:23 | P.PN ---
Subjective Progress Note Date: 11/27/22 Hospital course: Patient is a very pleasant 72-year-old female with a past medical history of small bowel obstruction, asthma, hyperlipidemia, and anxiety. She presented to the emergency department with a chief complaint of abdominal pain and reports of recurrent episodes of dark brown emesis on 11/17/22.. She underwent full evaluation in the emergency department. Initial labs were completed and reviewed with CBC revealing WBC count of 9.7, hemoglobin 15.2, and platelet count of 392. BMP revealing sodium 136, chloride 95, BUN 26, creatinine 0.61, and GFR of 90. Liver profile normal findings. Urinalysis was negative for infection. CT abdomen and pelvis was completed showing a high-grade small bowel obstruction was suggested transition point at the anastomosis in the mid left abdomen. Patient was admitted under our services with consultation to general surgery. Physical exam: Patient seen and fully evaluated at the bedside this morning. Patient reporting continued frequent small amounts of liquid stool. She denies having any further episodes of nausea or vomiting. Patient's abdomen is distended but she denies having any pain or complaints at this time. Vital signs reviewed and stable. General: Nontoxic, no distress and appears stated age. Derm: Skin warm and dry, normal coloration for ethnicity. Abdominal incision with dressing clean, dry, and intact. No signs of drainage. Head: Atraumatic, normocephalic and symmetric. Eyes: EOMs intact, no lid lag, and anicteric sclera Mouth: no lip lesions, mucus membranes moist Cardiovascular: regular rate and rhythm with normal S1S2, no murmur, positive posterior tibial pulses bilaterally, and cap refill < 2 seconds. Lungs: Respirations even, regular, and unlabored on room air. Lungs CTA bilaterally, no rhonchi, no rales, no wheezing, and no accessory muscle usage. Abdominal: Abdomen soft distended, nontender to palpation, no guarding, no appreciable organomegaly Ext: ROM intact. No gross muscle atrophy, scant lower extremity edema, no contractures Neuro: Speech clear, face symmetrical and CN II-XII grossly intact with no noted focal neuro deficits Psych: Alert and oriented to person, place, time, and situation. Appropriate and pleasant affect. Assessment and Plan of Care: Small bowel obstruction status post exploratory laparoscopic procedure with lysis of adhesions, ileocolectomy, and partial omentectomy. Leukocytosis, improving Hypomagnesemia Hyponatremia, improved Hypokalemia, resolved -Morning labs reviewed. CBC showing improvement of leukocytosis with WBC count decreasing down to 14 from previous 18.95, stable normocytic anemia with hemoglobin of 10.8. -Stool culture pending. Clostridium difficile PCR negative -CT abdomen and pelvis with oral contrast was completed revealing a fecal impaction -Patient remains on Zosyn 3.375 g every 8 hours. -Gen. surgery following, general surgeon recommending administration of lactu lose and monitoring for improvement of fecal impaction. -Order placed for repeat morning BMP, CBC, and magnesium, -Continue with symptomatic care and pain management with Dilaudid 1 mg every 3 hours as needed for severe pain/discomfort. -Continue Reglan 10 mg every 6 hours as needed for nausea vomiting. CODE STATUS: Full code DVT prophylaxis: Heparin Discussed with: Patient, RN, general surgeon and general surgeon Anticipated discharge date: Clinical course to determine Anticipated discharge place: Patient requesting discharge to [facility] for rehab Patient was seen independently by Nurse Pracitioner. This document was prepared using [employer] dictation software. Please allow for errors in secretarial stenographer, while rare they do occur. Objective - Vital Signs Vital signs: Vital Signs Temp 98.6 F 11/27/22 07:20 Pulse 97 11/27/22 07:20 Resp 18 11/27/22 07:20 BP 147/77 11/27/22 07:20 Pulse Ox 100 11/27/22 07:20 FiO2 Intake & Output 11/26/22 11/27/22 11/27/22 18:59 06:59 18:59 Intake Total 118 Balance 118 Intake: Oral 118 Other: Voiding Method Bedside Commode Bedside Commode # Voids 1 # Bowel Movements 1 - Labs CBC & Chem 7: 11/27/22 06:00 11/26/22 05:49 Labs: Abnormal Lab Results - Last 24 Hours (Table) 11/26/22 11/26/22 11/27/22 Range/Units 05:49 05:49 06:00 WBC 18.95 H 14.0 H (4.50-10.00) X 10*3/uL RBC 3.54 L 3.59 L (4.10-5.20) X 10*6/uL Hgb 10.8 L 10.8 L (12.0-15.0) g/dL Hct 32.6 L 33.9 L (37.2-46.3) % MPV 8.8 L (9.5-12.2) fL Immature Gran # 0.15 H (0.00-0.04) X 10*3/uL Neutrophils # 16.57 H 12.3 H (1.80-7.70) X 10*3/uL Lymphocytes # 0.6 L (1.0-4.8) k/uL Monocytes # 1.12 H (0.20-1.00) X 10*3/uL Eosinophils # 0.03 L (0.04-0.35) X 10*3/uL Basophils # 0.12 H (0.00-0.10) X 10*3/uL Sodium 131 L (135-145) mmol/L Anion Gap 8.90 L (10.00-18.00) mmol/L BUN 6.6 L (9.0-27.0) mg/dL Creatinine 0.5 L (0.6-1.5) mg/dL Glucose 57 L (70-110) mg/dL Calcium 8.1 L (8.7-10.3) mg/dL
[2022-11-27] MEDS: ATORVASTATIN 10 MG TAB PO SCH (20:44)
[2022-11-27] MEDS: ALPRAZolam 0.25 MG TAB PO PRN (23:06)
[2022-11-28] MEDS: PIPERACILLIN-TAZOBACTAM 3.375 GM in SODIUM CHLORIDE 0.9% 100 ML IVPB SCH ×2 (08:59→16:43)
[2022-11-28] MEDS: ESCITALOPRAM 20 MG TAB PO SCH (09:08)
[2022-11-28] MEDS: HEPARIN SODIUM,PORCINE/PF 5,000 UNIT/0.5 ML SYRINGE SQ SCH ×3 (09:08→21:01)
[2022-11-28] MEDS: PANTOPRAZOLE 40 MG/10 ML VIAL IV SCH (09:09)
[2022-11-28] MEDS: NUVIGIL 250 MG PO SCH (09:33)
[2022-11-28] MEDS: SIMETHICONE 40 MG/0.6 ML DROPS 2,000 MG/30 ML BOTTLE PO SCH ×4 (11:22→21:03)
[2022-11-28 11:44] LABS: African American GFR (CKD) 118.9 (60.0-200.0); Anion Gap 8.3 mmol/L (10.00-18.00); BUN/Creat Ratio 8.75 Ratio (12.00-20.00); Blood Urea Nitrogen 3.5 mg/dL (9.0-27.0); Calcium 7.5 mg/dL (8.7-10.3); Carbon Dioxide 26.7 mmol/L (20.0-27.5); Non-African American GFR(CKD) 102.6 (60.0-200.0); Potassium 2.8 mmol/L (3.5-5.5)
[2022-11-28 12:14] LABS: Basophils # (A) 0.04 X 10*3/uL (0.00-0.10); Basophils % (A) 0.3 %; Eosinophils # (A) 0.04 X 10*3/uL (0.04-0.35); Eosinophils % (A) 0.3 %; HCT 31.1 % (37.2-46.3); Immature Grans, Automated 0.9 %; Lymphocytes # (A) 0.82 X 10*3/uL (0.90-5.00); Lymphocytes % (A) 6.2 %; MCH 29.8 pg (27.0-32.0); MCHC 32.2 g/dL (32.0-37.0); MCV 92.6 fL (80.0-97.0); Mean Platelet Volume 8.4 fL (9.5-12.2); Monocytes # (A) 0.93 X 10*3/uL (0.20-1.00); NRBC Per 100 WBC 0 /100 WBCS (0.0-0.0); Neutrophils # (A) 11.28 X 10*3/uL (1.80-7.70); Neutrophils % (A) 85.3 %; Platelet Count 203 X 10*3/uL (140-440); RBC 3.36 X 10*6/uL (4.10-5.20); WBC 13.23 X 10*3/uL (4.50-10.00)
[2022-11-28] MEDS: POTASSIUM CHLORIDE ER 20 MEQ TAB.ER PO SCH ×3 (12:39→15:52)
--- NOTE | 2022-11-28 13:26 | P.PN ---
Subjective Progress Note Date: 11/28/22 CHIEF COMPLAINT: Abdominal pain HISTORY OF PRESENT ILLNESS: Patient is postop day #9 status post exploratory laparotomy, lysis of extensive adhesions, ileocolectomy and partial omentectomy for small bowel obstruction secondary to adhesions and internal hernia at previous anastomotic site. Patient is now having purulent drainage at the incision site. She denies any increase in abdominal pain. Denies any nausea or vomiting. She is tolerating diet. Her stool is a little more formed. Afebrile. WBC is 14 down to 13 hgb 10 platelets 203 sodium is 1:30 potassiums 2.8 creatinine 0.4 mg 2.0 patient was given lactulose for retained stool in the colon. She did have good results. Overall doubt fecal impaction. Patient seen and examined with Dr. hall PHYSICAL EXAM: VITAL SIGNS: Reviewed. GENERAL: Well-developed in no acute distress. HEENT: No sclera icterus. Extraocular movements grossly intact. Moist buccal mucosa. Head is atraumatic, normocephalic. ABDOMEN: Soft. Mildly distended. Incision site now having drainage in the middle of the incision. Suture again protruding and was cut back to skin. NEUROLOGIC: Alert and oriented. Cranial nerves II through XII grossly intact. ASSESSMENT: 1. Small bowel obstruction secondary to adhesions and internal hernia status post exploratory laparotomy, lysis of extensive adhesions, ileocolectomy and partial omentectomy 2. Leukocytosis 3. Hyponatremia 4. Hypokalemia PLAN: -Continue IV Zosyn for leukocytosis -Continue to monitor incisional drainage -Replace potassium -Continue pain management -Continue on low fiber diet -Repeat CBC in a.m. and BMP in a.m. -Encouraged patient to increase activity level -Encouraged patient to use incentive spirometer -Social work is following the patient in regards to domestic issues in the home -Patient will need ECF at discharge -GI prophylaxis Protonix and DVT prophylaxis subcu heparin Physician Exterior Interior Specialist note has been reviewed by physician. Signing provider agrees with the documented findings, assessment, and plan of care. Objective - Vital Signs Vital signs: Vital Signs Temp 97.8 F 11/28/22 08:00 Pulse 90 11/28/22 08:00 Resp 16 11/28/22 08:00 BP 143/78 11/28/22 08:00 Pulse Ox 100 11/28/22 08:00 FiO2 Intake & Output 11/27/22 11/28/22 11/28/22 18:59 06:59 18:59 Output Total 295 Balance -295 Output: Urine 295 Other: Voiding Method Bedside Commode Bedside Commode # Voids 1 - Labs CBC & Chem 7: 11/28/22 06:06 11/28/22 06:06 Labs: Abnormal Lab Results - Last 24 Hours (Table) 11/28/22 11/28/22 Range/Units 06:06 06:06 WBC 13.23 H (4.50-10.00) X 10*3/uL RBC 3.36 L (4.10-5.20) X 10*6/uL Hgb 10.0 L (12.0-15.0) g/dL Hct 31.1 L (37.2-46.3) % MPV 8.4 L (9.5-12.2) fL Immature Gran # 0.12 H (0.00-0.04) X 10*3/uL Neutrophils # 11.28 H (1.80-7.70) X 10*3/uL Lymphocytes # 0.82 L (0.90-5.00) X 10*3/uL Sodium 130 L (135-145) mmol/L Potassium 2.8 L (3.5-5.5) mmol/L Chloride 95 L (96-109) mmol/L Anion Gap 8.30 L (10.00-18.00) mmol/L BUN 3.5 L (9.0-27.0) mg/dL Creatinine 0.4 L (0.6-1.5) mg/dL BUN/Creatinine Ratio 8.75 L (12.00-20.00) Ratio Calcium 7.5 L (8.7-10.3) mg/dL Microbiology - Last 24 Hours (Table) 11/26/22 19:50 Stool Culture - Preliminary Stool
--- NOTE | 2022-11-28 17:50 | P.PN ---
Subjective Progress Note Date: 11/28/22 Hospital course: Patient is a very pleasant 72-year-old female with a past medical history of small bowel obstruction, asthma, hyperlipidemia, and anxiety. She presented to the emergency department with a chief complaint of abdominal pain and reports of recurrent episodes of dark brown emesis on 11/17/22.. She underwent full evaluation in the emergency department. Initial labs were completed and reviewed with CBC revealing WBC count of 9.7, hemoglobin 15.2, and platelet count of 392. BMP revealing sodium 136, chloride 95, BUN 26, creatinine 0.61, and GFR of 90. Liver profile normal findings. Urinalysis was negative for infection. CT abdomen and pelvis was completed showing a high-grade small bowel obstruction was suggested transition point at the anastomosis in the mid left abdomen. Patient was admitted under our services with consultation to general surgery. Physical exam: Patient seen and fully evaluated at the bedside this morning. Patient does report continued liquid and soft stools. She denies any nausea or vomiting. Patient now having incisional drainage. Leukocytosis improving on IV antibiotic Zosyn. Vital signs reviewed and stable. General: Nontoxic, no distress and appears stated age. Derm: Skin warm and dry, normal coloration for ethnicity. Abdominal incision with evidence of serosanguineous drainage Head: Atraumatic, normocephalic and symmetric. Eyes: EOMs intact, no lid lag, and anicteric sclera Mouth: no lip lesions, mucus membranes moist Cardiovascular: regular rate and rhythm with normal S1S2, no murmur, positive posterior tibial pulses bilaterally, and cap refill < 2 seconds. Lungs: Respirations even, regular, and unlabored on room air. Lungs CTA bilater ally, no rhonchi, no rales, no wheezing, and no accessory muscle usage. Abdominal: Abdomen soft distended, nontender to palpation, no guarding, no appreciable organomegaly Ext: ROM intact. No gross muscle atrophy, scant lower extremity edema, no contractures Neuro: Speech clear, face symmetrical and CN II-XII grossly intact with no noted focal neuro deficits Psych: Alert and oriented to person, place, time, and situation. Appropriate and pleasant affect. Assessment and Plan of Care: Small bowel obstruction status post exploratory laparoscopic procedure with lysis of adhesions, ileocolectomy, and partial omentectomy. Incisional drainage Leukocytosis, improving Hypokalemia Hypomagnesemia Hyponatremia, improved -Morning labs reviewed. CBC showing improvement of leukocytosis with WBC count decreasing down to 13.23, hemoglobin stable at 10.0. BMP revealing hyponatremia with sodium 1:30, hypokalemia with potassium of 2.8, hypochloremia with chloride of 95, and resolution of hypomagnesemia with magnesium of 2.0.. -Stool culture pending. Clostridium difficile PCR negative -Today, patient noting to have small opening and drainage from surgical site -Patient remains on Zosyn 3.375 g every 8 hours. -Gen. surgery following, discussed plan of care with general surgery PA. We are to hold patient and monitor incisional drainage and continue IV antibiotics with Zosyn. -Potassium replaced with K-Dur 20 milliequivalents every 2 hours 3 doses totaling 60 mEq. -Order placed for repeat morning BMP, CBC, and magnesium, -Continue with symptomatic care and pain management with Dilaudid 1 mg every 3 hours as needed for severe pain/discomfort. -Continue Reglan 10 mg every 6 hours as needed for nausea vomiting. CODE STATUS: Full code DVT prophylaxis: Heparin Discussed with: Patient, RN, general surgery PA Anticipated discharge date: Clinical course to determine Anticipated discharge place: Patient requesting discharge to [facility] for rehab Patient was seen independently by Nurse Pracitioner. This document was prepared using [employer] dictation software. Please allow for errors in coastal tug mate, while rare they do occur. Objective - Vital Signs Vital signs: Vital Signs Temp 97.8 F 11/28/22 08:00 Pulse 90 11/28/22 08:00 Resp 16 11/28/22 08:00 BP 143/78 11/28/22 08:00 Pulse Ox 100 11/28/22 08:00 FiO2 Intake & Output 11/27/22 11/28/22 11/28/22 18:59 06:59 18:59 Other: Voiding Method Bedside Commode - Labs CBC & Chem 7: 11/28/22 06:06 11/28/22 06:06 Labs: Microbiology - Last 24 Hours (Table) 11/26/22 19:50 Stool Culture - Preliminary Stool
[2022-11-28] MEDS: ALPRAZolam 0.25 MG TAB PO PRN (21:01)
[2022-11-28] MEDS: ATORVASTATIN 10 MG TAB PO SCH (21:02)
[2022-11-29] MEDS: PIPERACILLIN-TAZOBACTAM 3.375 GM in SODIUM CHLORIDE 0.9% 100 ML IVPB SCH ×3 (00:15→16:17)
[2022-11-29] MEDS: SIMETHICONE 40 MG/0.6 ML DROPS 2,000 MG/30 ML BOTTLE PO SCH ×2 (09:15→13:31)
[2022-11-29] MEDS: ESCITALOPRAM 20 MG TAB PO SCH (09:16)
[2022-11-29] MEDS: HEPARIN SODIUM,PORCINE/PF 5,000 UNIT/0.5 ML SYRINGE SQ SCH ×3 (09:16→16:47)
[2022-11-29] MEDS: PANTOPRAZOLE 40 MG/10 ML VIAL IV SCH (09:16)
[2022-11-29] MEDS: NUVIGIL 250 MG PO SCH ×2 (09:18→13:00)
[2022-11-29 11:09] LABS: Basophils # (A) 0.01 X 10*3/uL (0.00-0.10); Basophils % (A) 0.1 %; Eosinophils # (A) 0.07 X 10*3/uL (0.04-0.35); Eosinophils % (A) 0.7 %; HCT 30.2 % (37.2-46.3); HGB 9.5 g/dL (12.0-15.0); Immature Grans, Automated 0.6 %; Lymphocytes % (A) 8.6 %; MCH 29.4 pg (27.0-32.0); MCHC 31.5 g/dL (32.0-37.0); MCV 93.5 fL (80.0-97.0); Mean Platelet Volume 8.4 fL (9.5-12.2); Monocytes # (A) 0.84 X 10*3/uL (0.20-1.00); NRBC Per 100 WBC 0 /100 WBCS (0.0-0.0); Neutrophils # (A) 8.56 X 10*3/uL (1.80-7.70); Platelet Count 230 X 10*3/uL (140-440); RBC 3.23 X 10*6/uL (4.10-5.20); WBC 10.44 X 10*3/uL (4.50-10.00)
[2022-11-29 11:18] LABS: African American GFR (CKD) 118.5 (60.0-200.0); BUN/Creat Ratio 9.26 Ratio (12.00-20.00); Blood Urea Nitrogen 3.7 mg/dL (9.0-27.0); Calcium 7.5 mg/dL (8.7-10.3); Carbon Dioxide 30.3 mmol/L (20.0-27.5); Non-African American GFR(CKD) 102.3 (60.0-200.0); Potassium 3.4 mmol/L (3.5-5.5)
[2022-11-29] MEDS ORDERED: POTASSIUM CHLORIDE ER 20 MEQ TAB.ER PO STA (12:52)
--- NOTE | 2022-11-29 14:06 | P.PN ---
Progress Note - Text Progress Note Date: 11/29/22 the patient states she feels better today. She denies any significant abdominal pain. She has had some flatus. She has not had any diarrhea today. On exam her vital signs are stable. Abdomen is soft incision is clean dry intact. Status post ileocolectomy for bowel obstruction. Patient is surgically stable. Anticipate discharge in the next 24 to 48 hours.
[2022-11-29 14:31] VITALS: BP 133/74; PULSE 90; RESP 18; TEMP 98.3
[2022-11-29] MEDS: traMADol 50 MG TAB PO PRN (16:35)
--- NOTE | 2022-11-29 16:37 | P.DS ---
Providers Date of admission: 11/18/22 17:14 Expected date of discharge: 11/29/22 Attending physician: Rachelle Geller MD Consults: 11/17/22 23:46 Consult Physician Urgent Consulting Provider: Martín Bautista Consult Reason/Comments: Acute abd pain, history of small bowel obstruction Do you want consulting provider notified?: Yes Primary care physician: Luis Angel Greer Hospital Course: Discharge Diagnosis: Small bowel obstruction status post exploratory laparoscopic procedure with lysis of adhesions, ileocolectomy, and partial omentectomy. Resolved. Patient to continue to follow up outpatient with general surgery. Incisional drainage Leukocytosis, improving. WBCs significantly improved with only mild leukocytosis upon discharge with RBC count of 10.44. Patient discharged with an additional 4 days of antibiotics with Augmentin to total a treatment course of 7 days. Hypokalemia, replaced and patient was sent home on on K-Dur 10 milliequivalents daily. Hypomagnesemia, resolved Hyponatremia, resolved Fecal impaction, resolved. Hospital Course: Patient is a very pleasant 72-year-old female with a past medical history of small bowel obstruction, asthma, hyperlipidemia, and anxiety. She presented to the emergency department with a chief complaint of abdominal pain and reports of recurrent episodes of dark brown emesis on 11/17/22.. She underwent full evaluation in the emergency department. Initial labs were completed and reviewed with CBC revealing WBC count of 9.7, hemoglobin 15.2, and platelet count of 392. BMP revealing sodium 136, chloride 95, BUN 26, creatinine 0.61, and GFR of 90. Liver profile normal findings. Urinalysis was negative for infection. CT abdomen and pelvis was completed showing a high-grade small bowel obstruction was suggested transition point at the anastomosis in the mid left abdomen. Patient was admitted under our services with consultation to general surgery. Patient was medically managed for small bowel obstruction with conservative measures and diet slowly increased resulting in resolution of small bowel obstruction. She did have an episode of leukocytosis in which her WBCs slowly trended upward to a high of 18.95. Patient showed no signs of illness or infection, she was started on IV antibiotics with Zosyn empirically and underwent CT abdomen and pelvis with oral contrast which confirmed resolution of previous noted small bowel obstruction however revealed development of fecal impaction requiring additional medical management/conservative measures for treatment. Leukocytosis significantly improved and current WBC count is stable at 10.44. Discussed in detail with general surgeon. Patient is medically stable for discharge at this time and to continue four-day course of Augmentin to total a treatment course of 7 days. Patient to follow up outpatient with PCP and general surgery. Patient discharged to [facility] for rehab. Physical exam: Vital signs reviewed and stable. General: Nontoxic, no distress and appears stated age. Derm: Skin warm and dry, normal coloration for ethnicity. Abdominal incision with evidence of serosanguineous drainage Head: Atraumatic, normocephalic and symmetric. Eyes: EOMs intact, no lid lag, and anicteric sclera Mouth: no lip lesions, mucus membranes moist Cardiovascular: regular rate and rhythm with normal S1S2, no murmur, positive posterior tibial pulses bilaterally, and cap refill < 2 seconds. Lungs: Respirations even, regular, and unlabored on room air. Lungs CTA bilaterally, no rhonchi, no rales, no wheezing, and no accessory muscle usage. Abdominal: Abdomen soft distended, nontender to palpation, no guarding, no appreciable organomegaly Ext: ROM intact. No gross muscle atrophy, scant lower extremity edema, no contractures Neuro: Speech clear, face symmetrical and CN II-XII grossly intact with no noted focal neuro deficits Psych: Alert and oriented to person, place, time, and situation. Appropriate and pleasant affect. A total of 32 minutes of time were spent preparing this complex discharge summary. Pt was discharged on 11/29/22 at 2:57 PM Patient was seen independently by Nurse Practitioner. This document was prepared using [employer] dictation software. Please allow for errors in chief deputy coroner while rare they do occur. Patient Condition at Discharge: Stable Plan - Discharge Summary New Discharge Prescriptions: New Simethicone 40 mg/0.6 ml Drops [Mylicon Drops] 40 mg PO QID ml Amoxic-Pot Clav 500-125 mg [Augmentin 500-125 mg] 1 tab PO Q12HR 4 Days #8 tab Acetaminophen Tab [Tylenol] 650 mg PO Q6HR PRN tab PRN Reason: Fever And/ Or Pain traMADol HCl [Ultram] 50 mg PO QID PRN #12 tab PRN Reason: Pain Continue Simvastatin [Zocor] 20 mg PO HS Escitalopram [Lexapro] 20 mg PO DAILY armodafiniL [Armodafinil] 250 mg PO DAILY Sennosides [Senokot] 8.6 mg PO BID #120 tab Discharge Medication List Escitalopram [Lexapro] 20 mg PO DAILY 04/09/17 [History] Simvastatin [Zocor] 20 mg PO HS 04/09/17 [History] armodafiniL [Armodafinil] 250 mg PO DAILY 06/25/21 [History] Sennosides [Senokot] 8.6 mg PO BID #120 tab 11/09/22 [Rx] Acetaminophen Tab [Tylenol] 650 mg PO Q6HR PRN tab 11/29/22 [Rx] Amoxic-Pot Clav 500-125 mg [Augmentin 500-125 mg] 1 tab PO Q12HR 4 Days #8 tab 11/29/22 [Rx] Simethicone 40 mg/0.6 ml Drops [Mylicon Drops] 40 mg PO QID ml 11/29/22 [Rx] traMADol HCl [Ultram] 50 mg PO QID PRN #12 tab 11/29/22 [Rx] Follow up Appointment(s)/Referral(s): Luis Angel Greer DO [Primary Care Provider] - 1-2 days Martín Bautista MD [STAFF PHYSICIAN] - 1 Week Discharge/Stand Alone Forms: Who Do I Call?, Outpatient Counseling Discharge Disposition: TRANSFER TO SNF/ECF
== END 2022-11-29 16:48 | DRG 330 ==
LOC: EC 20:11 → 6NMEDSUR 23:46 → OBSVTOIN 11-18 17:14 → 6NMEDSUR 11-29 00:11
PROVIDERS: ADMIT Internal Medicine; ATTEND Internal Medicine
PROC: 0DBU0ZZ Excision of Omentum, Open Approach (ICD-10-PCS; 2022-11-19)
PROC: 0DNU0ZZ Release Omentum, Open Approach (ICD-10-PCS; 2022-11-19)
PROC: 3E0T3BZ Introduction of Anesthetic Agent into Peripheral Nerves and Plexi, Percutaneous Approach (ICD-10-PCS; 2022-11-19)
PROC: 0DTF0ZZ Resection of Right Large Intestine, Open Approach (ICD-10-PCS; principal; 2022-11-19 10:10)
DX: K56.51 Intestinal adhesions [bands], with partial obstruction (principal); E87.1 Hypo-osmolality and hyponatremia; K46.0 Unspecified abdominal hernia with obstruction, without gangrene; Q43.8 Other specified congenital malformations of intestine; E83.51 Hypocalcemia; J45.20 Mild intermittent asthma, uncomplicated; K56.41 Fecal impaction; E78.5 Hyperlipidemia, unspecified; G89.29 Other chronic pain; M54.50 Low back pain, unspecified; M41.9 Scoliosis, unspecified; R00.0 Tachycardia, unspecified; E86.0 Dehydration; R60.0 Localized edema; E83.42 Hypomagnesemia; D72.828 Other elevated white blood cell count; E87.6 Hypokalemia; Z88.2 Allergy status to sulfonamides; Z98.1 Arthrodesis status; Z88.1 Allergy status to other antibiotic agents; Z91.041 Radiographic dye allergy status; Z91.048 Other nonmedicinal substance allergy status; Z91.040 Latex allergy status; Z88.4 Allergy status to anesthetic agent; Z79.899 Other long term (current) drug therapy; Z80.1 Family history of malignant neoplasm of trachea, bronchus and lung
CPT/HCPCS: 36415; 64999; 71046; 74018; 74176; 80048; 80053; 81001; 83605; 83690; 83735; 83880; 85025; 85027; 87045; 87046; 87324; 87493; 87635; 88307; 94760; 96361; 96374; 96375; 99285

== ENCOUNTER 2023-02-06 17:01 | Emergency (ER) | payer MEDICARE, OTHER ==
[2023-02-06 17:14] VITALS: RESP 16
--- NOTE | 2023-02-06 17:20 | ED ---
General Adult HPI - General Chief complaint: Wound/Laceration Stated complaint: laceration R finger Time Seen by Provider: 02/06/23 17:19 Source: patient, RN notes reviewed Mode of arrival: wheelchair Limitations: no limitations - History of Present Illness Initial comments: Patient is a pleasant 72-year-old female presenting to the emergency room after accidentally cutting fourth digit on her right hand open wall cleaning the interior pain of a shelving unit. She reports that she has a contracted trigger finger which prevents her from adequately moving the digit at the base however she denies any range of motion impairment at the tip of her finger. She is having excessive bleeding which has continued since her arrival due to her hemophilia history. She denies any recent need for factor administration. She denies any known contaminant or foreign body concern. She denies any other injuries. In addition to her hemophilia and trigger finger she has a past medical history significant for asthma, hyperlipidemia, small bowel obstruction with resection in November of this year, chronic back pain and hyperlipidemia. - Related Data Home Medications Medication Instructions Recorded Confirmed Escitalopram [Lexapro] 20 mg PO DAILY 04/09/17 11/18/22 Simvastatin [Zocor] 20 mg PO HS 04/09/17 11/18/22 Previous Rx's Medication Instructions Recorded Sennosides [Senokot] 8.6 mg PO BID #120 tab 11/09/22 Acetaminophen Tab [Tylenol] 650 mg PO Q6HR PRN tab 11/29/22 Amoxic-Pot Clav 500-125 mg 1 tab PO Q12HR 4 Days #8 tab 11/29/22 [Augmentin 500-125 mg] Potassium Chloride [Klor-Con M10] 10 meq PO DAILY #30 tab 11/29/22 Simethicone 40 mg/0.6 ml Drops 40 mg PO QID ml 11/29/22 [Mylicon Drops] armodafiniL [Armodafinil] 250 mg PO DAILY #3 tab 11/29/22 traMADol HCl [Ultram] 50 mg PO QID PRN #12 tab 11/29/22 Allergies Allergy/AdvReac Type Severity Reaction Status Date / Time latex Allergy Severe Rash/Hives Verified 11/19/22 09:27 bupivacaine [From Marcaine] Allergy Anaphylaxis Verified 11/19/22 09:27 coconut Allergy Rash/Hives Verified 11/19/22 09:27 Iodinated Contrast Media Allergy Anaphylaxis Verified 11/19/22 09:27 [Iodinated Contrast- Oral and IV Dye] Sulfa (Sulfonamide Allergy Anaphylaxis Verified 11/19/22 09:27 Antibiotics) sulfamethoxazole Allergy Anaphylaxis Verified 11/19/22 09:27 [From Bactrim] trimethoprim [From Bactrim] Allergy Anaphylaxis Verified 11/19/22 09:27 Review of Systems ROS Statement: Those systems with pertinent positive or pertinent negative responses have been documented in the HPI. ROS Other: All systems not noted in ROS Statement are negative. 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 Past Anesthesia/Blood Transfusion Reactions: No Reported Reaction Additional Past Anesthesia/Blood Transfusion Reaction / Comment(s): 1962 pt had blood transfusion- states no reaction Past Psychological History: Anxiety, Depression Smoking Status: Never smoker Past Alcohol Use History: None Reported Past Drug Use History: None Reported - Past Family History Father Family Medical History: Cancer Additional Family Medical History / Comment(s): lung cancer Mother Family Medical History: Cancer, Dementia Additional Family Medical History / Comment(s): leukemia General Exam Limitations: no limitations General appearance: alert, in no apparent distress Head exam: Present: atraumatic, normocephalic, normal inspection Eye exam: Present: normal appearance, PERRL, EOMI. Absent: scleral icterus, conjunctival injection, periorbital swelling ENT exam: Present: normal exam, mucous membranes moist Neck exam: Present: normal inspection, full ROM Respiratory exam: Absent: respiratory distress, accessory muscle use Cardiovascular Exam: Present: tachycardia (mild) Right Hand Wrist exam: Present: tenderness, laceration. Absent: full ROM (trigger f cindy limiting flexion and extension of 4th digit), ecchymosis, nail avulsion, subungual hematoma Vascular: Present: normal capillary refill. Absent: vascular compromise Back exam: Present: normal inspection Neurological exam: Present: alert, oriented X3, CN II-XII intact Psychiatric exam: Present: normal affect, normal mood Skin exam: Present: other (laceration as above) Course Vital Signs 02/06/23 02/06/23 17:10 18:45 Temperature 97.9 F 98 F Pulse Rate 120 H 97 Respiratory 16 16 Rate Blood Pressure 95/49 101/65 O2 Sat by Pulse 97 97 Oximetry Procedures - Laceration Laceration #1 Site: hand (4th digit palmar aspect distal ) Size (cm): 2 (2.5) Description: flap Depth: simple, single layer Anesthetic Used: lidocaine 1% Anesthesia Technique: nerve block Amount (mls): 2 Pre-repair: wound explored, irrigated extensively, deep structures intact Type of Sutures: nylon Size of Sutures: 4-0 Number of Sutures: 6 Technique: simple, interrupted Patient Tolerated Procedure: well, no complications Medical Decision Making - Medical Decision Making Was pt. sent in by a medical professional or institution (, PA, REPLENISHMENT MERCHANDISING ASSOCIATE, urgent care, hospital, or intermediate...) When possible be specific @ -No Did you speak to anyone other than the patient for history (EMS, parent, family, police, friend...)? What history was obtained from this source @ -No Did you review nursing and triage notes (agree or disagree)? Why? @ -I reviewed and agree with nursing and triage notes Were old charts reviewed (outside hosp., previous admission, EMS record, old EKG, old radiological studies, urgent care reports/EKG's, intermediate records)? Report findings @ -No old charts were reviewed Differential Diagnosis (chest pain, altered mental status, abdominal pain women, abdominal pain men, vaginal bleeding, weakness, fever, dyspnea, syncope, headache, dizziness, GI bleed, back pain, seizure, CVA, palpatations, mental health, musculoskeletal)? @ -not applicable EKG interpreted by me (3pts min.). @ -None done X-rays interpreted by me (1pt min.). @ -None done CT interpreted by me (1pt min.). @ -None done U/S interpreted by me (1pt. min.). @ -None done What testing was considered but not performed or refused? (CT, X-rays, U/S, lab s)? Why? @ -None What meds were considered but not given or refused? Why? @ -None Did you discuss the management of the patient with other professionals (professionals i.e. , PA, REPLENISHMENT MERCHANDISING ASSOCIATE, lab, RT, psych nurse, older adult social work specialist, garage door hanger, teacher, liaison officer, caser)? Give summary @ -No Was smoking cessation discussed for >3mins.? @ -No Was critical care preformed (if so, how long)? @ -No Were there social determinants of health that impacted care today? How? (Homelessness, low income, unemployed, alcoholism, drug addiction, transportation, low edu. Level, literacy, decrease access to med. care, assisted, rehab)? @ -No Was there de-escalation of care discussed even if they declined (Discuss DNR or withdrawal of care, Hospice)? DNR status @ -No What co-morbidities impacted this encounter? (DM, HTN, Smoking, COPD, CAD, Cancer, CVA, ARF, Chemo, Hep., AIDS, mental health diagnosis, sleep apnea, morbid obesity)? @ -None Was patient admitted / discharged? Hospital course, mention meds given and route, prescriptions, significant lab abnormalities, going to OR and other pertinent info. @ -72-year-old female presenting to the emergency room if laceration to the palmar aspect of the distal portion of her fourth digit on right hand after accidentally cutting it on the edge of glass while she was cranial. She denies any breaks in the glass causing any foreign bodies or contaminants. She reports her tetanus vaccination is up-to-date. She has been bleeding more than expected secondary to her hemophilia status however there is no indication for any laboratory studies. No indication for any diagnostic imaging. Will proceed with laceration closure via digital block. Laceration closure tolerated well. Bleeding well controlled with dressing applied. Wound care and suture removal discussed. Advised return to the emergency room in 7-10 days for suture removal. Encouraged continued use of bandages to prevent irritation and further bleeding in the setting of her hemophilia status. Questions and concerns answered. Return parameters to the emergency room discussed. Will discharge home with sutures and dressing intact to right fourth digit laceration advising return to emergency room in 7-10 days for suture removal, localized wound care and follow-up with primary care provider as needed. Undiagnosed new problem with uncertain prognosis? @ -No Drug Therapy requiring intensive monitoring for toxicity (Heparin, Nitro, Insulin, Cardizem)? @ -No Were any procedures done? @ -Yes, laceration closure he procedures for details Diagnosis/symptom? @ -Laceration to right fourth digit Acute, or Chronic, or Acute on Chronic? @ -Acute Uncomplicated (without systemic symptoms) or Complicated (systemic symptoms)? @ -Complicated, increased bleeding due to hemophilia status bleeding controlled without need for laboratory studies were medication administration. Side effects of treatment? @ -No Exacerbation, Progression, or Severe Exacerbation? @ -No Poses a threat to life or bodily function? How? (Chest pain, [place], [place], pneumonia, PE, COPD, DKA, ARF, appy, cholecystitis, CVA, Diverticulitis, Homicidal, Suicidal, threat to staff... and all critical care pts) @ -No Case discussed with Dr. Segura Disposition Clinical Impression: Laceration Disposition: HOME SELF-CARE Condition: Stable Instructions (If sedation given, give patient instructions): Care For Your Stitches (ED), Laceration (ED) Additional Instructions: Please keep wound clean and dry. Due to the ER hemophilia recommend keeping wound covered to prevent bumping and irritating causing further bleeding. Monitor for signs and symptoms of infection and seek medical attention as appropriate if symptoms occur. Please return to the emergency department for suture removal in 7-10 days. Follow-up with your primary care provider as needed. Please return to the Emergency Department if symptoms worsen or any other concerns. Is patient prescribed a controlled substance at d/c from ED?: No Referrals: Rukhsana Ji MD [Primary Care Provider] - 1-2 days Time of Disposition: 18:35
[2023-02-06] MEDS ORDERED: LIDOCAINE 1% INJ 10MG/ML (20 ML MDV) SQ ONE (17:37)
[2023-02-06 18:46] VITALS: BP 101/65; PULSE 97; TEMP 98
== END 2023-02-06 18:54 | disposition home or self-care (01) ==
LOC: EC 17:01
DX: S61.214A Laceration without foreign body of right ring finger without damage to nail, initial encounter (principal); J45.909 Unspecified asthma, uncomplicated; F41.9 Anxiety disorder, unspecified; F32.A Depression, unspecified; Z79.899 Other long term (current) drug therapy; Z88.1 Allergy status to other antibiotic agents; Z88.2 Allergy status to sulfonamides; Z91.040 Latex allergy status; Z91.041 Radiographic dye allergy status; Z88.8 Allergy status to other drugs, medicaments and biological substances; Z91.018 Allergy to other foods; W26.8XXA Contact with other sharp object(s), not elsewhere classified, initial encounter
CPT/HCPCS: 99282; 12001; J2001

== ENCOUNTER → 2023-05-16 | Outpatient (CLI) | payer MEDICARE, OTHER ==
--- NOTE | 2023-05-17 05:44 | MR ---
EXAMINATION TYPE: MR lumbar spine wo/w con DATE OF EXAM: 05/16/2023 COMPARISON: Prior MRI lumbar spine February 28, 2017. CT abdomen and pelvis November 26, 2022 HISTORY: Low back pain, Hx lumbar surgery and tracheobronchial stent TECHNIQUE: Multiplanar, multisequence images of the lumbar spine is performed without and with IV contrast, util izing 4 mL intravenous Gadobutrol FINDINGS: There is dextroconvex scoliosis centered in the mid to lower thoracic spine redemonstrated. Sagittal images of the lumbar spine show artifact from postsurgical change at L3-L5 levels. The inte rvertebral discs demonstrate multilevel disc desiccation with disc space heights are preserved above L3 level. The conus medullaris remains normal in position and signal ending mid L1 level. The bone marrow signal intensity is within normal limits above and below surgical levels. No suspicious postco ntrast enhancement is seen. Axial images show T12-L1 and L1-L2 levels to appear within normal limits. Axial images at L2-L3 level show mild broad disc bulge minimally effacing the anterior thecal sac new from prior MRI. Bilateral neural foramina are patent. Artifact from surgical change is beginning at this level. Axial images at L3-L4 and L4-L5 levels are nondiagnostic due to artifact. Axial images at L5-S1 level show some artifact from postsurgical change along with broad-based right paracentral disc protrusion and mild to moderate facet arthropathy and ligamentum flavum hypertrophy. There is mild effacement of the anterolateral and right lateral thecal sac. There is likely asymmetr ic [id number] right-sided inferior neural foraminal narrowing but there is artifact degradation present on sagittal images to confirm. Left-sided neural foramen is patent. IMPRESSION: Persistent scoliosis. There is new Surgical change L3-L5 levels makes evaluation suboptim al. Degenerative change L2-L3 and L5-S1 levels is now present as detailed above.
== END | disposition home or self-care (01) ==
LOC: RADMRIMAIN 20:15
PROVIDERS: ATTEND Physical Medicine & Rehabilitation
DX: M48.062 Spinal stenosis, lumbar region with neurogenic claudication (principal); M43.16 Spondylolisthesis, lumbar region; M51.17 Intervertebral disc disorders with radiculopathy, lumbosacral region; M47.817 Spondylosis without myelopathy or radiculopathy, lumbosacral region; M41.86 Other forms of scoliosis, lumbar region
CPT/HCPCS: 72158; A9585

== ENCOUNTER 2023-09-02 13:43 | Emergency (ER) | payer MEDICARE, OTHER ==
[2023-09-02 14:04] VITALS: TEMP 98.2
--- NOTE | 2023-09-02 14:06 | ED ---
URI HPI - General Chief Complaint: Upper Respiratory Infection Stated Complaint: SOB Time Seen by Provider: 09/02/23 13:47 Source: patient, RN notes reviewed Mode of arrival: ambulatory Limitations: no limitations - History of Present Illness Initial Comments: 73-year-old female presents emergency department chief complaint of cough and congestion. Patient states been sick for last 2 to 3 days. She has a minimally productive cough. Patient complains of fevers chills and bodyaches. She states she has not history of mild asthma. Patient denies any abdominal pain denies any sick contacts no leg swelling or pain - Related Data Home Medications Medication Instructions Recorded Confirmed Escitalopram [Lexapro] 20 mg PO DAILY 04/09/17 11/18/22 Simvastatin [Zocor] 20 mg PO HS 04/09/17 11/18/22 Previous Rx's Medication Instructions Recorded Sennosides [Senokot] 8.6 mg PO BID #120 tab 11/09/22 Acetaminophen Tab [Tylenol] 650 mg PO Q6HR PRN tab 11/29/22 Amoxic-Pot Clav 500-125 mg 1 tab PO Q12HR 4 Days #8 tab 11/29/22 [Augmentin 500-125 mg] Potassium Chloride [Klor-Con M10] 10 meq PO DAILY #30 tab 11/29/22 Simethicone 40 mg/0.6 ml Drops 40 mg PO QID ml 11/29/22 [Mylicon Drops] armodafiniL [Armodafinil] 250 mg PO DAILY #3 tab 11/29/22 traMADol HCl [Ultram] 50 mg PO QID PRN #12 tab 11/29/22 Allergies Allergy/AdvReac Type Severity Reaction Status Date / Time latex Allergy Severe Rash/Hives Verified 11/19/22 09:27 bupivacaine [From Marcaine] Allergy Anaphylaxis Verified 11/19/22 09:27 coconut Allergy Rash/Hives Verified 11/19/22 09:27 Iodinated Contrast Media Allergy Anaphylaxis Verified 11/19/22 09:27 [Iodinated Contrast- Oral and IV Dye] Sulfa (Sulfonamide Allergy Anaphylaxis Verified 11/19/22 09:27 Antibiotics) sulfamethoxazole Allergy Anaphylaxis Verified 11/19/22 09:27 [From Bactrim] trimethoprim [From Bactrim] Allergy Anaphylaxis Verified 11/19/22 09:27 Review of Systems ROS Statement: Those systems with pertinent positive or pertinent negative responses have been documented in the HPI. ROS Other: All systems not noted in ROS Statement are negative. 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 Past Anesthesia/Blood Transfusion Reactions: No Reported Reaction Additional Past Anesthesia/Blood Transfusion Reaction / Comment(s): 1961 pt had blood transfusion- states no reaction Past Psychological History: Anxiety, Depression Smoking Status: Never smoker Past Alcohol Use History: None Reported Past Drug Use History: None Reported - Past Family History Father Family Medical History: Cancer Additional Family Medical History / Comment(s): lung cancer Mother Family Medical History: Cancer, Dementia Additional Family Medical History / Comment(s): leukemia General Exam Limitations: no limitations General appearance: alert, in no apparent distress Head exam: Present: atraumatic, normocephalic, normal inspection Eye exam: Present: normal appearance, PERRL, EOMI. Absent: scleral icterus, conjunctival injection, periorbital swelling ENT exam: Present: normal exam, normal oropharynx, mucous membranes moist Neck exam: Present: normal inspection. Absent: tenderness, meningismus, lymphadenopathy Respiratory exam: Present: normal lung sounds bilaterally. Absent: respiratory distress, wheezes, rales, rhonchi, stridor Cardiovascular Exam: Present: regular rate, normal rhythm, normal heart sounds. Absent: systolic murmur, diastolic murmur, rubs, gallop, clicks GI/Abdominal exam: Present: soft, normal bowel sounds. Absent: distended, tenderness, guarding, rebound, rigid Course Vital Signs 09/02/23 13:58 Temperature 98.2 F Pulse Rate 100 Respiratory 20 Rate Blood Pressure 95/62 O2 Sat by Pulse 96 Oximetry Medical Decision Making - Medical Decision Making Was pt. sent in by a medical professional or institution (, PA, FAMILY AND MARRIAGE COUNSELLOR, urgent care, hospital, or half-way...) When possible be specific @ -No Did you speak to anyone other than the patient for history (EMS, parent, family, police, friend...)? What history was obtained from this source @ -No Did you review nursing and triage notes (agree or disagree)? Why? @ -I reviewed and agree with nursing and triage notes Were old charts reviewed (outside hosp., previous admission, EMS record, old EKG, old radiological studies, urgent care reports/EKG's, half-way records)? Report findings @ -No old charts were reviewed Differential Diagnosis (chest pain, altered mental status, abdominal pain women, abdominal pain men, vaginal bleeding, weakness, fever, dyspnea, syncope, headache, dizziness, GI bleed, back pain, seizure, CVA, palpatations, mental health, musculoskeletal)? @ -[COVID 19, RSV, influenza, pneumonia, acute bronchitis, URI, this list is not all inclusive EKG interpreted by me (3pts min.). @ -None X-rays interpreted by me (1pt min.). @ -[Chest x-ray shows no evidence of infiltrate, COPD changes CT interpreted by me (1pt min.). @ -[None done U/S interpreted by me (1pt. min.). @ -None done What testing was considered but not performed or refused? (CT, X-rays, U/S, labs)? Why? @ -None What meds were considered but not given or refused? Why? @ -None Did you discuss the management of the patient with other professionals (professionals i.e. , PA, FAMILY AND MARRIAGE COUNSELLOR, lab, RT, psych nurse, social worker palliative care, pawn shop keeper, teacher, radio officer, case folder)? Give summary @ -No Was smoking cessation discussed for >3mins.? @ -No Was critical care preformed (if so, how long)? @ -No Were there social determinants of health that impacted care today? How? (Homelessness, low income, unemployed, alcoholism, drug addiction, transportation, low edu. Level, literacy, decrease access to med. care, longterm, rehab)? @ -No Was there de-escalation of care discussed even if they declined (Discuss DNR or withdrawal of care, Hospice)? DNR status @ -No What co-morbidities impacted this encounter? (DM, HTN, Smoking, COPD, CAD, Cancer, CVA, ARF, Chemo, Hep., AIDS, mental health diagnosis, sleep apnea, morbid obesity)? @ -[Asthma, COPD Was patient admitted / discharged? Hospital course, mention meds given and route, prescriptions, significant lab abnormalities, going to OR and other pertinent info. @ -Discharge patient is influenza A positive no signs of hypoxia, pneumonia. Patient discharged in stable condition return brands were discussed. Patient states that her blood pressure is normal for her. Undiagnosed new problem with uncertain prognosis? @ -No Drug Therapy requiring intensive monitoring for toxicity (Heparin, Nitro, Insulin, Cardizem)? @ -No Were any procedures done? @ -No Diagnosis/symptom? @ -[Influenza A Acute, or Chronic, or Acute on Chronic? @ -Acute Uncomplicated (without systemic symptoms) or Complicated (systemic symptoms)? @ -[Uncomplicated Side effects of treatment? @ -[No Exacerbation, Progression, or Severe Exacerbation? @ -No Poses a threat to life or bodily function? How? (Chest pain, [place], [place], pneumonia, PE, COPD, DKA, ARF, appy, cholecystitis, CVA, Diverticulitis, Homicidal, Suicidal, threat to staff... and all critical care pts) @ -No - Lab Data Lab Results 09/02/23 Range/Units 14:12 Influenza Type A (PCR) Detected A (Not Detectd) Influenza Type B (PCR) Not Detected (Not Detectd) RSV (PCR) Not Detected (Not Detectd) SARS-CoV-2 (PCR) Not Detected (Not Detectd) Disposition Clinical Impression: Influenza Disposition: HOME SELF-CARE Condition: Stable Instructions (If sedation given, give patient instructions): Influenza (ED) Additional Instructions: Please return to the Emergency Department if symptoms worsen or any other concerns. Is patient prescribed a controlled substance at d/c from ED?: No Referrals: Rukhsana Ji MD [Primary Care Provider] - 1-2 days Time of Disposition: 15:20
--- NOTE | 2023-09-02 14:51 | XR ---
EXAMINATION TYPE: XR chest 2V DATE OF EXAM: 09/02/2023 COMPARISON: 11/25/2022 HISTORY: 73-year-old female with cough TECHNIQUE: AP and lateral views FINDINGS: ACDF hardware. Posterior lumbar fusion hardware. Dextroconvex scoliosis. There appears to be a right bronchial stent present. Some focal right middle lobe opacity on the lateral view probably atelectasis. There is blunting of t he right lateral costophrenic angle probably reflecting some pleural parenchymal scarring. Hyperinflation. Heart upper limits of normal in size. IMPRESSION: 1. COPD. Marked dextr convex scoliosis. Suspect some chronic residual atelectasis right middle lobe. 2. Chronic blunting right lateral costophrenic angle, probably pleural parenchymal scarring. 3. No definite acute process.
[2023-09-02 16:14] VITALS: BP 108/65; PULSE 98; RESP 18
== END 2023-09-02 15:52 | disposition home or self-care (01) ==
LOC: EC 13:43
DX: J10.1 Influenza due to other identified influenza virus with other respiratory manifestations (principal); J44.89 Other specified chronic obstructive pulmonary disease; E78.5 Hyperlipidemia, unspecified; F41.9 Anxiety disorder, unspecified; F32.A Depression, unspecified; Z20.822 Contact with and (suspected) exposure to COVID-19; Z79.899 Other long term (current) drug therapy; Z88.1 Allergy status to other antibiotic agents; Z88.2 Allergy status to sulfonamides; Z88.8 Allergy status to other drugs, medicaments and biological substances; Z91.041 Radiographic dye allergy status; Z91.040 Latex allergy status; Z91.018 Allergy to other foods
CPT/HCPCS: 71046; 87636; 99285